=== PATIENT | female | born 1940 | race American Indian/Alaskan Native ===

== ENCOUNTER 2017-03-05 10:42 | Outpatient (CLI) | payer MEDICARE ==
--- NOTE | 2017-03-05 13:26 | Mammography Report ---
BILATERAL MAMMOGRAM with CAD: HISTORY:Cancer screening. Comparison study is dated February 26, 2016. FINDINGS: The breasts are almost entirely fat (<25% glandular). No mass, distortion, suspicious calcification, or skin change is seen. Stable benign calcifications are noted. IMPRESSION: Negative mammogram. There is no mammographic evidence of malignancy. RECOMMENDATION: Follow-up per ACS guidelines. BI-RADS CATEGORY: 1 = Negative ACR BI-RADS MAMMOGRAPHIC CODES: 0 = Needs additional imaging evaluation; 1 = Negative; 2 = Benign; 3 = Probably benign; 4 = Suspicious; 5 = Malignant; 6 = Known biopsy-proven malignancy COMMENT: 1. Dense breast tissue, i.e., adenosis, fibrocystic changes, etc., may obscure an underlying neoplasm. 2. Approximately 10% of cancers are not detected with mammography. 3. A negative mammography report should not delay biopsy if a clinically suspicious mass is present. COMMENT: Patient follow-up letters are generated in [employer].
== END 2017-03-05 10:43 | disposition home or self-care (01) ==
LOC: MAMMO 10:42
DX: Z12.31 Encounter for screening mammogram for malignant neoplasm of breast (principal)
CPT/HCPCS: 77067; G0202

== ENCOUNTER 2017-12-29 07:50 | Day surgery (SDC) | payer MEDICARE ==
[2017-12-29] MEDS ORDERED: NACL 0.9% 1000 ML 1,000 ML ONE (08:11)
[2017-12-29] MEDS ORDERED: NACL 0.9% 1000 ML 1,000 ML IV SCH (09:00)
[2017-12-29] MEDS ORDERED: WATER FOR IRRIG STERILE IR ONE (09:46)
--- NOTE | 2017-12-29 09:58 | Anesthesia Day of Surgery ---
Anesthesia Day of Surgery - Day of Surgery Patient Examined: Yes Patient H&P Reviewed: Yes Patient is NPO: Yes
--- NOTE | 2017-12-29 09:58 | Anesthesia Consultation ---
Anesthesia Consult and Med Hx Date of service: 12/29/17 - Airway Anesthetic Teeth Evaluation: Edentulous ROM Head & Neck: Adequate Mental/Hyoid Distance: Adequate Mallampati Class: Class I Intubation Access Assessment: Probably Good - Pre-Operative Health Status ASA Pre-Surgery Classification: ASA3 Proposed Anesthetic Plan: General - Pulmonary Hx Smoking: No Hx Asthma: Yes COPD: No Hx Pneumonia: No Hx Sleep Apnea: No - Cardiovascular System Hx Hypertension: Yes - Central Nervous System Hx Psychiatric Problems: No - Endocrine Hx Insulin Dependent Diabetes: Yes - Hematic Hx Anemia: Yes - Other Systems Hx Cancer: Yes (colon) Hx Obesity: Yes - Additional Comments Anesthesia Medical History Comments: NAC
[2017-12-29] MEDS ORDERED: DIPRIVAN 10 MG/ML IV ONE ×2 (10:01)
--- NOTE | 2017-12-29 10:02 | Short Stay Summary ---
Short Stay Documentation Date of service: 12/29/17 Narrative H&P: 77 year old presenting for EGD to follow up Fulton's and for colonoscopy in view of a history of colon polyps. - History Principal diagnosis: Fulton's esophagus, personal hx colon polyps H&P: obtained from office Past Medical History: COPD (asthma), diabetes, hypertension Past Surgical History: hysterectomy, bowel surgery - Allergies and Medications Current Medications: Allergies latex Allergy (Verified 12/29/17 08:16) Itching Home Medications Medication Instructions Recorded Confirmed Last Taken Type Amlodipine Besylate/Benazepril 1 cap PO DAILY 09/18/15 12/29/17 12/29/17 06:30 History [Amlodipine-Benazepril 5-20 mg] Aspirin BABY CHEW TAB 81 mg PO DAILY 09/18/15 12/29/17 12/22/17 17:00 History Hydrochlorothiazide 1 tab PO DAILY 09/18/15 12/29/17 12/26/17 09:00 History Insulin Aspart Protam & Aspart 50 units SC QAM 09/18/15 12/29/17 12/27/17 08:00 History [NovoLOG Mix 70-30 Flexpen] Insulin Aspart Protam & Aspart 50 units SC QHS 09/18/15 12/29/17 12/28/17 18:00 History [NovoLOG Mix 70-30 Flexpen] Ranitidine HCl [Zantac 150 MG TAB] 150 mg PO BID 12/29/17 12/29/17 12/27/17 15: 00 History cloNIDine [Catapres] 0.2 mg PO QHS 12/29/17 12/29/17 12/27/17 21:00 History Active Medications Sodium Chloride (Nacl 0.9% 1000 Ml) 1,000 mls @ 50 mls/hr IV DIRECT JONATHAN - Physical exam General appearance: no acute distress HEENT: PERRLA, EOMI Lungs: Clear to auscultation Heart: Regular rate, Normal S1, Normal S2 Gastrointestinal: normal, obese Neurological: Normal speech - Hospital course Hospital course: Uneventful EGD and colonoscopy. - Disposition Condition at discharge: Good Disposition: [id number] TO HOME OR SELFCARE - Discharge Diagnoses (1) Duodenitis Status: Acute (2) Personal history of colon cancer Status: Acute (3) Personal history of colonic polyps Status: Acute (4) Diverticulosis Status: Acute (5) Internal hemorrhoids Status: Acute (6) Fulton's esophagus Status: Acute Comment: suspected (7) Hiatal hernia Status: Acute Short Stay Discharge Plan Activity: other (no driving today) Diet: other (resume usual diet) Additional Instructions: 1. Patient to call for biopsy results in 10-14 days. 2. Continue current medication for acid reflux (ranitidine). 3. Office follow up 6 months. 4. Repeating colonoscopy in 5 years will be optional at your age. Follow up with: NAYELI TYLER MD [Primary Care Provider] - 7 Days
--- NOTE | 2017-12-29 10:41 | Operative Report ---
Operative Report Operative Report: Date of procedure: 12/29/2017 Preprocedure diagnosis: Fulton's disease and esophagus surveillance exam, personal history of colon cancer and colon polyps surveillance exam Post procedure diagnosis: Erosive duodenitis, Fulton's disease and esophagus, hiatal hernia, diverticulosis coli, internal hemorrhoids, postsurgical change, no polyp recurrence Procedure name(s): Esophagogastroduodenoscopy with biopsy, colonoscopy Surgeon: Ren Umana MD Anesthesia: Monitored anesthesia care EBL: Less than 1-2 mL Procedure: The indications, techniques, potential complications and alternatives , had been discussed in full detail prior to the date of the exam, and once again on the day of the exam. Questions were encouraged and answered, and consent was thereby obtained. The patient was placed in the left lateral decubitus position, and was medicated by anesthesia services. See the anesthesia records for details. The tip of a UB.n video panendoscope was passed without difficulty through the pharynx and into the esophagus which essentially appeared normal throughout its entire length. There was questionable subtle irregularity of the Z line but no definite gross Fulton's and no sign of inflammation. A small to moderate-sized hiatal hernia was traversed as he instrument was advanced into the stomach. Air was insufflated. The stomach distended well, the gastric folds were normal in thickness and contour, the pylorus was patent and there was no retained gastric content. She mucosa appeared normal throughout. The instrument was advanced into the duodenum. Multiple erosions were seen in the bulb, with no abnormality in the post bulbar duodenum to below the level of the ampulla. Retroflexion in the stomach disclosed no additional pathology involving the lesser curvature, fundus or cardia. Biopsies were obtained from the duodenum for histology and from the distal esophagus just below the Z line for histology. There was no significant bleeding from any biopsy site. The instrument was fully withdrawn. The procedure was well-tolerated. She was placed in position for colonoscopy. The anal sphincter was digitally dilated. The digital exam was unremarkable. The tip of a [employer] adult video colonoscope was inserted through the anal sphincter and into the rectal vault. It was then advanced proximally under continuous visualization of the lumen through a tortuous sigmoid colon to the ileocolic anastomosis which was widely patent and easily traversed. The anastomosis was located in the transverse colon. The appearance was normal. The instrument was then slowly withdrawn with careful circumferential examination of the mucosa. No pathology was seen in the remaining transverse colon, splenic flexure or majority of descending colon. Moderate diverticulosis was present in the distal descending and throughout the sigmoid colon. No polyps were found. The rectum appeared normal from the forward view. Retroflexion in the rectum revealed small internal hemorrhoids. The instrument was straightened and withdrawn. The procedure was well-tolerated. She was then monitored in the recovery area of the GI lab to ensure stability prior to her release. See the outpatient record for details regarding instructions to patient, medications and plans for follow-up. Final diagnosis: 1. Erosive bulbar duodenitis 2. History of established Fulton's esophagus, grossly minimally - if at all - present at this exam 3. Hiatal hernia 4. Diverticulosis 5. Internal hemorrhoids 6. Ileocolic anastomosis 7. No polyp recurrence at this time Ren Umana M.D. Dictated 12/29/2017 at 10:38 AM
[2017-12-29 11:01] VITALS: BP 163/70
== END 2017-12-29 07:51 | disposition home or self-care (01) ==
LOC: GIO 07:50
PROVIDERS: ATTEND Internal Medicine Gastroenterology
DX: Z08 Encounter for follow-up examination after completed treatment for malignant neoplasm (principal); K29.80 Duodenitis without bleeding; K57.90 Diverticulosis of intestine, part unspecified, without perforation or abscess without bleeding; K64.8 Other hemorrhoids; K44.9 Diaphragmatic hernia without obstruction or gangrene; K22.70 Barrett's esophagus without dysplasia; K22.9 Disease of esophagus, unspecified; J44.9 Chronic obstructive pulmonary disease, unspecified; I10 Essential (primary) hypertension; E11.9 Type 2 diabetes mellitus without complications; E66.9 Obesity, unspecified; Z68.42 Body mass index [BMI] 45.0-49.9, adult; Z98.0 Intestinal bypass and anastomosis status; Z90.710 Acquired absence of both cervix and uterus; Z98.890 Other specified postprocedural states; Z91.040 Latex allergy status; Z79.82 Long term (current) use of aspirin; Z79.4 Long term (current) use of insulin; Z85.038 Personal history of other malignant neoplasm of large intestine
CPT/HCPCS: 43239; 45378; 82962; 88305; J2704; J7030

== ENCOUNTER 2018-04-07 09:18 | Outpatient (CLI) | payer MEDICARE ==
--- NOTE | 2018-04-08 08:32 | Mammography Report ---
Bilateral mammogram: Compared to 03/05/17. CAD study utilized. Findings: Predominance of adipose tissue bilaterally. Post biopsy changes left breast stable. Benign calcifications right breast without interval change. Normal axilla. Next Impression: Benign findings. Annual followup recommended. BI-RADS CATEGORY: 2 = Benign ACR BI-RADS MAMMOGRAPHIC CODES: 0 = Needs additional imaging evaluation; 1 = Negative; 2 = Benign; 3 = Probably benign; 4 = Suspicious; 5 = Malignant; 6 = Known biopsy-proven malignancy COMMENT: 1. Dense breast tissue, i.e., adenosis, fibrocystic changes, etc., may obscure an underlying neoplasm. 2. Approximately 10% of cancers are not detected with mammography. 3. A negative mammography report should not delay biopsy if a clinically suspicious mass is present. COMMENT: Patient follow-up letters are generated in [employer].
== END 2018-04-07 09:19 | disposition home or self-care (01) ==
LOC: MAMMO 09:18
PROVIDERS: ATTEND Internal Medicine Gastroenterology
DX: Z12.31 Encounter for screening mammogram for malignant neoplasm of breast (principal)
CPT/HCPCS: 77067

== ENCOUNTER 2018-12-17 00:29 | Emergency (ER) | payer MEDICARE ==
[2018-12-17] MEDS ORDERED: TYLENOL PO ONE (01:08)
[2018-12-17] MEDS ORDERED: TYLENOL ONE (01:11)
[2018-12-17 02:33] VITALS: BP 178/82
--- NOTE | 2018-12-17 02:41 | XRay Report ---
FINAL REPORT EXAM: XR TIBIA FIBULA 2V LT HISTORY: L leg/knee pain s/p GLF TECHNIQUE: AP and lateral views of the left mid to distal tibia and fibula and a lateral view of the left knee PRIORS: None. FINDINGS: The bones are diffusely demineralized. Osseous alignment is normal. There is no evidence of fracture or subluxation. There is severe patellofemoral joint space narrowing, subchondral sclerosis and osteo phyte formation. The soft tissues are unremarkable. IMPRESSION: No evidence of acute injury.
--- NOTE | 2018-12-17 03:45 | XRay Report ---
FINAL REPORT EXAM: XR KNEE 3V LT HISTORY: L knee pain s/p GLF TECHNIQUE: Multiple views of the left knee PRIORS: None. FINDINGS: There is mild irregularity of the lateral margin of the proximal tibia. The tibial plateau appears to be intact. There is a joint effusion. There is a small ossification along the lateral joint line mos t likely from prior ligamentous injury. The bones are normally aligned and mineralized. There is mild beaking of the tibial spines. There is severe narrowing of the patellofemoral joint with prominent o steophyte formation. The medial and lateral joint spaces are well-preserved. IMPRESSION: 1. Question proximal lateral tibial fracture. Consider further evaluation with CT 2. Joint effusion. 3. Advanced osteoarthrosis of the patellofemoral joint
--- NOTE | 2018-12-17 04:06 | Emergency Department Report ---
ED Fall HPI - General Chief Complaint: Fall Stated Complaint: LEG PAIN Time Seen by Provider: 12/17/18 03:56 Source: patient Mode of arrival: Ambulatory - History of Present Illness Initial Comments: 78-year-old -[place] female with a past medical history of diabetes, hypertension, asthma, acid reflux and a history of colon cancer that has been in remission for 20 years. Patient comes in status post ground-level fall in the kitchen with complaint of left knees leg pain. Patient denies hitting her head denies any weakness or dizziness prior to falling. Patient reports she is unable to bear any weight. She reports she can't raise it up. Complaint: fall - Related Data Home Medications Medication Instructions Recorded Confirmed Last Taken Amlodipine Besylate/Benazepril 1 cap PO DAILY 09/18/15 12/29/17 12/29/17 06:30 [Amlodipine-Benazepril 5-20 mg] Aspirin BABY CHEW TAB 81 mg PO DAILY 09/18/15 12/29/17 12/22/17 17:00 Insulin Aspart Protam & Aspart 50 units SC QAM 09/18/15 12/29/17 12/27/17 08:00 [NovoLOG Mix 70-30 Flexpen] Insulin Aspart Protam & Aspart 50 units SC QHS 09/18/15 12/29/17 12/28/17 18:00 [NovoLOG Mix 70-30 Flexpen] hydroCHLOROthiazide 1 tab PO DAILY 09/18/15 12/29/17 12/26/17 09:00 [Hydrochlorothiazide] Ranitidine HCl [Zantac 150 MG TAB] 150 mg PO BID 12/29/17 12/29/17 12/27/17 15:00 cloNIDine [Catapres] 0.2 mg PO QHS 12/29/17 12/29/17 12/27/17 21:00 Previous Rx's Medication Instructions Recorded Last Taken Type traMADol [Ultram 50 MG tab] 50 mg PO Q6HR #12 tablet 12/17/18 Unknown Rx Allergies Allergy/AdvReac Type Severity Reaction Status Date / Time latex Allergy Itching Verified 12/29/17 08:16 shellfish Allergy Swelling Uncoded 12/17/18 00:58 ED Review of Systems ROS: Stated complaint: LEG PAIN Other details as noted in HPI ED Past Medical Hx - Past Medical History Previous Medical History?: Yes Hx Hypertension: Yes Hx Diabetes: Yes Hx of Cancer: Yes (colon) Hx Asthma: Yes Hx COPD: No Hx HIV: No - Surgical History Past Surgical History?: Yes Additional Surgical History: hysterectomy "in the s". chest sx "a growth behind my lungs", "in the 80s". colon sx, 1997 - Social History Smoking Status: Never Smoker - Medications Home Medications: Home Medications Medication Instructions Recorded Confirmed Last Taken Type Amlodipine Besylate/Benazepril 1 cap PO DAILY 09/18/15 12/29/17 12/29/17 06:30 History [Amlodipine-Benazepril 5-20 mg] Aspirin BABY CHEW TAB 81 mg PO DAILY 09/18/15 12/29/17 12/22/17 17:00 History Insulin Aspart Protam & Aspart 50 units SC QAM 09/18/15 12/29/17 12/27/17 08:00 History [NovoLOG Mix 70-30 Flexpen] Insulin Aspart Protam & Aspart 50 units SC QHS 09/18/15 12/29/17 12/28/17 18:00 History [NovoLOG Mix 70-30 Flexpen] hydroCHLOROthiazide 1 tab PO DAILY 09/18/15 12/29/17 12/26/17 09:00 History [Hydrochlorothiazide] Ranitidine HCl [Zantac 150 MG TAB] 150 mg PO BID 12/29/17 12/29/17 12/27/17 15:00 History cloNIDine [Catapres] 0.2 mg PO QHS 12/29/17 12/29/17 12/27/17 21:00 History traMADol [Ultram 50 MG tab] 50 mg PO Q6HR #12 tablet 12/17/18 Unknown Rx ED Physical Exam - General Limitations: No Limitations General appearance: alert, in no apparent distress, obese - Head Head exam: Present: atraumatic, normocephalic - Eye Eye exam: Present: EOMI - ENT ENT exam: Present: mucous membranes moist - Neck Neck exam: Present: normal inspection, full ROM - Respiratory Respiratory exam: Present: normal lung sounds bilaterally. Absent: respiratory distress - Cardiovascular Cardiovascular Exam: Present: regular rate, normal rhythm. Absent: systolic murmur, diastolic murmur, rubs, gallop - GI/Abdominal GI/Abdominal exam: Present: soft, normal bowel sounds - Expanded Lower Extremity Exam Left Hip exam: Present: normal inspection, full ROM Upper Leg exam: Present: normal inspection Knee exam: Present: full ROM, tenderness, swelling Lower Leg exam: Present: full ROM Ankle exam: Present: normal inspection Foot/Toe exam: Present: normal inspection, full ROM Neuro vascular tendon exam: Present: no vascular compromise - Neurological Exam Neurological exam: Present: alert, oriented X3 - Psychiatric Psychiatric exam: Present: normal affect, normal mood - Skin Skin exam: Present: warm, dry, intact, normal color. Absent: rash ED Course Vital Signs 12/17/18 12/17/18 12/17/18 00:49 01:00 01:17 Temperature 98.6 F 98.6 F Pulse Rate 113 H 110 H Respiratory 16 18 18 Rate Blood Pressure 186/94 186/94 Blood Pressure [Right] O2 Sat by Pulse 97 96 Oximetry 12/17/18 12/17/18 02:32 07:09 Temperature Pulse Rate 64 82 Respiratory 17 18 Rate Blood Pressure Blood Pressure 178/82 [Right] O2 Sat by Pulse 97 99 Oximetry ED Medical Decision Making - Radiology Data Radiology results: report reviewed FINAL REPORT EXAM: XR TIBIA FIBULA 2V LT HISTORY: L leg/knee pain s/p GLF TECHNIQUE: AP and lateral views of the left mid to distal tibia and fibula and a lateral view of the left knee PRIORS: None. FINDINGS: The bones are diffusely demineralized. Osseous alignment is normal. There is no evidence of fracture or subluxation. There is severe patellofemoral joint space narrowing, subchondral sclerosis and osteophyte formation. The soft tissues are unremarkable. IMPRESSION: No evidence of acute injury. Transcribed By: [facility] Dictated By: PAULA RODRIGUEZ MD Electronically Authenticated By: PAULA RODRIGUEZ MD Signed Date/Time: 12/17/18240 DD/ 1 TD/TT: 12/17/18241 EXAM: XR KNEE 3V LT HISTORY: L knee pain s/p GLF TECHNIQUE: Multiple views of the left knee PRIORS: None. FINDINGS: There is mild irregularity of the lateral margin of the proximal tibia. The tibial plateau appears to be intact. There is a joint effusion. There is a small ossification along the lateral joint line most likely from prior ligamentous injury. The bones are normally aligned and mineralized. There is mild beaking of the tibial spines. There is severe narrowing of the patellofemoral joint with prominent osteophyte formation. The medial and lateral joint spaces are well- preserved. IMPRESSION: 1. Question proximal lateral tibial fracture. Consider further evaluation with CT 2. Joint effusion. 3. Advanced osteoarthrosis of the patellofemoral joint Transcribed By: PJ Dictated By: PAULA RODRIGUEZ MD Electronically Authenticated By: PAULA RODRIGUEZ MD Signed Date/Time: 12/17/18344 FINAL REPORT EXAM: CT LOWER EXTREMITY LT WO CON HISTORY: fall questionable proximal tib fracture TECHNIQUE: CT images are acquired through the left knee without contrast. Transaxial reformations are provided. PRIORS: Left leg and knee radiographs of the same date FINDINGS: A suprapatellar joint effusion is present. There are linear mildly displaced fracture fragments at the posterior-lateral aspect of the tibial plateau measuring up to 13 millimeters on axial series 2, image 37. Additional linear fragmented calcifications are present in the intercondylar notch on coronal image 63 and axial image 27 measuring up to around 1 cm. Moderate tricompartmental osteoarthrosis. Periarticular soft tissue swelling. IMPRESSION: Small fracture fragments at the posterior-lateral aspect of the tibia and possibly within the intercondylar notch raise suspicion for a Segond fracture pattern, posterior- lateral corner injury and ACL disruption. Medial collateral ligamentous injuries also a concern given the pattern of edema along the medial knee. Transcribed By: NOEMI Dictated By: YOLY SORTO MD Electronically Authenticated By: YOLY SORTO MD Signed Date/Time: 12/17/18 0521 DD/ 6 TD/TT: 12/17/18346 - Medical Decision Making Patient has been evaluated by this provider in fast track. Patient given tramadol for pain management. X-ray of tib-fib recommends a CT for concern of a possible proximal fracture of the tibia. CT shows the patient has a fragmented posterior lateral tibia and ligament injury. Patient will be placed in a knee immobilizer before able to fit her into one. Referral to orthopedics. Patient be placed on tramadol for pain management. With specific instructions to not bear weight on leg. Critical care attestation.: If time is entered above; I have spent that time in minutes in the direct care of this critically ill patient, excluding procedure time. ED Disposition Clinical Impression: Fracture of tibia, proximal, closed Qualifiers: Encounter type: initial encounter Fracture morphology: other fracture Laterality: left Qualified Code(s): S82.192A - Other fracture of upper end of left tibia, initial encounter for closed fracture Injury of ligament of left knee Qualifiers: Encounter type: initial encounter Qualified Code(s): S89.92XA - Unspecified injury of left lower leg, initial encounter Fall Qualifiers: Encounter type: initial encounter Qualified Code(s): W19.XXXA - Unspecified fall, initial encounter Disposition: TO HOME OR SELFCARE Is pt being admited?: No Does the pt Need Aspirin: No Condition: Stable Instructions: Leg Fracture (ED), Anterior Cruciate Ligament Injury (ED), Fall Prevention for Older Adults (ED), Knee Immobilizer (ED) Additional Instructions: Please wear knee immobilizer. Do not bear weight on left leg. It's very important for him to follow up with orthopedic surgeon. I have listed several below for your convenience. Prescriptions: traMADol [Ultram 50 MG tab] 50 mg PO Q6HR #12 tablet Referrals: PRIMARY CARE, [Primary Care Provider] - 3-5 Days RUTHIE BYRAN MD [Staff Physician] - 3-5 Days JAMES GODWIN MD [Staff Physician] - 3-5 Days BILLY DWYER MD [Staff Physician] - 3-5 Days Forms: Accompanied Note
[2018-12-17] MEDS ORDERED: ULTRAM PO ONE (04:08)
--- NOTE | 2018-12-17 05:21 | Cat Scan Report ---
FINAL REPORT EXAM: CT LOWER EXTREMITY LT WO CON HISTORY: fall questionable proximal tib fracture TECHNIQUE: CT images are acquired through the left knee without contrast. Transaxial reformations a re provided. PRIORS: Left leg and knee radiographs of the same date FINDINGS: A suprapatellar joint effusion is present. There are linear mildly displaced fracture fragments at the posterior-lateral aspect of the tibial pl ateau measuring up to 13 millimeters on axial series 2, image 37. Additional linear fragmented calcifications are present in the intercondylar notch on coronal image 6 3 and axial image 27 measuring up to around 1 cm. Moderate tricompartmental osteoarthrosis. Periarticular soft tissue swelling. IMPRESSION: Small fracture fragments at the posterior-lateral aspect of the tibia and possibly within the interco ndylar notch raise suspicion for a Segond fracture pattern, posterior-lateral corner injury and ACL d isruption. Medial collateral ligamentous injuries also a concern given the pattern of edema along the medial knee.
[2018-12-17] MEDS ORDERED: IBUPROFEN PO ONE ×2 (06:04→06:05)
== END 2018-12-17 07:09 | disposition home or self-care (01) ==
LOC: ED 00:29
DX: S82.122A Displaced fracture of lateral condyle of left tibia, initial encounter for closed fracture (principal); S89.92XA Unspecified injury of left lower leg, initial encounter; I10 Essential (primary) hypertension; E11.9 Type 2 diabetes mellitus without complications; J45.909 Unspecified asthma, uncomplicated; Z90.710 Acquired absence of both cervix and uterus; Z91.040 Latex allergy status; Z91.013 Allergy to seafood; W18.30XA Fall on same level, unspecified, initial encounter; Y93.89 Activity, other specified; Y92.000 Kitchen of unspecified non-institutional (private) residence as the place of occurrence of the external cause; Y99.8 Other external cause status

== ENCOUNTER 2021-06-15 02:58 | Inpatient (IN) | payer MEDICARE ==
--- NOTE | 2021-06-15 03:05 | Emergency Department Report ---
ED CPR HPI - General Chief Complaint: Cardiac Arrest/CPR Stated Complaint: CARDIAC ARREST Time Seen by Provider: 06/15/21 03:03 Source: EMS Mode of arrival: Stretcher Limitations: Altered Mental Status, Physical Limitation - History of Present Illness Initial Comments: Patient is a 81-year-old female who presents emergency room with cardiac arrest. EMS states that the family witnessed her collapse. EMS arrived on scene and CPR was started and the patient was given 2 rounds of epi and the patient had return of spontaneous circulation. MD Complaint: stopped breathing, collapsed during rest -: minute(s) Place: home Bystander CPR Performed: Yes AED Applied by Bystander/Teacher [employer]: No Initial Findings in the Field: unresponsive, no respirations, no pulse ROSC in the Field: Yes Associated Injuries: No Treatments Prior to Arrival: intubation, BMV, other airway device, chest compressions, epinephrine mgs # - Related Data Home Medications Medication Instructions Recorded Confirmed Last Taken Aspirin BABY CHEW TAB 81 mg PO DAILY 09/18/15 06/15/21 06/14/21 00:00 RX: Amlodipine Besylate/Benazepril 1 cap PO DAILY 09/18/15 06/15/21 06/14/21 00:00 [Amlodipine-Benazepril 5-20 mg] RX: Insulin Aspart Protam & Aspart 50 units SC QAM 09/18/15 06/15/21 06/14/21 00:00 [NovoLOG Mix 70-30 Flexpen] RX: Insulin Aspart Protam & Aspart 50 units SC QHS 09/18/15 06/15/21 12/28/17 18:00 [NovoLOG Mix 70-30 Flexpen] RX: hydroCHLOROthiazide 1 tab PO DAILY 09/18/15 06/15/21 06/14/21 00:00 [Hydrochlorothiazide] RX: cloNIDine [Catapres] 0.2 mg PO QHS 12/29/17 06/15/21 12/27/17 21:00 RX: raNITIdine HCl [Zantac] 150 mg PO BID 12/29/17 06/15/21 06/14/21 00:00 Benazepril (Nf) 40 mg PO DAILY 06/15/21 06/15/21 06/14/21 Insulin Aspart Prot/Insuln Asp 100 unit SQ BID 06/15/21 06/15/21 Unknown [Novolog Mix 70-30 Flexpen Syrn] RX: Hydralazine HCl 100 mg PO BID 06/15/21 06/15/21 06/14/21 00:00 RX: traMADoL [Ultram 50 MG tab] 50 mg PO PRN 06/15/21 06/15/21 Unknown Allergies Allergy/AdvReac Type Severity Reaction Status Date / Time latex Allergy Itching Verified 12/29/17 08:16 shellfish Allergy Swelling Uncoded 12/17/18 00:58 ED Review of Systems ROS: Stated complaint: CARDIAC ARREST Other details as noted in HPI Comment: Unobtainable due to pts medical conditions ED Past Medical Hx - Past Medical History Hx Hypertension: Yes Hx Diabetes: Yes Hx Arthritis: Yes Hx Asthma: Yes Hx COPD: No Hx HIV: No - Surgical History Past Surgical History?: Yes Additional Surgical History: hysterectomy "in the s". 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 colon sx, 1997 - Family History Family history: no significant - Social History Smoking Status: Never Smoker Substance Use Type: None - Medications Home Medications: Home Medications Medication Instructions Recorded Confirmed Last Taken Type Aspirin BABY CHEW TAB 81 mg PO DAILY 09/18/15 06/15/21 06/14/21 00:00 History RX: Amlodipine Besylate/Benazepril 1 cap PO DAILY 09/18/15 06/15/21 06/14/21 00:00 History [Amlodipine-Benazepril 5-20 mg] RX: Insulin Aspart Protam & Aspart 50 units SC QAM 09/18/15 06/15/21 06/14/21 00:00 History [NovoLOG Mix 70-30 Flexpen] RX: Insulin Aspart Protam & Aspart 50 units SC QHS 09/18/15 06/15/21 12/28/17 18:00 History [NovoLOG Mix 70-30 Flexpen] RX: hydroCHLOROthiazide 1 tab PO DAILY 09/18/15 06/15/21 06/14/21 00:00 History [Hydrochlorothiazide] RX: cloNIDine [Catapres] 0.2 mg PO QHS 12/29/17 06/15/21 12/27/17 21:00 History RX: raNITIdine HCl [Zantac] 150 mg PO BID 12/29/17 06/15/21 06/14/21 00:00 History Benazepril (Nf) 40 mg PO DAILY 06/15/21 06/15/21 06/14/21 History Insulin Aspart Prot/Insuln Asp 100 unit SQ BID 06/15/21 06/15/21 Unknown History [Novolog Mix 70-30 Flexpen Syrn] RX: Hydralazine HCl 100 mg PO BID 06/15/21 06/15/21 06/14/21 00:00 History RX: traMADoL [Ultram 50 MG tab] 50 mg PO PRN 06/15/21 06/15/21 Unknown History ED Course Vital Signs 06/15/21 06/15/21 06/15/21 03:13 03:16 03:25 Pulse Rate 108 H 119 H 92 H Respiratory 22 18 Rate Blood Pressure 85/54 112/62 Blood Pressure 85/54 [Right] O2 Sat by Pulse 97 96 96 Oximetry 06/15/21 06/15/21 06/15/21 03:30 04:00 04:16 Pulse Rate 92 H 88 86 Respiratory 20 20 20 Rate Blood Pressure 112/62 175/92 159/80 Blood Pressure [Right] O2 Sat by Pulse 100 100 100 Oximetry 06/15/21 06/15/21 06/15/21 04:30 04:46 05:00 Pulse Rate 84 82 82 Respiratory 20 20 20 Rate Blood Pressure 154/80 155/79 154/82 Blood Pressure [Right] O2 Sat by Pulse 100 100 100 Oximetry 06/15/21 06/15/21 06/15/21 05:16 05:30 05:46 Pulse Rate 80 79 78 Respiratory 21 20 20 Rate Blood Pressure 161/85 166/86 153/86 Blood Pressure [Right] O2 Sat by Pulse 99 99 99 Oximetry 06/15/21 06/15/21 06/15/21 06:00 06:16 06:30 Pulse Rate 77 78 77 Respiratory 19 20 20 Rate Blood Pressure 164/86 172/93 166/90 Blood Pressure [Right] O2 Sat by Pulse 100 99 100 Oximetry 06/15/21 06/15/21 06/15/21 06:46 07:00 07:16 Pulse Rate 76 77 77 Respiratory 22 20 20 Rate Blood Pressure 167/90 167/90 173/89 Blood Pressure [Right] O2 Sat by Pulse 99 99 99 Oximetry 06/15/21 06/15/21 06/15/21 07:30 08:00 08:30 Pulse Rate 77 78 77 Respiratory 25 H 19 20 Rate Blood Pressure 179/90 175/91 180/92 Blood Pressure [Right] O2 Sat by Pulse 98 99 100 Oximetry 06/15/21 06/15/21 06/15/21 08:41 09:00 09:30 Pulse Rate 80 79 80 Respiratory 23 22 Rate Blood Pressure 178/96 180/92 178/96 Blood Pressure [Right] O2 Sat by Pulse 199 H 95 94 Oximetry - Reevaluation(s) Reevaluation #1: Patient connected to the environmental monitoring technician. Patient was intubated by EMS with an LMA. Patient's LMA will be removed and the patient will be intubated with a standard ET tube. See procedure note. 06/15/21 03:15 Reevaluation #2: Patient intubated without difficulty. Patient however chest x-ray done. 06/15/21 03:25 \\ Reevaluation #3: Patient's vital signs are stable. Patient's blood pressure stable. Patient comfortably on the ventilator. 06/15/21 04:15 Reevaluation #4: Patient admitted to the hospital service. 06/15/21 06:00 - Consultations Consultation #1: Hospitalist consulted for admission. Hospitalist to admit patient. 06/15/21 06:00 - Intubation Time Out Performed: Yes Sedative: none Laryngoscope: fiberoptic video scope Size: 4 Assist Device Used: fiberoptic device ET Tube Size: 7.5 Tube Secured Depth (cm): 22 Tube Secured Location: teeth Tube Placement Confirmation: visualized tube passing t, equal breath sounds bilat, no breath sounds over epi, confirmation by capnometr Patient Tolerated Procedure: well, no complications Intubation Complications: none ED Medical Decision Making - Lab Data Result diagrams: 06/15/21 03:30 06/15/21 03:30 - EKG Data -: EKG Interpreted by Me EKG shows normal: sinus rhythm, axis, intervals, QRS complexes, ST-T waves Rate: normal - Radiology Data Radiology results: report reviewed, image reviewed interpreted by me: Chest x-ray: pos pneumonia, no pneumothorax, ET tube and NG in good placement., no osseous findings, ADDENDUM Addendum: As original report states: NG tube is within the stomach. The NG tube is folded back onto itself within the fundus of the stomach. The kinking of the NG tube may need to be addressed with pulling back on the tube and further advancing. The ET tube is very difficult to visualize however appears at the level of thoracic inlet. Follow- up chest x-ray recommended. Signer Name: Arnold Bravo MD Signed: 06/15/2021 5:59 AM Workstation Name: [id number] Addendum Transcribed By: BRANDY Addendum Dictated By: ANNE-MARIE BRAVO MD Addendum Electronically Authenticated By: ANNE-MARIE BRAVO MD Addendum Signed Date/Time: 06/15/21558 DD/ TD/TT: / CHEST 1 VIEW 06/15/2021 2:57 AM INDICATION / CLINICAL INFORMATION: chest pain. COMPARISON: None available. FINDINGS: SUPPORT DEVICES: NG tube is within the stomach HEART / MEDIASTINUM: No significant abnormality. LUNGS / PLEURA: Bilateral pulmonary opacities most significant in left lower lung and right upper lung. No pneumothorax. CHEST 1 VIEW 06/15/2021 6:16 AM INDICATION / CLINICAL INFORMATION: intubation. COMPARISON: None available. FINDINGS: SUPPORT DEVICES: ET tube is 4.3 cm above the jason HEART / MEDIASTINUM: No significant abnormality. LUNGS / PLEURA: Diffuse bilateral pulmonary opacities No pneumothorax. ADDITIONAL FINDINGS: No significant additional findings. IMPRESSION: 1. ET tube is in satisfactory position - Medical Decision Making Patient is a 81-year-old female presents emergency room with cardiac arrest. Patient brought in by EMS. Report received from EMS. EMS states that patient has had a witnessed arrest by the family and the patient was sitting at the table and then lost consciousness. EMS started CPR and ACLS protocols and gave 2 rounds of epi and had return of spontaneous regulation in the field. Patient was intubated with an LMA and the patient was extubated in the ER and then reintubated with a standard ET tube. Patient was intubated without difficulty. See procedure note. Patient was initially hypotensive and and the patient given fluids and her blood pressure dramatically improved. Patient had an EKG which shows no acute finding and no ST changes. Patient had a chest x-ray which shows pneumonia and satisfactory placement of the ET tube and NG tube. I personally reviewed the EKG and chest x-ray. Patient had labs done which showed renal insufficiency and elevated troponin. Patient's troponin was monitored by the hospitalist service. Patient admitted to the hospital service for further evaluation treatment and into the ICU. Critical care time documented due to the multiple reassessments, prolonged time at the bedside, interpretation of diagnostics and labs. - Differential Diagnosis Cardiac arrest, [place], ACS, pneumonia, sepsis, Critical Care Time: Yes Critical care time in (mins) excluding proc time.: 80 Critical care attestation.: If time is entered above; I have spent that time in minutes in the direct care of this critically ill patient, excluding procedure time. Critical Care Time: 80 minutes ED Disposition Clinical Impression: Cardiac arrest, Elevated troponin, Renal insufficiency, Cardiopulmonary arrest Disposition: DC-[id number] OP ADMIT IP TO THIS HOSP Is pt being admited?: Yes Does the pt Need Aspirin: No Condition: Critical Time of Disposition: 06:01
[2021-06-15] MEDS ORDERED: ASPIRIN 300 MG RECT SUPP PR ONE (03:06)
[2021-06-15] MEDS ORDERED: LIP THERAPY VASELINE TP PRN (03:06)
[2021-06-15] MEDS ORDERED: MINERAL OIL/PETROLATUM, WHITE OPHTH OINT 3.5 GM OU PRN (03:06)
[2021-06-15] MEDS ORDERED: fentaNYL 100 MCG/2 ML INJ IV PRN (03:06)
[2021-06-15] MEDS ORDERED: SODIUM CHLORIDE 0.9% 1000 ML 1,000 ML IV ONE (03:12)
[2021-06-15] MEDS: fentaNYL DRIP Premix 2,000 MCG/100 ML BAG IV SCH ×3 (03:38→22:45)
[2021-06-15 04:07] LABS: Basophils # (Auto) 0.1 K/mm3 (0.0-0.1); Eosinophils % (Auto) 0.2 % (0.0-4.3); Lymphocytes # (Auto) 1.1 K/mm3 (1.2-5.4); Lymphocytes % (Auto) 12.8 % (13.4-35.0); Mean Corpuscular HGB Conc 29 % (30-34); Mean Corpuscular Volume 82 fl (79-97); Monocytes # (Auto) 0.5 K/mm3 (0.0-0.8); Monocytes % (Auto) 5.6 % (0.0-7.3); Platelet Count 176 K/mm3 (140-440); Red Blood Count 4.75 M/mm3 (3.65-5.03); Red Cell Distribution Width 15.8 % (13.2-15.2)
[2021-06-15 04:18] LABS: INR 1.18 (0.87-1.13)
[2021-06-15 04:19] LABS: Partial Thromboplastin Time 25.6 Sec. (24.2-36.6)
[2021-06-15 04:21] LABS: Creatine Kinase MB 4.8 ng/mL (0.0-4.0)
[2021-06-15 04:24] LABS: Calcium 8.7 mg/dL (8.4-10.2)
[2021-06-15 04:25] LABS: Hematocrit 38.9 % (30.3-42.9); Hemoglobin 11.4 gm/dl (10.1-14.3)
--- NOTE | 2021-06-15 04:27 | XRay Report ---
CHEST 1 VIEW 06/15/2021 2:57 AM INDICATION / CLINICAL INFORMATION: chest pain. COMPARISON: None available. FINDINGS: SUPPORT DEVICES: NG tube is within the stomach HEART / MEDIASTINUM: No significant abnormality. LUNGS / PLEURA: Bilateral pulmonary opacities most significant in left lower lung and right upper carloz g. No pneumothorax. Signer Name: Arnold Hilton MD Signed: 06/15/2021 4:23 AM Workstation Name: [id number]
[2021-06-15 04:36] LABS: Chol/HDL Ratio 2.36 %
[2021-06-15 05:07] LABS: ABG Base Excess -1.5 mmol/L (-2.0-3.0); ABG HCO3 22.6 mmol/L (20.0-26.0); ABG Methemoglobin 0.5 % (0.0-1.5); ABG Oxygen Saturation 99.2 % (95.0-99.0); ABG PCO2 36.3 mm Hg; ABG PH 7.413 pH Units (7.350-7.450); ABG PO2 184.7 mm Hg (80.0-90.0)
[2021-06-15] MEDS ORDERED: ACETAMINOPHEN 650 MG RECT SUPP PR PRN (05:07)
[2021-06-15] MEDS ORDERED: MORPHINE 2 MG/1 ML INJ IV PRN (05:07)
[2021-06-15] MEDS ORDERED: MORPHINE 4 MG/1 ML INJ IV PRN (05:07)
[2021-06-15] MEDS ORDERED: DEXTROSE 50% IN WATER (25GM) 50 ML SYRINGE IV PRN (05:07)
[2021-06-15] MEDS ORDERED: SODIUM CHLORIDE 0.9% 1000 ML 1,000 ML IV SCH (05:15)
--- NOTE | 2021-06-15 05:24 | History and Physical Report ---
History of Present Illness Date of examination: 06/15/21 Date of admission: 06/15/2021 Chief complaint: Cardiopulmonary arrest History of present illness: 81-year-old female brought into the emergency room by EMS in cardiac arrest. Family was said to witnessed collapse. EMS had given 2 rounds of epi with return of spontaneous circulation. Most of the history was gotten from the ER staff at [facility] no available patient is currently intubated. No other information available at this time. Work-up in the emergency room, chest x-ray reveals bilateral patchy opacities most significant in the left lower lung and right upper lung. No pneumothorax. Labs significant for elevated troponin of 0.041, elevated BUN and creatinine of 36 and 1.4 respectively. D-dimer is 1785. Past History Past Medical History: arthritis, diabetes, hypertension Past Surgical History: denies: Other (hysterectomy "in the s". 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 colon sx, 1997) Social history: no significant social history Family history: no significant family history Medications and Allergies Allergies Allergy/AdvReac Type Severity Reaction Status Date / Time latex Allergy Itching Verified 12/29/17 08:16 shellfish Allergy Swelling Uncoded 12/17/18 00:58 Home Medications Medication Instructions Recorded Confirmed Last Taken Type Amlodipine Besylate/Benazepril 1 cap PO DAILY 09/18/15 12/29/17 12/29/17 06:30 History [Amlodipine-Benazepril 5-20 mg] Aspirin BABY CHEW TAB 81 mg PO DAILY 09/18/15 12/29/17 12/22/17 17:00 History Insulin Aspart Protam & Aspart 50 units SC QAM 09/18/15 12/29/17 12/27/17 08:00 History [NovoLOG Mix 70-30 Flexpen] Insulin Aspart Protam & Aspart 50 units SC QHS 09/18/15 12/29/17 12/28/17 18:00 History [NovoLOG Mix 70-30 Flexpen] hydroCHLOROthiazide 1 tab PO DAILY 09/18/15 12/29/17 12/26/17 09:00 History [Hydrochlorothiazide] cloNIDine [Catapres] 0.2 mg PO QHS 12/29/17 12/29/17 12/27/17 21:00 History raNITIdine HCl [Zantac] 150 mg PO BID 12/29/17 12/29/17 12/27/17 15:00 History traMADoL [Ultram 50 MG tab] 50 mg PO Q6HR #12 tablet 12/17/18 Unknown Rx Active Meds: Active Medications Acetaminophen (Acetaminophen 650 Mg Rect Supp) 650 mg NM Q6H PRN PRN Reason: Pain MILD(1-3)/Fever >100.5/WHITE Dextrose (Dextrose 50% In Water (25gm) 50 Ml Syringe) 50 ml IV Q30MIN PRN; Protocol PRN Reason: Hypoglycemia Fentanyl (Fentanyl 100 Mcg/2 Ml Inj) 50 mcg IV Q10MIN PRN PRN Reason: ANALGESIA Heparin Sodium (Porcine) (Heparin 5,000 Unit/1 Ml Vial) 5,000 unit SUB-Q Q8HR JONATHAN Hydrophilic Ointment (Lip Therapy Vaseline) 1 applic TP Q2HR PRN PRN Reason: Dry Lips Fentanyl Citrate (Fentanyl Drip Premix) 2,000 mcg in 100 mls @ 7.39 mls/hr IV TITR JONATHAN; Protocol Last Admin: 06/15/21 03:38 Dose: 1 mcg/kg/hr, 7.39 mls/hr Documented by: Sodium Chloride (Nacl 0.9% 1000 Ml) 1,000 mls @ 75 mls/hr IV DIRECT JONATHAN Ceftriaxone Sodium (Rocephin/Ns 2 Gm/100 Ml) 2 gm in 100 mls @ 200 mls/hr IV Q24H JONATHAN; Protocol Azithromycin (Zithromax/Ns) 500 mg in 250 mls @ 250 mls/hr IV Q24H JONATHAN; Protocol Insulin Human Lispro (Insulin Lispro 100 Unit/Ml) 0 unit SUB-Q ACHS JONATHAN; Protocol Morphine Sulfate (Morphine 2 Mg/1 Ml Inj) 2 mg IV Q4H PRN PRN Reason: Pain, Moderate (4-6) Morphine Sulfate (Morphine 4 Mg/1 Ml Inj) 4 mg IV Q4H PRN PRN Reason: Pain , Severe (7-10) Multi-Ingred Cream/Lotion/Oil/Oint (Mineral Oil/Petrolatum, White Ophth Oint 3.5 Gm) 1 applic OU Q4HR PRN PRN Reason: Dry Eye(s) Sodium Chloride (Sodium Chloride 0.9% 10 Ml Flush Syringe) 10 ml IV BID JONATHAN Sodium Chloride (Sodium Chloride 0.9% 10 Ml Flush Syringe) 10 ml IV PRN PRN PRN Reason: LINE FLUSH Review of Systems ROS unobtainable: due to endotracheal tube Exam - Constitutional Vitals: Temp Pulse Resp BP Pulse Ox 82 20 154/82 100 06/15/21 05:00 06/15/21 05:00 06/15/21 05:00 06/15/21 05:00 General appearance: Present: well-nourished (Intubated and sedated), obese, other - EENT Eyes: Present: PERRL, EOM intact. Absent: scleral icterus ENT: hearing intact, clear oral mucosa, dentition normal - Neck Neck: Present: supple, normal ROM - Respiratory Respiratory effort: other (Intubated) Respiratory: bilateral: diminished - Cardiovascular Rhythm: regular Heart Sounds: Present: S1 & S2. Absent: gallop, systolic murmur, diastolic murmur, rub, click - Extremities Extremities: no ischemia, pulses intact, pulses symmetrical, No edema, normal temperature, normal color, Full ROM Peripheral Pulses: within normal limits - Abdominal General gastrointestinal: Present: soft, non-tender, non-distended, normal bowel sounds. Absent: mass - Integumentary Integumentary: Present: clear, warm, dry. Absent: rash - Musculoskeletal Musculoskeletal: strength equal bilaterally - Psychiatric Psychiatric: cooperative - Neurologic Neurologic: CNII-XII intact, no focal deficits, moves all extremities HEART Score - HEART Score Troponin: Troponin T 0.041 ng/mL (0.00-0.029) H 06/15/21 03:30 Results - Labs CBC & Chem 7: 06/15/21 03:30 06/15/21 03:30 Labs: Abnormal lab results 06/15/21 06/15/21 06/15/21 Range/Units 03:30 03:30 03:30 MCH 24 L (28-32) pg MCHC 29 L (30-34) % RDW 15.8 H (13.2-15.2) % Lymph % (Auto) 12.8 L (13.4-35.0) % Lymph # (Auto) 1.1 L (1.2-5.4) K/mm3 Seg Neutrophils % 80.4 H (40.0-70.0) % PT 15.6 H (12.2-14.9) Sec. INR 1.18 H (0.87-1.13) ABG pO2 (80.0-90.0) mm Hg ABG O2 Saturation (95.0-99.0) % BUN 36 H (7-17) mg/dL Creatinine 1.4 H (0.6-1.2) mg/dL Glucose 258 H (65-100) mg/dL CK-MB (CK-2) 4.8 H (0.0-4.0) ng/mL CK-MB (CK-2) Rel Index 4.5 H (0-4) Troponin T 0.041 H (0.00-0.029) ng/mL 06/15/21 Range/Units 05:00 MCH (28-32) pg MCHC (30-34) % RDW (13.2-15.2) % Lymph % (Auto) (13.4-35.0) % Lymph # (Auto) (1.2-5.4) K/mm3 Seg Neutrophils % (40.0-70.0) % PT (12.2-14.9) Sec. INR (0.87-1.13) ABG pO2 184.7 H (80.0-90.0) mm Hg ABG O2 Saturation 99.2 H (95.0-99.0) % BUN (7-17) mg/dL Creatinine (0.6-1.2) mg/dL Glucose (65-100) mg/dL CK-MB (CK-2) (0.0-4.0) ng/mL CK-MB (CK-2) Rel Index (0-4) Troponin T (0.00-0.029) ng/mL Assessment and Plan - Patient Problems (1) Cardiac arrest Current Visit: No Status: Acute Plan to address problem: Patient has been successfully resuscitated and intubated. We will monitor closely in the intensive care unit. Consult placed to speech coach and records and tape recordings engineer for evaluation and recommendations. (2) Diabetes mellitus Current Visit: Yes Status: Acute Plan to address problem: We will monitor Accu-Cheks. (3) Elevated troponin Current Visit: No Status: Acute Plan to address problem: We will trend troponin levels and also monitor EKG. We will await further evaluation by cardiology. Patient currently on heparin drip. (4) Renal insufficiency Current Visit: No Status: Acute Plan to address problem: Patient placed on IV fluid and we will place consult to nephrology for evaluation. (5) DVT prophylaxis Current Visit: Yes Status: Acute Plan to address problem: Patient currently on anticoagulation with heparin. (6) Full code status Current Visit: Yes Status: Acute Plan to address problem: Patient is full code.
[2021-06-15] MEDS ORDERED: HEPARIN 5,000 UNIT/1 ML VIAL SUB-Q SCH (06:00)
[2021-06-15] MEDS ORDERED: cefTRIAXone/NS 2 GM/100 ML 2 GM/100 ML BAG IV SCH (06:00)
[2021-06-15] MEDS ORDERED: AZITHROMYCIN/NS 500 MG/250 ML 500 MG/250 ML BAG IV SCH (06:00)
--- NOTE | 2021-06-15 06:32 | XRay Report ---
CHEST 1 VIEW 06/15/2021 6:16 AM INDICATION / CLINICAL INFORMATION: intubation. COMPARISON: None available. FINDINGS: SUPPORT DEVICES: ET tube is 4.3 cm above the jason HEART / MEDIASTINUM: No significant abnormality. LUNGS / PLEURA: Diffuse bilateral pulmonary opacities No pneumothorax. ADDITIONAL FINDINGS: No significant additional findings. IMPRESSION: 1. ET tube is in satisfactory position Signer Name: Arnold Hilton MD Signed: 06/15/2021 6:28 AM Workstation Name: [email or web address]
[2021-06-15] MEDS ORDERED: HEPARIN 10,000 UNITS/10 ML VIAL IV NR (07:00)
[2021-06-15] MEDS ORDERED: HEPARIN 10,000 UNITS/10 ML VIAL IV PRN (07:00)
[2021-06-15] MEDS ORDERED: INSULIN LISPRO 100 UNIT/ML SUB-Q SCH (07:30)
[2021-06-15] MEDS: HEPARIN/ 0.45% NACL DRIP 25,000 UNIT/500 ML BAG IV SCH (08:07)
[2021-06-15 08:35] LABS: INR 1.11 (0.87-1.13)
[2021-06-15 10:08] LABS: Bilirubin,Urine NEG (Negative); Blood,Urine SM (Negative); Color,Urine Amber (Yellow); Mucus,Urine FEW /HPF
[2021-06-15 10:10] LABS: Protein,Urine >500 mg/dL (Negative)
[2021-06-15] MEDS: FAMOTIDINE 20 MG/2 ML INJ IV SCH ×2 (11:26→21:51)
--- NOTE | 2021-06-15 12:50 | Consultation ---
History of Present Illness Consult date: 06/15/21 Requesting physician: LEE ANN CLARK Reason for consult: other (Cardiac Arrest with ROSC) History of present illness: PULMONARY/CCM CONSULT NOTE (Full dictation # [id number]) Please see dictated notes for full details Past History Past Medical History: arthritis, diabetes, hypertension Past Surgical History: denies: Other (hysterectomy "in the 80s". chest sx "a growth behind my lungs", "in the 80s". colon sx, 1997) Social history: no significant social history Family history: no significant family history Medications and Allergies Allergies Allergy/AdvReac Type Severity Reaction Status Date / Time latex Allergy Itching Verified 12/29/17 08:16 shellfish Allergy Swelling Uncoded 12/17/18 00:58 Home Medications Medication Instructions Recorded Confirmed Last Taken Type Amlodipine Besylate/Benazepril 1 cap PO DAILY 09/18/15 12/29/17 12/29/17 06:30 History [Amlodipine-Benazepril 5-20 mg] Aspirin BABY CHEW TAB 81 mg PO DAILY 09/18/15 12/29/17 12/22/17 17:00 History Insulin Aspart Protam & Aspart 50 units SC QAM 09/18/15 12/29/17 12/27/17 08:00 History [NovoLOG Mix 70-30 Flexpen] Insulin Aspart Protam & Aspart 50 units SC QHS 09/18/15 12/29/17 12/28/17 18:00 History [NovoLOG Mix 70-30 Flexpen] hydroCHLOROthiazide 1 tab PO DAILY 09/18/15 12/29/17 12/26/17 09:00 History [Hydrochlorothiazide] cloNIDine [Catapres] 0.2 mg PO QHS 12/29/17 12/29/17 12/27/17 21:00 History raNITIdine HCl [Zantac] 150 mg PO BID 12/29/17 12/29/17 12/27/17 15:00 History traMADoL [Ultram 50 MG tab] 50 mg PO Q6HR #12 tablet 12/17/18 Unknown Rx Active Meds: Active Medications Acetaminophen (Acetaminophen 650 Mg Rect Supp) 650 mg [place] Q6H PRN PRN Reason: Pain MILD(1-3)/Fever >100.5/WHITE Dextrose (Dextrose 50% In Water (25gm) 50 Ml Syringe) 0 ml IV Q30MIN PRN; Protocol PRN Reason: Hypoglycemia Famotidine (Famotidine 20 Mg/2 Ml Inj) 20 mg IV BID JONATHAN Last Admin: 06/15/21 11:26 Dose: 20 mg Documented by: Fentanyl (Fentanyl 100 Mcg/2 Ml Inj) 50 mcg IV Q10MIN PRN PRN Reason: ANALGESIA Heparin Sodium (Porcine) (Heparin 10,000 Units/10 Ml Vial) 5,000 unit IV Q6H PRN PRN Reason: Anti-Xa Assay < 0.1 units/ml Hydrophilic Ointment (Lip Therapy Vaseline) 1 applic TP Q2HR PRN PRN Reason: Dry Lips Fentanyl Citrate (Fentanyl Drip Premix) 2,000 mcg in 100 mls @ 7.39 mls/hr IV TITR JONATHAN; Protocol Last Admin: 06/15/21 12:09 Dose: 1 mcg/kg/hr, 7.39 mls/hr Documented by: Sodium Chloride (Nacl 0.9% 1000 Ml) 1,000 mls @ 75 mls/hr IV DIRECT JONATHAN Last Admin: 06/15/21 09:33 Dose: 75 mls/hr Documented by: Ceftriaxone Sodium (Rocephin/Ns 2 Gm/100 Ml) 2 gm in 100 mls @ 200 mls/hr IV Q24HR JONATHAN; Protocol Last Admin: 06/15/21 07:31 Dose: 200 mls/hr Documented by: Azithromycin (Zithromax/Ns) 500 mg in 250 mls @ 250 mls/hr IV Q24HR JONATHAN; Protocol Last Admin: 06/15/21 09:33 Dose: 250 mls/hr Documented by: Heparin Sodium/Sodium Chloride (Heparin/ 0.45% Nacl-25,000 Unit/500 Ml) 25,000 unit in 500 mls @ 20 mls/hr IV TITRATE JONATHAN; Protocol Last Admin: 06/15/21 08:07 Dose: 1,000 units/hr, 20 mls/hr Documented by: Insulin Human Lispro (Insulin Lispro 100 Unit/Ml) 0 unit SUB-Q Q6HR JONATHAN; Protocol Multi-Ingred Cream/Lotion/Oil/Oint (Mineral Oil/Petrolatum, White Ophth Oint 3.5 Gm) 1 applic OU Q4HR PRN PRN Reason: Dry Eye(s) Senna/Docusate Sodium (Sennosides/Docusate Sodium 8.6/50 Mg Tab) 1 tab PO QHS JONATHAN Sodium Chloride (Sodium Chloride 0.9% 10 Ml Flush Syringe) 10 ml IV BID JONATHAN Last Admin: 06/15/21 11:26 Dose: 10 ml Documented by: Sodium Chloride (Sodium Chloride 0.9% 10 Ml Flush Syringe) 10 ml IV PRN PRN PRN Reason: LINE FLUSH Physical Examination Vital signs: Vital Signs Pulse Resp BP Pulse Ox 108 H 22 85/54 97 06/15/21 03:13 06/15/21 03:13 06/15/21 03:13 06/15/21 03:13 Results - Laboratory Findings CBC and BMP: 06/15/21 03:30 06/15/21 03:30 ABG ABG pH 7.413 pH Units (7.350-7.450) 06/15/21 05:00 ABG pCO2 36.3 mm Hg 06/15/21 05:00 ABG pO2 184.7 mm Hg (80.0-90.0) H 06/15/21 05:00 ABG O2 Saturation 99.2 % (95.0-99.0) H 06/15/21 05:00 PT/INR, D-dimer PT 14.9 Sec. (12.2-14.9) 06/15/21 07:55 INR 1.11 (0.87-1.13) 06/15/21 07:55 D-Dimer 1785.61 ng/mlDDU (0-234) H 06/15/21 05:18 Abnormal lab findings: Abnormal Labs 06/15/21 06/15/21 06/15/21 03:30 03:30 03:30 MCH 24 L MCHC 29 L RDW 15.8 H Lymph % (Auto) 12.8 L Lymph # (Auto) 1.1 L Seg Neutrophils % 80.4 H PT 15.6 H INR 1.18 H D-Dimer ABG pO2 ABG O2 Saturation BUN 36 H Creatinine 1.4 H Glucose 258 H POC Glucose Lactate Dehydrogenase CK-MB (CK-2) 4.8 H CK-MB (CK-2) Rel Index 4.5 H Troponin T 0.041 H C-Reactive Protein Urine WBC (Auto) 06/15/21 06/15/21 06/15/21 05:00 05:18 05:18 MCH MCHC RDW Lymph % (Auto) Lymph # (Auto) Seg Neutrophils % PT INR D-Dimer 1785.61 H ABG pO2 184.7 H ABG O2 Saturation 99.2 H BUN Creatinine Glucose POC Glucose Lactate Dehydrogenase 243 H CK-MB (CK-2) CK-MB (CK-2) Rel Index Troponin T C-Reactive Protein 3.00 H Urine WBC (Auto) 06/15/21 06/15/21 06/15/21 06:30 07:39 09:05 MCH MCHC RDW Lymph % (Auto) Lymph # (Auto) Seg Neutrophils % PT INR D-Dimer ABG pO2 ABG O2 Saturation BUN Creatinine Glucose POC Glucose 231 H Lactate Dehydrogenase CK-MB (CK-2) CK-MB (CK-2) Rel Index Troponin T 0.058 H D 0.062 H C-Reactive Protein Urine WBC (Auto) 06/15/21 09:34 MCH MCHC RDW Lymph % (Auto) Lymph # (Auto) Seg Neutrophils % PT INR D-Dimer ABG pO2 ABG O2 Saturation BUN Creatinine Glucose POC Glucose Lactate Dehydrogenase CK-MB (CK-2) CK-MB (CK-2) Rel Index Troponin T C-Reactive Protein Urine WBC (Auto) 8.0 H
--- NOTE | 2021-06-15 13:07 | Event Note ---
Date: 06/15/21 Patient seen and examined, continue current management
--- NOTE | 2021-06-15 13:32 | Consultation ---
History of Present Illness Consult date: 06/15/21 Consult reason: other (Cardiopulmonary arrest) History of present illness: The patient is a 81-year-old woman who was found at home unresponsive, CPR was started in the field by youth nutritional monitor and were ongoing at the time of arrival to the em ergency room. Eventually, the patient regained heart rhythm and blood pressure following ACLS resuscitative efforts. Patient is currently unresponsive, intubated, in the ICU on supportive management. Cardiology consultation was requested for further cardiac assessment. Duration of unresponsiveness, and any preceding symptoms is unknown at this time. Review of her records does not reveal any significant prior cardiac history. ECG is reviewed show that in the ambulance during ACLS resuscitation and presumably following epinephrine, the patient had an atrial fibrillation at 122, with nonspecific ST changes. ECG in the emergency room showed the denominational of a normal sinus rhythm at 80, with no ST segment or T wave abnormalities. Initial troponin levels where borderline at 0.04. Chest x-ray showed a normal size cardiac silhouette, but bilateral severe pulmonary opacities, right greater than left. Past History Past Medical History: arthritis, diabetes, hypertension Past Surgical History: denies: Other (hysterectomy "in the ". chest sx "a growth behind my lungs", "in the ". colon sx, 1997) Social history: no significant social history Family history: no significant family history Medications and Allergies Allergies Allergy/AdvReac Type Severity Reaction Status Date / Time latex Allergy Itching Verified 12/29/17 08:16 shellfish Allergy Swelling Uncoded 12/17/18 00:58 Home Medications Medication Instructions Recorded Confirmed Last Taken Type Amlodipine Besylate/Benazepril 1 cap PO DAILY 09/18/15 12/29/17 12/29/17 06:30 History [Amlodipine-Benazepril 5-20 mg] Aspirin BABY CHEW TAB 81 mg PO DAILY 09/18/15 12/29/17 12/22/17 17:00 History Insulin Aspart Protam & Aspart 50 units SC QAM 09/18/15 12/29/17 12/27/17 08:00 History [NovoLOG Mix 70-30 Flexpen] Insulin Aspart Protam & Aspart 50 units SC QHS 09/18/15 12/29/17 12/28/17 18:00 History [NovoLOG Mix 70-30 Flexpen] hydroCHLOROthiazide 1 tab PO DAILY 09/18/15 12/29/17 12/26/17 09:00 History [Hydrochlorothiazide] cloNIDine [Catapres] 0.2 mg PO QHS 12/29/17 12/29/17 12/27/17 21:00 History raNITIdine HCl [Zantac] 150 mg PO BID 12/29/17 12/29/17 12/27/17 15:00 History traMADoL [Ultram 50 MG tab] 50 mg PO Q6HR #12 tablet 12/17/18 Unknown Rx Active Meds: Active Medications Acetaminophen (Acetaminophen 650 Mg Rect Supp) 650 mg VT Q6H PRN PRN Reason: Pain MILD(1-3)/Fever >100.5/WHITE Dextrose (Dextrose 50% In Water (25gm) 50 Ml Syringe) 0 ml IV Q30MIN PRN; Protocol PRN Reason: Hypoglycemia Famotidine (Famotidine 20 Mg/2 Ml Inj) 20 mg IV BID [facility] Last Admin: 06/15/21 11:26 Dose: 20 mg Documented by: Fentanyl (Fentanyl 100 Mcg/2 Ml Inj) 50 mcg IV Q10MIN PRN PRN Reason: ANALGESIA Heparin Sodium (Porcine) (Heparin 10,000 Units/10 Ml Vial) 5,000 unit IV Q6H PRN PRN Reason: Anti-Xa Assay < 0.1 units/ml Hydrophilic Ointment (Lip Therapy Vaseline) 1 applic TP Q2HR PRN PRN Reason: Dry Lips Fentanyl Citrate (Fentanyl Drip Premix) 2,000 mcg in 100 mls @ 7.39 mls/hr IV TITR JONATHAN; Protocol Last Admin: 06/15/21 12:09 Dose: 1 mcg/kg/hr, 7.39 mls/hr Documented by: Ceftriaxone Sodium (Rocephin/Ns 2 Gm/100 Ml) 2 gm in 100 mls @ 200 mls/hr IV Q24HR JONATHAN; Protocol Last Admin: 06/15/21 07:31 Dose: 200 mls/hr Documented by: Azithromycin (Zithromax/Ns) 500 mg in 250 mls @ 250 mls/hr IV Q24HR JONATHAN; Protocol Last Admin: 06/15/21 09:33 Dose: 250 mls/hr Documented by: Heparin Sodium/Sodium Chloride (Heparin/ 0.45% Nacl-25,000 Unit/500 Ml) 25,000 unit in 500 mls @ 20 mls/hr IV TITRATE JONATHAN; Protocol Last Admin: 06/15/21 08:07 Dose: 1,000 units/hr, 20 mls/hr Documented by: Insulin Human Lispro (Insulin Lispro 100 Unit/Ml) 0 unit SUB-Q Q6HR JONATHAN; Protocol Multi-Ingred Cream/Lotion/Oil/Oint (Mineral Oil/Petrolatum, White Ophth Oint 3.5 Gm) 1 applic OU Q4HR PRN PRN Reason: Dry Eye(s) Senna/Docusate Sodium (Sennosides/Docusate Sodium 8.6/50 Mg Tab) 1 tab PO QHS JONATHAN Sodium Chloride (Sodium Chloride 0.9% 10 Ml Flush Syringe) 10 ml IV BID JONATHAN Last Admin: 06/15/21 11:26 Dose: 10 ml Documented by: Sodium Chloride (Sodium Chloride 0.9% 10 Ml Flush Syringe) 10 ml IV PRN PRN PRN Reason: LINE FLUSH Review of Systems ROS unobtainable: due to endotracheal tube, due to mental status Physical Examination Vital Signs Pulse Resp BP Pulse Ox 108 H 22 85/54 97 06/15/21 03:13 06/15/21 03:13 06/15/21 03:13 06/15/21 03:13 General appearance: other (Unresponsive, on the vent) HEENT: Positive: Other (Pupils fixed) Neck: Positive: neck supple Cardiac: Positive: Reg Rate and Rhythm Lungs: Positive: Decreased Breath Sounds Neuro: Positive: Other (Unresponsive, on the vent) Abdomen: Positive: Soft Female genitourinary: deferred Skin: Positive: Clear Extremities: Absent: edema Results 06/15/21 03:30 06/15/21 03:30 Cardiac Enzymes 06/15/21 06/15/21 Range/Units 03:30 05:18 Lactate Dehydrogenase 243 H (91-180) units/L CK-MB (CK-2) 4.8 H (0.0-4.0) ng/mL Coagulation 06/15/21 06/15/21 Range/Units 03:30 07:55 PT 15.6 H 14.9 (12.2-14.9) Sec. INR 1.18 H 1.11 (0.87-1.13) APTT 25.6 (24.2-36.6) Sec. Lipids 06/15/21 Range/Units 03:30 Triglycerides 66 (2-149) mg/dL Cholesterol 137 (50-199) mg/dL HDL Cholesterol 58 (40-59) mg/dL Cholesterol/HDL Ratio 2.36 % CBC 06/15/21 Range/Units 03:30 WBC 8.8 (4.5-11.0) K/mm3 RBC 4.75 (3.65-5.03) M/mm3 Hgb 11.4 (10.1-14.3) gm/dl Hct 38.9 (30.3-42.9) % Plt Count 176 (140-440) K/mm3 Lymph # (Auto) 1.1 L (1.2-5.4) K/mm3 [place] # (Auto) 0.5 (0.0-0.8) K/mm3 Eos # (Auto) 0.0 (0.0-0.4) K/mm3 Baso # (Auto) 0.1 (0.0-0.1) K/mm3 Comprehensive Metabolic Panel 06/15/21 Range/Units 03:30 Sodium 141 (137-145) mmol/L Potassium 4.0 (3.6-5.0) mmol/L Chloride 101.3 (98-107) mmol/L Carbon Dioxide 24 (22-30) mmol/L BUN 36 H (7-17) mg/dL Creatinine 1.4 H (0.6-1.2) mg/dL Glucose 258 H (65-100) mg/dL Calcium 8.7 (8.4-10.2) mg/dL EKG interpretations - Telemetry EKG Rhythm: Sinus Rhythm Assessment and Plan - Patient Problems (1) Cardiopulmonary arrest Current Visit: Yes Status: Acute Plan to address problem: Patient admitted to the hospital following an out of hospital cardiopulmonary arrest. Chest x-ray reveals bilateral pulmonary opacities, right greater than left. EKG is in the hospital show a normal sinus rhythm with no ischemic changes. There was transient atrial fibrillation in the field, associated with ongoing ACLS procedures including epinephrine administration. We will recommend COVID-19 assessment, supportive measures, we will get an echocardiogram for left ventricular function assessment. Further cardiac evaluation and management will depend on clinical course. Immediate and long-t erm prognosis is poor.
--- NOTE | 2021-06-15 14:12 | Electrocardiograph Report ---
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
--- NOTE | 2021-06-15 15:13 | Vascular Lab Report ---
DUPLEX DOPPLER LOWER EXTREMITY VEINS, bilateral INDICATION / CLINICAL INFORMATION: ro dvt; edema. TECHNIQUE: Duplex doppler imaging was performed through the veins of bilateral lower extremity using venous comp ression and other maneuvers. COMPARISON: None available. FINDINGS: COMMON FEMORAL VEIN: Negative. FEMORAL VEIN: Negative. POPLITEAL VEIN: Negative. CALF VEINS: Negative. ADDITIONAL FINDINGS: None. IMPRESSION: 1. No sonographic evidence for DVT in bilateral lower extremities Signer Name: Arnold Hilton MD Signed: 06/15/2021 3:08 PM Workstation Name: [id number]
[2021-06-15] MEDS: levETIRAcetam 500 MG in DEXTROSE 5% IN WATER 100 ML IV SCH ×2 (16:51→21:58)
[2021-06-15] MEDS: INSULIN LISPRO 100 UNIT/ML SUB-Q SCH ×2 (17:52→18:50)
--- NOTE | 2021-06-15 20:12 | Consultation ---
History of Present Illness - Reason for Consult Consult date: 06/15/21 acute renal failure - History of Present Illness This is a 81-year-old woman with diabetes and hypertension who was brought in by EMS due to cardiac arrest. Nephrology was consulted for acute kidney injury. History has been obtained from chart as patient is intubated and there is no family present at bedside. Past History Past Medical History: arthritis, diabetes, hypertension Past Surgical History: denies: Other (hysterectomy "in the s". chest sx "a growth behind my lungs", "in the 80s". colon sx, 1997) Social history: no significant social history Family history: no significant family history Medications and Allergies Allergies Allergy/AdvReac Type Severity Reaction Status Date / Time latex Allergy Itching Verified 12/29/17 08:16 shellfish Allergy Swelling Uncoded 12/17/18 00:58 Home Medications Medication Instructions Recorded Confirmed Last Taken Type Amlodipine Besylate/Benazepril 1 cap PO DAILY 09/18/15 06/15/21 06/14/21 00:00 History [Amlodipine-Benazepril 5-20 mg] Aspirin BABY CHEW TAB 81 mg PO DAILY 09/18/15 06/15/21 06/14/21 00:00 History Insulin Aspart Protam & Aspart 50 units SC QAM 09/18/15 06/15/21 06/14/21 00:00 History [NovoLOG Mix 70-30 Flexpen] Insulin Aspart Protam & Aspart 50 units SC QHS 09/18/15 06/15/21 12/28/17 18:00 History [NovoLOG Mix 70-30 Flexpen] hydroCHLOROthiazide 1 tab PO DAILY 09/18/15 06/15/21 06/14/21 00:00 History [Hydrochlorothiazide] cloNIDine [Catapres] 0.2 mg PO QHS 12/29/17 06/15/21 12/27/17 21:00 History raNITIdine HCl [Zantac] 150 mg PO BID 12/29/17 06/15/21 06/14/21 00:00 History Benazepril (Nf) 40 mg PO DAILY 06/15/21 06/15/21 06/14/21 History Hydralazine HCl 100 mg PO BID 06/15/21 06/15/21 06/14/21 00:00 History Insulin Aspart Prot/Insuln Asp 100 unit SQ BID 06/15/21 06/15/21 Unknown History [Novolog Mix 70-30 Flexpen Syrn] traMADoL [Ultram 50 MG tab] 50 mg PO PRN 06/15/21 06/15/21 Unknown History Active Meds: Active Medications Acetaminophen (Acetaminophen 650 Mg Rect Supp) 650 mg CA Q6H PRN PRN Reason: Pain MILD(1-3)/Fever >100.5/WHITE Dextrose (Dextrose 50% In Water (25gm) 50 Ml Syringe) 0 ml IV Q30MIN PRN; Protocol PRN Reason: Hypoglycemia Famotidine (Famotidine 20 Mg/2 Ml Inj) 20 mg IV BID JONATHAN Last Admin: 06/15/21 11:26 Dose: 20 mg Documented by: Fentanyl (Fentanyl 100 Mcg/2 Ml Inj) 50 mcg IV Q10MIN PRN PRN Reason: ANALGESIA Heparin Sodium (Porcine) (Heparin 10,000 Units/10 Ml Vial) 5,000 unit IV Q6H PRN PRN Reason: Anti-Xa Assay < 0.1 units/ml Hydrophilic Ointment (Lip Therapy Vaseline) 1 applic TP Q2HR PRN PRN Reason: Dry Lips Fentanyl Citrate (Fentanyl Drip Premix) 2,000 mcg in 100 mls @ 7.39 mls/hr IV TITR JONATHAN; Protocol Last Admin: 06/15/21 12:09 Dose: 1 mcg/kg/hr, 7.39 mls/hr Documented by: Ceftriaxone Sodium (Rocephin/Ns 2 Gm/100 Ml) 2 gm in 100 mls @ 200 mls/hr IV Q24HR JONATHAN; Protocol Last Admin: 06/15/21 07:31 Dose: 200 mls/hr Documented by: Azithromycin (Zithromax/Ns) 500 mg in 250 mls @ 250 mls/hr IV Q24HR JONATHAN; Protocol Last Admin: 06/15/21 09:33 Dose: 250 mls/hr Documented by: Heparin Sodium/Sodium Chloride (Heparin/ 0.45% Nacl-25,000 Unit/500 Ml) 25,000 unit in 500 mls @ 20 mls/hr IV TITRATE JONATHAN; Protocol Last Titration: 06/15/21 16:53 Dose: 1,300 units/hr, 26 mls/hr Documented by: Propofol (Diprivan 10 Mg/Ml) 1,000 mg in 100 mls @ 4.434 mls/hr IV TITR JONATHAN; Protocol Last Admin: 06/15/21 16:50 Dose: 5 mcg/kg/min, 4.434 mls/hr Documented by: Levetiracetam 500 mg/ Dextrose 105 mls @ 400 mls/hr IV Q12HR JONATHAN Last Admin: 06/15/21 16:51 Dose: 400 mls/hr Documented by: Insulin Human Lispro (Insulin Lispro 100 Unit/Ml) 0 unit SUB-Q Q6HR [facility]; Protocol Last Admin: 06/15/21 18:50 Dose: Not Given Documented by: Multi-Ingred Cream/Lotion/Oil/Oint (Mineral Oil/Petrolatum, White Ophth Oint 3.5 Gm) 1 applic OU Q4HR PRN PRN Reason: Dry Eye(s) Senna/Docusate Sodium (Sennosides/Docusate Sodium 8.6/50 Mg Tab) 1 tab PO QHS JONATHAN Sodium Chloride (Sodium Chloride 0.9% 10 Ml Flush Syringe) 10 ml IV BID [facility] Last Admin: 06/15/21 11:26 Dose: 10 ml Documented by: Sodium Chloride (Sodium Chloride 0.9% 10 Ml Flush Syringe) 10 ml IV PRN PRN PRN Reason: LINE FLUSH Review of Systems ROS unobtainable: due to endotracheal tube, due to mental status Exam - Vital Signs Vital signs: Vital Signs Pulse Resp BP Pulse Ox 108 H 22 85/54 97 06/15/21 03:13 06/15/21 03:13 06/15/21 03:13 06/15/21 03:13 - Physical Exam Narrative exam: General: Sedated. Intubated HEENT: Oral mucosa moist Neck: Supple, no JVD Chest: Clear to auscultation bilaterally Heart: RRR, S1 and S2, no pericardial rub Abdomen: Soft, nontender, no renal bruit Extremity: No peripheral cyanosis, edema Neurological: Alert, awake, no asterixis Dermatology: No skin rash Psych: No agitation Musculoskeletal: No joint effusion Results - Lab Results 06/15/21 03:30 06/15/21 03:30 Most recent lab results ABG pH 7.413 pH Units (7.350-7.450) 06/15/21 05:00 ABG pCO2 36.3 mm Hg 06/15/21 05:00 ABG pO2 184.7 mm Hg (80.0-90.0) H 06/15/21 05:00 ABG HCO3 22.6 mmol/L (20.0-26.0) 06/15/21 05:00 ABG O2 Saturation 99.2 % (95.0-99.0) H 06/15/21 05:00 Calcium 8.7 mg/dL (8.4-10.2) 06/15/21 03:30 Assessment and Plan Acute kidney injury Hypertension Cardiac arrest Acute respiratory failure, intubated Diabetes Check renal ultrasound Check urine culture Check PCR Antihypertensives prn to maintain Bp < 160/90 Strict I/O Renally dose medications Avoid nephrotoxins No immediate indication for HD
[2021-06-15 21:15] LABS: Creatinine,Urine 146.5 mg/dL (0.1-20.0)
[2021-06-15 21:34] LABS: Protein/Creatinine Ratio,Urine 1.47
[2021-06-15] MEDS: SENNOSIDES/DOCUSATE SODIUM 8.6/50 MG TAB PO SCH (21:50)
[2021-06-16] MEDS: INSULIN LISPRO 100 UNIT/ML SUB-Q SCH ×4 (00:14→18:05)
[2021-06-16] MEDS: hydrALAZINE 20 MG/1 ML INJ IV PRN (00:28)
[2021-06-16] MEDS: HEPARIN/ 0.45% NACL DRIP 25,000 UNIT/500 ML BAG IV SCH ×2 (00:32→22:09)
--- NOTE | 2021-06-16 01:37 | Consultation ---
DATE OF CONSULTATION: 06/15/2021 PULMONARY CRITICAL CARE CONSULTATION NOTE CONSULTING PHYSICIAN: Dr. Isaac Huang. REASON FOR CONSULTATION: Acute hypoxemic respiratory failure, on mechanical ventilator support, cardiac arrest with return of spontaneous circulation. CHIEF COMPLAINT AND HISTORY OF PRESENT ILLNESS: As follows: The patient is a 81-year-old obese female, brought into the Emergency Room by [facility] while the patient was in cardiac arrest. According to them, the family had mentioned that it was a witnessed collapse. She received 2 rounds of epinephrine with ROSC. She also received some CPR. In the Emergency Room, chest x-ray revealed bilateral infiltrates, mostly in the left lower lung and right upper lung and an elevated troponin and elevated D-dimer. She was stabilized and transferred to the Intensive Care Unit where I stopped by to see her. When I stopped by to see her, she was on the mechanical ventilator. She was having obvious myoclonic type jerks involving mostly the right side of her face and body. I do not know if she has a history of seizures from the past. It is unclear if there was any vomiting or overt aspiration. The patient's tobacco use/abuse history is unknown. The above is as much of the history of presentation as I have. PAST MEDICAL HISTORY: She is morbidly obese. She has a history of arthritis, diabetes and hypertension. 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 MEDICATIONS: She was on at the time when I stopped by to see according to the medication administration record included the following: Tylenol 650 mg p.o. q. 6 hours p.r.n. mild pain or fevers, aspirin 300 mg per rectum. She received a one-time dose. Zithromax 500 mg IV daily, Rocephin 2 grams IV daily. Pepcid 20 mg IV b.i.d., fentanyl drip was going at a level of 2 mcg/kg per hour, heparin drip was going per ACS protocol. She received sodium chloride, liter at I believe at night, 1 liter bolus in the Emergency Room. ALLERGIES: LATEX AND SHELLFISH. Nature of this allergy is unknown. DIET: Morbidly obese woman, acute weight loss or gain history is unclear. FAMILY AND SOCIAL HISTORY: Seems like she lives in the community. The family described no significant social history. Alcohol, tobacco or illicit drug use or abuse. Remote history is unknown. Family history is otherwise unobtainable secondary to the patient's medical and mental condition. REVIEW OF SYSTEMS: Unobtainable secondary to patient's medical and mental condition. Since she has been here, no gross hematochezia or melena, no gross hematuria, no hematemesis, no bloody tracheal secretions. Review of systems otherwise unobtainable or as in body of history above. PHYSICAL EXAMINATION: VITAL SIGNS: Review of vital signs on presentation, initial temperature 97.8 degrees Fahrenheit, pulse of 108, respiratory rate of 22, blood pressure 85/54, O2 sats were 97%, inspired oxygen concentration at that time was not recorded. When I stopped by to see her, O2 sats were 98% that was on the mechanical ventilator, assist control rate of 20, tidal volume 450, PEEP of 6 and a 100% FiO2 at that time. GENERAL: She is an elderly and morbidly obese female. Normocephalic, atraumatic. Resting in bed with mildly increased respiratory effort at rest and obvious myoclonic type jerking movements versus seizures, but not grand mal. HEAD, EYES, EARS, NOSE AND THROAT: Anicteric. No conjunctival erythema. Oropharynx was moist. Endotracheal tube was in place, taped at the lips around 24 cm. No gross jugular venous distention, no thyromegaly. She does have a large neck circumference. Grossly, there were no palpable lymph nodes in the supraclavicular or submandibular lymph node chains. LUNGS: Auscultation of both lung holliday, diminished bilateral breath sounds, bilateral scant rhonchi, no wheezing. HEART: Sounds 1 and 2 are heard at the time of my evaluation, regular rate and rhythm without overt rubs or murmurs. ABDOMEN: Soft, full, protuberant. Bowel sounds positive, nontender, no palpable hepatosplenomegaly. EXTREMITIES: Without overt digital clubbing or cyanosis, no pedal edema. Pedal pulses 2+ bilaterally. NEUROLOGIC: Pupils are equal, round, about 3 mm, sluggishly reactive to light. Extraocular muscle movements cannot be assessed. There was no nystagmus. She had myoclonic type jerking movements of the right side of her face in particular to the right body. She really was not moving the left lower extremity much during this events. SKIN: Normal turgor in the areas examined without overt cellulitis or rash. Please see the wound care nurses' notes for full description of her skin. PSYCHIATRIC: Mood and affect could not be assessed. She was sedated. LABORATORY DATA: From my review are as follows: White cell count 8800, hemoglobin 11.4, hematocrit 38.9, platelet count 176. No manual differential. INR 1.18. D-dimer 1785. Arterial blood gas showed a pH of 7.41, pCO2 of 36, pO2 of 185 that was on a 100% FIO2 on the above-mentioned vent settings. Serum sodium 141, potassium 4.0, chloride 101, bicarbonate 24, BUN 36, creatinine 1.4, glucose 258. Troponin was up at 0.041. LDL 79. Urinalysis negative for nitrites and leukocyte esterase. Coronavirus PCR has come back negative. No microbiology studies. Chest x-ray was done which shows endotracheal tube tip at the level of the aortic nerve, bilateral infiltrates with right lobe predominance, gross cardiomegaly, no gross pneumothorax, no gross bony fracture. Bilateral lower extremity Dopplers are negative for DVT. ASSESSMENT: 1. Acute hypoxemic respiratory failure, on mechanical ventilatory support. 2. Cardiac arrest with return of spontaneous circulation. 3. Possible seizure activity. 4. Acute encephalopathy, likely anoxic. 5. Acute kidney injury. 6. Non-ST elevation myocardial infarction. 7. Morbid obesity. 8. Hyperglycemia, history of diabetes. 9. History of arthritis. 10. Oropharyngeal dysphagia. 11. History of hypotension. PLAN: We will keep him on full mechanical ventilatory support in the short term. Oxygen will be weaned to keep sats greater than or equal to about 90%. Aspiration precautions will be maintained. I will immediately start her on a propofol drip to see if I can get a better handle on the myoclonic type jerks/seizure activity. A stat EEG has been ordered. Neurology consultation will be placed. I will begin empiric Keppra. I will go with 500 mg IV b.i.d. for possible seizure activity. Ventilator-associated pneumonia bundle has been instituted. We will continue empiric antibiotic therapy with Rocephin and Zithromax for possible __ acquired pneumonia. We will continue with IV heparin for acute coronary syndrome. Workup for now Dopplers are negative, consideration will be given for a CT angiogram once her renal function is looking a little bit better. Vasopressors will be given as necessary to keep mean arterial pressures greater than or equal to about 65 mmHg. Enteral nutrition will be the feeding modality of choice. She has appropriately been placed now on GI prophylaxis. She is fully anticoagulated. Chronic disease medications will be deferred to the attending. Flu and pneumonia vaccination will be addressed per protocol. Glycemic control will be for target blood glucose of 140-180 mg/dL while critically ill. We will renally dose all medications and avoid nephrotoxins. Thank you very much for the consult. We will follow along and make further recommendations as picture progresses/becomes clearer. She is critically ill on life-sustaining interventions including mechanical ventilatory support at high risk of from cardiopulmonary system decompensation. The time was spent about 35-40 minutes of critical care time without overlap and excluding any procedural time that may be necessary. TID: [id number] RECEIPT: [id number] FIONA/DUSTIN
--- NOTE | 2021-06-16 01:41 | XRay Report ---
CHEST 1 VIEW 06/16/2021 1:01 AM INDICATION / CLINICAL INFORMATION: follow up respiratory failure. COMPARISON: One view of the chest from 06/15/2021 FINDINGS: SUPPORT DEVICES: Unchanged positioning of the ET and NG tubes. HEART / MEDIASTINUM: Stable. LUNGS / PLEURA: Bilateral pulmonary opacities have improved. No significant pleural effusion. No pneu mothorax. ADDITIONAL FINDINGS: No significant additional findings. IMPRESSION: Improved aeration of the lungs without other significant interval changes. Signer Name: Bill Stevenson MD Signed: 06/16/2021 1:37 AM Workstation Name: [id number]
[2021-06-16] MEDS: fentaNYL DRIP Premix 2,000 MCG/100 ML BAG IV SCH ×3 (05:16→18:47)
[2021-06-16 06:53] LABS: Basophils % (Auto) 0.5 % (0.0-1.8); Eosinophils % (Auto) 0.5 % (0.0-4.3); Hemoglobin 11.4 gm/dl (10.1-14.3); Lymphocytes # (Auto) 1.8 K/mm3 (1.2-5.4); Lymphocytes % (Auto) 17.7 % (13.4-35.0); Mean Corpuscular HGB Conc 32 % (30-34); Mean Corpuscular Volume 77 fl (79-97); Monocytes # (Auto) 0.8 K/mm3 (0.0-0.8); Monocytes % (Auto) 7.5 % (0.0-7.3); Platelet Count 167 K/mm3 (140-440); Red Blood Count 4.69 M/mm3 (3.65-5.03); Red Cell Distribution Width 15.1 % (13.2-15.2)
[2021-06-16 07:02] LABS: INR 1.22 (0.87-1.13)
[2021-06-16 07:14] LABS: Calcium 8.9 mg/dL (8.4-10.2)
--- NOTE | 2021-06-16 07:42 | Consultation ---
History of Present Illness - Reason for Consult Consult date: 06/16/21 Rule out Covid pneumonia, cardiac arrest Requesting physician: LEE ANN CLARK - History of Present Illness 81-year-old female with history of diabetes mellitus, hypertension, arthritis, admitted on 06/15/2021 secondary to collapse witnessed by family. EMS was called patient was found in cardiac arrest. Patient underwent outside hospital resuscitation with return of spontaneous circulation. Patient was intubated in the ED. On arrival, temperature 97.8--> 100.2, HR 108, RR 22, O2 sat 97%, BP 85/54. Initial WBC 8.8. Hemoglobin 11.4. Platelet 176. D-dimer 1785. Creatinine 1.4. CRP 3. Troponin 0 0.041. AST 48, ALT 69. Urinalysis with 8 WBCs and negative leukocyte esterase. SARS-CoV-2 PCR negative. Chest x-ray with bilateral infiltrates left more than right. Review of Systems: Unable to obtain Past History Past Medical History: arthritis, diabetes, hypertension Past Surgical History: denies: Other (hysterectomy "in the ". 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 colon sx, 1997) Social history: no significant social history Family history: no significant family history Medications and Allergies Allergies Allergy/AdvReac Type Severity Reaction Status Date / Time latex Allergy Itching Verified 12/29/17 08:16 shellfish Allergy Swelling Uncoded 12/17/18 00:58 Home Medications Medication Instructions Recorded Confirmed Last Taken Type Amlodipine Besylate/Benazepril 1 cap PO DAILY 09/18/15 06/15/21 06/14/21 00:00 History [Amlodipine-Benazepril 5-20 mg] Aspirin BABY CHEW TAB 81 mg PO DAILY 09/18/15 06/15/21 06/14/21 00:00 History Insulin Aspart Protam & Aspart 50 units SC QAM 09/18/15 06/15/21 06/14/21 00:00 History [NovoLOG Mix 70-30 Flexpen] Insulin Aspart Protam & Aspart 50 units SC QHS 09/18/15 06/15/21 12/28/17 18:00 History [NovoLOG Mix 70-30 Flexpen] hydroCHLOROthiazide 1 tab PO DAILY 09/18/15 06/15/21 06/14/21 00:00 History [Hydrochlorothiazide] cloNIDine [Catapres] 0.2 mg PO QHS 12/29/17 06/15/21 12/27/17 21:00 History raNITIdine HCl [Zantac] 150 mg PO BID 12/29/17 06/15/21 06/14/21 00:00 History Benazepril (Nf) 40 mg PO DAILY 06/15/21 06/15/21 06/14/21 History Hydralazine HCl 100 mg PO BID 06/15/21 06/15/21 06/14/21 00:00 History Insulin Aspart Prot/Insuln Asp 100 unit SQ BID 06/15/21 06/15/21 Unknown History [Novolog Mix 70-30 Flexpen Syrn] traMADoL [Ultram 50 MG tab] 50 mg PO PRN 06/15/21 06/15/21 Unknown History Active Meds: Active Medications Acetaminophen (Acetaminophen 650 Mg Rect Supp) 650 mg IN Q6H PRN PRN Reason: Pain MILD(1-3)/Fever >100.5/WHITE Amlodipine Besylate (Amlodipine 10 Mg Tab) 10 mg PO QDAY [facility] Dextrose (Dextrose 50% In Water (25gm) 50 Ml Syringe) 0 ml IV Q30MIN PRN; Protocol PRN Reason: Hypoglycemia Famotidine (Famotidine 20 Mg/2 Ml Inj) 20 mg IV BID [facility] Last Admin: 06/15/21 21:51 Dose: 20 mg Documented by: Fentanyl (Fentanyl 100 Mcg/2 Ml Inj) 50 mcg IV Q10MIN PRN PRN Reason: ANALGESIA Heparin Sodium (Porcine) (Heparin 10,000 Units/10 Ml Vial) 5,000 unit IV Q6H PRN PRN Reason: Anti-Xa Assay < 0.1 units/ml Hydralazine HCl (Hydralazine 100 Mg Tab) 100 mg PO TID [facility] Hydralazine HCl (Hydralazine 20 Mg/1 Ml Inj) 10 mg IV Q6H PRN PRN Reason: SBP > 160 Last Admin: 06/16/21 00:28 Dose: 10 mg Documented by: Hydrophilic Ointment (Lip Therapy Vaseline) 1 applic TP Q2HR PRN PRN Reason: Dry Lips Fentanyl Citrate (Fentanyl Drip Premix) 2,000 mcg in 100 mls @ 7.39 mls/hr IV TITR [facility]; Protocol Last Admin: 06/16/21 05:16 Dose: 2 mcg/kg/hr, 14.78 mls/hr Documented by: Ceftriaxone Sodium (Rocephin/Ns 2 Gm/100 Ml) 2 gm in 100 mls @ 200 mls/hr IV Q24HR JONATHAN; Protocol Last Admin: 06/15/21 07:31 Dose: 200 mls/hr Documented by: Azithromycin (Zithromax/Ns) 500 mg in 250 mls @ 250 mls/hr IV Q24HR JONATHAN; Protocol Last Admin: 06/15/21 09:33 Dose: 250 mls/hr Documented by: Heparin Sodium/Sodium Chloride (Heparin/ 0.45% Nacl-25,000 Unit/500 Ml) 25,000 unit in 500 mls @ 20 mls/hr IV TITRATE JONATHAN; Protocol Last Titration: 06/16/21 02:59 Dose: 1,600 units/hr, 32 mls/hr Documented by: Propofol (Diprivan 10 Mg/Ml) 1,000 mg in 100 mls @ 4.434 mls/hr IV TITR JONATHAN; Protocol Last Admin: 06/16/21 05:16 Dose: 15 mcg/kg/min, 13.302 mls/hr Documented by: Levetiracetam 500 mg/ Dextrose 105 mls @ 400 mls/hr IV Q12HR JONATHAN Last Admin: 06/15/21 21:58 Dose: 400 mls/hr Documented by: Insulin Human Lispro (Insulin Lispro 100 Unit/Ml) 0 unit SUB-Q Q6HR JONATHAN; Protocol Last Admin: 06/16/21 06:04 Dose: Not Given Documented by: Lisinopril (Lisinopril 40 Mg Tab) 40 mg PO QDAY [facility] Multi-Ingred Cream/Lotion/Oil/Oint (Mineral Oil/Petrolatum, White Ophth Oint 3.5 Gm) 1 applic OU Q4HR PRN PRN Reason: Dry Eye(s) Senna/Docusate Sodium (Sennosides/Docusate Sodium 8.6/50 Mg Tab) 1 tab PO QHS [facility] Last Admin: 06/15/21 21:50 Dose: 1 tab Documented by: Sodium Chloride (Sodium Chloride 0.9% 10 Ml Flush Syringe) 10 ml IV BID [facility] Last Admin: 06/15/21 21:51 Dose: 10 ml Documented by: Sodium Chloride (Sodium Chloride 0.9% 10 Ml Flush Syringe) 10 ml IV PRN PRN PRN Reason: LINE FLUSH Physical Examination - Physical Exam Narrative exam: General appearance: Sedated intubated Eyes: anicteric sclerae, moist conjunctivae; no lid-lag; PERRLA HENT: Normocephalic, Atraumatic; normal external ears, nares open, oropharynx endotracheal tube in place, OG tube Neck: supple, tracheal midline, no JVD Lungs: Bilateral lower rhonchi CV: RRR no murmur Abdomen: Soft, large pannus Extremities: no edema, no cyanosis Skin: No rash. Psych: Sedated Neuro: Sedated - Constitutional Vitals: Vital Signs Temp Pulse Resp BP Pulse Ox 99.0 F 63 25 H 136/21 100 06/16/21 07:00 06/16/21 06:30 06/16/21 06:30 06/16/21 06:30 06/16/21 06:30 Temperature -Last 24 Hours Temperature 99.0 F Temperature 99.7 F Temperature 98.3 F Temperature 100.2 F Temperature 100.2 F Temperature 99.0 F Temperature 97.8 F Results - Labs CBC & Chem 7: 06/16/21 06:16 06/16/21 06:16 Labs: Abnormal lab results 06/15/21 06/15/21 06/15/21 Range/Units 07:39 09:05 09:15 MCV (79-97) fl MCH (28-32) pg Bennett % (Auto) (0.0-7.3) % Seg Neutrophils % (40.0-70.0) % PT (12.2-14.9) Sec. INR (0.87-1.13) Heparin Anti-Xa Level (0.3-0.7) U.I./ml ABG pH (7.320-7.450) POC ABG pCO2 (32.0-48.0) mmHg POC ABG pO2 (83-108) mmHg ABG Oxyhemoglobin (94-98) ABG Potassium (3.40-4.50) mmol/L ABG Glucose (65-95) mg/dL Potassium (3.6-5.0) mmol/L BUN (7-17) mg/dL Creatinine (0.6-1.2) mg/dL Glucose (65-100) mg/dL POC Glucose 231 H (70-105) mg/dL AST (5-40) units/L ALT (7-56) units/L Troponin T 0.062 H (0.00-0.029) ng/mL Total Protein (6.3-8.2) g/dL Albumin (3.9-5) g/dL Arterial Blood Glucose (65-95) mg/dL Arterial Blood Ionized Calcium (4.6-5.3) mg/dL Urine WBC (Auto) (0.0-6.0) /HPF Urine Creatinine 146.5 H (0.1-20.0) mg/dL Urine Total Protein 216 H (5-11.8) mg/dL 06/15/21 06/15/21 06/15/21 Range/Units 09:34 13:09 16:05 MCV (79-97) fl MCH (28-32) pg Bennett % (Auto) (0.0-7.3) % Seg Neutrophils % (40.0-70.0) % PT (12.2-14.9) Sec. INR (0.87-1.13) Heparin Anti-Xa Level < 0.10 L (0.3-0.7) U.I./ml ABG pH (7.320-7.450) POC ABG pCO2 (32.0-48.0) mmHg POC ABG pO2 (83-108) mmHg ABG Oxyhemoglobin (94-98) ABG Potassium (3.40-4.50) mmol/L ABG Glucose (65-95) mg/dL Potassium (3.6-5.0) mmol/L BUN (7-17) mg/dL Creatinine (0.6-1.2) mg/dL Glucose (65-100) mg/dL POC Glucose 240 H (70-105) mg/dL AST (5-40) units/L ALT (7-56) units/L Troponin T (0.00-0.029) ng/mL Total Protein (6.3-8.2) g/dL Albumin (3.9-5) g/dL Arterial Blood Glucose (65-95) mg/dL Arterial Blood Ionized Calcium (4.6-5.3) mg/dL Urine WBC (Auto) 8.0 H (0.0-6.0) /HPF Urine Creatinine (0.1-20.0) mg/dL Urine Total Protein (5-11.8) mg/dL 06/15/21 06/15/21 06/15/21 Range/Units 18:14 23:09 23:43 MCV (79-97) fl MCH (28-32) pg Bennett % (Auto) (0.0-7.3) % Seg Neutrophils % (40.0-70.0) % PT (12.2-14.9) Sec. INR (0.87-1.13) Heparin Anti-Xa Level < 0.10 L (0.3-0.7) U.I./ml ABG pH (7.320-7.450) POC ABG pCO2 (32.0-48.0) mmHg POC ABG pO2 (83-108) mmHg ABG Oxyhemoglobin (94-98) ABG Potassium (3.40-4.50) mmol/L ABG Glucose (65-95) mg/dL Potassium (3.6-5.0) mmol/L BUN (7-17) mg/dL Creatinine (0.6-1.2) mg/dL Glucose (65-100) mg/dL POC Glucose 150 H 179 H (70-105) mg/dL AST (5-40) units/L ALT (7-56) units/L Troponin T (0.00-0.029) ng/mL Total Protein (6.3-8.2) g/dL Albumin (3.9-5) g/dL Arterial Blood Glucose (65-95) mg/dL Arterial Blood Ionized Calcium (4.6-5.3) mg/dL Urine WBC (Auto) (0.0-6.0) /HPF Urine Creatinine (0.1-20.0) mg/dL Urine Total Protein (5-11.8) mg/dL 06/16/21 06/16/21 06/16/21 Range/Units 05:00 05:17 06:16 MCV (79-97) fl MCH (28-32) pg Bennett % (Auto) (0.0-7.3) % Seg Neutrophils % (40.0-70.0) % PT (12.2-14.9) Sec. INR (0.87-1.13) Heparin Anti-Xa Level (0.3-0.7) U.I./ml ABG pH 7.693 H (7.320-7.450) POC ABG pCO2 18.6 L (32.0-48.0) mmHg POC ABG pO2 147.2 H (83-108) mmHg ABG Oxyhemoglobin 98.5 H (94-98) ABG Potassium 3.0 L (3.40-4.50) mmol/L ABG Glucose 178 H (65-95) mg/dL Potassium 3.1 L D (3.6-5.0) mmol/L BUN 40 H (7-17) mg/dL Creatinine 1.4 H (0.6-1.2) mg/dL Glucose 154 H (65-100) mg/dL POC Glucose 182 H (70-105) mg/dL AST 48 H (5-40) units/L ALT 69 H (7-56) units/L Troponin T (0.00-0.029) ng/mL Total Protein 5.8 L (6.3-8.2) g/dL Albumin 3.0 L (3.9-5) g/dL Arterial Blood Glucose 178 H (65-95) mg/dL Arterial Blood Ionized Calcium 4.5 L (4.6-5.3) mg/dL Urine WBC (Auto) (0.0-6.0) /HPF Urine Creatinine (0.1-20.0) mg/dL Urine Total Protein (5-11.8) mg/dL 06/16/21 06/16/21 Range/Units 06:16 06:16 MCV 77 L (79-97) fl MCH 24 L (28-32) pg Bennett % (Auto) 7.5 H (0.0-7.3) % Seg Neutrophils % 73.8 H (40.0-70.0) % PT 16.0 H (12.2-14.9) Sec. INR 1.22 H (0.87-1.13) Heparin Anti-Xa Level (0.3-0.7) U.I./ml ABG pH (7.320-7.450) POC ABG pCO2 (32.0-48.0) mmHg POC ABG pO2 (83-108) mmHg ABG Oxyhemoglobin (94-98) ABG Potassium (3.40-4.50) mmol/L ABG Glucose (65-95) mg/dL Potassium (3.6-5.0) mmol/L BUN (7-17) mg/dL Creatinine (0.6-1.2) mg/dL Glucose (65-100) mg/dL POC Glucose (70-105) mg/dL AST (5-40) units/L ALT (7-56) units/L Troponin T (0.00-0.029) ng/mL Total Protein (6.3-8.2) g/dL Albumin (3.9-5) g/dL Arterial Blood Glucose (65-95) mg/dL Arterial Blood Ionized Calcium (4.6-5.3) mg/dL Urine WBC (Auto) (0.0-6.0) /HPF Urine Creatinine (0.1-20.0) mg/dL Urine Total Protein (5-11.8) mg/dL Assessment and Plan Cultures: None Assessment: 81-year-old female with history of diabetes mellitus, hypertension, arthritis, admitted on 06/15/2021 secondary to collapse witnessed by family, out of hospital cardiac arrest: #Severe sepsis: Patient with fever, hypotension, in the setting of out of the hospital cardiac arrest. Likely secondary to bilateral pneumonia. UA with minimal pyuria. Procalcitonin<0.2 #Bilateral pneumonia: Chest x-ray shows bilateral infiltrates left more than right. SARS-CoV-2 PCR negative. Possible aspiration pneumonitis versus community-acquired pneumonia. #Acute hypoxic respiratory failure: Patient intubated. #Elevated LFTs: Likely secondary to cardiac arrest/resuscitation. #Elevated troponins: Per cardiology. #Elevated D-dimer: Should evaluate for PE. #RIGOBERTO: Likely due to cardiac arrest. #Diabetes mellitus with hyperglycemia. #Morbidly obese Recommendations: -Follow-up respiratory and urine culture -Obtain blood cultures, order placed -Stop ceftriaxone and azithromycin -Start Zosyn renally adjusted -Repeat procalcitonin -Cardiology evaluation Will follow. Juliana Helm MD Infectious Diseases [employer] [facility] ([facility] M [phone] O [phone]
--- NOTE | 2021-06-16 08:45 | Progress Note ---
Assessment and Plan Assessment and plan: 81-year-old female brought into the emergency room by EMS in cardiac arrest. Family was said to witnessed collapse. EMS had given 2 rounds of epi with return of spontaneous circulation. Most of the history was gotten from the ER staff at [facility] no available patient is currently intubated. No other information available at this time. Work-up in the emergency room, chest x-ray reveals bilateral patchy opacities most significant in the left lower lung and right upper lung. No pneumothorax. Labs significant for elevated troponin of 0.041, elevated BUN and creatinine of 36 and 1.4 respectively. D-dimer is 1785. 06/16: Patient seen and examined, still unresponsive, awaiting CT head and CTA chest. Continue heparin for possible PE and DE. Continue abx for Bilateral Pneumonia. Cardiology, ID and Pulmonary. Poor prognosis. for out of hospital cardiac arrest May need Neurology ECHO Done result pending. (1) Cardiac arrest Current Visit: No Status: Acute Plan to address problem: Patient has been successfully resuscitated and intubated. We will monitor closely in the intensive care unit. Consult placed to finish production manager and door to door selling agent for evaluation and recommendations. (2) Diabetes mellitus Current Visit: Yes Status: Acute Plan to address problem: We will monitor Accu-Cheks. (3) NSTEMI Current Visit: No Status: Acute Plan to address problem: We will trend troponin levels and also monitor EKG. We will await further evaluation by cardiology. Patient currently on heparin drip. (4) RIGOBERTO on CKD with underlying Vasomotor Nephropathy Current Visit: No Status: Acute Plan to address problem: Patient placed on IV fluid and we will place consult to nephrology for evaluation. (5) Severe Sepsis (6) Acute Hypoxic Respiratory failure with compensated Alkalosis (7) Bilateral Pneumonia (8) Morbid Obesity (9) Elevate LFT (10) DVT prophylaxis Current Visit: Yes Status: Acute Plan to address problem: Patient currently on anticoagulation with heparin. (11) Full code status Current Visit: Yes Status: Acute Plan to address problem: Patient is full code. History Interval history: Patient seen and examined remains unresponsive opens her eyes but does not track according to the nursing staff. No other purposeful movement noted. Hospitalist Physical - Physical exam Narrative exam: General appearance: Present: well-nourished (Intubated and sedated), obese, other - EENT Eyes: Present: PERRL, EOM intact. Absent: scleral icterus ENT: hearing intact, clear oral mucosa, dentition normal - Neck Neck: Present: supple, normal ROM - Respiratory Respiratory effort: other (Intubated) Respiratory: bilateral: diminished - Cardiovascular Rhythm: regular Heart Sounds: Present: S1 & S2. Absent: gallop, systolic murmur, diastolic murmur, rub, click - Extremities Extremities: no ischemia, pulses intact, pulses symmetrical, No edema, normal temperature, normal color, Full ROM Peripheral Pulses: within normal limits - Abdominal General gastrointestinal: Present: soft, non-tender, non-distended, normal bowel sounds. Absent: mass - Integumentary Integumentary: Present: clear, warm, dry. Absent: rash - Musculoskeletal Musculoskeletal: strength equal bilaterally - Psychiatric Psychiatric: cooperative - Neurologic Neurologic: CNII-XII intact, no focal deficits, moves all extremities - Constitutional Vitals: Temp Pulse Resp BP Pulse Ox 99.0 F 64 25 H 126/47 100 06/16/21 07:00 06/16/21 08:01 06/16/21 06:30 06/16/21 08:01 06/16/21 08:01 General appearance: Present: other (Unresponsive, on the vent) HEART Score - HEART Score Troponin: Troponin T 0.062 ng/mL (0.00-0.029) H 06/15/21 09:05 Results - Labs CBC & Chem 7: 06/16/21 06:16 06/16/21 06:16 Labs: Laboratory Last Values WBC 10.4 K/mm3 (4.5-11.0) 06/16/21 06:16 RBC 4.69 M/mm3 (3.65-5.03) 06/16/21 06:16 Hgb 11.4 gm/dl (10.1-14.3) 06/16/21 06:16 Hct 36.0 % (30.3-42.9) 06/16/21 06:16 MCV 77 fl (79-97) L 06/16/21 06:16 MCH 24 pg (28-32) L 06/16/21 06:16 MCHC 32 % (30-34) 06/16/21 06:16 RDW 15.1 % (13.2-15.2) 06/16/21 06:16 Plt Count 167 K/mm3 (140-440) 06/16/21 06:16 Lymph % (Auto) 17.7 % (13.4-35.0) 06/16/21 06:16 [place]mer % (Auto) 7.5 % (0.0-7.3) H 06/16/21 06:16 Eos % (Auto) 0.5 % (0.0-4.3) 06/16/21 06:16 Baso % (Auto) 0.5 % (0.0-1.8) 06/16/21 06:16 Lymph # (Auto) 1.8 K/mm3 (1.2-5.4) 06/16/21 06:16 [place]mer # (Auto) 0.8 K/mm3 (0.0-0.8) 06/16/21 06:16 Eos # (Auto) 0.0 K/mm3 (0.0-0.4) 06/16/21 06:16 Baso # (Auto) 0.0 K/mm3 (0.0-0.1) 06/16/21 06:16 Seg Neutrophils % 73.8 % (40.0-70.0) H 06/16/21 06:16 Seg Neutrophils # 7.7 K/mm3 (1.8-7.7) 06/16/21 06:16 PT 16.0 Sec. (12.2-14.9) H 06/16/21 06:16 INR 1.22 (0.87-1.13) H 06/16/21 06:16 APTT 25.6 Sec. (24.2-36.6) 06/15/21 03:30 D-Dimer 1785.61 ng/mlDDU (0-234) H 06/15/21 05:18 Heparin Anti-Xa Level < 0.10 U.I./ml (0.3-0.7) L 06/15/21 23:43 ABG pH 7.693 (7.320-7.450) H 06/16/21 05:00 POC ABG pCO2 18.6 mmHg (32.0-48.0) L 06/16/21 05:00 ABG pCO2 36.3 mm Hg 06/15/21 05:00 POC ABG pO2 147.2 mmHg (83-108) H 06/16/21 05:00 ABG pO2 184.7 mm Hg (80.0-90.0) H 06/15/21 05:00 POC ABG HCO3 22.1 06/16/21 05:00 ABG HCO3 22.6 mmol/L (20.0-26.0) 06/15/21 05:00 ABG O2 Saturation 99.7 (0-100) 06/16/21 05:00 ABG O2 Content 16.6 (0.0-44) 06/15/21 05:00 POC ABG Base Excess 3.9 06/16/21 05:00 ABG Base Excess -1.5 mmol/L (-2.0-3.0) 06/15/21 05:00 ABG Hemoglobin 12.1 (12.0-17.5) 06/16/21 05:00 ABG Oxyhemoglobin 98.5 (94-98) H 06/16/21 05:00 ABG Carboxyhemoglobin 2.1 % (0.0-5.0) 06/15/21 05:00 ABG Methemoglobin 0.3 (0.0-1.5) 06/16/21 05:00 ABG Sodium 139.4 mmol/L (136.0-145.0) 06/16/21 05:00 ABG Potassium 3.0 mmol/L (3.40-4.50) L 06/16/21 05:00 ABG Chloride 107.0 mmol/L (98-107) 06/16/21 05:00 ABG Glucose 178 mg/dL (65-95) H 06/16/21 05:00 Oxyhemoglobin 96.5 % (95.0-99.0) 06/15/21 05:00 Carboxyhemoglobin 0.9 (0.5-1.5) 06/16/21 05:00 FiO2 100 % 06/15/21 05:00 FiO2 % 50.0 06/16/21 05:00 Sodium 143 mmol/L (137-145) 06/16/21 06:16 Potassium 3.1 mmol/L (3.6-5.0) L D 06/16/21 06:16 Chloride 103.7 mmol/L (98-107) 06/16/21 06:16 Carbon Dioxide 24 mmol/L (22-30) 06/16/21 06:16 Anion Gap 18 mmol/L 06/16/21 06:16 BUN 40 mg/dL (7-17) H 06/16/21 06:16 Creatinine 1.4 mg/dL (0.6-1.2) H 06/16/21 06:16 Estimated GFR 44 ml/min 06/16/21 06:16 BUN/Creatinine Ratio 29 % 06/16/21 06:16 Glucose 154 mg/dL (65-100) H 06/16/21 06:16 POC Glucose 182 mg/dL (70-105) H 06/16/21 05:17 Calcium 8.9 mg/dL (8.4-10.2) 06/16/21 06:16 Total Bilirubin 0.60 mg/dL (0.1-1.2) 06/16/21 06:16 AST 48 units/L (5-40) H 06/16/21 06:16 ALT 69 units/L (7-56) H 06/16/21 06:16 Alkaline Phosphatase 93 units/L (35-129) 06/16/21 06:16 Lactate Dehydrogenase 243 units/L (91-180) H 06/15/21 05:18 Total Creatine Kinase 105 units/L (30-135) 06/15/21 03:30 CK-MB (CK-2) 4.8 ng/mL (0.0-4.0) H 06/15/21 03:30 CK-MB (CK-2) Rel Index 4.5 (0-4) H 06/15/21 03:30 Troponin T 0.062 ng/mL (0.00-0.029) H 06/15/21 09:05 C-Reactive Protein 3.00 mg/dL (0.00-1.30) H 06/15/21 05:18 Total Protein 5.8 g/dL (6.3-8.2) L 06/16/21 06:16 Albumin 3.0 g/dL (3.9-5) L 06/16/21 06:16 Albumin/Globulin Ratio 1.1 % 06/16/21 06:16 Triglycerides 66 mg/dL (2-149) 06/15/21 03:30 Cholesterol 137 mg/dL (50-199) 06/15/21 03:30 LDL Cholesterol Direct 79 mg/dL (50-130) 06/15/21 03:30 HDL Cholesterol 58 mg/dL (40-59) 06/15/21 03:30 Cholesterol/HDL Ratio 2.36 % 06/15/21 03:30 Procalcitonin < 0.05 ng/mL (<0.15) 06/15/21 05:18 Arterial Blood Glucose 178 mg/dL (65-95) H 06/16/21 05:00 Arterial Blood Ionized Calcium 4.5 mg/dL (4.6-5.3) L 06/16/21 05:00 Urine Color Jacqui (Yellow) 06/15/21 09:34 Urine Turbidity Slightly-cloudy (Clear) 06/15/21 09:34 Urine pH 5.0 (5.0-7.0) 06/15/21 09:34 Ur Specific [place] 1.018 (1.003-1.030) 06/15/21 09:34 Urine Protein >500 mg/dL (Negative) 06/15/21 09:34 Urine Glucose (UA) 50 mg/dL (Negative) 06/15/21 09:34 Urine Ketones Tr mg/dL (Negative) 06/15/21 09:34 Urine Blood Sm (Negative) 06/15/21 09:34 Urine Nitrite Neg (Negative) 06/15/21 09:34 Urine Bilirubin Neg (Negative) 06/15/21 09:34 Urine Urobilinogen 2.0 mg/dL (<2.0) 06/15/21 09:34 Ur Leukocyte Esterase Neg (Negative) 06/15/21 09:34 Urine WBC (Auto) 8.0 /HPF (0.0-6.0) H 06/15/21 09:34 Urine RBC (Auto) 5.0 /HPF (0.0-6.0) 06/15/21 09:34 Urine Mucus Few /HPF 06/15/21 09:34 Urine Creatinine 146.5 mg/dL (0.1-20.0) H 06/15/21 09:15 Protein/Creatinin Ratio 1.47 06/15/21 09:15 Urine Total Protein 216 mg/dL (5-11.8) H 06/15/21 09:15 Coronavirus (PCR) Negative (Negative) 06/15/21 08:30 Blood Type O POSITIVE 06/15/21 03:30 Antibody Screen Negative 06/15/21 03:30 Scales/IV: Voiding Method Indwelling Catheter Active Medications - Current Medications Current Medications: Generic Name Dose Route Start Last Admin Trade Name Freq PRN Reason Stop Dose Admin Acetaminophen 650 mg 06/15/21 05:07 Acetaminophen 650 Mg Rect Supp VA Q6H PRN Pain MILD(1-3)/Fever >100.5/WHITE Amlodipine Besylate 10 mg 06/16/21 10:00 Amlodipine 10 Mg Tab PO QDAY JONATHAN Dextrose 0 ml 06/15/21 05:07 Dextrose 50% In Water (25gm) 50 Ml Syringe IV Q30MIN PRN Hypoglycemia Protocol Famotidine 20 mg 06/15/21 10:00 06/15/21 21:51 Famotidine 20 Mg/2 Ml Inj IV 20 mg BID JONATHAN Administration Fentanyl 50 mcg 06/15/21 03:06 Fentanyl 100 Mcg/2 Ml Inj IV Q10MIN PRN ANALGESIA Heparin Sodium (Porcine) 5,000 unit 06/15/21 07:00 Heparin 10,000 Units/10 Ml Vial IV Q6H PRN Anti-Xa Assay < 0.1 units/ml Hydralazine HCl 100 mg 06/16/21 08:00 Hydralazine 100 Mg Tab PO TID JONATHAN Hydralazine HCl 10 mg 06/15/21 23:43 06/16/21 00:28 Hydralazine 20 Mg/1 Ml Inj IV 10 mg Q6H PRN Administration SBP > 160 Hydrophilic Ointment 1 applic 06/15/21 03:06 Lip Therapy Vaseline TP Q2HR PRN Dry Lips Fentanyl Citrate 2,000 mcg in 100 mls @ 7.39 mls/hr 06/15/21 04:00 06/16/21 05:16 Fentanyl Drip Premix IV 2 mcg/kg/hr TITR JONATHAN 14.78 mls/hr Administration Protocol 1 MCG/KG/HR Ceftriaxone Sodium 2 gm in 100 mls @ 200 mls/hr 06/15/21 06:00 06/15/21 07:31 Rocephin/Ns 2 Gm/100 Ml IV 200 mls/hr Q24HR JONATHAN Administration Protocol Azithromycin 500 mg in 250 mls @ 250 mls/hr 06/15/21 06:00 06/15/21 09:33 Zithromax/Ns IV 250 mls/hr Q24HR JONATHAN Administration Protocol Heparin Sodium/Sodium Chloride 25,000 unit in 500 mls @ 20 mls/hr 06/15/21 07:00 06/16/21 02:59 Heparin/ 0.45% Nacl-25,000 Unit/500 Ml IV 1,600 units/hr TITRATE JONATHAN 32 mls/hr Titration Protocol 1,000 UNITS/HR Propofol 1,000 mg in 100 mls @ 4.434 mls/hr 06/15/21 16:00 06/16/21 05:16 Diprivan 10 Mg/Ml IV 15 mcg/kg/min TITR JONATHAN 13.302 mls/hr Administration Protocol 5 MCG/KG/MIN Levetiracetam 500 mg/ Dextrose 105 mls @ 400 mls/hr 06/15/21 16:00 06/15/21 21:58 IV 400 mls/hr Q12HR JONATHAN Administration Insulin Human Lispro 0 unit 06/15/21 12:00 06/16/21 06:04 Insulin Lispro 100 Unit/Ml SUB-Q Not Given Q6HR JONATHAN Protocol Lisinopril 40 mg 06/16/21 10:00 Lisinopril 40 Mg Tab PO QDAY JONATHAN Multi-Ingred Cream/Lotion/Oil/Oint 1 applic 06/15/21 03:06 Mineral Oil/Petrolatum, White Ophth Oint 3.5 Gm OU Q4HR PRN Dry Eye(s) Senna/Docusate Sodium 1 tab 06/15/21 22:00 06/15/21 21:50 Sennosides/Docusate Sodium 8.6/50 Mg Tab PO 1 tab QHS JONATHAN Administration Sodium Chloride 10 ml 06/15/21 10:00 06/15/21 21:51 Sodium Chloride 0.9% 10 Ml Flush Syringe IV 10 ml BID JONATHAN Administration Sodium Chloride 10 ml 06/15/21 05:07 Sodium Chloride 0.9% 10 Ml Flush Syringe IV PRN PRN LINE FLUSH Nutrition/Malnutrition Assess - Dietary Evaluation Nutrition/Malnutrition Findings: Nutrition Notes Start: 06/15/21 08:35 Freq: Status: Active Protocol: Document 06/15/21 08:35 TOM (Rec: 06/15/21 08:42 MK [id number]) Nutrition Notes Need for Assessment generated from: MD Order Initial or Follow up Assessment Current Diagnosis Acute Kidney Injury,Diabetes, Hypertension Other Pertinent Diagnosis cardiac arrest Current Diet NPO Labs/Tests BUN 36 Cr 1.4 BG 258 Pertinent Medications Reviewed Height 5 ft 9 in Weight 147.8 kg [place] Body Weight (kg) 65.90 BMI 48.1 Weight Status Morbidly Obese Subjective/Other Information MD consult for diet education. Pt on vent and unable to communicate. Burn Absent Trauma Absent Current % PO Negligible Minimum of two criteria No physical signs of malnutrition #1 Nutrition Diagnosis Inadequate oral intake Etiology ARF As Evidenced by Signs and Symptoms pt on vent and unable to consume PO Is patient on ventilator? Yes Is Patient Ambulatory and/or Out of Bed No REE-([facility]-confined to bed) 2426.664 Kcal/Kg value to use for calculation 13 Approximate Energy Requirements Using 1921 kcal/Kg Calculation Used for Recommendations Kcal/kg Additional Notes Protein: (up to 2.5g/kg IBW) < 165g Fluid: 1 ml/kcal or per MD Nutrition Intervention Change Diet Order: Start TF when able Nutrition Support: Recommend: Glucerna 1.2 at 65 ml/hr Flush 100 ml q4h Kcal 1,728 Protein (gm) 94 Fluid (mL) 1,256 Goal #1 Start TF or dirt advancement Follow-Up By: 06/18/21 Additional Comments FU for TF consult or diet advancement
--- NOTE | 2021-06-16 10:17 | Progress Note ---
Assessment and Plan #Cardiac arrest - unknown rhythm at time of event #Transient AF - noted in setting of ACLS resuscitation and after epinephrine #NSTEMI - likely type 2 #Respiratory failure - intubated #Pneumonia/Sepsis #CKD #DM #Obesity -Minimal/flat troponin does not suggest ACS. No need to further trend troponin. Heparin per primary team. -No arrhythmic events on telemetry. -Will await echo. -Further cardiac recommendations pending echo findings. Subjective Date of service: 06/16/21 Interval history: Temp 100.2 yesterday evening. COVID-19 negative. Remains intubated/sedated. Troponin 0.04, 0.58, 0.6. Telemetry - SR, no events Objective Vital Signs Temp Pulse Pulse Resp BP Pulse Ox 06/16/21 09:16 67 15 126/48 97 06/16/21 09:00 61 23 138/56 96 06/16/21 08:46 63 19 137/51 100 06/16/21 08:30 62 16 136/58 100 06/16/21 08:16 64 11 L 126/48 100 06/16/21 08:01 64 126/47 100 06/16/21 08:00 64 28 H 126/47 100 06/16/21 07:45 64 32 H 114/61 100 06/16/21 07:30 63 32 H 123/22 100 06/16/21 07:16 66 28 H 123/22 100 06/16/21 07:00 99.0 F 66 22 125/39 100 06/16/21 06:46 63 19 125/39 100 06/16/21 06:30 63 25 H 136/21 100 06/16/21 06:16 63 25 H 136/21 100 06/16/21 06:00 64 21 238/191 100 06/16/21 05:46 63 31 H 148/34 100 06/16/21 05:30 63 32 H 122/33 100 06/16/21 05:16 63 31 H 238/191 100 06/16/21 05:00 64 32 H 128/31 100 06/16/21 04:46 64 24 120/33 100 06/16/21 04:30 67 21 124/29 100 06/16/21 04:16 64 31 H 124/29 100 06/16/21 04:13 65 124/29 100 06/16/21 04:00 99.7 F H 65 65 28 H 135/30 100 06/16/21 03:46 64 28 H 135/30 100 06/16/21 03:30 64 31 H 100 06/16/21 03:16 67 25 H 100 06/16/21 03:00 64 21 262/158 100 06/16/21 02:46 65 31 H 144/39 100 06/16/21 02:30 65 30 H 136/48 100 06/16/21 02:16 66 22 130/31 100 06/16/21 02:00 67 31 H 146/38 100 06/16/21 01:46 67 31 H 146/38 100 06/16/21 01:30 72 18 165/34 100 06/16/21 01:16 75 18 270/199 99 06/16/21 01:00 73 25 H 215/143 96 06/16/21 00:46 73 19 143/81 100 06/16/21 00:30 67 23 217/155 100 06/16/21 00:28 66 217/155 06/16/21 00:16 71 18 217/155 99 06/16/21 00:00 67 67 28 H 190/151 100 06/15/21 23:46 69 20 190/80 99 06/15/21 23:30 70 20 191/156 100 06/15/21 23:19 98.3 F 06/15/21 23:16 68 30 H 148/63 100 06/15/21 23:09 71 21 182/161 100 06/15/21 23:00 70 19 171/130 100 06/15/21 22:00 77 20 120/102 100 06/15/21 21:00 81 16 149/126 100 06/15/21 20:42 77 152/113 100 06/15/21 20:13 100.2 F H 06/15/21 20:00 100.2 F H 80 80 16 148/63 100 06/15/21 19:50 74 18 148/63 100 06/15/21 19:40 85 17 163/130 100 06/15/21 19:30 79 29 H 163/130 100 06/15/21 19:20 84 25 H 127/100 100 06/15/21 19:10 86 22 141/115 100 06/15/21 19:00 82 27 H 120/98 99 06/15/21 18:50 77 28 H 171/147 100 06/15/21 18:40 76 27 H 184/147 100 06/15/21 18:00 74 20 99 06/15/21 17:49 90 06/15/21 16:02 99.0 F 06/15/21 16:00 74 20 99 06/15/21 15:40 87 145/67 100 06/15/21 13:41 82 20 99 06/15/21 12:00 97.8 F 82 20 99 06/15/21 11:39 80 151/79 100 06/15/21 11:30 79 - Physical Examination HEENT: Positive: Other (Pupils fixed) Neck: Positive: neck supple Cardiac: Positive: Reg Rate and Rhythm Lungs: Positive: Other (intubated, mechanical BS) Neuro: Positive: Other (Unresponsive, on the vent) Abdomen: Positive: Soft, Other (obese) Skin: Positive: Clear Extremities: Absent: edema - Labs and Meds Cardiac Enzymes 06/16/21 Range/Units 06:16 AST 48 H (5-40) units/L Coagulation 06/16/21 Range/Units 06:16 PT 16.0 H (12.2-14.9) Sec. INR 1.22 H (0.87-1.13) CBC 06/16/21 Range/Units 06:16 WBC 10.4 (4.5-11.0) K/mm3 RBC 4.69 (3.65-5.03) M/mm3 Hgb 11.4 (10.1-14.3) gm/dl Hct 36.0 (30.3-42.9) % Plt Count 167 (140-440) K/mm3 Lymph # (Auto) 1.8 (1.2-5.4) K/mm3 [place] # (Auto) 0.8 (0.0-0.8) K/mm3 Eos # (Auto) 0.0 (0.0-0.4) K/mm3 Baso # (Auto) 0.0 (0.0-0.1) K/mm3 Comprehensive Metabolic Panel 06/16/21 Range/Units 06:16 Sodium 143 (137-145) mmol/L Potassium 3.1 L D (3.6-5.0) mmol/L Chloride 103.7 (98-107) mmol/L Carbon Dioxide 24 (22-30) mmol/L BUN 40 H (7-17) mg/dL Creatinine 1.4 H (0.6-1.2) mg/dL Glucose 154 H (65-100) mg/dL Calcium 8.9 (8.4-10.2) mg/dL AST 48 H (5-40) units/L ALT 69 H (7-56) units/L Alkaline Phosphatase 93 (35-129) units/L Total Protein 5.8 L (6.3-8.2) g/dL Albumin 3.0 L (3.9-5) g/dL
[2021-06-16] MEDS ORDERED: SIMPLE SYRUP 15 ML FEEDTUBE PRN ×2 (10:30)
[2021-06-16] MEDS ORDERED: LIPASE 10,500/PROTEASE 25,000/AMYLASE 43,750 (UNITS) DR CAP FEEDTUBE PRN (10:30)
[2021-06-16] MEDS ORDERED: SODIUM BICARBONATE 325 MG TAB FEEDTUBE PRN (10:30)
[2021-06-16] MEDS: levETIRAcetam 500 MG in DEXTROSE 5% IN WATER 100 ML IV SCH ×2 (10:35→22:14)
[2021-06-16] MEDS: FAMOTIDINE 20 MG/2 ML INJ IV SCH ×2 (10:36→22:11)
[2021-06-16] MEDS: amLODIPine 10 MG TAB PO SCH (10:36)
[2021-06-16] MEDS: hydrALAZINE 100 MG TAB PO SCH ×3 (10:36→22:12)
[2021-06-16] MEDS: LISINOPRIL 40 MG TAB PO SCH (10:36)
[2021-06-16] MEDS: PIPERACIL/TAZOBACTA 4.5/NS 100 4.5 GM/100 ML VIAL IV SCH ×2 (10:38→18:48)
[2021-06-16 10:52] LABS: Calcium 8.5 mg/dL (8.4-10.2)
--- NOTE | 2021-06-16 12:50 | XRay Report ---
CHEST 1 VIEW 06/16/2021 12:21 PM INDICATION / CLINICAL INFORMATION: R arm PICC placement. COMPARISON: None available. FINDINGS: SUPPORT DEVICES: Right PICC line tip overlies the distal SVC. ET tube and NG tube are satisfactory in position HEART / MEDIASTINUM: Hepatomegaly LUNGS / PLEURA: Mild increased opacities in bilateral lungs. No pneumothorax. Signer Name: Arnold Hilton MD Signed: 06/16/2021 12:45 PM Workstation Name: [id number]
--- NOTE | 2021-06-16 13:19 | Ultrasound Report ---
ULTRASOUND RENAL INDICATION / CLINICAL INFORMATION: RIGOBERTO. COMPARISON: None available. FINDINGS: RIGHT KIDNEY: Length = 10.6 cm. - Echogenicity: Normal. - Cortical Thickness: Normal. - Hydronephrosis: None. - Cyst or mass: No significant abnormality. - Stones: None seen. LEFT KIDNEY: Length = 10.7 cm. - Echogenicity: Normal. - Cortical Thickness: Normal. - Hydronephrosis: None. - Cyst or mass: There is an echogenic lesion within the left mid kidney cortex measuring 1.3 x 0.8 x 1.7 cm - Stones: None seen. URINARY BLADDER: No significant abnormality. FREE FLUID: None. ADDITIONAL FINDINGS: Gallstone IMPRESSION: 1. Cholelithiasis 2. Echogenic lesion within the left mid kidney which is avascular. 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 A follow-up ultrasound or CT could be performed. Signer Name: Arnold Hilton MD Signed: 06/16/2021 1:15 PM Workstation Name: [id number]
--- NOTE | 2021-06-16 16:18 | Progress Note ---
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 Will need further evaluation outpatient. Subjective Date of service: 06/16/21 Principal diagnosis: Cardiac arrest Interval history: Remains intubated. Objective - Exam Narrative Exam: General: Sedated. Intubated HEENT: Oral mucosa moist Neck: Supple, no JVD Chest: Clear to auscultation bilaterally Heart: RRR, S1 and S2, no pericardial rub Abdomen: Soft, nontender, no renal bruit Extremity: No peripheral cyanosis, edema Neurological: Alert, awake, no asterixis Dermatology: No skin rash Psych: No agitation Musculoskeletal: No joint effusion - Vital Signs Vital signs: Vital Signs - 12hr 06/16/21 06/16/21 06/16/21 04:13 04:16 04:30 Temperature Pulse Rate 65 64 67 Pulse Rate [ Apical] Respiratory 31 H 21 Rate Blood Pressure 124/29 124/29 124/29 O2 Sat by Pulse 100 100 100 Oximetry 06/16/21 06/16/21 06/16/21 04:46 05:00 05:16 Temperature Pulse Rate 64 64 63 Pulse Rate [ Apical] Respiratory 24 32 H 31 H Rate Blood Pressure 120/33 128/31 238/191 O2 Sat by Pulse 100 100 100 Oximetry 06/16/21 06/16/21 06/16/21 05:30 05:46 06:00 Temperature Pulse Rate 63 63 64 Pulse Rate [ Apical] Respiratory 32 H 31 H 21 Rate Blood Pressure 122/33 148/34 238/191 O2 Sat by Pulse 100 100 100 Oximetry 06/16/21 06/16/21 06/16/21 06:16 06:30 06:46 Temperature Pulse Rate 63 63 63 Pulse Rate [ Apical] Respiratory 25 H 25 H 19 Rate Blood Pressure 136/21 136/21 125/39 O2 Sat by Pulse 100 100 100 Oximetry 06/16/21 06/16/21 06/16/21 07:00 07:16 07:30 Temperature 99.0 F Pulse Rate 66 66 63 Pulse Rate [ Apical] Respiratory 22 28 H 32 H Rate Blood Pressure 125/39 123/22 123/22 O2 Sat by Pulse 100 100 100 Oximetry 06/16/21 06/16/21 06/16/21 07:45 08:00 08:01 Temperature Pulse Rate 64 64 64 Pulse Rate [ 62 Apical] Respiratory 32 H 25 H Rate Blood Pressure 114/61 126/47 126/47 O2 Sat by Pulse 100 100 100 Oximetry 06/16/21 06/16/21 06/16/21 08:16 08:30 08:46 Temperature Pulse Rate 64 62 63 Pulse Rate [ Apical] Respiratory 11 L 16 19 Rate Blood Pressure 126/48 136/58 137/51 O2 Sat by Pulse 100 100 100 Oximetry 06/16/21 06/16/21 06/16/21 09:00 09:16 09:30 Temperature Pulse Rate 61 67 65 Pulse Rate [ Apical] Respiratory 23 15 18 Rate Blood Pressure 138/56 126/48 126/48 O2 Sat by Pulse 96 97 97 Oximetry 06/16/21 06/16/21 06/16/21 09:46 10:00 10:16 Temperature Pulse Rate 62 59 L 61 Pulse Rate [ Apical] Respiratory 25 H 15 17 Rate Blood Pressure 138/56 143/65 143/65 O2 Sat by Pulse 99 100 100 Oximetry 06/16/21 06/16/21 06/16/21 10:30 10:46 11:00 Temperature Pulse Rate 61 60 61 Pulse Rate [ Apical] Respiratory 30 H 20 18 Rate Blood Pressure 143/65 143/65 143/65 O2 Sat by Pulse 100 100 100 Oximetry 06/16/21 06/16/21 06/16/21 11:16 11:19 11:30 Temperature Pulse Rate 61 63 61 Pulse Rate [ Apical] Respiratory 25 H 25 H Rate Blood Pressure 136/60 136/60 136/60 O2 Sat by Pulse 93 98 65 L Oximetry 06/16/21 06/16/21 06/16/21 11:46 12:00 12:16 Temperature Pulse Rate 61 63 64 Pulse Rate [ 61 Apical] Respiratory 27 H 32 H 33 H Rate Blood Pressure 136/60 136/60 123/45 O2 Sat by Pulse 98 95 Oximetry 06/16/21 06/16/21 06/16/21 12:30 12:46 13:00 Temperature Pulse Rate 65 63 63 Pulse Rate [ Apical] Respiratory 28 H 24 15 Rate Blood Pressure 123/45 123/45 124/47 O2 Sat by Pulse 100 99 Oximetry 06/16/21 06/16/21 06/16/21 13:16 13:30 13:46 Temperature Pulse Rate 62 62 62 Pulse Rate [ Apical] Respiratory 14 25 H 11 L Rate Blood Pressure 124/47 124/47 124/47 O2 Sat by Pulse 99 97 98 Oximetry 06/16/21 06/16/21 06/16/21 14:00 14:16 14:30 Temperature Pulse Rate 61 62 61 Pulse Rate [ Apical] Respiratory 32 H 31 H 32 H Rate Blood Pressure 114/52 114/52 114/52 O2 Sat by Pulse 94 96 97 Oximetry 06/16/21 06/16/21 06/16/21 14:46 15:00 15:28 Temperature Pulse Rate 62 61 61 Pulse Rate [ Apical] Respiratory 29 H 32 H Rate Blood Pressure 114/52 115/52 115/52 O2 Sat by Pulse 94 92 91 Oximetry - Lab 06/16/21 06:16 06/16/21 10:20 Most recent lab results ABG pH 7.693 (7.320-7.450) H 06/16/21 05:00 ABG pCO2 36.3 mm Hg 06/15/21 05:00 ABG pO2 184.7 mm Hg (80.0-90.0) H 06/15/21 05:00 ABG HCO3 22.6 mmol/L (20.0-26.0) 06/15/21 05:00 ABG O2 Saturation 99.7 (0-100) 06/16/21 05:00 Calcium 8.5 mg/dL (8.4-10.2) 06/16/21 10:20 Urine Creatinine 146.5 mg/dL (0.1-20.0) H 06/15/21 09:15 Urine Total Protein 216 mg/dL (5-11.8) H 06/15/21 09:15 Medications & Allergies - Medications Allergies/Adverse Reactions: Allergies latex Allergy (Verified 12/29/17 08:16) Itching shellfish Allergy (Uncoded 12/17/18 00:58) Swelling Home Medications: Home Medications Medication Instructions Recorded Confirmed Last Taken Type Amlodipine Besylate/Benazepril 1 cap PO DAILY 09/18/15 06/15/21 06/14/21 00:00 History [Amlodipine-Benazepril 5-20 mg] Aspirin BABY CHEW TAB 81 mg PO DAILY 09/18/15 06/15/21 06/14/21 00:00 History Insulin Aspart Protam & Aspart 50 units SC QAM 09/18/15 06/15/21 06/14/21 00:00 History [NovoLOG Mix 70-30 Flexpen] Insulin Aspart Protam & Aspart 50 units SC QHS 09/18/15 06/15/21 12/28/17 18:00 History [NovoLOG Mix 70-30 Flexpen] hydroCHLOROthiazide 1 tab PO DAILY 09/18/15 06/15/21 06/14/21 00:00 History [Hydrochlorothiazide] cloNIDine [Catapres] 0.2 mg PO QHS 12/29/17 06/15/21 12/27/17 21:00 History raNITIdine HCl [Zantac] 150 mg PO BID 12/29/17 06/15/21 06/14/21 00:00 History Benazepril (Nf) 40 mg PO DAILY 06/15/21 06/15/21 06/14/21 History Hydralazine HCl 100 mg PO BID 06/15/21 06/15/21 06/14/21 00:00 History Insulin Aspart Prot/Insuln Asp 100 unit SQ BID 06/15/21 06/15/21 Unknown History [Novolog Mix 70-30 Flexpen Syrn] traMADoL [Ultram 50 MG tab] 50 mg PO PRN 06/15/21 06/15/21 Unknown History Active Medications: Generic Name Dose Route Start Last Admin Trade Name Freq PRN Reason Stop Dose Admin Acetaminophen 650 mg 06/15/21 05:07 Acetaminophen 650 Mg Rect Supp OK Q6H PRN Pain MILD(1-3)/Fever >100.5/WHITE Amlodipine Besylate 10 mg 06/16/21 10:00 06/16/21 10:36 Amlodipine 10 Mg Tab PO 10 mg QDAY JONATHAN Administration Lipase/Protease/Amylase 1 each 06/16/21 10:30 Lipase 10,500/Protease 25,000/Amylase 43,750 (Units) Dr Craven FEEDTUBE PRN PRN For Clogged Feeding Tube Dextrose 0 ml 06/15/21 05:07 Dextrose 50% In Water (25gm) 50 Ml Syringe IV Q30MIN PRN Hypoglycemia Protocol Famotidine 20 mg 06/15/21 10:00 06/16/21 10:36 Famotidine 20 Mg/2 Ml Inj IV 20 mg BID JONATHAN Administration Fentanyl 50 mcg 06/15/21 03:06 Fentanyl 100 Mcg/2 Ml Inj IV Q10MIN PRN ANALGESIA Heparin Sodium (Porcine) 5,000 unit 06/15/21 07:00 Heparin 10,000 Units/10 Ml Vial IV Q6H PRN Anti-Xa Assay < 0.1 units/ml Hydralazine HCl 100 mg 06/16/21 08:00 06/16/21 10:36 Hydralazine 100 Mg Tab PO 100 mg TID JONATHAN Administration Hydralazine HCl 10 mg 06/15/21 23:43 06/16/21 00:28 Hydralazine 20 Mg/1 Ml Inj IV 10 mg Q6H PRN Administration SBP > 160 Hydrophilic Ointment 1 applic 06/15/21 03:06 Lip Therapy Vaseline TP Q2HR PRN Dry Lips Fentanyl Citrate 2,000 mcg in 100 mls @ 7.39 mls/hr 06/15/21 04:00 06/16/21 13:38 Fentanyl Drip Premix IV 2 mcg/kg/hr TITR JONATHAN 14.78 mls/hr Administration Protocol 1 MCG/KG/HR Heparin Sodium/Sodium Chloride 25,000 unit in 500 mls @ 20 mls/hr 06/15/21 07:00 06/16/21 02:59 Heparin/ 0.45% Nacl-25,000 Unit/500 Ml IV 1,600 units/hr TITRATE JONATHAN 32 mls/hr Titration Protocol 1,000 UNITS/HR Propofol 1,000 mg in 100 mls @ 4.434 mls/hr 06/15/21 16:00 06/16/21 13:00 Diprivan 10 Mg/Ml IV 20 mcg/kg/min TITR JONATHAN 17.736 mls/hr Administration Protocol 5 MCG/KG/MIN Levetiracetam 500 mg/ Dextrose 105 mls @ 400 mls/hr 06/15/21 16:00 06/16/21 10:35 IV 400 mls/hr Q12HR JONATHAN Administration Piperacillin Sod/Tazobactam Sod 4.5 gm in 100 mls @ 200 mls/hr 06/16/21 11:00 06/16/21 10:38 Zosyn/Ns 4.5gm/100ml IV 200 mls/hr Q8H JONATHAN Administration Protocol Insulin Human Lispro 0 unit 06/15/21 12:00 06/16/21 15:11 Insulin Lispro 100 Unit/Ml SUB-Q Not Given Q6HR [facility] Protocol Lisinopril 40 mg 06/16/21 10:00 06/16/21 10:36 Lisinopril 40 Mg Tab PO 40 mg QDAY JONATHAN Administration Multi-Ingred Cream/Lotion/Oil/Oint 1 applic 06/15/21 03:06 Mineral Oil/Petrolatum, White Ophth Oint 3.5 Gm OU Q4HR PRN Dry Eye(s) Senna/Docusate Sodium 1 tab 06/15/21 22:00 06/15/21 21:50 Sennosides/Docusate Sodium 8.6/50 Mg Tab PO 1 tab QHS JONATHAN Administration Simple Syrup 15 ml 06/16/21 10:30 Simple Syrup 15 Ml FEEDTUBE PRN PRN Hypoglycemia Simple Syrup 30 ml 06/16/21 10:30 Simple Syrup 15 Ml FEEDTUBE PRN PRN Hypoglycemia Sodium Bicarbonate 325 mg 06/16/21 10:30 Sodium Bicarbonate 325 Mg Tab FEEDTUBE PRN PRN For Clogged Feeding Tube Sodium Chloride 10 ml 06/15/21 10:00 06/16/21 10:36 Sodium Chloride 0.9% 10 Ml Flush Syringe IV 10 ml BID JONATHAN Administration Sodium Chloride 10 ml 06/15/21 05:07 Sodium Chloride 0.9% 10 Ml Flush Syringe IV PRN PRN LINE FLUSH
--- NOTE | 2021-06-16 16:50 | Progress Note ---
Assessment and Plan Acute hypoxemic respiratory failure on MVS Cardiac arrest with ROSC Possible seizure activity Acute encephalopathy Acute kidney injury Non-ST elevation myocardial infarction Morbid obesity Hyperglycemia Arthritis Oropharyngeal dysphagia HTN - set rate on MVS reduced to 10/min re: ph of 7.63 - repeat ABG in am - potassium replaced per protocol - cardiology evaluation ongoing re: NSTEMI - continue IV Heparin for now - continue Daily SAT and SBT assessment as tolerated - continue to wean supplemental oxygen for target O2 sat's > 90% acutely - VAP bundle addressed - continue lung protective strategies - continue bronchodilators with pulmonary hygiene per RT - wean per pulmonary driven protocols otherwise - continue accuchecks with glycemic control per SSI (While critically ill target blood glucose of 140-180 mg/dL; avoid hypoglycemia) - sedation prn for target RASS 0 to -1 - azotemia per nephrology team; no acute indication for dialysis - continue to avoid nephrotoxins, renally dose all medications - continue to avoid benzodiazepine's, reduce the possibility of delirium - complete AB's per ID rec's (Zosyn) - prn analgesia per CPOT score - Maintenance of sleep-wake cycle, avoid delirium - continue enteral nutritional support at goal rate as tolerated - G.I. & VTE prophylaxis - PT/OT/ROM exercises - continue mobility protocols for pressure ulcer prophylaxis - Monitor hemodynamics closely - continue other care per attending / other consultants - discharge planning ongoing concurrently COVID SPECIFIC INTERVENTIONS - COVID PCR negative .... Re-evaluate in am & prn CONDITION: CRITICAL PROGNOSIS: GUARDED CODE STATUS: FULL CODE The high probability of a clinically significant, sudden or life-threatening deterioration of the [respiratory, cardiovascular, renal & neurologic] system(s) required my full and direct attention, intervention and personal management. The aggregate critical care time was [35] minutes without overlap. Time includes spent on; [x] Data Review and interpretation [x] Patient assessment and monitoring of vital signs [x] Documentation [x] Medication orders and management Subjective Date of service: 06/16/21 Principal diagnosis: Ac hypoxemic resp failure; Cardiac arrest; RIGOBERTO; AMS; NSTEMI Interval history: Patient is seen today for: Acute hypoxemic respiratory failure; Cardiac arrest with ROSC; Possible seizure activity; RIGOBERTO; Acute encephalopathy; NSTEMI Seen and examined at bedside; 24hour events reviewed; nursing and respiratory care staff consulted; no adverse overnight events reported to me; restin in bed; remains on MVS; AMS is persistent but sedated for MVS; neurology evaluation ongoing; no emesis or overt aspiration; oropharyngeal secretions large Objective Vital Signs - 12hr 06/16/21 06/16/21 06/16/21 05:00 05:16 05:30 Temperature Pulse Rate 64 63 63 Pulse Rate [ Apical] Respiratory 32 H 31 H 32 H Rate Blood Pressure 128/31 238/191 122/33 O2 Sat by Pulse 100 100 100 Oximetry 06/16/21 06/16/21 06/16/21 05:46 06:00 06:16 Temperature Pulse Rate 63 64 63 Pulse Rate [ Apical] Respiratory 31 H 21 25 H Rate Blood Pressure 148/34 238/191 136/21 O2 Sat by Pulse 100 100 100 Oximetry 06/16/21 06/16/21 06/16/21 06:30 06:46 07:00 Temperature 99.0 F Pulse Rate 63 63 66 Pulse Rate [ Apical] Respiratory 25 H 19 22 Rate Blood Pressure 136/21 125/39 125/39 O2 Sat by Pulse 100 100 100 Oximetry 06/16/21 06/16/21 06/16/21 07:16 07:30 07:45 Temperature Pulse Rate 66 63 64 Pulse Rate [ Apical] Respiratory 28 H 32 H 32 H Rate Blood Pressure 123/22 123/22 114/61 O2 Sat by Pulse 100 100 100 Oximetry 06/16/21 06/16/21 06/16/21 08:00 08:01 08:16 Temperature Pulse Rate 64 64 64 Pulse Rate [ 62 Apical] Respiratory 25 H 11 L Rate Blood Pressure 126/47 126/47 126/48 O2 Sat by Pulse 100 100 100 Oximetry 06/16/21 06/16/21 06/16/21 08:30 08:46 09:00 Temperature Pulse Rate 62 63 61 Pulse Rate [ Apical] Respiratory 16 19 23 Rate Blood Pressure 136/58 137/51 138/56 O2 Sat by Pulse 100 100 96 Oximetry 06/16/21 06/16/21 06/16/21 09:16 09:30 09:46 Temperature Pulse Rate 67 65 62 Pulse Rate [ Apical] Respiratory 15 18 25 H Rate Blood Pressure 126/48 126/48 138/56 O2 Sat by Pulse 97 97 99 Oximetry 06/16/21 06/16/21 06/16/21 10:00 10:16 10:30 Temperature Pulse Rate 59 L 61 61 Pulse Rate [ Apical] Respiratory 15 17 30 H Rate Blood Pressure 143/65 143/65 143/65 O2 Sat by Pulse 100 100 100 Oximetry 06/16/21 06/16/21 06/16/21 10:46 11:00 11:16 Temperature Pulse Rate 60 61 61 Pulse Rate [ Apical] Respiratory 20 18 25 H Rate Blood Pressure 143/65 143/65 136/60 O2 Sat by Pulse 100 100 93 Oximetry 06/16/21 06/16/21 06/16/21 11:19 11:30 11:46 Temperature Pulse Rate 63 61 61 Pulse Rate [ Apical] Respiratory 25 H 27 H Rate Blood Pressure 136/60 136/60 136/60 O2 Sat by Pulse 98 65 L 98 Oximetry 06/16/21 06/16/21 06/16/21 12:00 12:16 12:30 Temperature Pulse Rate 63 64 65 Pulse Rate [ 61 Apical] Respiratory 32 H 33 H 28 H Rate Blood Pressure 136/60 123/45 123/45 O2 Sat by Pulse 95 100 Oximetry 06/16/21 06/16/21 06/16/21 12:46 13:00 13:16 Temperature Pulse Rate 63 63 62 Pulse Rate [ Apical] Respiratory 24 15 14 Rate Blood Pressure 123/45 124/47 124/47 O2 Sat by Pulse 99 99 Oximetry 06/16/21 06/16/21 06/16/21 13:30 13:46 14:00 Temperature Pulse Rate 62 62 61 Pulse Rate [ Apical] Respiratory 25 H 11 L 32 H Rate Blood Pressure 124/47 124/47 114/52 O2 Sat by Pulse 97 98 94 Oximetry 06/16/21 06/16/21 06/16/21 14:16 14:30 14:46 Temperature Pulse Rate 62 61 62 Pulse Rate [ Apical] Respiratory 31 H 32 H 29 H Rate Blood Pressure 114/52 114/52 114/52 O2 Sat by Pulse 96 97 94 Oximetry 06/16/21 06/16/21 15:00 15:28 Temperature Pulse Rate 61 61 Pulse Rate [ Apical] Respiratory 32 H Rate Blood Pressure 115/52 115/52 O2 Sat by Pulse 92 91 Oximetry Constitutional: appears uncomfortable, other (elderly obese female with mildly increased respiratory effort at rest) Eyes: non-icteric ENT: oropharynx moist, other (ETT 23 cm CON) Neck: supple, no lymphadenopathy, no JVD, other (large circumference) Effort: mildly labored Ascultation: Bilateral: diminished breath sounds, rhonchi Percussion: Bilateral: not dull Cardiovascular: regular rate and rhythm Gastrointestinal: normoactive bowel sounds, soft, non-tender, non-distended (protuberant) Integumentary: normal Extremities: no cyanosis, no edema, pulses normal, no ischemia or petechiae Neurologic: non-focal exam (grossly), pupils equal and round, unable to assess Psychiatric: other (unable to assess re: AMS) CBC and BMP: 06/16/21 06:16 06/16/21 10:20 ABG, PT/INR, D-dimer: ABG ABG pH 7.693 (7.320-7.450) H 06/16/21 05:00 POC ABG pCO2 18.6 mmHg (32.0-48.0) L 06/16/21 05:00 ABG pCO2 36.3 mm Hg 06/15/21 05:00 POC ABG pO2 147.2 mmHg (83-108) H 06/16/21 05:00 ABG pO2 184.7 mm Hg (80.0-90.0) H 06/15/21 05:00 POC ABG HCO3 22.1 06/16/21 05:00 ABG O2 Saturation 99.7 (0-100) 06/16/21 05:00 PT/INR, D-dimer PT 16.0 Sec. (12.2-14.9) H 06/16/21 06:16 INR 1.22 (0.87-1.13) H 06/16/21 06:16 D-Dimer 1785.61 ng/mlDDU (0-234) H 06/15/21 05:18 Abnormal lab findings: Abnormal Labs 06/15/21 06/15/21 06/15/21 03:30 03:30 03:30 MCV MCH 24 L MCHC 29 L RDW 15.8 H Lymph % (Auto) 12.8 L [place] % (Auto) Lymph # (Auto) 1.1 L Seg Neutrophils % 80.4 H PT 15.6 H INR 1.18 H D-Dimer Heparin Anti-Xa Level ABG pH POC ABG pCO2 POC ABG pO2 ABG pO2 ABG O2 Saturation ABG Oxyhemoglobin ABG Potassium ABG Glucose Potassium BUN 36 H Creatinine 1.4 H Glucose 258 H POC Glucose AST ALT Lactate Dehydrogenase CK-MB (CK-2) 4.8 H CK-MB (CK-2) Rel Index 4.5 H Troponin T 0.041 H C-Reactive Protein Total Protein Albumin Arterial Blood Glucose Arterial Blood Ionized Calcium Urine WBC (Auto) Urine Creatinine Urine Total Protein 06/15/21 06/15/21 06/15/21 05:00 05:18 05:18 MCV MCH MCHC RDW Lymph % (Auto) [place] % (Auto) Lymph # (Auto) Seg Neutrophils % PT INR D-Dimer 1785.61 H Heparin Anti-Xa Level ABG pH POC ABG pCO2 POC ABG pO2 ABG pO2 184.7 H ABG O2 Saturation 99.2 H ABG Oxyhemoglobin ABG Potassium ABG Glucose Potassium BUN Creatinine Glucose POC Glucose AST ALT Lactate Dehydrogenase 243 H CK-MB (CK-2) CK-MB (CK-2) Rel Index Troponin T C-Reactive Protein 3.00 H Total Protein Albumin Arterial Blood Glucose Arterial Blood Ionized Calcium Urine WBC (Auto) Urine Creatinine Urine Total Protein 06/15/21 06/15/21 06/15/21 06:30 07:39 09:05 MCV MCH MCHC RDW Lymph % (Auto) [place] % (Auto) Lymph # (Auto) Seg Neutrophils % PT INR D-Dimer Heparin Anti-Xa Level ABG pH POC ABG pCO2 POC ABG pO2 ABG pO2 ABG O2 Saturation ABG Oxyhemoglobin ABG Potassium ABG Glucose Potassium BUN Creatinine Glucose POC Glucose 231 H AST ALT Lactate Dehydrogenase CK-MB (CK-2) CK-MB (CK-2) Rel Index Troponin T 0.058 H D 0.062 H C-Reactive Protein Total Protein Albumin Arterial Blood Glucose Arterial Blood Ionized Calcium Urine WBC (Auto) Urine Creatinine Urine Total Protein 06/15/21 06/15/21 06/15/21 09:15 09:34 13:09 MCV MCH MCHC RDW Lymph % (Auto) [place] % (Auto) Lymph # (Auto) Seg Neutrophils % PT INR D-Dimer Heparin Anti-Xa Level ABG pH POC ABG pCO2 POC ABG pO2 ABG pO2 ABG O2 Saturation ABG Oxyhemoglobin ABG Potassium ABG Glucose Potassium BUN Creatinine Glucose POC Glucose 240 H AST ALT Lactate Dehydrogenase CK-MB (CK-2) CK-MB (CK-2) Rel Index Troponin T C-Reactive Protein Total Protein Albumin Arterial Blood Glucose Arterial Blood Ionized Calcium Urine WBC (Auto) 8.0 H Urine Creatinine 146.5 H Urine Total Protein 216 H 06/15/21 06/15/21 06/15/21 16:05 18:14 23:09 MCV MCH MCHC RDW Lymph % (Auto) [place] % (Auto) Lymph # (Auto) Seg Neutrophils % PT INR D-Dimer Heparin Anti-Xa Level < 0.10 L ABG pH POC ABG pCO2 POC ABG pO2 ABG pO2 ABG O2 Saturation ABG Oxyhemoglobin ABG Potassium ABG Glucose Potassium BUN Creatinine Glucose POC Glucose 150 H 179 H AST ALT Lactate Dehydrogenase CK-MB (CK-2) CK-MB (CK-2) Rel Index Troponin T C-Reactive Protein Total Protein Albumin Arterial Blood Glucose Arterial Blood Ionized Calcium Urine WBC (Auto) Urine Creatinine Urine Total Protein 06/15/21 06/16/21 06/16/21 23:43 05:00 05:17 MCV MCH MCHC RDW Lymph % (Auto) [place] % (Auto) Lymph # (Auto) Seg Neutrophils % PT INR D-Dimer Heparin Anti-Xa Level < 0.10 L ABG pH 7.693 H POC ABG pCO2 18.6 L POC ABG pO2 147.2 H ABG pO2 ABG O2 Saturation ABG Oxyhemoglobin 98.5 H ABG Potassium 3.0 L ABG Glucose 178 H Potassium BUN Creatinine Glucose POC Glucose 182 H AST ALT Lactate Dehydrogenase CK-MB (CK-2) CK-MB (CK-2) Rel Index Troponin T C-Reactive Protein Total Protein Albumin Arterial Blood Glucose 178 H Arterial Blood Ionized Calcium 4.5 L Urine WBC (Auto) Urine Creatinine Urine Total Protein 06/16/21 06/16/21 06/16/21 06:16 06:16 06:16 MCV 77 L MCH 24 L MCHC RDW Lymph % (Auto) [place] % (Auto) 7.5 H Lymph # (Auto) Seg Neutrophils % 73.8 H PT 16.0 H INR 1.22 H D-Dimer Heparin Anti-Xa Level ABG pH POC ABG pCO2 POC ABG pO2 ABG pO2 ABG O2 Saturation ABG Oxyhemoglobin ABG Potassium ABG Glucose Potassium 3.1 L D BUN 40 H Creatinine 1.4 H Glucose 154 H POC Glucose AST 48 H ALT 69 H Lactate Dehydrogenase CK-MB (CK-2) CK-MB (CK-2) Rel Index Troponin T C-Reactive Protein Total Protein 5.8 L Albumin 3.0 L Arterial Blood Glucose Arterial Blood Ionized Calcium Urine WBC (Auto) Urine Creatinine Urine Total Protein 06/16/21 10:20 MCV MCH MCHC RDW Lymph % (Auto) [place] % (Auto) Lymph # (Auto) Seg Neutrophils % PT INR D-Dimer Heparin Anti-Xa Level ABG pH POC ABG pCO2 POC ABG pO2 ABG pO2 ABG O2 Saturation ABG Oxyhemoglobin ABG Potassium ABG Glucose Potassium 3.2 L BUN 42 H Creatinine 1.3 H Glucose 161 H POC Glucose AST ALT Lactate Dehydrogenase CK-MB (CK-2) CK-MB (CK-2) Rel Index Troponin T C-Reactive Protein Total Protein Albumin Arterial Blood Glucose Arterial Blood Ionized Calcium Urine WBC (Auto) Urine Creatinine Urine Total Protein Chest x-ray: image reviewed (no new infiltrate) Allied health notes reviewed: nursing
[2021-06-16 19:44] LABS: Hepatitis C Virus Antibody Non-Reactive (NonReactive)
--- NOTE | 2021-06-16 20:36 | Cat Scan Report ---
CT head/brain wo con INDICATION: Altered Mental Status / Cardiac Arrest.. TECHNIQUE: Routine CT head. All CT scans at this location are performed using CT dose reduction for A MG by means of automated exposure control. COMPARISON: None. FINDINGS: Intracranial: Villar-white matter differentiation is difficult to appreciate but image quality is sligh tly degraded by artifact. Sulci are not effaced. No intracranial hemorrhage. No extra axial collectio n. No hydrocephalus. No herniation. Sinuses: Mucosal thickening in the paranasal sinuses. Mastoid air cells are well-aerated.. Orbits: Globes are intact. Calvarium: No acute fracture. IMPRESSION: 1. Image quality is graded by artifact. No definite abnormality. Although villar-white matter differen tiation is difficult to appreciate. Correlate clinically. Signer Name: Tom Roman MD Signed: 06/16/2021 8:32 PM Workstation Name: [id number]
--- NOTE | 2021-06-16 20:55 | Cat Scan Report ---
CTA CHEST WITH IV CONTRAST INDICATION: cardiac arrest, elevated d.dimer CONTRAST: 100 cc Omnipaque 350 IV COMPARISON: Portable chest x-ray tonight Three-plane MIP reconstructions were produced. All CT scans at this location are performed using CT d ose reduction for ALARA by means of automated exposure control. NOTE: Resolution is decreased and artifact is introduced by the patient's size. FINDINGS: Endotracheal tube appears to be in satisfactory position. Nasogastric tube extends well int o the distal stomach. No significant axillary or chest wall lesions are seen. Visualized portions of the upper abdomen show no acute abnormalities. Heart is mildly enlarged. No mediastinal or hilar masses are seen. No obvious endobronchial lesions a re noted. No pneumothorax or pneumomediastinum are seen. Moderate right and small left pleural effusi ons are seen. Associated atelectatic changes are noted which are most prominent in the right lower lo be and right upper lobe. Patchy bilateral interstitial infiltrates/edema are noted and bilateral pneu monitis is possible. No obvious pulmonary nodules or masses are seen. Lung holliday are mildly blurred by motion. Aorta shows no aneurysmal dilatation or evidence of dissection. Adequate opacification of the pulmonary arterial system was achieved. Though there is artifact from m otion and the patient's size. I do not see obvious evidence of pulmonary thromboembolism. IMPRESSION: 1. No convincing evidence of pulmonary thromboembolism. 2. Bilateral pleural effusions and bilateral atelectatic changes. Bilateral pneumonitis is certainly possible. Signer Name: Mark Reyes MD Signed: 06/16/2021 8:51 PM Workstation Name: [id number]
[2021-06-16] MEDS: SENNOSIDES/DOCUSATE SODIUM 8.6/50 MG TAB PO SCH (22:10)
[2021-06-17] MEDS: INSULIN LISPRO 100 UNIT/ML SUB-Q SCH ×4 (05:11→18:50)
[2021-06-17] MEDS: PIPERACIL/TAZOBACTA 4.5/NS 100 4.5 GM/100 ML VIAL IV SCH ×3 (05:14→21:14)
[2021-06-17 06:10] LABS: Hematocrit 33.1 % (30.3-42.9); Hemoglobin 10.5 gm/dl (10.1-14.3); Mean Corpuscular HGB Conc 32 % (30-34); Mean Corpuscular Volume 76 fl (79-97); Platelet Count 154 K/mm3 (140-440); Red Blood Count 4.38 M/mm3 (3.65-5.03); Red Cell Distribution Width 14.9 % (13.2-15.2)
[2021-06-17 06:41] LABS: Albumin 2.6 g/dL (3.9-5); Calcium 8.2 mg/dL (8.4-10.2)
--- NOTE | 2021-06-17 08:51 | XRay Report ---
CHEST 1 VIEW 06/17/2021 7:43 AM INDICATION / CLINICAL INFORMATION: follow up respiratory failure. COMPARISON: 06/16/2021 FINDINGS: SUPPORT DEVICES: ET tube and NG tube are satisfactory position. Right PICC line in satisfactory posit ion HEART / MEDIASTINUM: No significant abnormality. LUNGS / PLEURA: Diffuse opacities are seen in bilateral lungs, slightly increased No pneumothorax. Signer Name: Arnold Hilton MD Signed: 06/17/2021 8:47 AM Workstation Name: [id number]
[2021-06-17] MEDS: amLODIPine 10 MG TAB PO SCH (09:35)
[2021-06-17] MEDS: LISINOPRIL 40 MG TAB PO SCH (09:35)
[2021-06-17] MEDS: hydrALAZINE 100 MG TAB PO SCH ×3 (09:35→21:13)
[2021-06-17] MEDS: FAMOTIDINE 20 MG/2 ML INJ IV SCH ×2 (09:35→21:13)
--- NOTE | 2021-06-17 10:07 | Progress Note ---
Assessment and Plan Assessment and plan: 81-year-old female brought into the emergency room by EMS in cardiac arrest. Family was said to witnessed collapse. EMS had given 2 rounds of epi with return of spontaneous circulation. Most of the history was gotten from the ER staff at [facility] no available patient is currently intubated. No other information available at this time. Work-up in the emergency room, chest x-ray reveals bilateral patchy opacities most significant in the left lower lung and right upper lung. No pneumothorax. Labs significant for elevated troponin of 0.041, elevated BUN and creatinine of 36 and 1.4 respectively. D-dimer is 1785. 06/16: Patient seen and examined, still unresponsive, awaiting CT head and CTA chest. Continue heparin for possible PE and NH. Continue abx for Bilateral Pneumonia. Cardiology, ID and Pulmonary. Poor prognosis. for out of hospital cardiac arrest May need Neurology ECHO Done result pending. 06/17: Remains clinically unchanged head CT unremarkable CT of the chest with angiogram shows no pulmonary embolism but bilateral infiltrates pneumonitis. Patient still not responded. Pupils appear fixed. She does not appear to have any gag reflex. Renal function worsening this could be secondary to contrast- induced will start on gentle hydration. Called brother to update and discuss of current clinical status and discuss poor prognostic indicators left a message requesting a call back. (1) Cardiac arrest Current Visit: No Status: Acute Plan to address problem: Patient has been successfully resuscitated and intubated. We will monitor closely in the intensive care unit. Consult placed to mri technician and administrative supervisor for evaluation and recommendations. (2) Diabetes mellitus Current Visit: Yes Status: Acute Plan to address problem: We will monitor Accu-Cheks. (3) NSTEMI Current Visit: No Status: Acute Plan to address problem: We will trend troponin levels and also monitor EKG. We will await further evaluation by cardiology. Patient currently on heparin drip. (4) RIGOBERTO on CKD with underlying Vasomotor Nephropathy With contrast induced nephropathy Current Visit: No Status: Acute Plan to address problem: Patient placed on IV fluid and we will place consult to nephrology for evaluation. (5) Severe Sepsis (6) Acute Hypoxic Respiratory failure with compensated Alkalosis (7) Bilateral Pneumonia (8) Morbid Obesity (9) Elevate LFT (10) DVT prophylaxis Current Visit: Yes Status: Acute Plan to address problem: Patient currently on anticoagulation with heparin. (11) Full code status Current Visit: Yes Status: Acute Plan to address problem: Patient is full code. The high probability of a clinically significant, sudden or life threatening deterioration of the [MULTIPLE ORGAN] system(s) required my full and direct attention, intervention and personal management. The aggregate critical care time was [45] minutes. This time is in addition to time spent performing reported procedures but includes the following: [X] Data Review and interpretation [X] Patient assessment and monitoring of vital signs [X] Documentation [X] Medication orders and management History Interval history: Patient seen and examined remains unresponsive. No other purposeful movement noted. Hospitalist Physical - Physical exam Narrative exam: General appearance: Present: well-nourished (Intubated and sedated), obese, other - EENT Eyes: Present: PERRL, EOM intact. Absent: scleral icterus ENT: hearing intact, clear oral mucosa, dentition normal - Neck Neck: Present: supple, normal ROM - Respiratory Respiratory effort: other (Intubated) Respiratory: bilateral: diminished - Cardiovascular Rhythm: regular Heart Sounds: Present: S1 & S2. Absent: gallop, systolic murmur, diastolic murmur, rub, click - Extremities Extremities: no ischemia, pulses intact, pulses symmetrical, No edema, normal temperature, normal color, Full ROM Peripheral Pulses: within normal limits - Abdominal General gastrointestinal: Present: soft, non-tender, non-distended, normal bowel sounds. Absent: mass - Integumentary Integumentary: Present: clear, warm, dry. Absent: rash - Musculoskeletal Musculoskeletal: strength equal bilaterally - Psychiatric Psychiatric: cooperative - Neurologic Neurologic: CNII-XII intact, no focal deficits, moves all extremities - Constitutional Vitals: Temp Pulse Resp BP Pulse Ox 98.4 F 56 L 31 H 115/56 100 06/17/21 09:25 06/17/21 09:35 06/17/21 06:30 06/17/21 09:35 06/17/21 08:04 General appearance: Present: other (Unresponsive, on the vent) HEART Score - HEART Score Troponin: Troponin T 0.062 ng/mL (0.00-0.029) H 06/15/21 09:05 Results - Labs CBC & Chem 7: 06/17/21 05:45 06/17/21 05:45 Labs: Laboratory Last Values WBC 9.1 K/mm3 (4.5-11.0) 06/17/21 05:45 RBC 4.38 M/mm3 (3.65-5.03) 06/17/21 05:45 Hgb 10.5 gm/dl (10.1-14.3) 06/17/21 05:45 Hct 33.1 % (30.3-42.9) 06/17/21 05:45 MCV 76 fl (79-97) L 06/17/21 05:45 MCH 24 pg (28-32) L 06/17/21 05:45 MCHC 32 % (30-34) 06/17/21 05:45 RDW 14.9 % (13.2-15.2) 06/17/21 05:45 Plt Count 154 K/mm3 (140-440) 06/17/21 05:45 Lymph % (Auto) 17.7 % (13.4-35.0) 06/16/21 06:16 [place] % (Auto) 7.5 % (0.0-7.3) H 06/16/21 06:16 Eos % (Auto) 0.5 % (0.0-4.3) 06/16/21 06:16 Baso % (Auto) 0.5 % (0.0-1.8) 06/16/21 06:16 Lymph # (Auto) 1.8 K/mm3 (1.2-5.4) 06/16/21 06:16 [place] # (Auto) 0.8 K/mm3 (0.0-0.8) 06/16/21 06:16 Eos # (Auto) 0.0 K/mm3 (0.0-0.4) 06/16/21 06:16 Baso # (Auto) 0.0 K/mm3 (0.0-0.1) 06/16/21 06:16 Seg Neutrophils % 73.8 % (40.0-70.0) H 06/16/21 06:16 Seg Neutrophils # 7.7 K/mm3 (1.8-7.7) 06/16/21 06:16 PT 16.0 Sec. (12.2-14.9) H 06/16/21 06:16 INR 1.22 (0.87-1.13) H 06/16/21 06:16 APTT 25.6 Sec. (24.2-36.6) 06/15/21 03:30 D-Dimer 1785.61 ng/mlDDU (0-234) H 06/15/21 05:18 Heparin Anti-Xa Level 0.26 U.I./ml (0.3-0.7) L 06/16/21 16:20 ABG pH 7.470 (7.320-7.450) H 06/17/21 03:26 POC ABG pCO2 33.8 mmHg (32.0-48.0) 06/17/21 03:26 ABG pCO2 36.3 mm Hg 06/15/21 05:00 POC ABG pO2 100.2 mmHg (83-108) 06/17/21 03:26 ABG pO2 184.7 mm Hg (80.0-90.0) H 06/15/21 05:00 POC ABG HCO3 24.0 06/17/21 03:26 ABG HCO3 22.6 mmol/L (20.0-26.0) 06/15/21 05:00 ABG O2 Saturation 98.2 (0-100) 06/17/21 03:26 ABG O2 Content 16.6 (0.0-44) 06/15/21 05:00 POC ABG Base Excess 0.8 06/17/21 03:26 ABG Base Excess -1.5 mmol/L (-2.0-3.0) 06/15/21 05:00 ABG Hemoglobin 11.4 (12.0-17.5) L 06/17/21 03:26 ABG Oxyhemoglobin 96.7 (94-98) 06/17/21 03:26 ABG Carboxyhemoglobin 2.1 % (0.0-5.0) 06/15/21 05:00 ABG Methemoglobin 0.3 (0.0-1.5) 06/17/21 03:26 ABG Sodium 136.8 mmol/L (136.0-145.0) 06/17/21 03:26 ABG Potassium 3.1 mmol/L (3.40-4.50) L 06/17/21 03:26 ABG Chloride 105.0 mmol/L (98-107) 06/17/21 03:26 ABG Glucose 170 mg/dL (65-95) H 06/17/21 03:26 Oxyhemoglobin 96.5 % (95.0-99.0) 06/15/21 05:00 Carboxyhemoglobin 1.2 (0.5-1.5) 06/17/21 03:26 FiO2 100 % 06/15/21 05:00 FiO2 % 30.0 06/17/21 03:26 Sodium 140 mmol/L (137-145) 06/17/21 05:45 Potassium 3.1 mmol/L (3.6-5.0) L 06/17/21 05:45 Chloride 104.5 mmol/L (98-107) 06/17/21 05:45 Carbon Dioxide 25 mmol/L (22-30) 06/17/21 05:45 Anion Gap 14 mmol/L 06/17/21 05:45 BUN 48 mg/dL (7-17) H 06/17/21 05:45 Creatinine 2.1 mg/dL (0.6-1.2) H D 06/17/21 05:45 Estimated GFR 27 ml/min 06/17/21 05:45 BUN/Creatinine Ratio 23 % 06/17/21 05:45 Glucose 156 mg/dL (65-100) H 06/17/21 05:45 POC Glucose 141 mg/dL (70-105) H 06/17/21 06:16 Calcium 8.2 mg/dL (8.4-10.2) L 06/17/21 05:45 Total Bilirubin 0.50 mg/dL (0.1-1.2) 06/17/21 05:45 AST 61 units/L (5-40) H 06/17/21 05:45 ALT 45 units/L (7-56) 06/17/21 05:45 Alkaline Phosphatase 84 units/L (35-129) 06/17/21 05:45 Lactate Dehydrogenase 243 units/L (91-180) H 06/15/21 05:18 Total Creatine Kinase 105 units/L (30-135) 06/15/21 03:30 CK-MB (CK-2) 4.8 ng/mL (0.0-4.0) H 06/15/21 03:30 CK-MB (CK-2) Rel Index 4.5 (0-4) H 06/15/21 03:30 Troponin T 0.062 ng/mL (0.00-0.029) H 06/15/21 09:05 C-Reactive Protein 3.00 mg/dL (0.00-1.30) H 06/15/21 05:18 Total Protein 5.5 g/dL (6.3-8.2) L 06/17/21 05:45 Albumin 2.6 g/dL (3.9-5) L 06/17/21 05:45 Albumin/Globulin Ratio 0.9 % 06/17/21 05:45 Triglycerides 66 mg/dL (2-149) 06/15/21 03:30 Cholesterol 137 mg/dL (50-199) 06/15/21 03:30 LDL Cholesterol Direct 79 mg/dL (50-130) 06/15/21 03:30 HDL Cholesterol 58 mg/dL (40-59) 06/15/21 03:30 Cholesterol/HDL Ratio 2.36 % 06/15/21 03:30 Procalcitonin < 0.05 ng/mL (<0.15) 06/15/21 05:18 Arterial Blood Glucose 170 mg/dL (65-95) H 06/17/21 03:26 Arterial Blood Ionized Calcium 4.6 mg/dL (4.6-5.3) 06/17/21 03:26 Urine Color Jacqui (Yellow) 06/15/21 09:34 Urine Turbidity Slightly-cloudy (Clear) 06/15/21 09:34 Urine pH 5.0 (5.0-7.0) 06/15/21 09:34 Ur Specific [place] 1.018 (1.003-1.030) 06/15/21 09:34 Urine Protein >500 mg/dL (Negative) 06/15/21 09:34 Urine Glucose (UA) 50 mg/dL (Negative) 06/15/21 09:34 Urine Ketones Tr mg/dL (Negative) 06/15/21 09:34 Urine Blood Sm (Negative) 06/15/21 09:34 Urine Nitrite Neg (Negative) 06/15/21 09:34 Urine Bilirubin Neg (Negative) 06/15/21 09:34 Urine Urobilinogen 2.0 mg/dL (<2.0) 06/15/21 09:34 Ur Leukocyte Esterase Neg (Negative) 06/15/21 09:34 Urine WBC (Auto) 8.0 /HPF (0.0-6.0) H 06/15/21 09:34 Urine RBC (Auto) 5.0 /HPF (0.0-6.0) 06/15/21 09:34 Urine Mucus Few /HPF 06/15/21 09:34 Urine Creatinine 146.5 mg/dL (0.1-20.0) H 06/15/21 09:15 Protein/Creatinin Ratio 1.47 06/15/21 09:15 Urine Total Protein 216 mg/dL (5-11.8) H 06/15/21 09:15 Rheumatoid Factor 20 IU/ml (0-13) H 06/16/21 18:40 Syphilis IgG Antibody Nonreactive (NonReactive) 06/16/21 18:40 Coronavirus (PCR) Negative (Negative) 06/15/21 08:30 Hep Bs Antigen Non-reactive (Negative) 06/16/21 18:40 Hepatitis C Antibody Non-reactive (NonReactive) 06/16/21 18:40 Blood Type O POSITIVE 06/15/21 03:30 Antibody Screen Negative 06/15/21 03:30 Microbiology: Microbiology 06/15/21 05:00 Tracheal Aspirate Sputum Culture - Preliminary 06/16/21 11:10 Peripheral/Venous Blood Culture - Preliminary Culture in Progress 06/16/21 10:55 Peripheral/Venous Blood Culture - Preliminary Culture in Progress Scales/IV: Voiding Method Indwelling Catheter Active Medications - Current Medications Current Medications: Generic Name Dose Route Start Last Admin Trade Name Freq PRN Reason Stop Dose Admin Acetaminophen 650 mg 06/15/21 05:07 Acetaminophen 650 Mg Rect Supp OR Q6H PRN Pain MILD(1-3)/Fever >100.5/WHITE Amlodipine Besylate 10 mg 06/16/21 10:00 06/17/21 09:35 Amlodipine 10 Mg Tab PO 10 mg QDAY JONATHAN Administration Lipase/Protease/Amylase 1 each 06/16/21 10:30 Lipase 10,500/Protease 25,000/Amylase 43,750 (Units) Dr Cap FEEDTUBE PRN PRN For Clogged Feeding Tube Dextrose 0 ml 06/15/21 05:07 Dextrose 50% In Water (25gm) 50 Ml Syringe IV Q30MIN PRN Hypoglycemia Protocol Famotidine 20 mg 06/15/21 10:00 06/17/21 09:35 Famotidine 20 Mg/2 Ml Inj IV 20 mg BID JONATHAN Administration Fentanyl 50 mcg 06/15/21 03:06 Fentanyl 100 Mcg/2 Ml Inj IV Q10MIN PRN ANALGESIA Heparin Sodium (Porcine) 5,000 unit 06/15/21 07:00 Heparin 10,000 Units/10 Ml Vial IV Q6H PRN Anti-Xa Assay < 0.1 units/ml Hydralazine HCl 100 mg 06/16/21 08:00 06/17/21 09:35 Hydralazine 100 Mg Tab PO 100 mg TID OJNATHAN Administration Hydralazine HCl 10 mg 06/15/21 23:43 06/16/21 00:28 Hydralazine 20 Mg/1 Ml Inj IV 10 mg Q6H PRN Administration SBP > 160 Hydrophilic Ointment 1 applic 06/15/21 03:06 Lip Therapy Vaseline TP Q2HR PRN Dry Lips Fentanyl Citrate 2,000 mcg in 100 mls @ 7.39 mls/hr 06/15/21 04:00 06/17/21 02:00 Fentanyl Drip Premix IV Infused TITR JONATHAN Titration Protocol 1 MCG/KG/HR Heparin Sodium/Sodium Chloride 25,000 unit in 500 mls @ 20 mls/hr 06/15/21 07:00 06/16/21 22:09 Heparin/ 0.45% Nacl-25,000 Unit/500 Ml IV 1,600 units/hr TITRATE JONATHAN 32 mls/hr Administration Protocol 1,000 UNITS/HR Propofol 1,000 mg in 100 mls @ 4.434 mls/hr 06/15/21 16:00 06/17/21 09:32 Diprivan 10 Mg/Ml IV 15 mcg/kg/min TITR JONATHAN 13.302 mls/hr Administration Protocol 5 MCG/KG/MIN Levetiracetam 500 mg/ Dextrose 105 mls @ 400 mls/hr 06/15/21 16:00 06/16/21 22:14 IV 400 mls/hr Q12HR JONATHAN Administration Piperacillin Sod/Tazobactam Sod 4.5 gm in 100 mls @ 200 mls/hr 06/16/21 11:00 06/17/21 05:14 Zosyn/Ns 4.5gm/100ml IV 200 mls/hr Q8H JONATHAN Administration Protocol Potassium Chloride 10 meq in 100 mls @ 100 mls/hr 06/17/21 10:00 Kcl 10meq/100ml IV 06/17/21 11:59 Q1H JONATHAN Sodium Chloride 1,000 mls @ 75 mls/hr 06/17/21 10:00 Nacl 0.9% 1000 Ml IV DIRECT JONATHAN Insulin Human Lispro 0 unit 06/15/21 12:00 06/17/21 06:28 Insulin Lispro 100 Unit/Ml SUB-Q Not Given Q6HR [facility] Protocol Lisinopril 40 mg 06/16/21 10:00 06/17/21 09:35 Lisinopril 40 Mg Tab PO 40 mg QDAY JONATHAN Administration Multi-Ingred Cream/Lotion/Oil/Oint 1 applic 06/15/21 03:06 Mineral Oil/Petrolatum, White Ophth Oint 3.5 Gm OU Q4HR PRN Dry Eye(s) Senna/Docusate Sodium 1 tab 06/15/21 22:00 06/16/21 22:10 Sennosides/Docusate Sodium 8.6/50 Mg Tab PO 1 tab QHS JONATHAN Administration Simple Syrup 15 ml 06/16/21 10:30 Simple Syrup 15 Ml FEEDTUBE PRN PRN Hypoglycemia Simple Syrup 30 ml 06/16/21 10:30 Simple Syrup 15 Ml FEEDTUBE PRN PRN Hypoglycemia Sodium Bicarbonate 325 mg 06/16/21 10:30 Sodium Bicarbonate 325 Mg Tab FEEDTUBE PRN PRN For Clogged Feeding Tube Sodium Chloride 10 ml 06/15/21 10:00 06/16/21 22:11 Sodium Chloride 0.9% 10 Ml Flush Syringe IV 10 ml BID JONATHAN Administration Sodium Chloride 10 ml 06/15/21 05:07 Sodium Chloride 0.9% 10 Ml Flush Syringe IV PRN PRN LINE FLUSH Nutrition/Malnutrition Assess - Dietary Evaluation Nutrition/Malnutrition Findings: Nutrition Notes Start: 06/15/21 08:35 Freq: Status: Active Protocol: Document 06/16/21 09:59 TOM (Rec: 06/16/21 10:03 TOM [id number]) Nutrition Notes Need for Assessment generated from: Order,film producer Initial or Follow up Reassessment Current Diagnosis Acute Kidney Injury,Diabetes, Hypertension Other Pertinent Diagnosis cardiac arrest Current Diet NPO Labs/Tests K 3.1 BUN 40 Cr 1.4 BG 154 Pertinent Medications Propofol at 13.302 ml/hr (351 kcal) Height 5 ft 9 in Weight 147.8 kg [place] Body Weight (kg) 65.90 BMI 48.1 Weight Status Morbidly Obese Subjective/Other Information MD consult for TF. RN screen for skin risk. Kirk score 12 , no wounds. Burn Absent Trauma Absent Current % PO Negligible Minimum of two criteria No physical signs of malnutrition #1 Nutrition Diagnosis Inadequate oral intake Diagnosis Progress(for reassessment Continues documentation) Is patient on ventilator? Yes Is Patient Ambulatory and/or Out of Bed No REE-([facility]-confined to bed) 2426.664 Kcal/Kg value to use for calculation 13 Approximate Energy Requirements Using 1921 kcal/Kg Calculation Used for Recommendations Kcal/kg Additional Notes Protein: (up to 2.5g/kg IBW) < 165g Fluid: 1 ml/kcal or per MD Nutrition Intervention Change Diet Order: Start TF Nutrition Support: Glucerna 1.2 at 65 ml/hr Flush 100 ml q4h Kcal 1,728 Protein (gm) 94 Fluid (mL) 1,256 Goal #1 Meet at least 75% or protein and energy needs via TF Anticipated Discharge Needs: Unable to determine at this time Follow-Up By: 06/18/21 Additional Comments FU for TF start and tolerance
[2021-06-17] MEDS: SODIUM CHLORIDE 0.9% 1000 ML 1,000 ML IV SCH (10:19)
[2021-06-17] MEDS: levETIRAcetam 500 MG in DEXTROSE 5% IN WATER 100 ML IV SCH (10:19)
--- NOTE | 2021-06-17 10:55 | Progress Note ---
Assessment and Plan #Cardiac arrest - unknown rhythm at time of event #Transient AF - noted in setting of ACLS resuscitation and after epinephrine #NSTEMI - likely type 2 #Respiratory failure - intubated #Pneumonia/Sepsis #CKD #DM #Obesity -Minimal/flat troponin does not suggest ACS. No need to further trend troponin. Heparin per primary team. -No arrhythmic events on telemetry. -Echo 06/15/21 shows normal LVEF. -Will continue conservative cardiac care at this time pending clinical course and neurologic recovery. Subjective Date of service: 06/17/21 Principal diagnosis: Ac hypoxemic resp failure; Cardiac arrest; RIGOBERTO; AMS; NSTEMI Interval history: Afebrile in last 24 hours. Still intubated/sedated. No response to voice/touch. Telemetry - SR, no events Objective Vital Signs Temp Pulse Pulse Resp BP Pulse Ox 06/17/21 09:35 56 L 115/56 06/17/21 09:25 98.4 F 06/17/21 08:04 55 L 123/61 100 06/17/21 06:30 55 L 31 H 117/55 99 06/17/21 06:16 55 L 30 H 117/55 100 06/17/21 06:00 55 L 15 117/55 100 06/17/21 05:46 55 L 10 L 108/53 99 06/17/21 05:30 56 L 10 L 108/53 99 06/17/21 05:16 59 L 10 L 108/53 99 06/17/21 05:00 54 L 17 108/53 98 06/17/21 04:47 56 L 108/49 99 06/17/21 04:46 56 L 13 108/49 99 06/17/21 04:30 55 L 10 L 108/49 98 06/17/21 04:16 55 L 13 108/49 99 06/17/21 04:00 98.2 F 54 L 54 H 108/49 100 06/17/21 03:46 55 L 10 L 101/47 100 06/17/21 03:30 56 L 10 L 101/47 99 06/17/21 03:16 57 L 10 L 101/47 100 06/17/21 03:00 55 L 11 L 101/47 99 06/17/21 02:46 55 L 10 L 111/52 99 06/17/21 02:30 57 L 10 L 111/52 100 06/17/21 02:16 56 L 10 L 111/52 100 06/17/21 02:00 55 L 10 L 111/52 99 06/17/21 01:46 55 L 11 L 110/53 99 06/17/21 01:30 57 L 10 L 110/53 100 06/17/21 01:16 54 L 10 L 110/53 100 06/17/21 01:00 53 L 10 L 110/53 98 06/17/21 00:46 55 L 10 L 104/49 100 06/17/21 00:44 54 L 104/49 99 06/17/21 00:30 54 L 10 L 104/49 99 06/17/21 00:16 54 L 10 L 104/49 99 06/17/21 00:00 99.3 F 53 L 54 H 111/51 100 06/16/21 23:46 53 L 10 L 111/51 98 06/16/21 23:30 54 L 10 L 111/51 99 06/16/21 23:16 54 L 10 L 111/51 100 06/16/21 23:00 55 L 10 L 111/51 99 06/16/21 22:46 55 L 10 L 107/48 100 06/16/21 22:30 58 L 13 107/48 99 06/16/21 22:16 58 L 10 L 107/48 98 06/16/21 22:00 58 L 10 L 110/56 98 06/16/21 21:46 59 L 14 110/56 99 06/16/21 21:30 60 10 L 110/56 99 06/16/21 21:16 62 10 L 110/56 98 06/16/21 21:00 62 14 110/56 100 06/16/21 20:46 67 10 L 110/56 100 06/16/21 20:31 70 110/58 100 06/16/21 20:30 70 14 110/56 100 06/16/21 20:26 74 14 110/56 99 06/16/21 20:00 99.3 F 58 L 54 H 100 06/16/21 19:46 63 32 H 110/56 100 06/16/21 19:30 61 21 110/56 99 06/16/21 19:16 61 21 110/56 99 06/16/21 19:00 61 27 H 110/56 99 06/16/21 18:50 61 32 H 110/58 99 06/16/21 18:46 60 32 H 110/58 99 06/16/21 18:30 62 30 H 110/58 99 06/16/21 18:16 63 25 H 110/58 99 06/16/21 18:00 65 25 H 110/58 06/16/21 17:46 64 31 H 115/45 98 06/16/21 17:30 64 34 H 115/45 100 06/16/21 17:16 65 26 H 115/45 99 06/16/21 17:00 64 26 H 115/45 06/16/21 16:46 61 22 107/53 100 06/16/21 16:30 62 31 H 107/53 99 06/16/21 16:28 63 20 99 06/16/21 16:16 61 33 H 107/53 100 06/16/21 16:00 61 24 107/53 06/16/21 15:46 63 24 115/52 98 06/16/21 15:30 61 31 H 115/52 97 06/16/21 15:28 61 115/52 91 06/16/21 15:16 61 23 115/52 93 06/16/21 15:00 61 32 H 115/52 92 06/16/21 14:46 62 29 H 114/52 94 06/16/21 14:30 61 32 H 114/52 97 06/16/21 14:16 62 31 H 114/52 96 06/16/21 14:00 61 32 H 114/52 94 06/16/21 13:46 62 11 L 124/47 98 06/16/21 13:30 62 25 H 124/47 97 06/16/21 13:16 62 14 124/47 99 06/16/21 13:00 63 15 124/47 06/16/21 12:46 63 24 123/45 99 06/16/21 12:30 65 28 H 123/45 100 06/16/21 12:16 64 33 H 123/45 06/16/21 12:00 63 61 32 H 136/60 95 06/16/21 11:46 61 27 H 136/60 98 06/16/21 11:30 61 25 H 136/60 65 L 06/16/21 11:19 63 136/60 98 06/16/21 11:16 61 25 H 136/60 93 06/16/21 11:00 61 18 143/65 100 - Physical Examination HEENT: Positive: Other (Pupils fixed) Neck: Positive: neck supple Neuro: Positive: Other (Unresponsive, on the vent) Abdomen: Positive: Soft, Other (obese) Skin: Positive: Clear Extremities: Absent: edema - Labs and Meds Cardiac Enzymes 06/17/21 Range/Units 05:45 AST 61 H (5-40) units/L CBC 06/17/21 Range/Units 05:45 WBC 9.1 (4.5-11.0) K/mm3 RBC 4.38 (3.65-5.03) M/mm3 Hgb 10.5 (10.1-14.3) gm/dl Hct 33.1 (30.3-42.9) % Plt Count 154 (140-440) K/mm3 Comprehensive Metabolic Panel 06/17/21 Range/Units 05:45 Sodium 140 (137-145) mmol/L Potassium 3.1 L (3.6-5.0) mmol/L Chloride 104.5 (98-107) mmol/L Carbon Dioxide 25 (22-30) mmol/L BUN 48 H (7-17) mg/dL Creatinine 2.1 H D (0.6-1.2) mg/dL Glucose 156 H (65-100) mg/dL Calcium 8.2 L (8.4-10.2) mg/dL AST 61 H (5-40) units/L ALT 45 (7-56) units/L Alkaline Phosphatase 84 (35-129) units/L Total Protein 5.5 L (6.3-8.2) g/dL Albumin 2.6 L (3.9-5) g/dL 06/15/21 Echo - LVEF 55-60%, normal RV function, no pericardial effusion - Allied health notes Allied health notes reviewed: nursing
[2021-06-17] MEDS ORDERED: POTASSIUM CHLORIDE 20 MEQ 20 MEQ/100 ML BAG IV ONE (13:30)
[2021-06-17] MEDS: HEPARIN/ 0.45% NACL DRIP 25,000 UNIT/500 ML BAG IV SCH (14:01)
[2021-06-17] MEDS: fentaNYL DRIP Premix 2,000 MCG/100 ML BAG IV SCH (15:19)
--- NOTE | 2021-06-17 17:11 | Progress Note ---
Assessment and Plan Acute hypoxemic respiratory failure on MVS Cardiac arrest with ROSC Possible seizure activity Acute encephalopathy Acute kidney injury Non-ST elevation myocardial infarction Morbid obesity Hyperglycemia Arthritis Oropharyngeal dysphagia HTN - continue set rate of 10/min re: ph of 7.63 - repeat ABG in am - continue care as below otherwise; - cardiology evaluation ongoing re: NSTEMI - continue IV Heparin for now - continue Daily SAT and SBT assessment as tolerated - continue to wean supplemental oxygen for target O2 sat's > 90% acutely - VAP bundle addressed - continue lung protective strategies - continue bronchodilators with pulmonary hygiene per RT - wean per pulmonary driven protocols otherwise - continue accuchecks with glycemic control per SSI (While critically ill target blood glucose of 140-180 mg/dL; avoid hypoglycemia) - sedation prn for target RASS 0 to -1 - azotemia per nephrology team; no acute indication for dialysis - continue to avoid nephrotoxins, renally dose all medications - continue to avoid benzodiazepine's, reduce the possibility of delirium - complete AB's per ID rec's (Zosyn) - prn analgesia per CPOT score - Maintenance of sleep-wake cycle, avoid delirium - continue enteral nutritional support at goal rate as tolerated - G.I. & VTE prophylaxis - PT/OT/ROM exercises - continue mobility protocols for pressure ulcer prophylaxis - Monitor hemodynamics closely - continue other care per attending / other consultants - discharge planning ongoing concurrently COVID SPECIFIC INTERVENTIONS - COVID PCR negative .... Re-evaluate in am & prn CONDITION: CRITICAL PROGNOSIS: GUARDED CODE STATUS: FULL CODE The high probability of a clinically significant, sudden or life-threatening d eterioration of the [respiratory, cardiovascular, renal & neurologic] system(s) required my full and direct attention, intervention and personal management. The aggregate critical care time was [32] minutes without overlap. Time includes spent on; [x] Data Review and interpretation [x] Patient assessment and monitoring of vital signs [x] Documentation [x] Medication orders and management Subjective Date of service: 06/17/21 Principal diagnosis: Ac hypoxemic resp failure; Cardiac arrest; RIGOBERTO; AMS; NSTEMI Interval history: Patient is seen today for: Acute hypoxemic respiratory failure; Cardiac arrest with ROSC; Possible seizure activity; RIGOBERTO; Acute encephalopathy; NSTEMI Seen and examined at bedside; 24hour events reviewed; nursing and respiratory care staff consulted; no adverse overnight events reported to me; restin in bed; remains on MVS; AMS is persistent; work of breathing increased and failed SBT with tachypnea and tachycardia; no emesis or overt aspiration Objective Vital Signs - 12hr 06/17/21 06/17/21 06/17/21 05:16 05:30 05:46 Temperature Pulse Rate 59 L 56 L 55 L Respiratory 10 L 10 L 10 L Rate Blood Pressure 108/53 108/53 108/53 O2 Sat by Pulse 99 99 99 Oximetry 06/17/21 06/17/21 06/17/21 06:00 06:16 06:30 Temperature Pulse Rate 55 L 55 L 55 L Respiratory 15 30 H 31 H Rate Blood Pressure 117/55 117/55 117/55 O2 Sat by Pulse 100 100 99 Oximetry 06/17/21 06/17/21 06/17/21 06:46 07:00 07:16 Temperature Pulse Rate 56 L 55 L 56 L Respiratory 14 16 29 H Rate Blood Pressure 117/55 122/63 122/63 O2 Sat by Pulse 99 99 99 Oximetry 06/17/21 06/17/21 06/17/21 07:30 07:46 08:00 Temperature Pulse Rate 57 L 56 L 55 L Respiratory 26 H 24 18 Rate Blood Pressure 122/63 122/63 123/61 O2 Sat by Pulse 99 100 100 Oximetry 06/17/21 06/17/21 06/17/21 08:04 08:16 08:30 Temperature Pulse Rate 55 L 56 L 55 L Respiratory 10 L 11 L Rate Blood Pressure 123/61 123/61 123/61 O2 Sat by Pulse 100 99 100 Oximetry 06/17/21 06/17/21 06/17/21 08:46 09:00 09:16 Temperature Pulse Rate 54 L 54 L 54 L Respiratory 9 L 10 L 10 L Rate Blood Pressure 123/61 115/54 115/54 O2 Sat by Pulse 100 99 Oximetry 06/17/21 06/17/21 06/17/21 09:25 09:30 09:35 Temperature 98.4 F Pulse Rate 56 L 56 L Respiratory 10 L Rate Blood Pressure 115/54 115/56 O2 Sat by Pulse 99 Oximetry 06/17/21 06/17/21 06/17/21 09:46 10:00 10:15 Temperature Pulse Rate 56 L 55 L 55 L Respiratory 10 L 13 24 Rate Blood Pressure 115/54 116/55 116/55 O2 Sat by Pulse 99 99 100 Oximetry 06/17/21 06/17/21 06/17/21 10:30 10:46 11:00 Temperature Pulse Rate 56 L 55 L 54 L Respiratory 14 31 H 13 Rate Blood Pressure 116/55 116/55 120/56 O2 Sat by Pulse 99 99 99 Oximetry 06/17/21 06/17/21 06/17/21 11:16 11:30 11:46 Temperature Pulse Rate 54 L 54 L 55 L Respiratory 12 30 H 12 Rate Blood Pressure 120/56 120/56 120/56 O2 Sat by Pulse 99 99 99 Oximetry 06/17/21 06/17/21 06/17/21 12:00 12:16 12:30 Temperature Pulse Rate 55 L 55 L 55 L Respiratory 16 25 H 31 H Rate Blood Pressure 120/56 119/57 119/57 O2 Sat by Pulse 99 99 99 Oximetry 06/17/21 06/17/21 06/17/21 13:13 15:59 16:33 Temperature 97.9 F 98.2 F Pulse Rate 58 L Respiratory Rate Blood Pressure 121/59 O2 Sat by Pulse 99 Oximetry Constitutional: no acute distress, other (elderly obese female with mildly increased respiratory effort at rest) Eyes: non-icteric ENT: oropharynx moist, other (ETT 23 cm CON) Neck: supple, no lymphadenopathy, no JVD, other (large circumference) Effort: mildly labored Ascultation: Bilateral: diminished breath sounds, rhonchi Percussion: Bilateral: not dull Cardiovascular: regular rate and rhythm Gastrointestinal: normoactive bowel sounds, soft, non-tender, non-distended (protuberant) Integumentary: normal Extremities: no cyanosis, no edema, pulses normal, no ischemia or petechiae Neurologic: non-focal exam (grossly), pupils equal and round, unable to assess Psychiatric: other (unable to assess re: AMS) CBC and BMP: 06/18/21 04:00 06/18/21 04:00 ABG, PT/INR, D-dimer: ABG ABG pH 7.470 (7.320-7.450) H 06/17/21 03:26 POC ABG pCO2 33.8 mmHg (32.0-48.0) 06/17/21 03:26 ABG pCO2 36.3 mm Hg 06/15/21 05:00 POC ABG pO2 100.2 mmHg (83-108) 06/17/21 03:26 ABG pO2 184.7 mm Hg (80.0-90.0) H 06/15/21 05:00 POC ABG HCO3 24.0 06/17/21 03:26 ABG O2 Saturation 98.2 (0-100) 06/17/21 03:26 PT/INR, D-dimer PT 16.0 Sec. (12.2-14.9) H 06/16/21 06:16 INR 1.22 (0.87-1.13) H 06/16/21 06:16 D-Dimer 1785.61 ng/mlDDU (0-234) H 06/15/21 05:18 Abnormal lab findings: Abnormal Labs 06/15/21 06/15/21 06/15/21 03:30 03:30 03:30 MCV MCH 24 L MCHC 29 L RDW 15.8 H Lymph % (Auto) 12.8 L Randall % (Auto) Lymph # (Auto) 1.1 L Seg Neutrophils % 80.4 H PT 15.6 H INR 1.18 H D-Dimer Heparin Anti-Xa Level ABG pH POC ABG pCO2 POC ABG pO2 ABG pO2 ABG O2 Saturation ABG Hemoglobin ABG Oxyhemoglobin ABG Potassium ABG Glucose Potassium BUN 36 H Creatinine 1.4 H Glucose 258 H POC Glucose Calcium AST ALT Lactate Dehydrogenase CK-MB (CK-2) 4.8 H CK-MB (CK-2) Rel Index 4.5 H Troponin T 0.041 H C-Reactive Protein Total Protein Albumin Arterial Blood Glucose Arterial Blood Ionized Calcium Urine WBC (Auto) Urine Creatinine Urine Total Protein Rheumatoid Factor 06/15/21 06/15/21 06/15/21 05:00 05:18 05:18 MCV MCH MCHC RDW Lymph % (Auto) Randall % (Auto) Lymph # (Auto) Seg Neutrophils % PT INR D-Dimer 1785.61 H Heparin Anti-Xa Level ABG pH POC ABG pCO2 POC ABG pO2 ABG pO2 184.7 H ABG O2 Saturation 99.2 H ABG Hemoglobin ABG Oxyhemoglobin ABG Potassium ABG Glucose Potassium BUN Creatinine Glucose POC Glucose Calcium AST ALT Lactate Dehydrogenase 243 H CK-MB (CK-2) CK-MB (CK-2) Rel Index Troponin T C-Reactive Protein 3.00 H Total Protein Albumin Arterial Blood Glucose Arterial Blood Ionized Calcium Urine WBC (Auto) Urine Creatinine Urine Total Protein Rheumatoid Factor 06/15/21 06/15/21 06/15/21 06:30 07:39 09:05 MCV MCH MCHC RDW Lymph % (Auto) Randall % (Auto) Lymph # (Auto) Seg Neutrophils % PT INR D-Dimer Heparin Anti-Xa Level ABG pH POC ABG pCO2 POC ABG pO2 ABG pO2 ABG O2 Saturation ABG Hemoglobin ABG Oxyhemoglobin ABG Potassium ABG Glucose Potassium BUN Creatinine Glucose POC Glucose 231 H Calcium AST ALT Lactate Dehydrogenase CK-MB (CK-2) CK-MB (CK-2) Rel Index Troponin T 0.058 H D 0.062 H C-Reactive Protein Total Protein Albumin Arterial Blood Glucose Arterial Blood Ionized Calcium Urine WBC (Auto) Urine Creatinine Urine Total Protein Rheumatoid Factor 06/15/21 06/15/21 06/15/21 09:15 09:34 13:09 MCV MCH MCHC RDW Lymph % (Auto) Randall % (Auto) Lymph # (Auto) Seg Neutrophils % PT INR D-Dimer Heparin Anti-Xa Level ABG pH POC ABG pCO2 POC ABG pO2 ABG pO2 ABG O2 Saturation ABG Hemoglobin ABG Oxyhemoglobin ABG Potassium ABG Glucose Potassium BUN Creatinine Glucose POC Glucose 240 H Calcium AST ALT Lactate Dehydrogenase CK-MB (CK-2) CK-MB (CK-2) Rel Index Troponin T C-Reactive Protein Total Protein Albumin Arterial Blood Glucose Arterial Blood Ionized Calcium Urine WBC (Auto) 8.0 H Urine Creatinine 146.5 H Urine Total Protein 216 H Rheumatoid Factor 06/15/21 06/15/21 06/15/21 16:05 18:14 23:09 MCV MCH MCHC RDW Lymph % (Auto) Randall % (Auto) Lymph # (Auto) Seg Neutrophils % PT INR D-Dimer Heparin Anti-Xa Level < 0.10 L ABG pH POC ABG pCO2 POC ABG pO2 ABG pO2 ABG O2 Saturation ABG Hemoglobin ABG Oxyhemoglobin ABG Potassium ABG Glucose Potassium BUN Creatinine Glucose POC Glucose 150 H 179 H Calcium AST ALT Lactate Dehydrogenase CK-MB (CK-2) CK-MB (CK-2) Rel Index Troponin T C-Reactive Protein Total Protein Albumin Arterial Blood Glucose Arterial Blood Ionized Calcium Urine WBC (Auto) Urine Creatinine Urine Total Protein Rheumatoid Factor 06/15/21 06/16/21 06/16/21 23:43 05:00 05:17 MCV MCH MCHC RDW Lymph % (Auto) Randall % (Auto) Lymph # (Auto) Seg Neutrophils % PT INR D-Dimer Heparin Anti-Xa Level < 0.10 L ABG pH 7.693 H POC ABG pCO2 18.6 L POC ABG pO2 147.2 H ABG pO2 ABG O2 Saturation ABG Hemoglobin ABG Oxyhemoglobin 98.5 H ABG Potassium 3.0 L ABG Glucose 178 H Potassium BUN Creatinine Glucose POC Glucose 182 H Calcium AST ALT Lactate Dehydrogenase CK-MB (CK-2) CK-MB (CK-2) Rel Index Troponin T C-Reactive Protein Total Protein Albumin Arterial Blood Glucose 178 H Arterial Blood Ionized Calcium 4.5 L Urine WBC (Auto) Urine Creatinine Urine Total Protein Rheumatoid Factor 06/16/21 06/16/21 06/16/21 06:16 06:16 06:16 MCV 77 L MCH 24 L MCHC RDW Lymph % (Auto) Randall % (Auto) 7.5 H Lymph # (Auto) Seg Neutrophils % 73.8 H PT 16.0 H INR 1.22 H D-Dimer Heparin Anti-Xa Level ABG pH POC ABG pCO2 POC ABG pO2 ABG pO2 ABG O2 Saturation ABG Hemoglobin ABG Oxyhemoglobin ABG Potassium ABG Glucose Potassium 3.1 L D BUN 40 H Creatinine 1.4 H Glucose 154 H POC Glucose Calcium AST 48 H ALT 69 H Lactate Dehydrogenase CK-MB (CK-2) CK-MB (CK-2) Rel Index Troponin T C-Reactive Protein Total Protein 5.8 L Albumin 3.0 L Arterial Blood Glucose Arterial Blood Ionized Calcium Urine WBC (Auto) Urine Creatinine Urine Total Protein Rheumatoid Factor 06/16/21 06/16/21 06/16/21 10:20 16:20 17:43 MCV MCH MCHC RDW Lymph % (Auto) Randall % (Auto) Lymph # (Auto) Seg Neutrophils % PT INR D-Dimer Heparin Anti-Xa Level 0.26 L ABG pH POC ABG pCO2 POC ABG pO2 ABG pO2 ABG O2 Saturation ABG Hemoglobin ABG Oxyhemoglobin ABG Potassium ABG Glucose Potassium 3.2 L BUN 42 H Creatinine 1.3 H Glucose 161 H POC Glucose 163 H Calcium AST ALT Lactate Dehydrogenase CK-MB (CK-2) CK-MB (CK-2) Rel Index Troponin T C-Reactive Protein Total Protein Albumin Arterial Blood Glucose Arterial Blood Ionized Calcium Urine WBC (Auto) Urine Creatinine Urine Total Protein Rheumatoid Factor 06/16/21 06/16/21 06/17/21 18:40 23:12 03:26 MCV MCH MCHC RDW Lymph % (Auto) Randall % (Auto) Lymph # (Auto) Seg Neutrophils % PT INR D-Dimer Heparin Anti-Xa Level ABG pH 7.470 H POC ABG pCO2 POC ABG pO2 ABG pO2 ABG O2 Saturation ABG Hemoglobin 11.4 L ABG Oxyhemoglobin ABG Potassium 3.1 L ABG Glucose 170 H Potassium BUN Creatinine Glucose POC Glucose 173 H Calcium AST ALT Lactate Dehydrogenase CK-MB (CK-2) CK-MB (CK-2) Rel Index Troponin T C-Reactive Protein Total Protein Albumin Arterial Blood Glucose 170 H Arterial Blood Ionized Calcium Urine WBC (Auto) Urine Creatinine Urine Total Protein Rheumatoid Factor 20 H 06/17/21 06/17/21 06/17/21 05:45 05:45 06:16 MCV 76 L MCH 24 L MCHC RDW Lymph % (Auto) Randall % (Auto) Lymph # (Auto) Seg Neutrophils % PT INR D-Dimer Heparin Anti-Xa Level ABG pH POC ABG pCO2 POC ABG pO2 ABG pO2 ABG O2 Saturation ABG Hemoglobin ABG Oxyhemoglobin ABG Potassium ABG Glucose Potassium 3.1 L BUN 48 H Creatinine 2.1 H D Glucose 156 H POC Glucose 141 H Calcium 8.2 L AST 61 H ALT Lactate Dehydrogenase CK-MB (CK-2) CK-MB (CK-2) Rel Index Troponin T C-Reactive Protein Total Protein 5.5 L Albumin 2.6 L Arterial Blood Glucose Arterial Blood Ionized Calcium Urine WBC (Auto) Urine Creatinine Urine Total Protein Rheumatoid Factor 06/17/21 06/17/21 12:05 16:10 MCV MCH MCHC RDW Lymph % (Auto) Randall % (Auto) Lymph # (Auto) Seg Neutrophils % PT INR D-Dimer Heparin Anti-Xa Level 0.26 L ABG pH POC ABG pCO2 POC ABG pO2 ABG pO2 ABG O2 Saturation ABG Hemoglobin ABG Oxyhemoglobin ABG Potassium ABG Glucose Potassium BUN Creatinine Glucose POC Glucose 138 H Calcium AST ALT Lactate Dehydrogenase CK-MB (CK-2) CK-MB (CK-2) Rel Index Troponin T C-Reactive Protein Total Protein Albumin Arterial Blood Glucose Arterial Blood Ionized Calcium Urine WBC (Auto) Urine Creatinine Urine Total Protein Rheumatoid Factor Chest x-ray: image reviewed Allied health notes reviewed: nursing
--- NOTE | 2021-06-17 21:10 | Progress Note ---
Assessment and Plan Acute kidney injury Proteinuria Hematuria Hypertension Cardiac arrest Acute respiratory failure, intubated Diabetes PCR 1.4 g, f/u pending serologies Urine Cx NGTD Rise in creatinine coincides with initiation of lisinopril. 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 Will need further evaluation outpatient. Subjective Date of service: 06/17/21 Principal diagnosis: Ac hypoxemic resp failure; Cardiac arrest; RIGOBERTO; AMS; NSTEMI Interval history: Remains intubated. No change in mental status Objective - Exam Narrative Exam: General: Sedated. Intubated. HEENT: Oral mucosa moist Neck: Supple, no JVD Chest: Intubated. Mechanical breath sounds. Heart: RRR, S1 and S2, no pericardial rub Abdomen: Soft, nontender, no renal bruit Extremity: No peripheral cyanosis, edema Neurological: Sedated. Dermatology: No skin rash Psych: unable to assess Musculoskeletal: No joint effusion - Vital Signs Vital signs: Vital Signs - 12hr 06/17/21 06/17/21 06/17/21 09:16 09:25 09:30 Temperature 98.4 F Pulse Rate 54 L 56 L Respiratory 10 L 10 L Rate Blood Pressure 115/54 115/54 O2 Sat by Pulse 99 99 Oximetry 06/17/21 06/17/21 06/17/21 09:35 09:46 10:00 Temperature Pulse Rate 56 L 56 L 55 L Respiratory 10 L 13 Rate Blood Pressure 115/56 115/54 116/55 O2 Sat by Pulse 99 99 Oximetry 06/17/21 06/17/21 06/17/21 10:15 10:30 10:46 Temperature Pulse Rate 55 L 56 L 55 L Respiratory 24 14 31 H Rate Blood Pressure 116/55 116/55 116/55 O2 Sat by Pulse 100 99 99 Oximetry 06/17/21 06/17/21 06/17/21 11:00 11:16 11:30 Temperature Pulse Rate 54 L 54 L 54 L Respiratory 13 12 30 H Rate Blood Pressure 120/56 120/56 120/56 O2 Sat by Pulse 99 99 99 Oximetry 06/17/21 06/17/21 06/17/21 11:46 12:00 12:16 Temperature Pulse Rate 55 L 55 L 55 L Respiratory 12 16 25 H Rate Blood Pressure 120/56 120/56 119/57 O2 Sat by Pulse 99 99 99 Oximetry 06/17/21 06/17/21 06/17/21 12:30 12:46 13:00 Temperature Pulse Rate 55 L 55 L 55 L Respiratory 31 H 16 26 H Rate Blood Pressure 119/57 119/57 119/57 O2 Sat by Pulse 99 99 100 Oximetry 06/17/21 06/17/21 06/17/21 13:13 13:16 13:30 Temperature 97.9 F Pulse Rate 55 L 56 L Respiratory 26 H 27 H Rate Blood Pressure 116/54 116/54 O2 Sat by Pulse 99 99 Oximetry 06/17/21 06/17/21 06/17/21 13:46 14:00 14:16 Temperature Pulse Rate 56 L 57 L 58 L Respiratory 26 H 27 H 23 Rate Blood Pressure 116/54 116/54 114/61 O2 Sat by Pulse 100 99 99 Oximetry 06/17/21 06/17/21 06/17/21 14:30 14:46 15:00 Temperature Pulse Rate 56 L 58 L 60 Respiratory 31 H 30 H 17 Rate Blood Pressure 114/61 114/61 114/61 O2 Sat by Pulse 99 99 99 Oximetry 06/17/21 06/17/21 06/17/21 15:16 15:30 15:46 Temperature Pulse Rate 58 L 61 58 L Respiratory 29 H 30 H 22 Rate Blood Pressure 119/56 119/56 119/56 O2 Sat by Pulse 99 98 99 Oximetry 06/17/21 06/17/21 06/17/21 15:59 16:00 16:16 Temperature 98 F Pulse Rate 58 L 57 L 61 Respiratory 31 H 19 Rate Blood Pressure 121/59 119/56 121/59 O2 Sat by Pulse 99 99 100 Oximetry 06/17/21 06/17/21 06/17/21 16:30 16:33 16:46 Temperature 98.2 F Pulse Rate 60 58 L Respiratory 31 H 9 L Rate Blood Pressure 121/59 121/59 O2 Sat by Pulse 100 100 Oximetry 06/17/21 06/17/21 06/17/21 17:00 17:16 17:30 Temperature Pulse Rate 62 63 60 Respiratory 20 9 L 20 Rate Blood Pressure 136/73 136/73 136/73 O2 Sat by Pulse 99 93 100 Oximetry 06/17/21 06/17/21 06/17/21 17:46 18:00 18:16 Temperature Pulse Rate 65 66 66 Respiratory 14 12 14 Rate Blood Pressure 136/73 136/73 143/68 O2 Sat by Pulse 100 99 100 Oximetry 06/17/21 06/17/21 06/17/21 18:30 18:46 19:00 Temperature Pulse Rate 66 66 68 Respiratory 21 15 15 Rate Blood Pressure 143/68 143/68 143/68 O2 Sat by Pulse 100 99 99 Oximetry 06/17/21 06/17/21 06/17/21 19:16 19:30 19:46 Temperature Pulse Rate 71 71 71 Respiratory 12 12 12 Rate Blood Pressure 138/68 138/68 138/68 O2 Sat by Pulse 100 100 99 Oximetry 06/17/21 06/17/21 06/17/21 20:00 20:02 20:16 Temperature 98.2 F Pulse Rate 69 66 68 Respiratory 12 27 H Rate Blood Pressure 138/68 136/40 134/60 O2 Sat by Pulse 99 100 100 Oximetry - Lab 06/17/21 05:45 06/17/21 05:45 Most recent lab results ABG pH 7.470 (7.320-7.450) H 06/17/21 03:26 ABG pCO2 36.3 mm Hg 06/15/21 05:00 ABG pO2 184.7 mm Hg (80.0-90.0) H 06/15/21 05:00 ABG HCO3 22.6 mmol/L (20.0-26.0) 06/15/21 05:00 ABG O2 Saturation 98.2 (0-100) 06/17/21 03:26 Calcium 8.2 mg/dL (8.4-10.2) L 06/17/21 05:45 Urine Creatinine 146.5 mg/dL (0.1-20.0) H 06/15/21 09:15 Urine Total Protein 216 mg/dL (5-11.8) H 06/15/21 09:15 Medications & Allergies - Medications Allergies/Adverse Reactions: Allergies latex Allergy (Verified 12/29/17 08:16) Itching shellfish Allergy (Uncoded 12/17/18 00:58) Swelling Home Medications: Home Medications Medication Instructions Recorded Confirmed Last Taken Type Amlodipine Besylate/Benazepril 1 cap PO DAILY 09/18/15 06/15/21 06/14/21 00:00 History [Amlodipine-Benazepril 5-20 mg] Aspirin BABY CHEW TAB 81 mg PO DAILY 09/18/15 06/15/21 06/14/21 00:00 History Insulin Aspart Protam & Aspart 50 units SC QAM 09/18/15 06/15/21 06/14/21 00:00 History [NovoLOG Mix 70-30 Flexpen] Insulin Aspart Protam & Aspart 50 units SC QHS 09/18/15 06/15/21 12/28/17 18:00 History [NovoLOG Mix 70-30 Flexpen] hydroCHLOROthiazide 1 tab PO DAILY 09/18/15 06/15/21 06/14/21 00:00 History [Hydrochlorothiazide] cloNIDine [Catapres] 0.2 mg PO QHS 12/29/17 06/15/21 12/27/17 21:00 History raNITIdine HCl [Zantac] 150 mg PO BID 12/29/17 06/15/21 06/14/21 00:00 History Benazepril (Nf) 40 mg PO DAILY 06/15/21 06/15/21 06/14/21 History Hydralazine HCl 100 mg PO BID 06/15/21 06/15/21 06/14/21 00:00 History Insulin Aspart Prot/Insuln Asp 100 unit SQ BID 06/15/21 06/15/21 Unknown History [Novolog Mix 70-30 Flexpen Syrn] traMADoL [Ultram 50 MG tab] 50 mg PO PRN 06/15/21 06/15/21 Unknown History Active Medications: Generic Name Dose Route Start Last Admin Trade Name Freq PRN Reason Stop Dose Admin Acetaminophen 650 mg 06/15/21 05:07 Acetaminophen 650 Mg Rect Supp [place] Q6H PRN Pain MILD(1-3)/Fever >100.5/WHITE Amlodipine Besylate 10 mg 06/16/21 10:00 06/17/21 09:35 Amlodipine 10 Mg Tab PO 10 mg QDAY JONATHAN Administration Lipase/Protease/Amylase 1 each 06/16/21 10:30 Lipase 10,500/Protease 25,000/Amylase 43,750 (Units) Dr Craven FEEDTUBE PRN PRN For Clogged Feeding Tube Dextrose 0 ml 06/15/21 05:07 Dextrose 50% In Water (25gm) 50 Ml Syringe IV Q30MIN PRN Hypoglycemia Protocol Famotidine 20 mg 06/15/21 10:00 06/17/21 09:35 Famotidine 20 Mg/2 Ml Inj IV 20 mg BID JONATHAN Administration Fentanyl 50 mcg 06/15/21 03:06 Fentanyl 100 Mcg/2 Ml Inj IV Q10MIN PRN ANALGESIA Heparin Sodium (Porcine) 5,000 unit 06/15/21 07:00 Heparin 10,000 Units/10 Ml Vial IV Q6H PRN Anti-Xa Assay < 0.1 units/ml Hydralazine HCl 100 mg 06/16/21 08:00 06/17/21 14:02 Hydralazine 100 Mg Tab PO 100 mg TID JONATHAN Administration Hydralazine HCl 10 mg 06/15/21 23:43 06/16/21 00:28 Hydralazine 20 Mg/1 Ml Inj IV 10 mg Q6H PRN Administration SBP > 160 Hydrophilic Ointment 1 applic 06/15/21 03:06 Lip Therapy Vaseline TP Q2HR PRN Dry Lips Fentanyl Citrate 2,000 mcg in 100 mls @ 7.39 mls/hr 06/15/21 04:00 06/17/21 15:19 Fentanyl Drip Premix IV 1 mcg/kg/hr TITR JONATHAN 7.39 mls/hr Administration Protocol 1 MCG/KG/HR Heparin Sodium/Sodium Chloride 25,000 unit in 500 mls @ 20 mls/hr 06/15/21 07:00 06/17/21 17:21 Heparin/ 0.45% Nacl-25,000 Unit/500 Ml IV 1,600 units/hr TITRATE JONATHAN 32 mls/hr Titration Protocol 1,000 UNITS/HR Propofol 1,000 mg in 100 mls @ 4.434 mls/hr 06/15/21 16:00 06/17/21 18:25 Diprivan 10 Mg/Ml IV 0 mcg/kg/min TITR JONATHAN 0 mls/hr Titration Protocol 5 MCG/KG/MIN Levetiracetam 500 mg/ Dextrose 105 mls @ 400 mls/hr 06/15/21 16:00 06/17/21 10:19 IV 400 mls/hr Q12HR JONATHAN Administration Piperacillin Sod/Tazobactam Sod 4.5 gm in 100 mls @ 200 mls/hr 06/16/21 11:00 06/17/21 12:39 Zosyn/Ns 4.5gm/100ml IV 200 mls/hr Q8H JONATHAN Administration Protocol Sodium Chloride 1,000 mls @ 75 mls/hr 06/17/21 10:00 06/17/21 10:19 Nacl 0.9% 1000 Ml IV 75 mls/hr DIRECT JONATHAN Administration Insulin Human Lispro 0 unit 06/15/21 12:00 06/17/21 18:50 Insulin Lispro 100 Unit/Ml SUB-Q Not Given Q6HR JONATHAN Protocol Lisinopril 40 mg 06/16/21 10:00 06/17/21 09:35 Lisinopril 40 Mg Tab PO 40 mg QDAY JONATHAN Administration Multi-Ingred Cream/Lotion/Oil/Oint 1 applic 06/15/21 03:06 Mineral Oil/Petrolatum, White Ophth Oint 3.5 Gm OU Q4HR PRN Dry Eye(s) Senna/Docusate Sodium 1 tab 06/15/21 22:00 06/16/21 22:10 Sennosides/Docusate Sodium 8.6/50 Mg Tab PO 1 tab QHS JONATHAN Administration Simple Syrup 15 ml 06/16/21 10:30 Simple Syrup 15 Ml FEEDTUBE PRN PRN Hypoglycemia Simple Syrup 30 ml 06/16/21 10:30 Simple Syrup 15 Ml FEEDTUBE PRN PRN Hypoglycemia Sodium Bicarbonate 325 mg 06/16/21 10:30 Sodium Bicarbonate 325 Mg Tab FEEDTUBE PRN PRN For Clogged Feeding Tube Sodium Chloride 10 ml 06/15/21 10:00 06/17/21 19:50 Sodium Chloride 0.9% 10 Ml Flush Syringe IV Not Given BID JONATHAN Sodium Chloride 10 ml 06/15/21 05:07 Sodium Chloride 0.9% 10 Ml Flush Syringe IV PRN PRN LINE FLUSH
[2021-06-17] MEDS: SENNOSIDES/DOCUSATE SODIUM 8.6/50 MG TAB PO SCH (21:13)
[2021-06-18] MEDS: levETIRAcetam 500 MG in DEXTROSE 5% IN WATER 100 ML IV SCH ×3 (00:17→22:17)
[2021-06-18] MEDS: INSULIN LISPRO 100 UNIT/ML SUB-Q SCH ×4 (00:18→18:06)
[2021-06-18] MEDS: SODIUM CHLORIDE 0.9% 1000 ML 1,000 ML IV SCH (02:21)
[2021-06-18] MEDS: fentaNYL DRIP Premix 2,000 MCG/100 ML BAG IV SCH (03:32)
--- NOTE | 2021-06-18 03:41 | XRay Report ---
CHEST 1 VIEW 06/18/2021 2:30 AM INDICATION / CLINICAL INFORMATION: follow up respiratory failure. COMPARISON: One view of the chest from 06/17/2021 FINDINGS: SUPPORT DEVICES: Unchanged. HEART / MEDIASTINUM: Stable. LUNGS / PLEURA: Central vascular congestion is again noted with additional generalized bilateral pulm onary opacities that are not significantly changed. No significant pleural effusion. No pneumothorax. ADDITIONAL FINDINGS: No significant additional findings. IMPRESSION: Stable appearance of the chest. Signer Name: Bill Stevenson MD Signed: 06/18/2021 3:37 AM Workstation Name: [id number]
[2021-06-18 04:35] LABS: Hemoglobin 11.2 gm/dl (10.1-14.3); Mean Corpuscular HGB Conc 32 % (30-34); Mean Corpuscular Volume 75 fl (79-97); Platelet Count 165 K/mm3 (140-440); Red Blood Count 4.68 M/mm3 (3.65-5.03); Red Cell Distribution Width 14.7 % (13.2-15.2)
[2021-06-18] MEDS: HEPARIN/ 0.45% NACL DRIP 25,000 UNIT/500 ML BAG IV SCH ×2 (04:40→17:29)
[2021-06-18] MEDS: PIPERACIL/TAZOBACTA 4.5/NS 100 4.5 GM/100 ML VIAL IV SCH ×2 (04:42→10:40)
[2021-06-18 05:00] LABS: Albumin 2.5 g/dL (3.9-5); Calcium 8.7 mg/dL (8.4-10.2)
[2021-06-18] MEDS: POTASSIUM CHLORIDE 10 MEQ 10 MEQ/100 ML BAG IV SCH (08:00)
[2021-06-18] MEDS: hydrALAZINE 100 MG TAB PO SCH ×3 (08:30→20:35)
[2021-06-18] MEDS: amLODIPine 10 MG TAB PO SCH (09:32)
[2021-06-18] MEDS: FAMOTIDINE 20 MG/2 ML INJ IV SCH (09:33)
[2021-06-18] MEDS: FAMOTIDINE 20 MG TAB PO SCH ×2 (09:47→22:18)
--- NOTE | 2021-06-18 10:29 | Progress Note ---
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 Will need further evaluation outpatient. Subjective Date of service: 06/18/21 Principal diagnosis: Ac hypoxemic resp failure; Cardiac arrest; RIGOBERTO; AMS; NSTEMI Interval history: No acute events overnight Objective - Vital Signs Vital signs: Vital Signs - 12hr 06/17/21 06/17/21 06/17/21 22:30 22:46 23:00 Temperature Pulse Rate 64 64 70 Respiratory 31 H 12 24 Rate Blood Pressure 152/76 152/76 152/76 O2 Sat by Pulse 100 100 100 Oximetry 06/17/21 06/17/21 06/17/21 23:16 23:30 23:46 Temperature Pulse Rate 69 67 68 Respiratory 23 32 H 17 Rate Blood Pressure 146/64 146/64 146/64 O2 Sat by Pulse 100 100 100 Oximetry 06/18/21 06/18/21 06/18/21 00:00 00:16 00:30 Temperature 98.4 F Pulse Rate 68 64 65 Respiratory 17 11 L 20 Rate Blood Pressure 146/64 129/58 129/58 O2 Sat by Pulse 100 99 100 Oximetry 06/18/21 06/18/21 06/18/21 00:46 01:00 02:00 Temperature Pulse Rate 62 64 67 Respiratory 31 H 16 16 Rate Blood Pressure 129/58 129/58 145/67 O2 Sat by Pulse 100 99 99 Oximetry 06/18/21 06/18/21 06/18/21 03:00 04:00 05:00 Temperature 98.6 F Pulse Rate 67 64 63 Respiratory 30 H 32 H 32 H Rate Blood Pressure 132/59 141/63 146/70 O2 Sat by Pulse 99 99 100 Oximetry 06/18/21 06/18/21 06/18/21 05:02 06:00 07:00 Temperature Pulse Rate 70 66 69 Respiratory 14 15 Rate Blood Pressure 152/74 152/74 144/66 O2 Sat by Pulse 99 99 99 Oximetry 06/18/21 06/18/2121 07:46 07:49 08:00 Temperature 98.5 F Pulse Rate 73 73 Respiratory 18 Rate Blood Pressure 143/64 143/64 O2 Sat by Pulse 99 98 Oximetry 06/18/21 09:32 Temperature Pulse Rate 63 Respiratory Rate Blood Pressure 142/67 O2 Sat by Pulse Oximetry - General Appearance General appearance: well-developed, well-nourished, intubated EENT: ATNC Respiratory: Present: Clear to Ascultation Cardiology: regular, S1S2 Gastrointestinal: obese Integumentary: no rash, warm and dry - Lab 06/19/21 07:35 06/19/21 07:35 Most recent lab results ABG pH 7.638 (7.320-7.450) H 06/18/21 03:53 ABG pCO2 36.3 mm Hg 06/15/21 05:00 ABG pO2 184.7 mm Hg (80.0-90.0) H 06/15/21 05:00 ABG HCO3 22.6 mmol/L (20.0-26.0) 06/15/21 05:00 ABG O2 Saturation 99.4 (0-100) 06/18/21 03:53 Calcium 8.7 mg/dL (8.4-10.2) 06/18/21 04:00 Urine Creatinine 146.5 mg/dL (0.1-20.0) H 06/15/21 09:15 Urine Total Protein 216 mg/dL (5-11.8) H 06/15/21 09:15 Medications & Allergies - Medications Allergies/Adverse Reactions: Allergies latex Allergy (Verified 12/29/17 08:16) Itching shellfish Allergy (Uncoded 12/17/18 00:58) Swelling Home Medications: Home Medications Medication Instructions Recorded Confirmed Last Taken Type Amlodipine Besylate/Benazepril 1 cap PO DAILY 09/18/15 06/15/21 06/14/21 00:00 History [Amlodipine-Benazepril 5-20 mg] Aspirin BABY CHEW TAB 81 mg PO DAILY 09/18/15 06/15/21 06/14/21 00:00 History Insulin Aspart Protam & Aspart 50 units SC QAM 09/18/15 06/15/21 06/14/21 00:00 History [NovoLOG Mix 70-30 Flexpen] Insulin Aspart Protam & Aspart 50 units SC QHS 09/18/15 06/15/21 12/28/17 18:00 History [NovoLOG Mix 70-30 Flexpen] hydroCHLOROthiazide 1 tab PO DAILY 09/18/15 06/15/21 06/14/21 00:00 History [Hydrochlorothiazide] cloNIDine [Catapres] 0.2 mg PO QHS 12/29/17 06/15/21 12/27/17 21:00 History raNITIdine HCl [Zantac] 150 mg PO BID 12/29/17 06/15/21 06/14/21 00:00 History Benazepril (Nf) 40 mg PO DAILY 06/15/21 06/15/21 06/14/21 History Hydralazine HCl 100 mg PO BID 06/15/21 06/15/21 06/14/21 00:00 History Insulin Aspart Prot/Insuln Asp 100 unit SQ BID 06/15/21 06/15/21 Unknown History [Novolog Mix 70-30 Flexpen Syrn] traMADoL [Ultram 50 MG tab] 50 mg PO PRN 06/15/21 06/15/21 Unknown History Active Medications: Generic Name Dose Route Start Last Admin Trade Name Freq PRN Reason Stop Dose Admin Acetaminophen 650 mg 06/15/21 05:07 Acetaminophen 650 Mg Rect Supp MT Q6H PRN Pain MILD(1-3)/Fever >100.5/WHITE Amlodipine Besylate 10 mg 06/16/21 10:00 06/18/21 09:32 Amlodipine 10 Mg Tab PO 10 mg QDAY JONATHAN Administration Lipase/Protease/Amylase 1 each 06/16/21 10:30 Lipase 10,500/Protease 25,000/Amylase 43,750 (Units) Dr Craven FEEDTUBE PRN PRN For Clogged Feeding Tube Dextrose 0 ml 06/15/21 05:07 Dextrose 50% In Water (25gm) 50 Ml Syringe IV Q30MIN PRN Hypoglycemia Protocol Famotidine 20 mg 06/18/21 10:00 06/18/21 09:47 Famotidine 20 Mg Tab PO Not Given BID JONATHAN Fentanyl 50 mcg 06/15/21 03:06 Fentanyl 100 Mcg/2 Ml Inj IV Q10MIN PRN ANALGESIA Heparin Sodium (Porcine) 5,000 unit 06/15/21 07:00 Heparin 10,000 Units/10 Ml Vial IV Q6H PRN Anti-Xa Assay < 0.1 units/ml Hydralazine HCl 100 mg 06/16/21 08:00 06/18/21 08:30 Hydralazine 100 Mg Tab PO 100 mg TID JONATHAN Administration Hydralazine HCl 10 mg 06/15/21 23:43 06/16/21 00:28 Hydralazine 20 Mg/1 Ml Inj IV 10 mg Q6H PRN Administration SBP > 160 Hydrophilic Ointment 1 applic 06/15/21 03:06 Lip Therapy Vaseline TP Q2HR PRN Dry Lips Fentanyl Citrate 2,000 mcg in 100 mls @ 7.39 mls/hr 06/15/21 04:00 06/18/21 08:29 Fentanyl Drip Premix IV 0 mcg/kg/hr TITR JONATHAN 0 mls/hr Titration Protocol 1 MCG/KG/HR Heparin Sodium/Sodium Chloride 25,000 unit in 500 mls @ 20 mls/hr 06/15/21 07:00 06/18/21 04:40 Heparin/ 0.45% Nacl-25,000 Unit/500 Ml IV 1,600 units/hr TITRATE JONATHAN 32 mls/hr Administration Protocol 1,000 UNITS/HR Propofol 1,000 mg in 100 mls @ 4.434 mls/hr 06/15/21 16:00 06/17/21 18:25 Diprivan 10 Mg/Ml IV 0 mcg/kg/min TITR JONATHAN 0 mls/hr Titration Protocol 5 MCG/KG/MIN Levetiracetam 500 mg/ Dextrose 105 mls @ 400 mls/hr 06/15/21 16:00 06/18/21 09:32 IV 06/18/21 23:59 400 mls/hr Q12HR JONATHAN Administration Piperacillin Sod/Tazobactam Sod 4.5 gm in 100 mls @ 200 mls/hr 06/16/21 11:00 06/18/21 04:42 Zosyn/Ns 4.5gm/100ml IV 200 mls/hr Q8H JONATHAN Administration Protocol Sodium Chloride 1,000 mls @ 75 mls/hr 06/17/21 10:00 06/18/21 02:21 Nacl 0.9% 1000 Ml IV 75 mls/hr DIRECT JONATHAN Administration Insulin Human Lispro 0 unit 06/15/21 12:00 06/18/21 06:08 Insulin Lispro 100 Unit/Ml SUB-Q 3 unit Q6HR JONATHAN Administration Protocol Levetiracetam 500 mg 06/19/21 10:00 Levetiracetam 500 Mg/5 Ml Oral Liqd PO BID JONATHAN Multi-Ingred Cream/Lotion/Oil/Oint 1 applic 06/15/21 03:06 Mineral Oil/Petrolatum, White Ophth Oint 3.5 Gm OU Q4HR PRN Dry Eye(s) Senna/Docusate Sodium 1 tab 06/15/21 22:00 06/17/21 21:13 Sennosides/Docusate Sodium 8.6/50 Mg Tab PO 1 tab QHS JONATHAN Administration Simple Syrup 15 ml 06/16/21 10:30 Simple Syrup 15 Ml FEEDTUBE PRN PRN Hypoglycemia Simple Syrup 30 ml 06/16/21 10:30 Simple Syrup 15 Ml FEEDTUBE PRN PRN Hypoglycemia Sodium Bicarbonate 325 mg 06/16/21 10:30 Sodium Bicarbonate 325 Mg Tab FEEDTUBE PRN PRN For Clogged Feeding Tube Sodium Chloride 10 ml 06/15/21 10:00 06/18/21 09:33 Sodium Chloride 0.9% 10 Ml Flush Syringe IV 10 ml BID JONATHAN Administration Sodium Chloride 10 ml 06/15/21 05:07 Sodium Chloride 0.9% 10 Ml Flush Syringe IV PRN PRN LINE FLUSH
[2021-06-18] MEDS ORDERED: POTASSIUM CHLORIDE 20 MEQ 20 MEQ/100 ML BAG IV ONE (11:00)
--- NOTE | 2021-06-18 11:03 | Progress Note ---
Assessment and Plan Cultures: 06/15/2021 tracheal aspirate: Usual respiratory juan jose 06/15/2021 urine culture: No growth 06/16/2021 blood culture: No growth Assessment: 81-year-old female with history of diabetes mellitus, hypertension, arthritis, admitted on 06/15/2021 secondary to collapse witnessed by family, out of hospital cardiac arrest: #SIRS versus sepsis: Patient with low grade fever, hypotension, in the setting of out of the hospital cardiac arrest. UA with minimal pyuria. Procalcitonin<0.2 #Bilateral pneumonia v/s atelectasis: SARS-CoV-2 PCR negative. #Acute hypoxic respiratory failure: on the vent #Elevated LFTs: Likely secondary to cardiac arrest/resuscitation. #Elevated troponins: Per cardiology. #RIGOBERTO: Likely due to cardiac arrest. #Diabetes mellitus with hyperglycemia. #Morbidly obese Recommendations: -Cultures negative, afebrile, procalcitonin low, no leukocytosis. Cruz Cantor MD, FACP [facility] ([facility] O: [phone] F: [phone] Subjective Date of service: 06/18/21 Principal diagnosis: Ac hypoxemic resp failure; Cardiac arrest; RIGOBERTO; AMS; NSTEMI Interval history: No fever. Remains on the vent. Objective - Exam Narrative Exam: Physical Exam: Constitutional: sedated, intubated, on the vent. Morbidly obese Head, Ears, Nose: Normocephalic, atraumatic. External ears, nose normal Eyes: Conjunctivae/corneas clear. No icterus. No ptosis. Neck: intubated Oral: intubated Cardiovascular: S1, S2 + Respiratory: AE fair bilaterally and equal GI: Soft, bowel sounds + Musculoskeletal: No pedal edema, no cyanosis. Skin: No rash or abscess Hem/Lymphatic: No palpable cervical or supraclavicular nodes. No lymphangitis Psych: no agitation Neurological: sedated, intubated, on the vent, exam limited - Constitutional Vitals: Vital Signs Temp Pulse Resp BP Pulse Ox 98.5 F 58 L 12 142/67 99 06/18/21 07:49 06/18/21 10:00 06/18/21 10:00 06/18/21 10:00 06/18/21 10:00 Temperature -Last 24 Hours Temperature 98.5 F Temperature 98.6 F Temperature 98.4 F Temperature 98.2 F Temperature 98.2 F Temperature 98 F Temperature 97.9 F - Labs CBC & Chem 7: 06/18/21 04:00 06/18/21 04:00 Labs: Abnormal lab results 06/17/21 06/17/21 06/17/21 Range/Units 12:05 16:10 17:44 MCV (79-97) fl MCH (28-32) pg Heparin Anti-Xa Level 0.26 L (0.3-0.7) U.I./ml ABG pH (7.320-7.450) POC ABG pCO2 (32.0-48.0) mmHg POC ABG pO2 (83-108) mmHg ABG Hemoglobin (12.0-17.5) ABG Sodium (136.0-145.0) mmol/L ABG Potassium (3.40-4.50) mmol/L ABG Glucose (65-95) mg/dL Potassium (3.6-5.0) mmol/L Carbon Dioxide (22-30) mmol/L BUN (7-17) mg/dL Creatinine (0.6-1.2) mg/dL Glucose (65-100) mg/dL POC Glucose 138 H 149 H (70-105) mg/dL AST (5-40) units/L Total Protein (6.3-8.2) g/dL Albumin (3.9-5) g/dL Arterial Blood Glucose (65-95) mg/dL 06/17/21 06/18/21 06/18/21 Range/Units 23:51 03:41 03:53 MCV (79-97) fl MCH (28-32) pg Heparin Anti-Xa Level 0.20 L (0.3-0.7) U.I./ml ABG pH 7.638 H (7.320-7.450) POC ABG pCO2 18.3 L (32.0-48.0) mmHg POC ABG pO2 133.6 H (83-108) mmHg ABG Hemoglobin 11.7 L (12.0-17.5) ABG Sodium 132.9 L (136.0-145.0) mmol/L ABG Potassium 3.2 L (3.40-4.50) mmol/L ABG Glucose 166 H (65-95) mg/dL Potassium (3.6-5.0) mmol/L Carbon Dioxide (22-30) mmol/L BUN (7-17) mg/dL Creatinine (0.6-1.2) mg/dL Glucose (65-100) mg/dL POC Glucose 195 H (70-105) mg/dL AST (5-40) units/L Total Protein (6.3-8.2) g/dL Albumin (3.9-5) g/dL Arterial Blood Glucose 166 H (65-95) mg/dL 06/18/21 06/18/21 06/18/21 Range/Units 04:00 04:00 05:51 MCV 75 L (79-97) fl MCH 24 L (28-32) pg Heparin Anti-Xa Level (0.3-0.7) U.I./ml ABG pH (7.320-7.450) POC ABG pCO2 (32.0-48.0) mmHg POC ABG pO2 (83-108) mmHg ABG Hemoglobin (12.0-17.5) ABG Sodium (136.0-145.0) mmol/L ABG Potassium (3.40-4.50) mmol/L ABG Glucose (65-95) mg/dL Potassium 3.3 L (3.6-5.0) mmol/L Carbon Dioxide 21 L (22-30) mmol/L BUN 48 H (7-17) mg/dL Creatinine 1.6 H (0.6-1.2) mg/dL Glucose 177 H (65-100) mg/dL POC Glucose 176 H (70-105) mg/dL AST 78 H (5-40) units/L Total Protein 5.6 L (6.3-8.2) g/dL Albumin 2.5 L (3.9-5) g/dL Arterial Blood Glucose (65-95) mg/dL
--- NOTE | 2021-06-18 12:29 | Progress Note ---
<LISASeanNICHO AGUSTIN A - Last Filed: 06/18/21 18:23> Assessment and Plan Assessment and plan: 81-year-old female brought into the emergency room by EMS in cardiac arrest. Family was said to witnessed collapse. EMS had given 2 rounds of epi with return of spontaneous circulation. Most of the history was gotten from the ER staff at family's no available patient is currently intubated. No other information available at this time. Work-up in the emergency room, chest x-ray reveals bilateral patchy opacities m ost significant in the left lower lung and right upper lung. No pneumothorax. Labs significant for elevated troponin of 0.041, elevated BUN and creatinine of 36 and 1.4 respectively. D-dimer is 1785. 06/16: Patient seen and examined, still unresponsive, awaiting CT head and CTA chest. Continue heparin for possible PE and UT. Continue abx for Bilateral Pneumonia. Cardiology, ID and Pulmonary. Poor prognosis. for out of hospital cardiac arrest May need Neurology ECHO Done result pending. 06/17: Remains clinically unchanged head CT unremarkable CT of the chest with angiogram shows no pulmonary embolism but bilateral infiltrates pneumonitis. Patient still not responded. Pupils appear fixed. She does not appear to have any gag reflex. Renal function worsening this could be secondary to contrast- induced will start on gentle hydration. Called brother to update and discuss of current clinical status and discuss poor prognostic indicators left a message requesting a call back. no events overnight NEURO- AMS CT ON 06/16 KANG MRI TODAY sedated with fentanyl and prop keppra BID consult neuro EEG CV- sp cardiac arrest; HTN; sp STEMI norvasc and hydral normal biV functin on echo 06/16 CTA with b pleural effusions and atelectesis Resp- acute resp failure serial chest xrays trending ABG and lactate requiring mechanical ventilation copious secretions added robinol and scop see RT notes fr weaning GI nap TF to goal nutrition following PPI bowel reg - a/c KD, hypoK net pos 1.1 L over 24 hours trending Cr (up to 1.6) avoid nephrotoxins renally dose meds follow and replace electrolytes K replaced this AM labs ordered for AM renal ultrasound 06/15 noted NS at 75 for only 2 more liters purewik catheter monitor for retention AM labs ordered Heme- kang hep drip sp NSTEMI trend CBC no bleeding on exam hgb stable at 11 ID -nap no fevers WBC 8.7 ID following cultures have been neg zosyn dc today Endo DM; hyperglycemia trending BG SSI PRN avoid hypoglycemia The high probability of a clinically significant, sudden or life threatening deterioration of the [respiratory] system(s) required my full and direct attention, intervention and personal management. The aggregate critical care time was [60] minutes. This time is in addition to time spent performing reported procedures but includes the following: [x] Data Review and interpretation [x] Patient assessment and monitoring of vital signs [x] Documentation [x] Medication orders and management Disposition Plan: tbd Total Time Spent with Patient (Minutes): 60 History Interval history: no acute events overnight Hospitalist Physical - Constitutional Vitals: Temp Pulse Resp BP Pulse Ox 97.6 F 59 L 12 131/62 100 06/18/21 12:00 06/18/21 11:58 06/18/21 10:00 06/18/21 11:58 06/18/21 11:58 General appearance: Present: no acute distress, other (Unresponsive, on the vent) - EENT Eyes: Present: PERRL ENT: clear oral mucosa - Neck Neck: Present: supple - Respiratory Respiratory effort: normal - Cardiovascular Rhythm: regular Heart Sounds: Present: S1 & S2 Peripheral Pulses: within normal limits - Abdominal General gastrointestinal: soft - Integumentary Integumentary: Present: clear, warm, dry - Psychiatric Psychiatric: other - Neurologic Neurologic: other - Allied Health Allied health notes reviewed: nursing, RT, social work, case management HEART Score - HEART Score Troponin: Troponin T 0.062 ng/mL (0.00-0.029) H 06/15/21 09:05 Results - Labs CBC & Chem 7: 06/18/21 04:00 06/18/21 04:00 Labs: Laboratory Last Values WBC 8.7 K/mm3 (4.5-11.0) 06/18/21 04:00 RBC 4.68 M/mm3 (3.65-5.03) 06/18/21 04:00 Hgb 11.2 gm/dl (10.1-14.3) 06/18/21 04:00 Hct 35.0 % (30.3-42.9) 06/18/21 04:00 MCV 75 fl (79-97) L 06/18/21 04:00 MCH 24 pg (28-32) L 06/18/21 04:00 MCHC 32 % (30-34) 06/18/21 04:00 RDW 14.7 % (13.2-15.2) 06/18/21 04:00 Plt Count 165 K/mm3 (140-440) 06/18/21 04:00 Lymph % (Auto) 17.7 % (13.4-35.0) 06/16/21 06:16 [place] % (Auto) 7.5 % (0.0-7.3) H 06/16/21 06:16 Eos % (Auto) 0.5 % (0.0-4.3) 06/16/21 06:16 Baso % (Auto) 0.5 % (0.0-1.8) 06/16/21 06:16 Lymph # (Auto) 1.8 K/mm3 (1.2-5.4) 06/16/21 06:16 [place] # (Auto) 0.8 K/mm3 (0.0-0.8) 06/16/21 06:16 Eos # (Auto) 0.0 K/mm3 (0.0-0.4) 06/16/21 06:16 Baso # (Auto) 0.0 K/mm3 (0.0-0.1) 06/16/21 06:16 Seg Neutrophils % 73.8 % (40.0-70.0) H 06/16/21 06:16 Seg Neutrophils # 7.7 K/mm3 (1.8-7.7) 06/16/21 06:16 PT 16.0 Sec. (12.2-14.9) H 06/16/21 06:16 INR 1.22 (0.87-1.13) H 06/16/21 06:16 APTT 25.6 Sec. (24.2-36.6) 06/15/21 03:30 D-Dimer 1785.61 ng/mlDDU (0-234) H 06/15/21 05:18 Heparin Anti-Xa Level 0.20 U.I./ml (0.3-0.7) L 06/18/21 03:41 ABG pH 7.409 (7.320-7.450) 06/18/21 12:00 POC ABG pCO2 38.0 mmHg (32.0-48.0) 06/18/21 12:00 ABG pCO2 36.3 mm Hg 06/15/21 05:00 POC ABG pO2 99.7 mmHg (83-108) 06/18/21 12:00 ABG pO2 184.7 mm Hg (80.0-90.0) H 06/15/21 05:00 POC ABG HCO3 23.5 06/18/21 12:00 ABG HCO3 22.6 mmol/L (20.0-26.0) 06/15/21 05:00 ABG O2 Saturation 97.6 (0-100) 06/18/21 12:00 ABG O2 Content 16.6 (0.0-44) 06/15/21 05:00 POC ABG Base Excess -0.9 06/18/21 12:00 ABG Base Excess -1.5 mmol/L (-2.0-3.0) 06/15/21 05:00 ABG Hemoglobin 11.8 (12.0-17.5) L 06/18/21 12:00 ABG Oxyhemoglobin 95.9 (94-98) 06/18/21 12:00 ABG Carboxyhemoglobin 2.1 % (0.0-5.0) 06/15/21 05:00 ABG Methemoglobin 0.3 (0.0-1.5) 06/18/21 12:00 ABG Sodium 135.6 mmol/L (136.0-145.0) L 06/18/21 12:00 ABG Potassium 3.2 mmol/L (3.40-4.50) L 06/18/21 12:00 ABG Chloride 105.0 mmol/L (98-107) 06/18/21 12:00 ABG Glucose 213 mg/dL (65-95) H 06/18/21 12:00 Oxyhemoglobin 96.5 % (95.0-99.0) 06/15/21 05:00 Carboxyhemoglobin 1.4 (0.5-1.5) 06/18/21 12:00 FiO2 100 % 06/15/21 05:00 FiO2 % 30.0 06/18/21 12:00 Sodium 139 mmol/L (137-145) 06/18/21 04:00 Potassium 3.3 mmol/L (3.6-5.0) L 06/18/21 04:00 Chloride 104.3 mmol/L (98-107) 06/18/21 04:00 Carbon Dioxide 21 mmol/L (22-30) L 06/18/21 04:00 Anion Gap 17 mmol/L 06/18/21 04:00 BUN 48 mg/dL (7-17) H 06/18/21 04:00 Creatinine 1.6 mg/dL (0.6-1.2) H 06/18/21 04:00 Estimated GFR 38 ml/min 06/18/21 04:00 BUN/Creatinine Ratio 30 % 06/18/21 04:00 Glucose 177 mg/dL (65-100) H 06/18/21 04:00 POC Glucose 183 mg/dL (70-105) H 06/18/21 11:26 Calcium 8.7 mg/dL (8.4-10.2) 06/18/21 04:00 Total Bilirubin 0.80 mg/dL (0.1-1.2) 06/18/21 04:00 AST 78 units/L (5-40) H 06/18/21 04:00 ALT 36 units/L (7-56) 06/18/21 04:00 Alkaline Phosphatase 83 units/L (35-129) 06/18/21 04:00 Lactate Dehydrogenase 243 units/L (91-180) H 06/15/21 05:18 Total Creatine Kinase 105 units/L (30-135) 06/15/21 03:30 CK-MB (CK-2) 4.8 ng/mL (0.0-4.0) H 06/15/21 03:30 CK-MB (CK-2) Rel Index 4.5 (0-4) H 06/15/21 03:30 Troponin T 0.062 ng/mL (0.00-0.029) H 06/15/21 09:05 C-Reactive Protein 3.00 mg/dL (0.00-1.30) H 06/15/21 05:18 Total Protein 5.6 g/dL (6.3-8.2) L 06/18/21 04:00 Albumin 2.5 g/dL (3.9-5) L 06/18/21 04:00 Albumin/Globulin Ratio 0.8 % 06/18/21 04:00 Triglycerides 66 mg/dL (2-149) 06/15/21 03:30 Cholesterol 137 mg/dL (50-199) 06/15/21 03:30 LDL Cholesterol Direct 79 mg/dL (50-130) 06/15/21 03:30 HDL Cholesterol 58 mg/dL (40-59) 06/15/21 03:30 Cholesterol/HDL Ratio 2.36 % 06/15/21 03:30 Procalcitonin < 0.05 ng/mL (<0.15) 06/15/21 05:18 Arterial Blood Glucose 213 mg/dL (65-95) H 06/18/21 12:00 Arterial Blood Ionized Calcium 4.7 mg/dL (4.6-5.3) 06/18/21 12:00 Urine Color Jacqui (Yellow) 06/15/21 09:34 Urine Turbidity Slightly-cloudy (Clear) 06/15/21 09:34 Urine pH 5.0 (5.0-7.0) 06/15/21 09:34 Ur Specific [place] 1.018 (1.003-1.030) 06/15/21 09:34 Urine Protein >500 mg/dL (Negative) 06/15/21 09:34 Urine Glucose (UA) 50 mg/dL (Negative) 06/15/21 09:34 Urine Ketones Tr mg/dL (Negative) 06/15/21 09:34 Urine Blood Sm (Negative) 06/15/21 09:34 Urine Nitrite Neg (Negative) 06/15/21 09:34 Urine Bilirubin Neg (Negative) 06/15/21 09:34 Urine Urobilinogen 2.0 mg/dL (<2.0) 06/15/21 09:34 Ur Leukocyte Esterase Neg (Negative) 06/15/21 09:34 Urine WBC (Auto) 8.0 /HPF (0.0-6.0) H 06/15/21 09:34 Urine RBC (Auto) 5.0 /HPF (0.0-6.0) 06/15/21 09:34 Urine Mucus Few /HPF 06/15/21 09:34 Urine Creatinine 146.5 mg/dL (0.1-20.0) H 06/15/21 09:15 Protein/Creatinin Ratio 1.47 06/15/21 09:15 Urine Total Protein 216 mg/dL (5-11.8) H 06/15/21 09:15 Rheumatoid Factor 20 IU/ml (0-13) H 06/16/21 18:40 Syphilis IgG Antibody Nonreactive (NonReactive) 06/16/21 18:40 Coronavirus (PCR) Negative (Negative) 06/15/21 08:30 Hep Bs Antigen Non-reactive (Negative) 06/16/21 18:40 Hepatitis C Antibody Non-reactive (NonReactive) 06/16/21 18:40 Blood Type O POSITIVE 06/15/21 03:30 Antibody Screen Negative 06/15/21 03:30 Microbiology: Microbiology 06/16/21 10:55 Peripheral/Venous Blood Culture - Preliminary NO GROWTH AFTER 48 HOURS 06/15/21 09:15 Urine,Catheterized - Indwelling Catheter Urine Culture - Final NO GROWTH AFTER 48 HOURS 06/16/21 11:10 Peripheral/Venous Blood Culture - Preliminary NO GROWTH AFTER 24 HOURS 06/15/21 05:00 Tracheal Aspirate Sputum Culture - Final Scales/IV: Voiding Method External Female Catheter Active Medications - Current Medications Current Medications: Generic Name Dose Route Start Last Admin Trade Name Freq PRN Reason Stop Dose Admin Acetaminophen 650 mg 06/15/21 05:07 Acetaminophen 650 Mg Rect Supp GA Q6H PRN Pain MILD(1-3)/Fever >100.5/WHITE Amlodipine Besylate 10 mg 06/16/21 10:00 06/18/21 09:32 Amlodipine 10 Mg Tab PO 10 mg QDAY JONATHAN Administration Lipase/Protease/Amylase 1 each 06/16/21 10:30 Lipase 10,500/Protease 25,000/Amylase 43,750 (Units) Dr Craven FEEDTUBE PRN PRN For Clogged Feeding Tube Dextrose 0 ml 06/15/21 05:07 Dextrose 50% In Water (25gm) 50 Ml Syringe IV Q30MIN PRN Hypoglycemia Protocol Famotidine 20 mg 06/18/21 10:00 06/18/21 09:47 Famotidine 20 Mg Tab PO Not Given BID JONATHAN Fentanyl 50 mcg 06/15/21 03:06 Fentanyl 100 Mcg/2 Ml Inj IV Q10MIN PRN ANALGESIA Heparin Sodium (Porcine) 5,000 unit 06/15/21 07:00 Heparin 10,000 Units/10 Ml Vial IV Q6H PRN Anti-Xa Assay < 0.1 units/ml Hydralazine HCl 100 mg 06/16/21 08:00 06/18/21 08:30 Hydralazine 100 Mg Tab PO 100 mg TID JONATHAN Administration Hydralazine HCl 10 mg 06/15/21 23:43 06/16/21 00:28 Hydralazine 20 Mg/1 Ml Inj IV 10 mg Q6H PRN Administration SBP > 160 Hydrophilic Ointment 1 applic 06/15/21 03:06 Lip Therapy Vaseline TP Q2HR PRN Dry Lips Fentanyl Citrate 2,000 mcg in 100 mls @ 7.39 mls/hr 06/15/21 04:00 06/18/21 08:29 Fentanyl Drip Premix IV 0 mcg/kg/hr TITR JONATHAN 0 mls/hr Titration Protocol 1 MCG/KG/HR Heparin Sodium/Sodium Chloride 25,000 unit in 500 mls @ 20 mls/hr 06/15/21 07:00 06/18/21 04:40 Heparin/ 0.45% Nacl-25,000 Unit/500 Ml IV 1,600 units/hr TITRATE JONATHAN 32 mls/hr Administration Protocol 1,000 UNITS/HR Propofol 1,000 mg in 100 mls @ 4.434 mls/hr 06/15/21 16:00 06/17/21 18:25 Diprivan 10 Mg/Ml IV 0 mcg/kg/min TITR JONATHAN 0 mls/hr Titration Protocol 5 MCG/KG/MIN Levetiracetam 500 mg/ Dextrose 105 mls @ 400 mls/hr 06/15/21 16:00 06/18/21 09:32 IV 06/18/21 23:59 400 mls/hr Q12HR JONATHAN Administration Sodium Chloride 1,000 mls @ 75 mls/hr 06/17/21 10:00 06/18/21 02:21 Nacl 0.9% 1000 Ml IV 75 mls/hr DIRECT JONATHAN Administration Insulin Human Lispro 0 unit 06/15/21 12:00 06/18/21 11:34 Insulin Lispro 100 Unit/Ml SUB-Q 3 unit Q6HR JONATHAN Administration Protocol Levetiracetam 500 mg 06/19/21 10:00 Levetiracetam 500 Mg/5 Ml Oral Liqd PO BID JONATHAN Multi-Ingred Cream/Lotion/Oil/Oint 1 applic 06/15/21 03:06 Mineral Oil/Petrolatum, White Ophth Oint 3.5 Gm OU Q4HR PRN Dry Eye(s) Senna/Docusate Sodium 1 tab 06/15/21 22:00 06/17/21 21:13 Sennosides/Docusate Sodium 8.6/50 Mg Tab PO 1 tab QHS JONATHAN Administration Simple Syrup 15 ml 06/16/21 10:30 Simple Syrup 15 Ml FEEDTUBE PRN PRN Hypoglycemia Simple Syrup 30 ml 06/16/21 10:30 Simple Syrup 15 Ml FEEDTUBE PRN PRN Hypoglycemia Sodium Bicarbonate 325 mg 06/16/21 10:30 Sodium Bicarbonate 325 Mg Tab FEEDTUBE PRN PRN For Clogged Feeding Tube Sodium Chloride 10 ml 06/15/21 10:00 06/18/21 09:33 Sodium Chloride 0.9% 10 Ml Flush Syringe IV 10 ml BID JONATHAN Administration Sodium Chloride 10 ml 06/15/21 05:07 Sodium Chloride 0.9% 10 Ml Flush Syringe IV PRN PRN LINE FLUSH Nutrition/Malnutrition Assess - Dietary Evaluation Nutrition/Malnutrition Findings: Nutrition Notes Start: 06/15/21 08:35 Freq: Status: Active Protocol: Document 06/18/21 11:47 (Rec: 06/18/21 11:51 [id number]) Nutrition Notes Initial or Follow up Reassessment Current Diagnosis Acute Kidney Injury,Diabetes, Hypertension Other Pertinent Diagnosis cardiac arrest Current Diet Glucerna 1.2 at 65 ml/hr Labs/Tests K 3.3 BUN 48 Cr 1.6 Pertinent Medications Kcl 20 mEq NS at 75 ml/hr Height 5 ft 9 in Weight 147.8 kg [place] Body Weight (kg) 65.90 BMI 48.1 Weight Status Morbidly Obese Subjective/Other Information FU for TF tolerance. Observed TF running at 45 ml/hr. RN to increase rate. Pt tolerating. Percent of energy/protein needs met: 90%/57% Burn Absent Trauma Absent Current % PO Negligible Minimum of two criteria No Fluid Accumulation Mild (non-severe) #1 Nutrition Diagnosis Inadequate oral intake Diagnosis Progress(for reassessment Continues documentation) Is patient on ventilator? Yes Is Patient Ambulatory and/or Out of Bed No REE-([facility]-confined to bed) 2426.664 Kcal/Kg value to use for calculation 13 Approximate Energy Requirements Using 1921 kcal/Kg Calculation Used for Recommendations Kcal/kg Additional Notes Protein: (up to 2.5g/kg IBW) < 165g Fluid: 1 ml/kcal or per MD Nutrition Intervention Change Diet Order: continue Nutrition Support: Glucerna 1.2 at 65 ml/hr Flush 100 ml q4h Kcal 1,728 Protein (gm) 94 Fluid (mL) 1,256 Goal #1 Meet at least 75% of kcal needs and protein needs as best as possible via TF Anticipated Discharge Needs: Unable to determine at this time Follow-Up By: 06/21/21 Additional Comments FU for TF tolerance - Attestation Statement I have reviewed and agreed w/ Malnutrition eval & tx plan: Yes <TAMIE JC - Last Filed: 06/24/21 05:17> Assessment and Plan Assessment and plan: I saw and evaluated the patient. I agree with the findings and the plan of care as documented in the Nurse Practitioner's~note, with the following corrections and additions. Hospitalist Physical - Constitutional Vitals: Temp Pulse Resp BP Pulse Ox 97.9 F 68 10 L 146/67 94 06/22/21 07:00 06/22/21 14:45 06/22/21 14:45 06/22/21 14:45 06/22/21 14:45 HEART Score - HEART Score Troponin: Troponin T 0.062 ng/mL (0.00-0.029) H 06/15/21 09:05 Results - Labs CBC & Chem 7: 06/22/21 Unknown 06/22/21 Unknown Labs: Laboratory Last Values WBC 8.7 K/mm3 (4.5-11.0) 06/22/21 Unknown RBC 3.89 M/mm3 (3.65-5.03) 06/22/21 Unknown Hgb 9.2 gm/dl (10.1-14.3) L 06/22/21 Unknown Hct 29.5 % (30.3-42.9) L D 06/22/21 Unknown MCV 76 fl (79-97) L 06/22/21 Unknown MCH 24 pg (28-32) L 06/22/21 Unknown MCHC 31 % (30-34) 06/22/21 Unknown RDW 15.2 % (13.2-15.2) 06/22/21 Unknown Plt Count 152 K/mm3 (140-440) 06/22/21 Unknown Lymph % (Auto) 17.7 % (13.4-35.0) 06/16/21 06:16 [place] % (Auto) 7.5 % (0.0-7.3) H 06/16/21 06:16 Eos % (Auto) 0.5 % (0.0-4.3) 06/16/21 06:16 Baso % (Auto) 0.5 % (0.0-1.8) 06/16/21 06:16 Lymph # (Auto) 1.8 K/mm3 (1.2-5.4) 06/16/21 06:16 [place] # (Auto) 0.8 K/mm3 (0.0-0.8) 06/16/21 06:16 Eos # (Auto) 0.0 K/mm3 (0.0-0.4) 06/16/21 06:16 Baso # (Auto) 0.0 K/mm3 (0.0-0.1) 06/16/21 06:16 Seg Neutrophils % 73.8 % (40.0-70.0) H 06/16/21 06:16 Seg Neutrophils # 7.7 K/mm3 (1.8-7.7) 06/16/21 06:16 PT 16.0 Sec. (12.2-14.9) H 06/16/21 06:16 INR 1.22 (0.87-1.13) H 06/16/21 06:16 APTT 25.6 Sec. (24.2-36.6) 06/15/21 03:30 D-Dimer 1785.61 ng/mlDDU (0-234) H 06/15/21 05:18 Heparin Anti-Xa Level < 0.10 U.I./ml (0.3-0.7) L 06/20/21 04:48 ABG pH 7.556 (7.320-7.450) H 06/21/21 04:00 POC ABG pCO2 24.4 mmHg (32.0-48.0) L 06/21/21 04:00 ABG pCO2 36.3 mm Hg 06/15/21 05:00 POC ABG pO2 100.7 mmHg (83-108) 06/21/21 04:00 ABG pO2 184.7 mm Hg (80.0-90.0) H 06/15/21 05:00 POC ABG HCO3 21.2 06/21/21 04:00 ABG HCO3 22.6 mmol/L (20.0-26.0) 06/15/21 05:00 ABG O2 Saturation 98.8 (0-100) 06/21/21 04:00 ABG O2 Content 16.6 (0.0-44) 06/15/21 05:00 POC ABG Base Excess 0.3 06/21/21 04:00 ABG Base Excess -1.5 mmol/L (-2.0-3.0) 06/15/21 05:00 ABG Hemoglobin 12.8 (12.0-17.5) 06/21/21 04:00 ABG Oxyhemoglobin 96.9 (94-98) 06/21/21 04:00 ABG Carboxyhemoglobin 2.1 % (0.0-5.0) 06/15/21 05:00 ABG Methemoglobin 0.3 (0.0-1.5) 06/21/21 04:00 ABG Sodium 136.0 mmol/L (136.0-145.0) 06/21/21 04:00 ABG Potassium 3.9 mmol/L (3.40-4.50) 06/21/21 04:00 ABG Chloride 104.0 mmol/L (98-107) 06/21/21 04:00 ABG Glucose 322 mg/dL (65-95) H 06/21/21 04:00 Oxyhemoglobin 96.5 % (95.0-99.0) 06/15/21 05:00 Carboxyhemoglobin 1.6 (0.5-1.5) H 06/21/21 04:00 FiO2 100 % 06/15/21 05:00 FiO2 % 30.0 06/21/21 04:00 Sodium 137 mmol/L (137-145) 06/22/21 Unknown Potassium 4.4 mmol/L (3.6-5.0) 06/22/21 Unknown Chloride 101.4 mmol/L (98-107) 06/22/21 Unknown Carbon Dioxide 24 mmol/L (22-30) 06/22/21 Unknown Anion Gap 16 mmol/L 06/22/21 Unknown BUN 37 mg/dL (7-17) H 06/22/21 Unknown Creatinine 1.0 mg/dL (0.6-1.2) 06/22/21 Unknown Estimated GFR > 60 ml/min 06/22/21 Unknown BUN/Creatinine Ratio 37 % 06/22/21 Unknown Glucose 304 mg/dL (65-100) H 06/22/21 Unknown POC Glucose 300 mg/dL (70-105) H 06/22/21 14:01 Calcium 9.6 mg/dL (8.4-10.2) 06/22/21 Unknown Phosphorus 2.60 mg/dL (2.5-4.5) 06/21/21 08:20 Magnesium 2.10 mg/dL (1.7-2.3) 06/21/21 08:20 Total Bilirubin 0.20 mg/dL (0.1-1.2) 06/22/21 Unknown AST 64 units/L (5-40) H 06/22/21 Unknown ALT 64 units/L (7-56) H 06/22/21 Unknown Alkaline Phosphatase 103 units/L (35-129) 06/22/21 Unknown Lactate Dehydrogenase 243 units/L (91-180) H 06/15/21 05:18 Total Creatine Kinase 105 units/L (30-135) 06/15/21 03:30 CK-MB (CK-2) 4.8 ng/mL (0.0-4.0) H 06/15/21 03:30 CK-MB (CK-2) Rel Index 4.5 (0-4) H 06/15/21 03:30 Troponin T 0.062 ng/mL (0.00-0.029) H 06/15/21 09:05 C-Reactive Protein 3.00 mg/dL (0.00-1.30) H 06/15/21 05:18 Serum Total Protein 5.0 g/dL (6.1-8.1) L 06/16/21 17:45 Total Protein 6.2 g/dL (6.3-8.2) L 06/22/21 Unknown Albumin 2.8 g/dL (3.9-5) L 06/22/21 Unknown Albumin/Globulin Ratio 0.8 % 06/22/21 Unknown [id number]-8-Frpjiponn 0.4 g/dL (0.2-0.3) H 06/16/21 17:45 Xtjvm-9-Mnymclomg 0.6 g/dL (0.5-0.9) 06/16/21 17:45 Beta Globulins 0.7 g/dL (0.2-0.5) H 06/16/21 17:45 Gamma Globulins 0.7 g/dL (0.8-1.7) L 06/16/21 17:45 Abnorm Protein Band 1 see below 06/16/21 17:45 PEP Interpretation see below H 06/16/21 17:45 Triglycerides 66 mg/dL (2-149) 06/15/21 03:30 Cholesterol 137 mg/dL (50-199) 06/15/21 03:30 LDL Cholesterol Direct 79 mg/dL (50-130) 06/15/21 03:30 HDL Cholesterol 58 mg/dL (40-59) 06/15/21 03:30 Cholesterol/HDL Ratio 2.36 % 06/15/21 03:30 Procalcitonin < 0.05 ng/mL (<0.15) 06/15/21 05:18 Arterial Blood Glucose 322 mg/dL (65-95) H 06/21/21 04:00 Arterial Blood Ionized Calcium 4.9 mg/dL (4.6-5.3) 06/21/21 04:00 Urine Color Jacqui (Yellow) 06/15/21 09:34 Urine Turbidity Slightly-cloudy (Clear) 06/15/21 09:34 Urine pH 5.0 (5.0-7.0) 06/15/21 09:34 Ur Specific [place] 1.018 (1.003-1.030) 06/15/21 09:34 Urine Protein >500 mg/dL (Negative) 06/15/21 09:34 Urine Glucose (UA) 50 mg/dL (Negative) 06/15/21 09:34 Urine Ketones Tr mg/dL (Negative) 06/15/21 09:34 Urine Blood Sm (Negative) 06/15/21 09:34 Urine Nitrite Neg (Negative) 06/15/21 09:34 Urine Bilirubin Neg (Negative) 06/15/21 09:34 Urine Urobilinogen 2.0 mg/dL (<2.0) 06/15/21 09:34 Ur Leukocyte Esterase Neg (Negative) 06/15/21 09:34 Urine WBC (Auto) 8.0 /HPF (0.0-6.0) H 06/15/21 09:34 Urine RBC (Auto) 5.0 /HPF (0.0-6.0) 06/15/21 09:34 Urine Mucus Few /HPF 06/15/21 09:34 Urine Creatinine 146.5 mg/dL (0.1-20.0) H 06/15/21 09:15 Protein/Creatinin Ratio 1.47 06/15/21 09:15 Urine Total Protein 216 mg/dL (5-11.8) H 06/15/21 09:15 Immunofix Electrophor see below 06/16/21 18:40 Rheumatoid Factor 20 IU/ml (0-13) H 06/16/21 18:40 VIRAL Screen Negative (Negative) 06/16/21 18:40 Proteinase 3 (PR3) Ab <1.0 AI (<1.0) 06/16/21 17:45 Myeloperoxidase Ab <1.0 AI (<1.0) 06/16/21 17:45 Complement C3 133 mg/dL (83-193) 06/16/21 18:40 Complement C4 45 mg/dL (15-57) 06/16/21 18:40 Syphilis IgG Antibody Nonreactive (NonReactive) 06/16/21 18:40 Coronavirus (PCR) Negative (Negative) 06/15/21 08:30 Hep Bs Antigen Non-reactive (Negative) 06/16/21 18:40 Hepatitis C Antibody Non-reactive (NonReactive) 06/16/21 18:40 Blood Type O POSITIVE 06/15/21 03:30 Antibody Screen Negative 06/15/21 03:30 Scales/IV: Voiding Method External Female Catheter Nutrition/Malnutrition Assess - Dietary Evaluation Nutrition/Malnutrition Findings: Nutrition Notes Start: 06/15/21 08:35 Freq: Status: Discharge Protocol: Document 06/21/21 11:53 MK (Rec: 06/21/21 11:57 MK [id number]) Nutrition Notes Initial or Follow up Reassessment Current Diagnosis Acute Kidney Injury,Diabetes, Hypertension Other Pertinent Diagnosis cardiac arrest Current Diet Glucerna 1.2 at 65 ml/hr Labs/Tests Na 136 Pertinent Medications reviewed Height 5 ft 9 in Weight 147.8 kg [place] Body Weight (kg) 65.90 BMI 48.1 Weight Status Morbidly Obese Subjective/Other Information TF at goal rate, pt tolerating . Pt with no BM in chart for 5 days, RN made aware. Percent of energy/protein needs met: 94%/57% Burn Absent Trauma Absent Current % PO Negligible Minimum of two criteria No Fluid Accumulation Mild (non-severe) #1 Nutrition Diagnosis Inadequate oral intake Diagnosis Progress(for reassessment Continues documentation) Is patient on ventilator? Yes Is Patient Ambulatory and/or Out of Bed No REE-([place]-confined to bed) 2426.664 Kcal/Kg value to use for calculation 13 Approximate Energy Requirements Using 1921 kcal/Kg Calculation Used for Recommendations Kcal/kg Additional Notes Protein: (up to 2.5g/kg IBW) < 165g Fluid: 1 ml/kcal or per MD Nutrition Intervention Change Diet Order: continue Nutrition Support: Glucerna 1.2 at 65 ml/hr Flush 100 ml q4h Kcal 1,872 Protein (gm) 94 Fluid (mL) 1,256 Goal #1 Meet at least 75% of kcal needs and protein needs as best as possible via TF Anticipated Discharge Needs: Unable to determine at this time Follow-Up By: 06/28/21 Additional Comments FU for stable TF, BM
--- NOTE | 2021-06-18 12:52 | Progress Note ---
Assessment and Plan Acute hypoxemic respiratory failure on MVS Cardiac arrest with ROSC Possible seizure activity Acute encephalopathy Acute kidney injury Non-ST elevation myocardial infarction Morbid obesity Hyperglycemia Arthritis Oropharyngeal dysphagia HTN - get MRI - neurology evaluation - continue empiric Keppra - am CBC - begin scopolamine and robinul for secretion control - replaced Potassium - get am Mag level and address - get EEG - TV reduced to 350 mls re: resp alkalosis - continue set rate of 10/min - repeat ABG in am - continue care as below otherwise; - cardiology evaluation ongoing re: NSTEMI - continue IV Heparin for now - continue Daily SAT and SBT assessment as tolerated - continue to wean supplemental oxygen for target O2 sat's > 90% acutely - VAP bundle addressed - continue lung protective strategies - continue bronchodilators with pulmonary hygiene per RT - wean per pulmonary driven protocols otherwise - continue accuchecks with glycemic control per SSI (While critically ill target blood glucose of 140-180 mg/dL; avoid hypoglycemia) - sedation prn for target RASS 0 to -1 - azotemia per nephrology team; no acute indication for dialysis - continue to avoid nephrotoxins, renally dose all medications - continue to avoid benzodiazepine's, reduce the possibility of delirium - complete AB's per ID rec's (Zosyn) - prn analgesia per CPOT score - Maintenance of sleep-wake cycle, avoid delirium - continue enteral nutritional support at goal rate as tolerated - G.I. & VTE prophylaxis - PT/OT/ROM exercises - continue mobility protocols for pressure ulcer prophylaxis - Monitor hemodynamics closely - continue other care per attending / other consultants - discharge planning ongoing concurrently COVID SPECIFIC INTERVENTIONS - COVID PCR negative .... Re-evaluate in am & prn CONDITION: CRITICAL PROGNOSIS: GUARDED CODE STATUS: FULL CODE The high probability of a clinically significant, sudden or life-threatening deterioration of the [respiratory, cardiovascular, renal & neurologic] system(s) required my full and direct attention, intervention and personal management. The aggregate critical care time was [35] minutes without overlap. Time includes spent on; [x] Data Review and interpretation [x] Patient assessment and monitoring of vital signs [x] Documentation [x] Medication orders and management Subjective Date of service: 06/18/21 Principal diagnosis: Ac hypoxemic resp failure; Cardiac arrest; RIGOBERTO; AMS; NSTEMI Interval history: Patient is seen today for: Acute hypoxemic respiratory failure; Cardiac arrest with ROSC; Possible seizure activity; RIGOBERTO; Acute encephalopathy; NSTEMI Seen and examined at bedside; 24hour events reviewed; nursing and respiratory care staff consulted; no adverse overnight events reported to me; restin in bed; remains on MVS; brother visited; secretions large; failed bedside SBT; AMS is persistent Objective Vital Signs - 12hr 06/18/21 06/18/21 06/18/21 01:00 02:00 03:00 Temperature Pulse Rate 64 67 67 Respiratory 16 16 30 H Rate Blood Pressure 129/58 145/67 132/59 O2 Sat by Pulse 99 99 99 Oximetry 06/18/21 06/18/21 06/18/21 04:00 05:00 05:02 Temperature 98.6 F Pulse Rate 64 63 70 Respiratory 32 H 32 H Rate Blood Pressure 141/63 146/70 152/74 O2 Sat by Pulse 99 100 99 Oximetry 06/18/21 06/18/21 06/18/21 06:00 07:00 07:46 Temperature Pulse Rate 66 69 73 Respiratory 14 15 Rate Blood Pressure 152/74 144/66 143/64 O2 Sat by Pulse 99 99 99 Oximetry 06/18/21 06/18/21 06/18/21 07:49 08:00 09:00 Temperature 98.5 F Pulse Rate 73 67 Respiratory 18 12 Rate Blood Pressure 143/64 137/61 O2 Sat by Pulse 98 99 Oximetry 06/18/21 06/18/21 06/18/21 09:32 10:00 11:58 Temperature Pulse Rate 63 58 L 59 L Respiratory 12 Rate Blood Pressure 142/67 142/67 131/62 O2 Sat by Pulse 99 100 Oximetry 06/18/21 12:00 Temperature 97.6 F Pulse Rate Respiratory Rate Blood Pressure O2 Sat by Pulse Oximetry Constitutional: no acute distress, other (elderly obese female with mildly increased respiratory effort at rest) Eyes: non-icteric ENT: oropharynx moist, oropharyngeal exudate pre, other (ETT 23 cm CON) Neck: supple, no lymphadenopathy, no JVD, other (large circumference) Effort: mildly labored Ascultation: Bilateral: diminished breath sounds, rhonchi Percussion: Bilateral: not dull Cardiovascular: regular rate and rhythm Gastrointestinal: normoactive bowel sounds, soft, non-tender, non-distended (protuberant) Integumentary: normal Extremities: no cyanosis, no edema, pulses normal, no ischemia or petechiae Neurologic: non-focal exam (grossly), pupils equal and round, unable to assess Psychiatric: other (unable to assess re: AMS) CBC and BMP: 06/18/21 04:00 06/18/21 04:00 ABG, PT/INR, D-dimer: ABG ABG pH 7.409 (7.320-7.450) 06/18/21 12:00 POC ABG pCO2 38.0 mmHg (32.0-48.0) 06/18/21 12:00 ABG pCO2 36.3 mm Hg 06/15/21 05:00 POC ABG pO2 99.7 mmHg (83-108) 06/18/21 12:00 ABG pO2 184.7 mm Hg (80.0-90.0) H 06/15/21 05:00 POC ABG HCO3 23.5 06/18/21 12:00 ABG O2 Saturation 97.6 (0-100) 06/18/21 12:00 PT/INR, D-dimer PT 16.0 Sec. (12.2-14.9) H 06/16/21 06:16 INR 1.22 (0.87-1.13) H 06/16/21 06:16 D-Dimer 1785.61 ng/mlDDU (0-234) H 06/15/21 05:18 Abnormal lab findings: Abnormal Labs 06/15/21 06/15/21 06/15/21 03:30 03:30 03:30 MCV MCH 24 L MCHC 29 L RDW 15.8 H Lymph % (Auto) 12.8 L Towner % (Auto) Lymph # (Auto) 1.1 L Seg Neutrophils % 80.4 H PT 15.6 H INR 1.18 H D-Dimer Heparin Anti-Xa Level ABG pH POC ABG pCO2 POC ABG pO2 ABG pO2 ABG O2 Saturation ABG Hemoglobin ABG Oxyhemoglobin ABG Sodium ABG Potassium ABG Glucose Potassium Carbon Dioxide BUN 36 H Creatinine 1.4 H Glucose 258 H POC Glucose Calcium AST ALT Lactate Dehydrogenase CK-MB (CK-2) 4.8 H CK-MB (CK-2) Rel Index 4.5 H Troponin T 0.041 H C-Reactive Protein Total Protein Albumin Arterial Blood Glucose Arterial Blood Ionized Calcium Urine WBC (Auto) Urine Creatinine Urine Total Protein Rheumatoid Factor 06/15/21 06/15/21 06/15/21 05:00 05:18 05:18 MCV MCH MCHC RDW Lymph % (Auto) Towner % (Auto) Lymph # (Auto) Seg Neutrophils % PT INR D-Dimer 1785.61 H Heparin Anti-Xa Level ABG pH POC ABG pCO2 POC ABG pO2 ABG pO2 184.7 H ABG O2 Saturation 99.2 H ABG Hemoglobin ABG Oxyhemoglobin ABG Sodium ABG Potassium ABG Glucose Potassium Carbon Dioxide BUN Creatinine Glucose POC Glucose Calcium AST ALT Lactate Dehydrogenase 243 H CK-MB (CK-2) CK-MB (CK-2) Rel Index Troponin T C-Reactive Protein 3.00 H Total Protein Albumin Arterial Blood Glucose Arterial Blood Ionized Calcium Urine WBC (Auto) Urine Creatinine Urine Total Protein Rheumatoid Factor 06/15/21 06/15/21 06/15/21 06:30 07:39 09:05 MCV MCH MCHC RDW Lymph % (Auto) Towner % (Auto) Lymph # (Auto) Seg Neutrophils % PT INR D-Dimer Heparin Anti-Xa Level ABG pH POC ABG pCO2 POC ABG pO2 ABG pO2 ABG O2 Saturation ABG Hemoglobin ABG Oxyhemoglobin ABG Sodium ABG Potassium ABG Glucose Potassium Carbon Dioxide BUN Creatinine Glucose POC Glucose 231 H Calcium AST ALT Lactate Dehydrogenase CK-MB (CK-2) CK-MB (CK-2) Rel Index Troponin T 0.058 H D 0.062 H C-Reactive Protein Total Protein Albumin Arterial Blood Glucose Arterial Blood Ionized Calcium Urine WBC (Auto) Urine Creatinine Urine Total Protein Rheumatoid Factor 06/15/21 06/15/21 06/15/21 09:15 09:34 13:09 MCV MCH MCHC RDW Lymph % (Auto) Towner % (Auto) Lymph # (Auto) Seg Neutrophils % PT INR D-Dimer Heparin Anti-Xa Level ABG pH POC ABG pCO2 POC ABG pO2 ABG pO2 ABG O2 Saturation ABG Hemoglobin ABG Oxyhemoglobin ABG Sodium ABG Potassium ABG Glucose Potassium Carbon Dioxide BUN Creatinine Glucose POC Glucose 240 H Calcium AST ALT Lactate Dehydrogenase CK-MB (CK-2) CK-MB (CK-2) Rel Index Troponin T C-Reactive Protein Total Protein Albumin Arterial Blood Glucose Arterial Blood Ionized Calcium Urine WBC (Auto) 8.0 H Urine Creatinine 146.5 H Urine Total Protein 216 H Rheumatoid Factor 06/15/21 06/15/21 06/15/21 16:05 18:14 23:09 MCV MCH MCHC RDW Lymph % (Auto) Towner % (Auto) Lymph # (Auto) Seg Neutrophils % PT INR D-Dimer Heparin Anti-Xa Level < 0.10 L ABG pH POC ABG pCO2 POC ABG pO2 ABG pO2 ABG O2 Saturation ABG Hemoglobin ABG Oxyhemoglobin ABG Sodium ABG Potassium ABG Glucose Potassium Carbon Dioxide BUN Creatinine Glucose POC Glucose 150 H 179 H Calcium AST ALT Lactate Dehydrogenase CK-MB (CK-2) CK-MB (CK-2) Rel Index Troponin T C-Reactive Protein Total Protein Albumin Arterial Blood Glucose Arterial Blood Ionized Calcium Urine WBC (Auto) Urine Creatinine Urine Total Protein Rheumatoid Factor 06/15/21 06/16/21 06/16/21 23:43 05:00 05:17 MCV MCH MCHC RDW Lymph % (Auto) Towner % (Auto) Lymph # (Auto) Seg Neutrophils % PT INR D-Dimer Heparin Anti-Xa Level < 0.10 L ABG pH 7.693 H POC ABG pCO2 18.6 L POC ABG pO2 147.2 H ABG pO2 ABG O2 Saturation ABG Hemoglobin ABG Oxyhemoglobin 98.5 H ABG Sodium ABG Potassium 3.0 L ABG Glucose 178 H Potassium Carbon Dioxide BUN Creatinine Glucose POC Glucose 182 H Calcium AST ALT Lactate Dehydrogenase CK-MB (CK-2) CK-MB (CK-2) Rel Index Troponin T C-Reactive Protein Total Protein Albumin Arterial Blood Glucose 178 H Arterial Blood Ionized Calcium 4.5 L Urine WBC (Auto) Urine Creatinine Urine Total Protein Rheumatoid Factor 06/16/21 06/16/21 06/16/21 06:16 06:16 06:16 MCV 77 L MCH 24 L MCHC RDW Lymph % (Auto) Towner % (Auto) 7.5 H Lymph # (Auto) Seg Neutrophils % 73.8 H PT 16.0 H INR 1.22 H D-Dimer Heparin Anti-Xa Level ABG pH POC ABG pCO2 POC ABG pO2 ABG pO2 ABG O2 Saturation ABG Hemoglobin ABG Oxyhemoglobin ABG Sodium ABG Potassium ABG Glucose Potassium 3.1 L D Carbon Dioxide BUN 40 H Creatinine 1.4 H Glucose 154 H POC Glucose Calcium AST 48 H ALT 69 H Lactate Dehydrogenase CK-MB (CK-2) CK-MB (CK-2) Rel Index Troponin T C-Reactive Protein Total Protein 5.8 L Albumin 3.0 L Arterial Blood Glucose Arterial Blood Ionized Calcium Urine WBC (Auto) Urine Creatinine Urine Total Protein Rheumatoid Factor 06/16/21 06/16/21 06/16/21 10:20 16:20 17:43 MCV MCH MCHC RDW Lymph % (Auto) Towner % (Auto) Lymph # (Auto) Seg Neutrophils % PT INR D-Dimer Heparin Anti-Xa Level 0.26 L ABG pH POC ABG pCO2 POC ABG pO2 ABG pO2 ABG O2 Saturation ABG Hemoglobin ABG Oxyhemoglobin ABG Sodium ABG Potassium ABG Glucose Potassium 3.2 L Carbon Dioxide BUN 42 H Creatinine 1.3 H Glucose 161 H POC Glucose 163 H Calcium AST ALT Lactate Dehydrogenase CK-MB (CK-2) CK-MB (CK-2) Rel Index Troponin T C-Reactive Protein Total Protein Albumin Arterial Blood Glucose Arterial Blood Ionized Calcium Urine WBC (Auto) Urine Creatinine Urine Total Protein Rheumatoid Factor 06/16/21 06/16/21 06/17/21 18:40 23:12 03:26 MCV MCH MCHC RDW Lymph % (Auto) Towner % (Auto) Lymph # (Auto) Seg Neutrophils % PT INR D-Dimer Heparin Anti-Xa Level ABG pH 7.470 H POC ABG pCO2 POC ABG pO2 ABG pO2 ABG O2 Saturation ABG Hemoglobin 11.4 L ABG Oxyhemoglobin ABG Sodium ABG Potassium 3.1 L ABG Glucose 170 H Potassium Carbon Dioxide BUN Creatinine Glucose POC Glucose 173 H Calcium AST ALT Lactate Dehydrogenase CK-MB (CK-2) CK-MB (CK-2) Rel Index Troponin T C-Reactive Protein Total Protein Albumin Arterial Blood Glucose 170 H Arterial Blood Ionized Calcium Urine WBC (Auto) Urine Creatinine Urine Total Protein Rheumatoid Factor 20 H 06/17/21 06/17/21 06/17/21 05:45 05:45 06:16 MCV 76 L MCH 24 L MCHC RDW Lymph % (Auto) Towner % (Auto) Lymph # (Auto) Seg Neutrophils % PT INR D-Dimer Heparin Anti-Xa Level ABG pH POC ABG pCO2 POC ABG pO2 ABG pO2 ABG O2 Saturation ABG Hemoglobin ABG Oxyhemoglobin ABG Sodium ABG Potassium ABG Glucose Potassium 3.1 L Carbon Dioxide BUN 48 H Creatinine 2.1 H D Glucose 156 H POC Glucose 141 H Calcium 8.2 L AST 61 H ALT Lactate Dehydrogenase CK-MB (CK-2) CK-MB (CK-2) Rel Index Troponin T C-Reactive Protein Total Protein 5.5 L Albumin 2.6 L Arterial Blood Glucose Arterial Blood Ionized Calcium Urine WBC (Auto) Urine Creatinine Urine Total Protein Rheumatoid Factor 06/17/21 06/17/21 06/17/21 12:05 16:10 17:44 MCV MCH MCHC RDW Lymph % (Auto) Towner % (Auto) Lymph # (Auto) Seg Neutrophils % PT INR D-Dimer Heparin Anti-Xa Level 0.26 L ABG pH POC ABG pCO2 POC ABG pO2 ABG pO2 ABG O2 Saturation ABG Hemoglobin ABG Oxyhemoglobin ABG Sodium ABG Potassium ABG Glucose Potassium Carbon Dioxide BUN Creatinine Glucose POC Glucose 138 H 149 H Calcium AST ALT Lactate Dehydrogenase CK-MB (CK-2) CK-MB (CK-2) Rel Index Troponin T C-Reactive Protein Total Protein Albumin Arterial Blood Glucose Arterial Blood Ionized Calcium Urine WBC (Auto) Urine Creatinine Urine Total Protein Rheumatoid Factor 06/17/21 06/18/21 06/18/21 23:51 03:41 03:53 MCV MCH MCHC RDW Lymph % (Auto) Towner % (Auto) Lymph # (Auto) Seg Neutrophils % PT INR D-Dimer Heparin Anti-Xa Level 0.20 L ABG pH 7.638 H POC ABG pCO2 18.3 L POC ABG pO2 133.6 H ABG pO2 ABG O2 Saturation ABG Hemoglobin 11.7 L ABG Oxyhemoglobin ABG Sodium 132.9 L ABG Potassium 3.2 L ABG Glucose 166 H Potassium Carbon Dioxide BUN Creatinine Glucose POC Glucose 195 H Calcium AST ALT Lactate Dehydrogenase CK-MB (CK-2) CK-MB (CK-2) Rel Index Troponin T C-Reactive Protein Total Protein Albumin Arterial Blood Glucose 166 H Arterial Blood Ionized Calcium Urine WBC (Auto) Urine Creatinine Urine Total Protein Rheumatoid Factor 06/18/21 06/18/21 06/18/21 04:00 04:00 05:51 MCV 75 L MCH 24 L MCHC RDW Lymph % (Auto) Towner % (Auto) Lymph # (Auto) Seg Neutrophils % PT INR D-Dimer Heparin Anti-Xa Level ABG pH POC ABG pCO2 POC ABG pO2 ABG pO2 ABG O2 Saturation ABG Hemoglobin ABG Oxyhemoglobin ABG Sodium ABG Potassium ABG Glucose Potassium 3.3 L Carbon Dioxide 21 L BUN 48 H Creatinine 1.6 H Glucose 177 H POC Glucose 176 H Calcium AST 78 H ALT Lactate Dehydrogenase CK-MB (CK-2) CK-MB (CK-2) Rel Index Troponin T C-Reactive Protein Total Protein 5.6 L Albumin 2.5 L Arterial Blood Glucose Arterial Blood Ionized Calcium Urine WBC (Auto) Urine Creatinine Urine Total Protein Rheumatoid Factor 06/18/21 06/18/21 11:26 12:00 MCV MCH MCHC RDW Lymph % (Auto) Towner % (Auto) Lymph # (Auto) Seg Neutrophils % PT INR D-Dimer Heparin Anti-Xa Level ABG pH POC ABG pCO2 POC ABG pO2 ABG pO2 ABG O2 Saturation ABG Hemoglobin 11.8 L ABG Oxyhemoglobin ABG Sodium 135.6 L ABG Potassium 3.2 L ABG Glucose 213 H Potassium Carbon Dioxide BUN Creatinine Glucose POC Glucose 183 H Calcium AST ALT Lactate Dehydrogenase CK-MB (CK-2) CK-MB (CK-2) Rel Index Troponin T C-Reactive Protein Total Protein Albumin Arterial Blood Glucose 213 H Arterial Blood Ionized Calcium Urine WBC (Auto) Urine Creatinine Urine Total Protein Rheumatoid Factor Chest x-ray: image reviewed (tubes and lines in good position) Allied health notes reviewed: nursing
--- NOTE | 2021-06-18 13:04 | Progress Note ---
Assessment and Plan - Patient Problems (1) Cardiopulmonary arrest Current Visit: Yes Status: Acute Plan to address problem: Patient admitted to the hospital following an out of hospital cardiopulmonary arrest. Chest x-ray revealed bilateral pulmonary opacities, right greater than left. EKGs in the hospital show a normal sinus rhythm with no ischemic changes. There was transient atrial fibrillation in the field, associated with ongoing ACLS procedures including epinephrine administration. Echocardiogram showed left ventricular ejection fraction 45 to 50%, mild concentric left ventricular hypertrophy. Most significant finding is moderate to severe dilatation of the left atrium, and mild to moderate dilatation of the right heart chambers. A CTA of the chest is reported by radiology as showing "no convincing evidence of pulmonary embolism". We will continue supportive management from a cardiac standpoint, further cardiac evaluation and management will depend on clinical course. Immediate and long-term prognosis remain poor. Subjective Date of service: 06/18/21 Principal diagnosis: Ac hypoxemic resp failure; Cardiac arrest; RIGOBERTO; AMS; NSTEMI Interval history: Patient is unresponsive, on the vent. On master certified rv technician there is a stable normal sinus rhythm at 61. Blood pressure 131 systolic. Objective Vital Signs Temp Pulse Resp BP Pulse Ox 06/18/21 12:00 97.6 F 06/18/21 11:58 59 L 131/62 100 06/18/21 10:00 58 L 12 142/67 99 06/18/21 09:32 63 142/67 06/18/21 09:00 67 12 137/61 99 06/18/21 08:00 73 18 143/64 98 06/18/21 07:49 98.5 F 06/18/21 07:46 73 143/64 99 06/18/21 07:00 69 15 144/66 99 06/18/21 06:00 66 14 152/74 99 06/18/21 05:02 70 152/74 99 06/18/21 05:00 63 32 H 146/70 100 06/18/21 04:00 98.6 F 64 32 H 141/63 99 06/18/21 03:00 67 30 H 132/59 99 06/18/21 02:00 67 16 145/67 99 06/18/21 01:00 64 16 129/58 99 06/18/21 00:46 62 31 H 129/58 100 06/18/21 00:30 65 20 129/58 100 06/18/21 00:16 64 11 L 129/58 99 06/18/21 00:00 98.4 F 68 17 146/64 100 06/17/21 23:46 68 17 146/64 100 06/17/21 23:30 67 32 H 146/64 100 06/17/21 23:16 69 23 146/64 100 06/17/21 23:00 70 24 152/76 100 06/17/21 22:46 64 12 152/76 100 06/17/21 22:30 64 31 H 152/76 100 06/17/21 22:16 64 22 152/76 100 06/17/21 22:00 70 32 H 152/76 99 06/17/21 21:46 67 20 141/66 100 06/17/21 21:30 70 15 141/66 100 06/17/21 21:16 72 15 141/66 99 06/17/21 21:00 65 31 H 134/60 99 06/17/21 20:46 66 32 H 134/60 100 06/17/21 20:30 68 19 134/60 99 06/17/21 20:17 69 17 134/60 100 06/17/21 20:16 68 27 H 134/60 100 06/17/21 20:02 66 136/40 100 06/17/21 20:00 98.2 F 69 12 138/68 99 06/17/21 19:46 71 12 138/68 99 06/17/21 19:30 71 12 138/68 100 06/17/21 19:16 71 12 138/68 100 06/17/21 19:00 68 15 143/68 99 06/17/21 18:46 66 15 143/68 99 06/17/21 18:30 66 21 143/68 100 06/17/21 18:16 66 14 143/68 100 06/17/21 18:00 66 12 136/73 99 06/17/21 17:46 65 14 136/73 100 06/17/21 17:30 60 20 136/73 100 06/17/21 17:16 63 9 L 136/73 93 06/17/21 17:00 62 20 136/73 99 06/17/21 16:46 58 L 9 L 121/59 100 06/17/21 16:33 98.2 F 06/17/21 16:30 60 31 H 121/59 100 06/17/21 16:16 61 19 121/59 100 06/17/21 16:00 98 F 57 L 31 H 119/56 99 06/17/21 15:59 58 L 121/59 99 06/17/21 15:46 58 L 22 119/56 99 06/17/21 15:30 61 30 H 119/56 98 06/17/21 15:16 58 L 29 H 119/56 99 06/17/21 15:00 60 17 114/61 99 06/17/21 14:46 58 L 30 H 114/61 99 06/17/21 14:30 56 L 31 H 114/61 99 06/17/21 14:16 58 L 23 114/61 99 06/17/21 14:00 57 L 27 H 116/54 99 06/17/21 13:46 56 L 26 H 116/54 100 06/17/21 13:30 56 L 27 H 116/54 99 06/17/21 13:16 55 L 26 H 116/54 99 06/17/21 13:13 97.9 F - Physical Examination General: Other (Unresponsive, on the vent) HEENT: Positive: Other (Pupils fixed) Neck: Positive: neck supple Cardiac: Positive: Reg Rate and Rhythm Lungs: Positive: Decreased Breath Sounds Neuro: Positive: Other (Unresponsive, on the vent) Abdomen: Positive: Soft, Other (obese) Skin: Positive: Clear Extremities: Absent: edema - Labs and Meds Cardiac Enzymes 06/18/21 Range/Units 04:00 AST 78 H (5-40) units/L CBC 06/18/21 Range/Units 04:00 WBC 8.7 (4.5-11.0) K/mm3 RBC 4.68 (3.65-5.03) M/mm3 Hgb 11.2 (10.1-14.3) gm/dl Hct 35.0 (30.3-42.9) % Plt Count 165 (140-440) K/mm3 Comprehensive Metabolic Panel 06/18/21 Range/Units 04:00 Sodium 139 (137-145) mmol/L Potassium 3.3 L (3.6-5.0) mmol/L Chloride 104.3 (98-107) mmol/L Carbon Dioxide 21 L (22-30) mmol/L BUN 48 H (7-17) mg/dL Creatinine 1.6 H (0.6-1.2) mg/dL Glucose 177 H (65-100) mg/dL Calcium 8.7 (8.4-10.2) mg/dL AST 78 H (5-40) units/L ALT 36 (7-56) units/L Alkaline Phosphatase 83 (35-129) units/L Total Protein 5.6 L (6.3-8.2) g/dL Albumin 2.5 L (3.9-5) g/dL - Allied health notes Allied health notes reviewed: nursing
[2021-06-18] MEDS: SCOPOLAMINE TRANSDERMAL PATCH 72 HR TD SCH (15:21)
[2021-06-18] MEDS: GLYCOPYRROLATE 1 MG TAB PO SCH (20:38)
[2021-06-18] MEDS: SENNOSIDES/DOCUSATE SODIUM 8.6/50 MG TAB PO SCH (22:17)
--- NOTE | 2021-06-19 02:46 | XRay Report ---
CHEST 1 VIEW 06/19/2021 1:18 AM INDICATION / CLINICAL INFORMATION: follow up respiratory failure. COMPARISON: One view of the chest from 06/18/2021 FINDINGS: SUPPORT DEVICES: Unchanged. HEART / MEDIASTINUM: Stable. LUNGS / PLEURA: Improved bilateral pulmonary opacities. No significant pleural effusion. No pneumotho rax. ADDITIONAL FINDINGS: No significant additional findings. IMPRESSION: Improved aeration of the lungs without other significant interval changes. Signer Name: Bill Stevenson MD Signed: 06/19/2021 2:42 AM Workstation Name: [id number]
[2021-06-19] MEDS: INSULIN LISPRO 100 UNIT/ML SUB-Q SCH ×4 (07:16→18:10)
[2021-06-19 07:57] LABS: Hemoglobin 10.9 gm/dl (10.1-14.3); Mean Corpuscular HGB Conc 31 % (30-34); Mean Corpuscular Volume 75 fl (79-97); Platelet Count 176 K/mm3 (140-440); Red Blood Count 4.66 M/mm3 (3.65-5.03); Red Cell Distribution Width 15.1 % (13.2-15.2)
[2021-06-19 08:16] LABS: Calcium 9.2 mg/dL (8.4-10.2)
[2021-06-19] MEDS: hydrALAZINE 100 MG TAB PO SCH ×3 (08:53→21:35)
[2021-06-19] MEDS: GLYCOPYRROLATE 1 MG TAB PO SCH ×2 (08:53→14:25)
--- NOTE | 2021-06-19 09:30 | Progress Note ---
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 Will need further evaluation outpatient. * Will follow peripherally Subjective Date of service: 06/19/21 Principal diagnosis: Ac hypoxemic resp failure; Cardiac arrest; RIGOBERTO; AMS; NSTEMI Objective - Vital Signs Vital signs: Vital Signs - 12hr 06/18/21 06/18/21 06/18/21 22:00 22:03 23:00 Temperature Pulse Rate 56 L 56 L 57 L Pulse Rate [ Apical] Respiratory 17 12 11 L Rate Blood Pressure 141/69 151/77 144/70 O2 Sat by Pulse 97 99 97 Oximetry 06/19/21 06/19/21 06/19/21 00:00 01:00 01:11 Temperature 98.6 F Pulse Rate 63 56 L 58 L Pulse Rate [ 57 L Apical] Respiratory 12 16 Rate Blood Pressure 148/78 146/72 148/78 O2 Sat by Pulse 96 97 99 Oximetry 06/19/21 06/19/21 06/19/21 02:01 03:00 04:00 Temperature 97.5 F L Pulse Rate 59 L 69 66 Pulse Rate [ 67 Apical] Respiratory 30 H 30 H 22 Rate Blood Pressure 166/75 170/78 163/69 O2 Sat by Pulse 96 96 97 Oximetry 06/19/21 06/19/21 06/19/21 05:01 05:30 06:00 Temperature Pulse Rate 62 58 L 56 L Pulse Rate [ Apical] Respiratory 28 H 17 Rate Blood Pressure 140/70 140/70 139/68 O2 Sat by Pulse 96 99 97 Oximetry 06/19/21 06/19/21 06/19/21 07:00 08:01 09:07 Temperature 98 F Pulse Rate 60 57 L Pulse Rate [ Apical] Respiratory 32 H 21 Rate Blood Pressure 152/75 155/72 O2 Sat by Pulse 97 95 Oximetry 06/19/21 09:14 Temperature Pulse Rate 59 L Pulse Rate [ Apical] Respiratory Rate Blood Pressure 147/70 O2 Sat by Pulse 99 Oximetry - Lab 06/19/21 07:35 06/19/21 07:35 Most recent lab results ABG pH 7.500 (7.320-7.450) H 06/19/21 04:04 ABG pCO2 36.3 mm Hg 06/15/21 05:00 ABG pO2 184.7 mm Hg (80.0-90.0) H 06/15/21 05:00 ABG HCO3 22.6 mmol/L (20.0-26.0) 06/15/21 05:00 ABG O2 Saturation 98.7 (0-100) 06/19/21 04:04 Calcium 9.2 mg/dL (8.4-10.2) 06/19/21 07:35 Magnesium 2.00 mg/dL (1.7-2.3) 06/19/21 07:35 Urine Creatinine 146.5 mg/dL (0.1-20.0) H 06/15/21 09:15 Urine Total Protein 216 mg/dL (5-11.8) H 06/15/21 09:15 Medications & Allergies - Medications Allergies/Adverse Reactions: Allergies latex Allergy (Verified 12/29/17 08:16) Itching shellfish Allergy (Uncoded 12/17/18 00:58) Swelling Home Medications: Home Medications Medication Instructions Recorded Confirmed Last Taken Type Amlodipine Besylate/Benazepril 1 cap PO DAILY 09/18/15 06/15/21 06/14/21 00:00 History [Amlodipine-Benazepril 5-20 mg] Aspirin BABY CHEW TAB 81 mg PO DAILY 09/18/15 06/15/21 06/14/21 00:00 History Insulin Aspart Protam & Aspart 50 units SC QA 09/18/15 06/15/21 06/14/21 00:00 History [NovoLOG Mix 70-30 Flexpen] Insulin Aspart Protam & Aspart 50 units SC QHS 09/18/15 06/15/21 12/28/17 18:00 History [NovoLOG Mix 70-30 Flexpen] hydroCHLOROthiazide 1 tab PO DAILY 09/18/15 06/15/21 06/14/21 00:00 History [Hydrochlorothiazide] cloNIDine [Catapres] 0.2 mg PO QHS 12/29/17 06/15/21 12/27/17 21:00 History raNITIdine HCl [Zantac] 150 mg PO BID 12/29/17 06/15/21 06/14/21 00:00 History Benazepril (Nf) 40 mg PO DAILY 06/15/21 06/15/21 06/14/21 History Hydralazine HCl 100 mg PO BID 06/15/21 06/15/21 06/14/21 00:00 History Insulin Aspart Prot/Insuln Asp 100 unit SQ BID 06/15/21 06/15/21 Unknown History [Novolog Mix 70-30 Flexpen Syrn] traMADoL [Ultram 50 MG tab] 50 mg PO PRN 06/15/21 06/15/21 Unknown History Active Medications: Generic Name Dose Route Start Last Admin Trade Name Freq PRN Reason Stop Dose Admin Acetaminophen 650 mg 06/15/21 05:07 Acetaminophen 650 Mg Rect Supp [place] Q6H PRN Pain MILD(1-3)/Fever >100.5/WHITE Amlodipine Besylate 10 mg 06/16/21 10:00 06/18/21 09:32 Amlodipine 10 Mg Tab PO 10 mg QDAY JONATHAN Administration Lipase/Protease/Amylase 1 each 06/16/21 10:30 Lipase 10,500/Protease 25,000/Amylase 43,750 (Units) Dr Craven FEEDTUBE PRN PRN For Clogged Feeding Tube Dextrose 0 ml 06/15/21 05:07 Dextrose 50% In Water (25gm) 50 Ml Syringe IV Q30MIN PRN Hypoglycemia Protocol Famotidine 20 mg 06/18/21 10:00 06/18/21 22:18 Famotidine 20 Mg Tab PO 20 mg BID JONATHAN Administration Fentanyl 50 mcg 06/15/21 03:06 Fentanyl 100 Mcg/2 Ml Inj IV Q10MIN PRN ANALGESIA Glycopyrrolate 1 mg 06/18/21 20:00 06/18/21 20:38 Glycopyrrolate 1 Mg Tab PO 1 mg TID JONATHAN Administration Heparin Sodium (Porcine) 5,000 unit 06/19/21 14:00 Heparin 5,000 Unit/1 Ml Vial SUB-Q Q8HR JONATHAN Hydralazine HCl 100 mg 06/16/21 08:00 06/18/21 20:35 Hydralazine 100 Mg Tab PO 100 mg TID JONATHAN Administration Hydralazine HCl 10 mg 06/15/21 23:43 06/16/21 00:28 Hydralazine 20 Mg/1 Ml Inj IV 10 mg Q6H PRN Administration SBP > 160 Hydrophilic Ointment 1 applic 06/15/21 03:06 Lip Therapy Vaseline TP Q2HR PRN Dry Lips Fentanyl Citrate 2,000 mcg in 100 mls @ 7.39 mls/hr 06/15/21 04:00 06/18/21 18:47 Fentanyl Drip Premix IV 0 mcg/kg/hr TITR JONATHAN 0 mls/hr Titration Protocol 1 MCG/KG/HR Propofol 1,000 mg in 100 mls @ 4.434 mls/hr 06/15/21 16:00 06/17/21 18:25 Diprivan 10 Mg/Ml IV 0 mcg/kg/min TITR JONATHAN 0 mls/hr Titration Protocol 5 MCG/KG/MIN Insulin Glargine 5 units 06/19/21 22:00 Insulin Glargine 100 Units/Ml SUB-Q QHS [facility] Insulin Human Lispro 0 unit 06/15/21 12:00 06/19/21 07:47 Insulin Lispro 100 Unit/Ml SUB-Q 4 unit Q6HR [facility] Administration Protocol Levetiracetam 500 mg 06/19/21 10:00 Levetiracetam 500 Mg/5 Ml Oral Liqd PO BID [facility] Multi-Ingred Cream/Lotion/Oil/Oint 1 applic 06/15/21 03:06 Mineral Oil/Petrolatum, White Ophth Oint 3.5 Gm OU Q4HR PRN Dry Eye(s) Scopolamine 1 each 06/18/21 15:00 06/18/21 15:21 Scopolamine Transdermal Patch 72 Hr TD 1 each Q3D [facility] Administration Senna/Docusate Sodium 1 tab 06/15/21 22:00 06/18/21 22:17 Sennosides/Docusate Sodium 8.6/50 Mg Tab PO 1 tab QHS JONATHAN Administration Simple Syrup 15 ml 06/16/21 10:30 Simple Syrup 15 Ml FEEDTUBE PRN PRN Hypoglycemia Simple Syrup 30 ml 06/16/21 10:30 Simple Syrup 15 Ml FEEDTUBE PRN PRN Hypoglycemia Sodium Bicarbonate 325 mg 06/16/21 10:30 Sodium Bicarbonate 325 Mg Tab FEEDTUBE PRN PRN For Clogged Feeding Tube Sodium Chloride 10 ml 06/15/21 10:00 06/18/21 22:18 Sodium Chloride 0.9% 10 Ml Flush Syringe IV 10 ml BID JONATHAN Administration Sodium Chloride 10 ml 06/15/21 05:07 Sodium Chloride 0.9% 10 Ml Flush Syringe IV PRN PRN LINE FLUSH
--- NOTE | 2021-06-19 09:48 | Progress Note ---
Assessment and Plan Assessment and plan: 81-year-old female brought into the emergency room by EMS in cardiac arrest. Family was said to witnessed collapse. EMS had given 2 rounds of epi with return of spontaneous circulation. Most of the history was gotten from the ER staff at family's no available patient is currently intubated. No other information available at this time. Work-up in the emergency room, chest x-ray reveals bilateral patchy opacities most significant in the left lower lung and right upper lung. No pneumothorax. Labs significant for elevated troponin of 0.041, elevated BUN and creatinine of 36 and 1.4 respectively. D-dimer is 1785. 06/16: Patient seen and examined, still unresponsive, awaiting CT head and CTA chest. Continue heparin for possible PE and CA. Continue abx for Bilateral Pneumonia. Cardiology, ID and Pulmonary. Poor prognosis. for out of hospital cardiac arrest May need Neurology ECHO Done result pending. 06/17: Remains clinically unchanged head CT unremarkable CT of the chest with angiogram shows no pulmonary embolism but bilateral infiltrates pneumonitis. Patient still not responded. Pupils appear fixed. She does not appear to have any gag reflex. Renal function worsening this could be secondary to contrast- induced will start on gentle hydration. Called brother to update and discuss of current clinical status and discuss poor prognostic indicators left a message requesting a call back. no events overnight NEURO- AMS sp cardiopulmonary arrest CT ON 06/16 ANA MARIA MRI TODAY- not able to do due to body size will get NM brain flow studies and repeat CT in AM Neuro consult to Dr Aguilar off all sedation pupils pinpoint; no cough but with insertion of inline suction catheter there w as a twitching of the left side of face that stopped with removal of noxious stimuli EEG- low voltage but no sz activity noted keppra BID case management following family updated on plan of care CV- sp cardiac arrest; HTN; sp STEMI norvasc and hydral scheduled normal biV function on echo 06/16 CTA with b pleural effusions and atelectesis SB Resp- acute resp failure hypoxic in nature serial chest xrays trending ABG and lactate requiring mechanical ventilation [id number] copious secretions robinol and scop GI nap TF to goal tolerating well nutrition following PPI bowel reg - a/c KD, hypoK net pos 2 L over 24 hours trending Cr -now 1.1 avoid nephrotoxins renally dose meds follow and replace electrolytes renal ultrasound 06/15 noted purewik catheter monitor for retention AM labs ordered Heme- ana maria hep drip - dc/ today trend CBC no bleeding on exam hgb stable at 11 ID -nap no fevers WBC 7.8 ID following- off antibiotics since 06-18 cultures have been neg Endo DM; hyperglycemia trending BG SSI PRN lantus added avoid hypoglycemia The high probability of a clinically significant, sudden or life threatening deterioration of the [respiratory] system(s) required my full and direct attention, intervention and personal management. The aggregate critical care time was [60] minutes. This time is in addition to time spent performing reported procedures but includes the following: [x] Data Review and interpretation [x] Patient assessment and monitoring of vital signs [x] Documentation [x] Medication orders and management Disposition Plan: tbd Total Time Spent with Patient (Minutes): 60 History Interval history: no acute events overnight Hospitalist Physical - Constitutional Vitals: Temp Pulse Resp BP Pulse Ox 98 F 59 L 21 147/70 99 06/19/21 09:07 06/19/21 09:14 06/19/21 08:01 06/19/21 09:14 06/19/21 09:14 General appearance: Present: no acute distress, other (Unresponsive, on the vent) - EENT Eyes: Present: PERRL ENT: clear oral mucosa - Neck Neck: Present: supple - Cardiovascular Rhythm: regular Heart Sounds: Present: S1 & S2 - Extremities Extremities: no ischemia Peripheral Pulses: within normal limits - Abdominal General gastrointestinal: soft - Integumentary Integumentary: Present: clear, warm, dry - Psychiatric Psychiatric: other - Neurologic Neurologic: other - Allied Health Allied health notes reviewed: nursing, social work, case management HEART Score - HEART Score Troponin: Troponin T 0.062 ng/mL (0.00-0.029) H 06/15/21 09:05 Results - Labs CBC & Chem 7: 06/19/21 07:35 06/19/21 07:35 Labs: Laboratory Last Values WBC 7.8 K/mm3 (4.5-11.0) 06/19/21 07:35 RBC 4.66 M/mm3 (3.65-5.03) 06/19/21 07:35 Hgb 10.9 gm/dl (10.1-14.3) 06/19/21 07:35 Hct 35.0 % (30.3-42.9) 06/19/21 07:35 MCV 75 fl (79-97) L 06/19/21 07:35 MCH 24 pg (28-32) L 06/19/21 07:35 MCHC 31 % (30-34) 06/19/21 07:35 RDW 15.1 % (13.2-15.2) 06/19/21 07:35 Plt Count 176 K/mm3 (140-440) 06/19/21 07:35 Lymph % (Auto) 17.7 % (13.4-35.0) 06/16/21 06:16 [place] % (Auto) 7.5 % (0.0-7.3) H 06/16/21 06:16 Eos % (Auto) 0.5 % (0.0-4.3) 06/16/21 06:16 Baso % (Auto) 0.5 % (0.0-1.8) 06/16/21 06:16 Lymph # (Auto) 1.8 K/mm3 (1.2-5.4) 06/16/21 06:16 [place] # (Auto) 0.8 K/mm3 (0.0-0.8) 06/16/21 06:16 Eos # (Auto) 0.0 K/mm3 (0.0-0.4) 06/16/21 06:16 Baso # (Auto) 0.0 K/mm3 (0.0-0.1) 06/16/21 06:16 Seg Neutrophils % 73.8 % (40.0-70.0) H 06/16/21 06:16 Seg Neutrophils # 7.7 K/mm3 (1.8-7.7) 06/16/21 06:16 PT 16.0 Sec. (12.2-14.9) H 06/16/21 06:16 INR 1.22 (0.87-1.13) H 06/16/21 06:16 APTT 25.6 Sec. (24.2-36.6) 06/15/21 03:30 D-Dimer 1785.61 ng/mlDDU (0-234) H 06/15/21 05:18 Heparin Anti-Xa Level 0.38 U.I./ml (0.3-0.7) 06/19/21 07:35 ABG pH 7.500 (7.320-7.450) H 06/19/21 04:04 POC ABG pCO2 27.1 mmHg (32.0-48.0) L 06/19/21 04:04 ABG pCO2 36.3 mm Hg 06/15/21 05:00 POC ABG pO2 119.7 mmHg (83-108) H 06/19/21 04:04 ABG pO2 184.7 mm Hg (80.0-90.0) H 06/15/21 05:00 POC ABG HCO3 20.7 06/19/21 04:04 ABG HCO3 22.6 mmol/L (20.0-26.0) 06/15/21 05:00 ABG O2 Saturation 98.7 (0-100) 06/19/21 04:04 ABG O2 Content 16.6 (0.0-44) 06/15/21 05:00 POC ABG Base Excess -1.3 06/19/21 04:04 ABG Base Excess -1.5 mmol/L (-2.0-3.0) 06/15/21 05:00 ABG Hemoglobin 12.4 (12.0-17.5) 06/19/21 04:04 ABG Oxyhemoglobin 97.1 (94-98) 06/19/21 04:04 ABG Carboxyhemoglobin 2.1 % (0.0-5.0) 06/15/21 05:00 ABG Methemoglobin 0.3 (0.0-1.5) 06/19/21 04:04 ABG Sodium 135.4 mmol/L (136.0-145.0) L 06/19/21 04:04 ABG Potassium 3.5 mmol/L (3.40-4.50) 06/19/21 04:04 ABG Chloride 105.0 mmol/L (98-107) 06/19/21 04:04 ABG Glucose 242 mg/dL (65-95) H 06/19/21 04:04 Oxyhemoglobin 96.5 % (95.0-99.0) 06/15/21 05:00 Carboxyhemoglobin 1.3 (0.5-1.5) 06/19/21 04:04 FiO2 100 % 06/15/21 05:00 FiO2 % 30.0 06/19/21 04:04 Sodium 138 mmol/L (137-145) 06/19/21 07:35 Potassium 3.6 mmol/L (3.6-5.0) 06/19/21 07:35 Chloride 102.0 mmol/L (98-107) 06/19/21 07:35 Carbon Dioxide 23 mmol/L (22-30) 06/19/21 07:35 Anion Gap 17 mmol/L 06/19/21 07:35 BUN 38 mg/dL (7-17) H 06/19/21 07:35 Creatinine 1.1 mg/dL (0.6-1.2) 06/19/21 07:35 Estimated GFR 58 ml/min 06/19/21 07:35 BUN/Creatinine Ratio 35 % 06/19/21 07:35 Glucose 259 mg/dL (65-100) H 06/19/21 07:35 POC Glucose 222 mg/dL (70-105) H 06/19/21 05:26 Calcium 9.2 mg/dL (8.4-10.2) 06/19/21 07:35 Magnesium 2.00 mg/dL (1.7-2.3) 06/19/21 07:35 Total Bilirubin 0.80 mg/dL (0.1-1.2) 06/18/21 04:00 AST 78 units/L (5-40) H 06/18/21 04:00 ALT 36 units/L (7-56) 06/18/21 04:00 Alkaline Phosphatase 83 units/L (35-129) 06/18/21 04:00 Lactate Dehydrogenase 243 units/L (91-180) H 06/15/21 05:18 Total Creatine Kinase 105 units/L (30-135) 06/15/21 03:30 CK-MB (CK-2) 4.8 ng/mL (0.0-4.0) H 06/15/21 03:30 CK-MB (CK-2) Rel Index 4.5 (0-4) H 06/15/21 03:30 Troponin T 0.062 ng/mL (0.00-0.029) H 06/15/21 09:05 C-Reactive Protein 3.00 mg/dL (0.00-1.30) H 06/15/21 05:18 Total Protein 5.6 g/dL (6.3-8.2) L 06/18/21 04:00 Albumin 2.5 g/dL (3.9-5) L 06/18/21 04:00 Albumin/Globulin Ratio 0.8 % 06/18/21 04:00 Triglycerides 66 mg/dL (2-149) 06/15/21 03:30 Cholesterol 137 mg/dL (50-199) 06/15/21 03:30 LDL Cholesterol Direct 79 mg/dL (50-130) 06/15/21 03:30 HDL Cholesterol 58 mg/dL (40-59) 06/15/21 03:30 Cholesterol/HDL Ratio 2.36 % 06/15/21 03:30 Procalcitonin < 0.05 ng/mL (<0.15) 06/15/21 05:18 Arterial Blood Glucose 242 mg/dL (65-95) H 06/19/21 04:04 Arterial Blood Ionized Calcium 4.8 mg/dL (4.6-5.3) 06/19/21 04:04 Urine Color Jacqui (Yellow) 06/15/21 09:34 Urine Turbidity Slightly-cloudy (Clear) 06/15/21 09:34 Urine pH 5.0 (5.0-7.0) 06/15/21 09:34 Ur Specific [place] 1.018 (1.003-1.030) 06/15/21 09:34 Urine Protein >500 mg/dL (Negative) 06/15/21 09:34 Urine Glucose (UA) 50 mg/dL (Negative) 06/15/21 09:34 Urine Ketones Tr mg/dL (Negative) 06/15/21 09:34 Urine Blood Sm (Negative) 06/15/21 09:34 Urine Nitrite Neg (Negative) 06/15/21 09:34 Urine Bilirubin Neg (Negative) 06/15/21 09:34 Urine Urobilinogen 2.0 mg/dL (<2.0) 06/15/21 09:34 Ur Leukocyte Esterase Neg (Negative) 06/15/21 09:34 Urine WBC (Auto) 8.0 /HPF (0.0-6.0) H 06/15/21 09:34 Urine RBC (Auto) 5.0 /HPF (0.0-6.0) 06/15/21 09:34 Urine Mucus Few /HPF 06/15/21 09:34 Urine Creatinine 146.5 mg/dL (0.1-20.0) H 06/15/21 09:15 Protein/Creatinin Ratio 1.47 06/15/21 09:15 Urine Total Protein 216 mg/dL (5-11.8) H 06/15/21 09:15 Rheumatoid Factor 20 IU/ml (0-13) H 06/16/21 18:40 Syphilis IgG Antibody Nonreactive (NonReactive) 06/16/21 18:40 Coronavirus (PCR) Negative (Negative) 06/15/21 08:30 Hep Bs Antigen Non-reactive (Negative) 06/16/21 18:40 Hepatitis C Antibody Non-reactive (NonReactive) 06/16/21 18:40 Blood Type O POSITIVE 06/15/21 03:30 Antibody Screen Negative 06/15/21 03:30 Microbiology: Microbiology 06/16/21 16:15 Urine,Scales Port Urine Culture - Final NO GROWTH AFTER 48 HOURS 06/16/21 11:10 Peripheral/Venous Blood Culture - Preliminary NO GROWTH AFTER 48 HOURS 06/16/21 10:55 Peripheral/Venous Blood Culture - Preliminary NO GROWTH AFTER 48 HOURS 06/15/21 09:15 Urine,Catheterized - Indwelling Catheter Urine Culture - Final NO GROWTH AFTER 48 HOURS Scales/IV: Voiding Method External Female Catheter Active Medications - Current Medications Current Medications: Generic Name Dose Route Start Last Admin Trade Name Freq PRN Reason Stop Dose Admin Acetaminophen 650 mg 06/15/21 05:07 Acetaminophen 650 Mg Rect Supp [place] Q6H PRN Pain MILD(1-3)/Fever >100.5/WHITE Amlodipine Besylate 10 mg 06/16/21 10:00 06/18/21 09:32 Amlodipine 10 Mg Tab PO 10 mg QDAY JONATHAN Administration Lipase/Protease/Amylase 1 each 06/16/21 10:30 Lipase 10,500/Protease 25,000/Amylase 43,750 (Units) Dr Craven FEEDTUBE PRN PRN For Clogged Feeding Tube Dextrose 0 ml 06/15/21 05:07 Dextrose 50% In Water (25gm) 50 Ml Syringe IV Q30MIN PRN Hypoglycemia Protocol Famotidine 20 mg 06/18/21 10:00 06/18/21 22:18 Famotidine 20 Mg Tab PO 20 mg BID JONATHAN Administration Fentanyl 50 mcg 06/15/21 03:06 Fentanyl 100 Mcg/2 Ml Inj IV Q10MIN PRN ANALGESIA Glycopyrrolate 1 mg 06/18/21 20:00 06/18/21 20:38 Glycopyrrolate 1 Mg Tab PO 1 mg TID [facility] Administration Heparin Sodium (Porcine) 5,000 unit 06/19/21 14:00 Heparin 5,000 Unit/1 Ml Vial SUB-Q Q8HR [facility] Hydralazine HCl 100 mg 06/16/21 08:00 06/18/21 20:35 Hydralazine 100 Mg Tab PO 100 mg TID [facility] Administration Hydralazine HCl 10 mg 06/15/21 23:43 06/16/21 00:28 Hydralazine 20 Mg/1 Ml Inj IV 10 mg Q6H PRN Administration SBP > 160 Hydrophilic Ointment 1 applic 06/15/21 03:06 Lip Therapy Vaseline TP Q2HR PRN Dry Lips Fentanyl Citrate 2,000 mcg in 100 mls @ 7.39 mls/hr 06/15/21 04:00 06/18/21 18:47 Fentanyl Drip Premix IV 0 mcg/kg/hr TITR JONATHAN 0 mls/hr Titration Protocol 1 MCG/KG/HR Propofol 1,000 mg in 100 mls @ 4.434 mls/hr 06/15/21 16:00 06/17/21 18:25 Diprivan 10 Mg/Ml IV 0 mcg/kg/min TITR JONATHAN 0 mls/hr Titration Protocol 5 MCG/KG/MIN Insulin Glargine 5 units 06/19/21 22:00 Insulin Glargine 100 Units/Ml SUB-Q QHS [facility] Insulin Human Lispro 0 unit 06/15/21 12:00 06/19/21 07:47 Insulin Lispro 100 Unit/Ml SUB-Q 4 unit Q6HR [facility] Administration Protocol Levetiracetam 500 mg 06/19/21 10:00 Levetiracetam 500 Mg/5 Ml Oral Liqd PO BID [facility] Multi-Ingred Cream/Lotion/Oil/Oint 1 applic 06/15/21 03:06 Mineral Oil/Petrolatum, White Ophth Oint 3.5 Gm OU Q4HR PRN Dry Eye(s) Scopolamine 1 each 06/18/21 15:00 06/18/21 15:21 Scopolamine Transdermal Patch 72 Hr TD 1 each Q3D JONATHAN Administration Senna/Docusate Sodium 1 tab 06/15/21 22:00 06/18/21 22:17 Sennosides/Docusate Sodium 8.6/50 Mg Tab PO 1 tab QHS JONATHAN Administration Simple Syrup 15 ml 06/16/21 10:30 Simple Syrup 15 Ml FEEDTUBE PRN PRN Hypoglycemia Simple Syrup 30 ml 06/16/21 10:30 Simple Syrup 15 Ml FEEDTUBE PRN PRN Hypoglycemia Sodium Bicarbonate 325 mg 06/16/21 10:30 Sodium Bicarbonate 325 Mg Tab FEEDTUBE PRN PRN For Clogged Feeding Tube Sodium Chloride 10 ml 06/15/21 10:00 06/18/21 22:18 Sodium Chloride 0.9% 10 Ml Flush Syringe IV 10 ml BID JONATHAN Administration Sodium Chloride 10 ml 06/15/21 05:07 Sodium Chloride 0.9% 10 Ml Flush Syringe IV PRN PRN LINE FLUSH Nutrition/Malnutrition Assess - Dietary Evaluation Nutrition/Malnutrition Findings: Nutrition Notes Start: 06/15/21 08:35 Freq: Status: Active Protocol: Document 06/18/21 11:47 (Rec: 06/18/21 11:51 [id number]) Nutrition Notes Initial or Follow up Reassessment Current Diagnosis Acute Kidney Injury,Diabetes, Hypertension Other Pertinent Diagnosis cardiac arrest Current Diet Glucerna 1.2 at 65 ml/hr Labs/Tests K 3.3 BUN 48 Cr 1.6 Pertinent Medications Kcl 20 mEq NS at 75 ml/hr Height 5 ft 9 in Weight 147.8 kg [place] Body Weight (kg) 65.90 BMI 48.1 Weight Status Morbidly Obese Subjective/Other Information FU for TF tolerance. Observed TF running at 45 ml/hr. RN to increase rate. Pt tolerating. Percent of energy/protein needs met: 90%/57% Burn Absent Trauma Absent Current % PO Negligible Minimum of two criteria No Fluid Accumulation Mild (non-severe) #1 Nutrition Diagnosis Inadequate oral intake Diagnosis Progress(for reassessment Continues documentation) Is patient on ventilator? Yes Is Patient Ambulatory and/or Out of Bed No REE-([facility]-confined to bed) 2426.664 Kcal/Kg value to use for calculation 13 Approximate Energy Requirements Using 1921 kcal/Kg Calculation Used for Recommendations Kcal/kg Additional Notes Protein: (up to 2.5g/kg IBW) < 165g Fluid: 1 ml/kcal or per MD Nutrition Intervention Change Diet Order: continue Nutrition Support: Glucerna 1.2 at 65 ml/hr Flush 100 ml q4h Kcal 1,728 Protein (gm) 94 Fluid (mL) 1,256 Goal #1 Meet at least 75% of kcal needs and protein needs as best as possible via TF Anticipated Discharge Needs: Unable to determine at this time Follow-Up By: 06/21/21 Additional Comments FU for TF tolerance - Attestation Statement I have reviewed and agreed w/ Malnutrition eval & tx plan: Yes
[2021-06-19] MEDS: amLODIPine 10 MG TAB PO SCH (09:53)
[2021-06-19] MEDS: FAMOTIDINE 20 MG TAB PO SCH ×2 (09:53→21:34)
[2021-06-19] MEDS: levETIRAcetam 500 MG/5 ML ORAL LIQD PO SCH ×2 (09:55→21:34)
--- NOTE | 2021-06-19 10:05 | Event Note ---
Date: 06/19/21 OR[place]O LOZA WHO IS LISTED LEGAL NOK IN EMR IS THE PT LIVES WITH HER SISTER HER NAME IS TICO LOZA HER NUMBERS ARE CELL [phone] LAND [phone] BACK UP NUMBER IS PT'S NIECE ROSAS LOZA [phone] Consented today for MRI.
[2021-06-19] MEDS ORDERED: hydrALAZINE 20 MG/1 ML INJ IV PRN (10:55)
[2021-06-19] MEDS: hydrALAZINE 20 MG/1 ML INJ IV PRN (11:16)
--- NOTE | 2021-06-19 11:20 | Progress Note ---
Assessment and Plan - Patient Problems (1) Cardiopulmonary arrest Current Visit: Yes Status: Acute Plan to address problem: Admitted to the hospital following an out of hospital cardiopulmonary arrest. There was transient atrial fibrillation in the field, associated with ongoing ACLS procedures including epinephrine administration. Echocardiogram showed left ventricular ejection fraction 45-50%, mild concentric left ventricular hypertrophy. Most significant finding is moderate to severe dilatation of the left atrium, and mild to moderate dilatation of the right heart chambers. CTA of the chest is reported by radiology as showing "no convincing evidence of pulmonary embolism". Supportive cardiac management. Subjective Date of service: 06/19/21 Principal diagnosis: Ac hypoxemic resp failure; Cardiac arrest; RIGOBERTO; AMS; NSTEMI Interval history: Remains unresponsive, on the vent. Objective Vital Signs Temp Pulse Pulse Resp BP Pulse Ox 06/19/21 11:16 75 176/79 06/19/21 10:01 53 L 32 H 168/75 95 06/19/21 09:53 56 L 147/70 06/19/21 09:14 59 L 147/70 99 06/19/21 09:07 98 F 06/19/21 09:01 53 L 33 H 147/70 94 06/19/21 08:01 57 L 21 155/72 95 06/19/21 08:00 63 22 97 06/19/21 07:00 60 32 H 152/75 97 06/19/21 06:00 56 L 17 139/68 97 06/19/21 05:30 58 L 140/70 99 06/19/21 05:01 62 28 H 140/70 96 06/19/21 04:00 97.5 F L 66 67 22 163/69 97 06/19/21 03:00 69 30 H 170/78 96 06/19/21 02:01 59 L 30 H 166/75 96 06/19/21 01:11 58 L 148/78 99 06/19/21 01:00 56 L 16 146/72 97 06/19/21 00:00 98.6 F 63 57 L 12 148/78 96 06/18/21 23:00 57 L 11 L 144/70 97 06/18/21 22:03 56 L 12 151/77 99 06/18/21 22:00 56 L 17 141/69 97 06/18/21 21:00 59 L 11 L 151/77 99 07/26/21 20:59 62 151/77 100 07/26/21 20:00 98.6 F 55 L 54 L 32 H 138/71 100 06/18/21 19:00 55 L 16 131/67 95 06/18/21 18:00 59 L 15 130/63 97 06/18/21 17:00 59 L 9 L 134/68 97 06/18/21 16:00 97.9 F 57 L 12 125/66 96 06/18/21 15:39 57 L 145/72 100 06/18/21 15:01 61 15 145/72 98 06/18/21 14:00 59 L 18 128/64 98 06/18/21 13:00 63 27 H 143/72 100 06/18/21 12:00 97.6 F 65 13 143/72 98 06/18/21 11:58 59 L 131/62 100 - Physical Examination General: Other (Unresponsive, on the vent) Cardiac: Positive: Bradycardia Neuro: Positive: Other (Unresponsive, on the vent) Abdomen: Positive: Other (obese) - Labs and Meds CBC 06/19/21 Range/Units 07:35 WBC 7.8 (4.5-11.0) K/mm3 RBC 4.66 (3.65-5.03) M/mm3 Hgb 10.9 (10.1-14.3) gm/dl Hct 35.0 (30.3-42.9) % Plt Count 176 (140-440) K/mm3 Comprehensive Metabolic Panel 06/19/21 Range/Units 07:35 Sodium 138 (137-145) mmol/L Potassium 3.6 (3.6-5.0) mmol/L Chloride 102.0 (98-107) mmol/L Carbon Dioxide 23 (22-30) mmol/L BUN 38 H (7-17) mg/dL Creatinine 1.1 (0.6-1.2) mg/dL Glucose 259 H (65-100) mg/dL Calcium 9.2 (8.4-10.2) mg/dL - Allied health notes Allied health notes reviewed: nursing
--- NOTE | 2021-06-19 12:20 | Progress Note ---
Assessment and Plan Cultures: 06/15/2021 tracheal aspirate: Usual respiratory juan jose 06/15/2021 urine culture: No growth 06/16/2021 blood culture: No growth Assessment: 81-year-old female with history of diabetes mellitus, hypertension, arthritis, admitted on 06/15/2021 secondary to collapse witnessed by family, out of hospital cardiac arrest: #SIRS versus sepsis: Patient with low grade fever, hypotension, in the setting of out of the hospital cardiac arrest. UA with minimal pyuria. Procalcitonin<0.2. #Bilateral pneumonia v/s atelectasis: SARS-CoV-2 PCR negative. Low procal. #Acute hypoxic respiratory failure: on the vent #Elevated LFTs: Likely secondary to cardiac arrest/resuscitation. #Elevated troponins: Per cardiology. #RIGOBERTO: Likely due to cardiac arrest. #Diabetes mellitus with hyperglycemia. #Morbidly obese #Encephalopathy Recommendations: -remains off antibiotics ID will sign off. Please call with questions. Alvin Cantor MD, FACP [facility] ([facility]) O: [phone] F: [phone] Subjective Date of service: 06/19/21 Principal diagnosis: Ac hypoxemic resp failure; Cardiac arrest; RIGOBERTO; AMS; NSTEMI Interval history: Afebrile. Remains on the vent with minimal settings. Objective - Exam Narrative Exam: Physical Exam: Constitutional: sedated, intubated, on the vent. Morbidly obese Head, Ears, Nose: Normocephalic, atraumatic. External ears, nose normal Eyes: Conjunctivae/corneas clear. No icterus. No ptosis. Neck: intubated Oral: intubated Cardiovascular: S1, S2 + Respiratory: AE fair bilaterally and equal GI: Soft, bowel sounds + Musculoskeletal: No pedal edema, no cyanosis. Skin: No rash or abscess Hem/Lymphatic: No palpable cervical or supraclavicular nodes. No lymphangitis Psych: no agitation Neurological: sedated, intubated, on the vent, exam limited - Constitutional Vitals: Vital Signs Temp Pulse Resp BP Pulse Ox 98 F 75 32 H 176/79 99 06/19/21 09:07 06/19/21 11:16 06/19/21 10:01 06/19/21 11:16 06/19/21 11:11 Temperature -Last 24 Hours Temperature 98 F Temperature 97.5 F Temperature 98.6 F Temperature 98.6 F Temperature 97.9 F - Labs CBC & Chem 7: 06/19/21 07:35 06/19/21 07:35 Labs: Abnormal lab results 06/18/21 06/18/21 06/19/21 Range/Units 18:02 23:39 04:04 MCV (79-97) fl MCH (28-32) pg ABG pH 7.500 H (7.320-7.450) POC ABG pCO2 27.1 L (32.0-48.0) mmHg POC ABG pO2 119.7 H (83-108) mmHg ABG Sodium 135.4 L (136.0-145.0) mmol/L ABG Glucose 242 H (65-95) mg/dL BUN (7-17) mg/dL Glucose (65-100) mg/dL POC Glucose 208 H 207 H (70-105) mg/dL Arterial Blood Glucose 242 H (65-95) mg/dL 06/19/21 06/19/21 06/19/21 Range/Units 05:26 07:35 07:35 MCV 75 L (79-97) fl MCH 24 L (28-32) pg ABG pH (7.320-7.450) POC ABG pCO2 (32.0-48.0) mmHg POC ABG pO2 (83-108) mmHg ABG Sodium (136.0-145.0) mmol/L ABG Glucose (65-95) mg/dL BUN 38 H (7-17) mg/dL Glucose 259 H (65-100) mg/dL POC Glucose 222 H (70-105) mg/dL Arterial Blood Glucose (65-95) mg/dL 06/19/21 Range/Units 11:16 MCV (79-97) fl MCH (28-32) pg ABG pH (7.320-7.450) POC ABG pCO2 (32.0-48.0) mmHg POC ABG pO2 (83-108) mmHg ABG Sodium (136.0-145.0) mmol/L ABG Glucose (65-95) mg/dL BUN (7-17) mg/dL Glucose (65-100) mg/dL POC Glucose 267 H (70-105) mg/dL Arterial Blood Glucose (65-95) mg/dL
[2021-06-19] MEDS: HEPARIN 5,000 UNIT/1 ML VIAL SUB-Q SCH ×2 (14:23→21:35)
--- NOTE | 2021-06-19 14:43 | Progress Note ---
Assessment and Plan Acute hypoxemic respiratory failure on MVS Cardiac arrest with ROSC Possible seizure activity Acute encephalopathy Acute kidney injury Non-ST elevation myocardial infarction Morbid obesity Hyperglycemia Arthritis Oropharyngeal dysphagia HTN - get NM brain flow scan and address result - await neurology evaluation - repeat CT brain - continue empiric Keppra - continue scopolamine and robinul for secretion control - follow official EEG read - continue care as below otherwise; - cardiology evaluation ongoing re: NSTEMI - continue IV Heparin for now - continue Daily SAT and SBT assessment as tolerated - continue to wean supplemental oxygen for target O2 sat's > 90% acutely - VAP bundle addressed - continue lung protective strategies - continue bronchodilators with pulmonary hygiene per RT - wean per pulmonary driven protocols otherwise - continue accuchecks with glycemic control per SSI (While critically ill target blood glucose of 140-180 mg/dL; avoid hypoglycemia) - sedation prn for target RASS 0 to -1 - azotemia per nephrology team; no acute indication for dialysis - continue to avoid nephrotoxins, renally dose all medications - continue to avoid benzodiazepine's, reduce the possibility of delirium - complete AB's per ID rec's (Zosyn) - prn analgesia per CPOT score - Maintenance of sleep-wake cycle, avoid delirium - continue enteral nutritional support at goal rate as tolerated - G.I. & VTE prophylaxis - PT/OT/ROM exercises - continue mobility protocols for pressure ulcer prophylaxis - Monitor hemodynamics closely - continue other care per attending / other consultants - discharge planning ongoing concurrently COVID SPECIFIC INTERVENTIONS - COVID PCR negative .... Re-evaluate in am & prn CONDITION: CRITICAL PROGNOSIS: GUARDED CODE STATUS: FULL CODE The high probability of a clinically significant, sudden or life-threatening deterioration of the [respiratory, cardiovascular, renal & neurologic] system(s) required my full and direct attention, intervention and personal management. The aggregate critical care time was [32] minutes without overlap. Time includes spent on; [x] Data Review and interpretation [x] Patient assessment and monitoring of vital signs [x] Documentation [x] Medication orders and management Subjective Date of service: 06/19/21 Principal diagnosis: Ac hypoxemic resp failure; Cardiac arrest; RIGOBERTO; AMS; NSTEMI Interval history: Patient is seen today for: Acute hypoxemic respiratory failure; Cardiac arrest with ROSC; Possible seizure activity; RIGOBERTO; Acute encephalopathy; NSTEMI Seen and examined at bedside; 24hour events reviewed; nursing and respiratory care staff consulted; no adverse overnight events reported to me; restin in bed; remains on MVS; EEG without seizure spiokes but minimal activity; no gag reflex on exam and failed SBT; no high grade fevers; unable to get MRI brain earlier re: body habitus Objective Vital Signs - 12hr 06/19/21 06/19/21 06/19/21 03:00 04:00 05:01 Temperature 97.5 F L Pulse Rate 69 66 62 Pulse Rate [ 67 Apical] Respiratory 30 H 22 28 H Rate Blood Pressure 170/78 163/69 140/70 O2 Sat by Pulse 96 97 96 Oximetry 06/19/21 06/19/21 06/19/21 05:30 06:00 07:00 Temperature Pulse Rate 58 L 56 L 60 Pulse Rate [ Apical] Respiratory 17 32 H Rate Blood Pressure 140/70 139/68 152/75 O2 Sat by Pulse 99 97 97 Oximetry 06/19/21 06/19/21 06/19/21 08:00 08:01 09:01 Temperature Pulse Rate 57 L 53 L Pulse Rate [ 63 Apical] Respiratory 22 21 33 H Rate Blood Pressure 155/72 147/70 O2 Sat by Pulse 97 95 94 Oximetry 06/19/21 06/19/21 06/19/21 09:07 09:14 09:53 Temperature 98 F Pulse Rate 59 L 56 L Pulse Rate [ Apical] Respiratory Rate Blood Pressure 147/70 147/70 O2 Sat by Pulse 99 Oximetry 06/19/21 06/19/21 06/19/21 10:01 11:11 11:16 Temperature Pulse Rate 53 L 66 75 Pulse Rate [ Apical] Respiratory 32 H Rate Blood Pressure 168/75 176/79 176/79 O2 Sat by Pulse 95 99 Oximetry 06/19/21 12:00 Temperature 97.7 F Pulse Rate Pulse Rate [ Apical] Respiratory Rate Blood Pressure O2 Sat by Pulse Oximetry Constitutional: appears uncomfortable, other (elderly obese female with mildly increased respiratory effort at rest) Eyes: non-icteric ENT: oropharynx moist, oropharyngeal exudate pre (mild to moderate; clear frothy), other (ETT 23 cm CON) Neck: supple, no lymphadenopathy, no JVD, other (large circumference) Effort: mildly labored Ascultation: Bilateral: diminished breath sounds, rhonchi Percussion: Bilateral: not dull Cardiovascular: regular rate and rhythm Gastrointestinal: normoactive bowel sounds, soft, non-tender, non-distended (protuberant) Integumentary: normal Extremities: no cyanosis, no edema, pulses normal, no ischemia or petechiae Neurologic: non-focal exam (grossly), pupils equal and round, unable to assess Psychiatric: other (unable to assess re: AMS) CBC and BMP: 06/19/21 07:35 06/19/21 07:35 ABG, PT/INR, D-dimer: ABG ABG pH 7.500 (7.320-7.450) H 06/19/21 04:04 POC ABG pCO2 27.1 mmHg (32.0-48.0) L 06/19/21 04:04 ABG pCO2 36.3 mm Hg 06/15/21 05:00 POC ABG pO2 119.7 mmHg (83-108) H 06/19/21 04:04 ABG pO2 184.7 mm Hg (80.0-90.0) H 06/15/21 05:00 POC ABG HCO3 20.7 06/19/21 04:04 ABG O2 Saturation 98.7 (0-100) 06/19/21 04:04 PT/INR, D-dimer PT 16.0 Sec. (12.2-14.9) H 06/16/21 06:16 INR 1.22 (0.87-1.13) H 06/16/21 06:16 D-Dimer 1785.61 ng/mlDDU (0-234) H 06/15/21 05:18 Abnormal lab findings: Abnormal Labs 06/15/21 06/15/21 06/15/21 03:30 03:30 03:30 MCV MCH 24 L MCHC 29 L RDW 15.8 H Lymph % (Auto) 12.8 L [place] % (Auto) Lymph # (Auto) 1.1 L Seg Neutrophils % 80.4 H PT 15.6 H INR 1.18 H D-Dimer Heparin Anti-Xa Level ABG pH POC ABG pCO2 POC ABG pO2 ABG pO2 ABG O2 Saturation ABG Hemoglobin ABG Oxyhemoglobin ABG Sodium ABG Potassium ABG Glucose Potassium Carbon Dioxide BUN 36 H Creatinine 1.4 H Glucose 258 H POC Glucose Calcium AST ALT Lactate Dehydrogenase CK-MB (CK-2) 4.8 H CK-MB (CK-2) Rel Index 4.5 H Troponin T 0.041 H C-Reactive Protein Total Protein Albumin Arterial Blood Glucose Arterial Blood Ionized Calcium Urine WBC (Auto) Urine Creatinine Urine Total Protein Rheumatoid Factor 06/15/21 06/15/21 06/15/21 05:00 05:18 05:18 MCV MCH MCHC RDW Lymph % (Auto) [place] % (Auto) Lymph # (Auto) Seg Neutrophils % PT INR D-Dimer 1785.61 H Heparin Anti-Xa Level ABG pH POC ABG pCO2 POC ABG pO2 ABG pO2 184.7 H ABG O2 Saturation 99.2 H ABG Hemoglobin ABG Oxyhemoglobin ABG Sodium ABG Potassium ABG Glucose Potassium Carbon Dioxide BUN Creatinine Glucose POC Glucose Calcium AST ALT Lactate Dehydrogenase 243 H CK-MB (CK-2) CK-MB (CK-2) Rel Index Troponin T C-Reactive Protein 3.00 H Total Protein Albumin Arterial Blood Glucose Arterial Blood Ionized Calcium Urine WBC (Auto) Urine Creatinine Urine Total Protein Rheumatoid Factor 06/15/21 06/15/21 06/15/21 06:30 07:39 09:05 MCV MCH MCHC RDW Lymph % (Auto) [place] % (Auto) Lymph # (Auto) Seg Neutrophils % PT INR D-Dimer Heparin Anti-Xa Level ABG pH POC ABG pCO2 POC ABG pO2 ABG pO2 ABG O2 Saturation ABG Hemoglobin ABG Oxyhemoglobin ABG Sodium ABG Potassium ABG Glucose Potassium Carbon Dioxide BUN Creatinine Glucose POC Glucose 231 H Calcium AST ALT Lactate Dehydrogenase CK-MB (CK-2) CK-MB (CK-2) Rel Index Troponin T 0.058 H D 0.062 H C-Reactive Protein Total Protein Albumin Arterial Blood Glucose Arterial Blood Ionized Calcium Urine WBC (Auto) Urine Creatinine Urine Total Protein Rheumatoid Factor 06/15/21 06/15/21 06/15/21 09:15 09:34 13:09 MCV MCH MCHC RDW Lymph % (Auto) [place] % (Auto) Lymph # (Auto) Seg Neutrophils % PT INR D-Dimer Heparin Anti-Xa Level ABG pH POC ABG pCO2 POC ABG pO2 ABG pO2 ABG O2 Saturation ABG Hemoglobin ABG Oxyhemoglobin ABG Sodium ABG Potassium ABG Glucose Potassium Carbon Dioxide BUN Creatinine Glucose POC Glucose 240 H Calcium AST ALT Lactate Dehydrogenase CK-MB (CK-2) CK-MB (CK-2) Rel Index Troponin T C-Reactive Protein Total Protein Albumin Arterial Blood Glucose Arterial Blood Ionized Calcium Urine WBC (Auto) 8.0 H Urine Creatinine 146.5 H Urine Total Protein 216 H Rheumatoid Factor 06/15/21 06/15/21 06/15/21 16:05 18:14 23:09 MCV MCH MCHC RDW Lymph % (Auto) [place] % (Auto) Lymph # (Auto) Seg Neutrophils % PT INR D-Dimer Heparin Anti-Xa Level < 0.10 L ABG pH POC ABG pCO2 POC ABG pO2 ABG pO2 ABG O2 Saturation ABG Hemoglobin ABG Oxyhemoglobin ABG Sodium ABG Potassium ABG Glucose Potassium Carbon Dioxide BUN Creatinine Glucose POC Glucose 150 H 179 H Calcium AST ALT Lactate Dehydrogenase CK-MB (CK-2) CK-MB (CK-2) Rel Index Troponin T C-Reactive Protein Total Protein Albumin Arterial Blood Glucose Arterial Blood Ionized Calcium Urine WBC (Auto) Urine Creatinine Urine Total Protein Rheumatoid Factor 06/15/21 06/16/21 06/16/21 23:43 05:00 05:17 MCV MCH MCHC RDW Lymph % (Auto) [place] % (Auto) Lymph # (Auto) Seg Neutrophils % PT INR D-Dimer Heparin Anti-Xa Level < 0.10 L ABG pH 7.693 H POC ABG pCO2 18.6 L POC ABG pO2 147.2 H ABG pO2 ABG O2 Saturation ABG Hemoglobin ABG Oxyhemoglobin 98.5 H ABG Sodium ABG Potassium 3.0 L ABG Glucose 178 H Potassium Carbon Dioxide BUN Creatinine Glucose POC Glucose 182 H Calcium AST ALT Lactate Dehydrogenase CK-MB (CK-2) CK-MB (CK-2) Rel Index Troponin T C-Reactive Protein Total Protein Albumin Arterial Blood Glucose 178 H Arterial Blood Ionized Calcium 4.5 L Urine WBC (Auto) Urine Creatinine Urine Total Protein Rheumatoid Factor 06/16/21 06/16/21 06/16/21 06:16 06:16 06:16 MCV 77 L MCH 24 L MCHC RDW Lymph % (Auto) [place] % (Auto) 7.5 H Lymph # (Auto) Seg Neutrophils % 73.8 H PT 16.0 H INR 1.22 H D-Dimer Heparin Anti-Xa Level ABG pH POC ABG pCO2 POC ABG pO2 ABG pO2 ABG O2 Saturation ABG Hemoglobin ABG Oxyhemoglobin ABG Sodium ABG Potassium ABG Glucose Potassium 3.1 L D Carbon Dioxide BUN 40 H Creatinine 1.4 H Glucose 154 H POC Glucose Calcium AST 48 H ALT 69 H Lactate Dehydrogenase CK-MB (CK-2) CK-MB (CK-2) Rel Index Troponin T C-Reactive Protein Total Protein 5.8 L Albumin 3.0 L Arterial Blood Glucose Arterial Blood Ionized Calcium Urine WBC (Auto) Urine Creatinine Urine Total Protein Rheumatoid Factor 06/16/21 06/16/21 06/16/21 10:20 16:20 17:43 MCV MCH MCHC RDW Lymph % (Auto) [place] % (Auto) Lymph # (Auto) Seg Neutrophils % PT INR D-Dimer Heparin Anti-Xa Level 0.26 L ABG pH POC ABG pCO2 POC ABG pO2 ABG pO2 ABG O2 Saturation ABG Hemoglobin ABG Oxyhemoglobin ABG Sodium ABG Potassium ABG Glucose Potassium 3.2 L Carbon Dioxide BUN 42 H Creatinine 1.3 H Glucose 161 H POC Glucose 163 H Calcium AST ALT Lactate Dehydrogenase CK-MB (CK-2) CK-MB (CK-2) Rel Index Troponin T C-Reactive Protein Total Protein Albumin Arterial Blood Glucose Arterial Blood Ionized Calcium Urine WBC (Auto) Urine Creatinine Urine Total Protein Rheumatoid Factor 06/16/21 06/16/21 06/17/21 18:40 23:12 03:26 MCV MCH MCHC RDW Lymph % (Auto) [place] % (Auto) Lymph # (Auto) Seg Neutrophils % PT INR D-Dimer Heparin Anti-Xa Level ABG pH 7.470 H POC ABG pCO2 POC ABG pO2 ABG pO2 ABG O2 Saturation ABG Hemoglobin 11.4 L ABG Oxyhemoglobin ABG Sodium ABG Potassium 3.1 L ABG Glucose 170 H Potassium Carbon Dioxide BUN Creatinine Glucose POC Glucose 173 H Calcium AST ALT Lactate Dehydrogenase CK-MB (CK-2) CK-MB (CK-2) Rel Index Troponin T C-Reactive Protein Total Protein Albumin Arterial Blood Glucose 170 H Arterial Blood Ionized Calcium Urine WBC (Auto) Urine Creatinine Urine Total Protein Rheumatoid Factor 20 H 06/17/21 06/17/21 06/17/21 05:45 05:45 06:16 MCV 76 L MCH 24 L MCHC RDW Lymph % (Auto) [place] % (Auto) Lymph # (Auto) Seg Neutrophils % PT INR D-Dimer Heparin Anti-Xa Level ABG pH POC ABG pCO2 POC ABG pO2 ABG pO2 ABG O2 Saturation ABG Hemoglobin ABG Oxyhemoglobin ABG Sodium ABG Potassium ABG Glucose Potassium 3.1 L Carbon Dioxide BUN 48 H Creatinine 2.1 H D Glucose 156 H POC Glucose 141 H Calcium 8.2 L AST 61 H ALT Lactate Dehydrogenase CK-MB (CK-2) CK-MB (CK-2) Rel Index Troponin T C-Reactive Protein Total Protein 5.5 L Albumin 2.6 L Arterial Blood Glucose Arterial Blood Ionized Calcium Urine WBC (Auto) Urine Creatinine Urine Total Protein Rheumatoid Factor 06/17/21 06/17/21 06/17/21 12:05 16:10 17:44 MCV MCH MCHC RDW Lymph % (Auto) [place] % (Auto) Lymph # (Auto) Seg Neutrophils % PT INR D-Dimer Heparin Anti-Xa Level 0.26 L ABG pH POC ABG pCO2 POC ABG pO2 ABG pO2 ABG O2 Saturation ABG Hemoglobin ABG Oxyhemoglobin ABG Sodium ABG Potassium ABG Glucose Potassium Carbon Dioxide BUN Creatinine Glucose POC Glucose 138 H 149 H Calcium AST ALT Lactate Dehydrogenase CK-MB (CK-2) CK-MB (CK-2) Rel Index Troponin T C-Reactive Protein Total Protein Albumin Arterial Blood Glucose Arterial Blood Ionized Calcium Urine WBC (Auto) Urine Creatinine Urine Total Protein Rheumatoid Factor 06/17/21 06/18/21 06/18/21 23:51 03:41 03:53 MCV MCH MCHC RDW Lymph % (Auto) [place] % (Auto) Lymph # (Auto) Seg Neutrophils % PT INR D-Dimer Heparin Anti-Xa Level 0.20 L ABG pH 7.638 H POC ABG pCO2 18.3 L POC ABG pO2 133.6 H ABG pO2 ABG O2 Saturation ABG Hemoglobin 11.7 L ABG Oxyhemoglobin ABG Sodium 132.9 L ABG Potassium 3.2 L ABG Glucose 166 H Potassium Carbon Dioxide BUN Creatinine Glucose POC Glucose 195 H Calcium AST ALT Lactate Dehydrogenase CK-MB (CK-2) CK-MB (CK-2) Rel Index Troponin T C-Reactive Protein Total Protein Albumin Arterial Blood Glucose 166 H Arterial Blood Ionized Calcium Urine WBC (Auto) Urine Creatinine Urine Total Protein Rheumatoid Factor 06/18/21 06/18/21 06/18/21 04:00 04:00 05:51 MCV 75 L MCH 24 L MCHC RDW Lymph % (Auto) [place] % (Auto) Lymph # (Auto) Seg Neutrophils % PT INR D-Dimer Heparin Anti-Xa Level ABG pH POC ABG pCO2 POC ABG pO2 ABG pO2 ABG O2 Saturation ABG Hemoglobin ABG Oxyhemoglobin ABG Sodium ABG Potassium ABG Glucose Potassium 3.3 L Carbon Dioxide 21 L BUN 48 H Creatinine 1.6 H Glucose 177 H POC Glucose 176 H Calcium AST 78 H ALT Lactate Dehydrogenase CK-MB (CK-2) CK-MB (CK-2) Rel Index Troponin T C-Reactive Protein Total Protein 5.6 L Albumin 2.5 L Arterial Blood Glucose Arterial Blood Ionized Calcium Urine WBC (Auto) Urine Creatinine Urine Total Protein Rheumatoid Factor 06/18/21 06/18/21 06/18/21 11:26 12:00 18:02 MCV MCH MCHC RDW Lymph % (Auto) [place] % (Auto) Lymph # (Auto) Seg Neutrophils % PT INR D-Dimer Heparin Anti-Xa Level ABG pH POC ABG pCO2 POC ABG pO2 ABG pO2 ABG O2 Saturation ABG Hemoglobin 11.8 L ABG Oxyhemoglobin ABG Sodium 135.6 L ABG Potassium 3.2 L ABG Glucose 213 H Potassium Carbon Dioxide BUN Creatinine Glucose POC Glucose 183 H 208 H Calcium AST ALT Lactate Dehydrogenase CK-MB (CK-2) CK-MB (CK-2) Rel Index Troponin T C-Reactive Protein Total Protein Albumin Arterial Blood Glucose 213 H Arterial Blood Ionized Calcium Urine WBC (Auto) Urine Creatinine Urine Total Protein Rheumatoid Factor 06/18/21 06/19/21 06/19/21 23:39 04:04 05:26 MCV MCH MCHC RDW Lymph % (Auto) [place] % (Auto) Lymph # (Auto) Seg Neutrophils % PT INR D-Dimer Heparin Anti-Xa Level ABG pH 7.500 H POC ABG pCO2 27.1 L POC ABG pO2 119.7 H ABG pO2 ABG O2 Saturation ABG Hemoglobin ABG Oxyhemoglobin ABG Sodium 135.4 L ABG Potassium ABG Glucose 242 H Potassium Carbon Dioxide BUN Creatinine Glucose POC Glucose 207 H 222 H Calcium AST ALT Lactate Dehydrogenase CK-MB (CK-2) CK-MB (CK-2) Rel Index Troponin T C-Reactive Protein Total Protein Albumin Arterial Blood Glucose 242 H Arterial Blood Ionized Calcium Urine WBC (Auto) Urine Creatinine Urine Total Protein Rheumatoid Factor 06/19/21 06/19/21 06/19/21 07:35 07:35 11:16 MCV 75 L MCH 24 L MCHC RDW Lymph % (Auto) [place] % (Auto) Lymph # (Auto) Seg Neutrophils % PT INR D-Dimer Heparin Anti-Xa Level ABG pH POC ABG pCO2 POC ABG pO2 ABG pO2 ABG O2 Saturation ABG Hemoglobin ABG Oxyhemoglobin ABG Sodium ABG Potassium ABG Glucose Potassium Carbon Dioxide BUN 38 H Creatinine Glucose 259 H POC Glucose 267 H Calcium AST ALT Lactate Dehydrogenase CK-MB (CK-2) CK-MB (CK-2) Rel Index Troponin T C-Reactive Protein Total Protein Albumin Arterial Blood Glucose Arterial Blood Ionized Calcium Urine WBC (Auto) Urine Creatinine Urine Total Protein Rheumatoid Factor Chest x-ray: image reviewed (mild improved aeration) Allied health notes reviewed: nursing
--- NOTE | 2021-06-19 15:37 | Consultation ---
History of Present Illness Consult date: 06/19/21 Reason for Consult: Neurological Evaluation History of present illness: History of present illness: 81-year-old female brought into the emergency room by EMS in cardiac arrest. Family was said to witnessed collapse. EMS had given 2 rounds of epi with return of spontaneous circulation. Most of the history was gotten from the ER staff at [facility] no available patient is currently intubated. No other information available at this time. Work-up in the emergency room, chest x-ray reveals bilateral patchy opacities most significant in the left lower lung and right upper lung. No pneumothorax. Neurological Consult was called in for evaluation status post cardiac arrest. Admitted on 06/15 . Per notes no clinical improvement. Past History Past Medical History: arthritis, diabetes, hypertension Past Surgical History: denies: Other (hysterectomy "in the s". 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 colon sx, 1997) Social history: no significant social history Family history: no significant family history Medications and Allergies Allergies Allergy/AdvReac Type Severity Reaction Status Date / Time latex Allergy Itching Verified 12/29/17 08:16 shellfish Allergy Swelling Uncoded 12/17/18 00:58 Home Medications Medication Instructions Recorded Confirmed Last Taken Type Amlodipine Besylate/Benazepril 1 cap PO DAILY 09/18/15 06/15/21 06/14/21 00:00 History [Amlodipine-Benazepril 5-20 mg] Aspirin BABY CHEW TAB 81 mg PO DAILY 09/18/15 06/15/21 06/14/21 00:00 History Insulin Aspart Protam & Aspart 50 units SC QAM 09/18/15 06/15/21 06/14/21 00:00 History [NovoLOG Mix 70-30 Flexpen] Insulin Aspart Protam & Aspart 50 units SC QHS 09/18/15 06/15/21 12/28/17 18:00 History [NovoLOG Mix 70-30 Flexpen] hydroCHLOROthiazide 1 tab PO DAILY 09/18/15 06/15/21 06/14/21 00:00 History [Hydrochlorothiazide] cloNIDine [Catapres] 0.2 mg PO QHS 12/29/17 06/15/21 12/27/17 21:00 History raNITIdine HCl [Zantac] 150 mg PO BID 0206/15/21 06/14/21 00:00 History Benazepril (Nf) 40 mg PO DAILY 06/15/21 06/15/21 06/14/21 History Hydralazine HCl 100 mg PO BID 06/15/21 06/15/21 06/14/21 00:00 History Insulin Aspart Prot/Insuln Asp 100 unit SQ BID 06/15/21 06/15/21 Unknown History [Novolog Mix 70-30 Flexpen Syrn] traMADoL [Ultram 50 MG tab] 50 mg PO PRN 06/15/21 06/15/21 Unknown History Active Meds: Active Medications Acetaminophen (Acetaminophen 650 Mg Rect Supp) 650 mg [place] Q6H PRN PRN Reason: Pain MILD(1-3)/Fever >100.5/WHITE Amlodipine Besylate (Amlodipine 10 Mg Tab) 10 mg PO QDAY [facility] Last Admin: 06/19/21 09:53 Dose: 10 mg Documented by: Lipase/Protease/Amylase (Lipase 10,500/Protease 25,000/Amylase 43,750 (Units) Dr Cap) 1 each FEEDTUBE PRN PRN PRN Reason: For Clogged Feeding Tube Dextrose (Dextrose 50% In Water (25gm) 50 Ml Syringe) 0 ml IV Q30MIN PRN; Protocol PRN Reason: Hypoglycemia Famotidine (Famotidine 20 Mg Tab) 20 mg PO BID [facility] Last Admin: 06/19/21 09:53 Dose: 20 mg Documented by: Fentanyl (Fentanyl 100 Mcg/2 Ml Inj) 50 mcg IV Q10MIN PRN PRN Reason: ANALGESIA Glycopyrrolate (Glycopyrrolate 1 Mg Tab) 1 mg PO TID [facility] Last Admin: 06/19/21 08:53 Dose: 1 mg Documented by: Heparin Sodium (Porcine) (Heparin 5,000 Unit/1 Ml Vial) 5,000 unit SUB-Q Q8HR [facility] Hydralazine HCl (Hydralazine 100 Mg Tab) 100 mg PO TID [facility] Last Admin: 06/19/21 08:53 Dose: 100 mg Documented by: Hydralazine HCl (Hydralazine 20 Mg/1 Ml Inj) 10 mg IV Q2H PRN PRN Reason: SBP > 160 Hydrophilic Ointment (Lip Therapy Vaseline) 1 applic TP Q2HR PRN PRN Reason: Dry Lips Fentanyl Citrate (Fentanyl Drip Premix) 2,000 mcg in 100 mls @ 7.39 mls/hr IV TITR JONATHAN; Protocol Last Titration: 06/18/21 18:47 Dose: 0 mcg/kg/hr, 0 mls/hr Documented by: Propofol (Diprivan 10 Mg/Ml) 1,000 mg in 100 mls @ 4.434 mls/hr IV TITR [facility]; Protocol Last Titration: 06/17/21 18:25 Dose: 0 mcg/kg/min, 0 mls/hr Documented by: Insulin Glargine (Insulin Glargine 100 Units/Ml) 5 units SUB-Q QHS JONATHAN Insulin Human Lispro (Insulin Lispro 100 Unit/Ml) 0 unit SUB-Q Q6HR [facility]; Protocol Last Admin: 06/19/21 11:17 Dose: 6 unit Documented by: Labetalol HCl (Labetalol 20 Mg/4 Ml Inj) 10 mg IV Q2H PRN PRN Reason: Hypertension Levetiracetam (Levetiracetam 500 Mg/5 Ml Oral Liqd) 500 mg PO BID [facility] Last Admin: 06/19/21 09:55 Dose: 500 mg Documented by: Multi-Ingred Cream/Lotion/Oil/Oint (Mineral Oil/Petrolatum, White Ophth Oint 3.5 Gm) 1 applic OU Q4HR PRN PRN Reason: Dry Eye(s) Scopolamine (Scopolamine Transdermal Patch 72 Hr) 1 each TD Q3D [facility] Last Admin: 06/18/21 15:21 Dose: 1 each Documented by: Senna/Docusate Sodium (Sennosides/Docusate Sodium 8.6/50 Mg Tab) 1 tab PO QHS [facility] Last Admin: 06/18/21 22:17 Dose: 1 tab Documented by: Simple Syrup (Simple Syrup 15 Ml) 15 ml FEEDTUBE PRN PRN PRN Reason: Hypoglycemia Simple Syrup (Simple Syrup 15 Ml) 30 ml FEEDTUBE PRN PRN PRN Reason: Hypoglycemia Sodium Bicarbonate (Sodium Bicarbonate 325 Mg Tab) 325 mg FEEDTUBE PRN PRN PRN Reason: For Clogged Feeding Tube Sodium Chloride (Sodium Chloride 0.9% 10 Ml Flush Syringe) 10 ml IV BID [facility] Last Admin: 06/19/21 09:56 Dose: 10 ml Documented by: Sodium Chloride (Sodium Chloride 0.9% 10 Ml Flush Syringe) 10 ml IV PRN PRN PRN Reason: LINE FLUSH Physical Examination - Vital Signs Vital Signs: Vital Signs Pulse Resp BP Pulse Ox 108 H 22 85/54 97 06/15/21 03:13 06/15/21 03:13 06/15/21 03:13 06/15/21 03:13 - Physical Exam Narrative exam: The patient is intubated, mild gag present , increased tone in the upper and lower extremity , some movement to stimulation. Results - Laboratory Findings CBC and BMP: 06/19/21 07:35 06/19/21 07:35 Abnormal Lab Findings: Abnormal Labs 06/15/21 06/15/21 06/15/21 03:30 03:30 03:30 MCV MCH 24 L MCHC 29 L RDW 15.8 H Lymph % (Auto) 12.8 L [place] % (Auto) Lymph # (Auto) 1.1 L Seg Neutrophils % 80.4 H PT 15.6 H INR 1.18 H D-Dimer Heparin Anti-Xa Level ABG pH POC ABG pCO2 POC ABG pO2 ABG pO2 ABG O2 Saturation ABG Hemoglobin ABG Oxyhemoglobin ABG Sodium ABG Potassium ABG Glucose Potassium Carbon Dioxide BUN 36 H Creatinine 1.4 H Glucose 258 H POC Glucose Calcium AST ALT Lactate Dehydrogenase CK-MB (CK-2) 4.8 H CK-MB (CK-2) Rel Index 4.5 H Troponin T 0.041 H C-Reactive Protein Total Protein Albumin Arterial Blood Glucose Arterial Blood Ionized Calcium Urine WBC (Auto) Urine Creatinine Urine Total Protein Rheumatoid Factor 06/15/21 06/15/21 06/15/21 05:00 05:18 05:18 MCV MCH MCHC RDW Lymph % (Auto) [place] % (Auto) Lymph # (Auto) Seg Neutrophils % PT INR D-Dimer 1785.61 H Heparin Anti-Xa Level ABG pH POC ABG pCO2 POC ABG pO2 ABG pO2 184.7 H ABG O2 Saturation 99.2 H ABG Hemoglobin ABG Oxyhemoglobin ABG Sodium ABG Potassium ABG Glucose Potassium Carbon Dioxide BUN Creatinine Glucose POC Glucose Calcium AST ALT Lactate Dehydrogenase 243 H CK-MB (CK-2) CK-MB (CK-2) Rel Index Troponin T C-Reactive Protein 3.00 H Total Protein Albumin Arterial Blood Glucose Arterial Blood Ionized Calcium Urine WBC (Auto) Urine Creatinine Urine Total Protein Rheumatoid Factor 06/15/21 06/15/21 06/15/21 06:30 07:39 09:05 MCV MCH MCHC RDW Lymph % (Auto) [place] % (Auto) Lymph # (Auto) Seg Neutrophils % PT INR D-Dimer Heparin Anti-Xa Level ABG pH POC ABG pCO2 POC ABG pO2 ABG pO2 ABG O2 Saturation ABG Hemoglobin ABG Oxyhemoglobin ABG Sodium ABG Potassium ABG Glucose Potassium Carbon Dioxide BUN Creatinine Glucose POC Glucose 231 H Calcium AST ALT Lactate Dehydrogenase CK-MB (CK-2) CK-MB (CK-2) Rel Index Troponin T 0.058 H D 0.062 H C-Reactive Protein Total Protein Albumin Arterial Blood Glucose Arterial Blood Ionized Calcium Urine WBC (Auto) Urine Creatinine Urine Total Protein Rheumatoid Factor 06/15/21 06/15/21 06/15/21 09:15 09:34 13:09 MCV MCH MCHC RDW Lymph % (Auto) [place] % (Auto) Lymph # (Auto) Seg Neutrophils % PT INR D-Dimer Heparin Anti-Xa Level ABG pH POC ABG pCO2 POC ABG pO2 ABG pO2 ABG O2 Saturation ABG Hemoglobin ABG Oxyhemoglobin ABG Sodium ABG Potassium ABG Glucose Potassium Carbon Dioxide BUN Creatinine Glucose POC Glucose 240 H Calcium AST ALT Lactate Dehydrogenase CK-MB (CK-2) CK-MB (CK-2) Rel Index Troponin T C-Reactive Protein Total Protein Albumin Arterial Blood Glucose Arterial Blood Ionized Calcium Urine WBC (Auto) 8.0 H Urine Creatinine 146.5 H Urine Total Protein 216 H Rheumatoid Factor 06/15/21 06/15/21 06/15/21 16:05 18:14 23:09 MCV MCH MCHC RDW Lymph % (Auto) [place] % (Auto) Lymph # (Auto) Seg Neutrophils % PT INR D-Dimer Heparin Anti-Xa Level < 0.10 L ABG pH POC ABG pCO2 POC ABG pO2 ABG pO2 ABG O2 Saturation ABG Hemoglobin ABG Oxyhemoglobin ABG Sodium ABG Potassium ABG Glucose Potassium Carbon Dioxide BUN Creatinine Glucose POC Glucose 150 H 179 H Calcium AST ALT Lactate Dehydrogenase CK-MB (CK-2) CK-MB (CK-2) Rel Index Troponin T C-Reactive Protein Total Protein Albumin Arterial Blood Glucose Arterial Blood Ionized Calcium Urine WBC (Auto) Urine Creatinine Urine Total Protein Rheumatoid Factor 06/15/21 06/16/21 06/16/21 23:43 05:00 05:17 MCV MCH MCHC RDW Lymph % (Auto) [place] % (Auto) Lymph # (Auto) Seg Neutrophils % PT INR D-Dimer Heparin Anti-Xa Level < 0.10 L ABG pH 7.693 H POC ABG pCO2 18.6 L POC ABG pO2 147.2 H ABG pO2 ABG O2 Saturation ABG Hemoglobin ABG Oxyhemoglobin 98.5 H ABG Sodium ABG Potassium 3.0 L ABG Glucose 178 H Potassium Carbon Dioxide BUN Creatinine Glucose POC Glucose 182 H Calcium AST ALT Lactate Dehydrogenase CK-MB (CK-2) CK-MB (CK-2) Rel Index Troponin T C-Reactive Protein Total Protein Albumin Arterial Blood Glucose 178 H Arterial Blood Ionized Calcium 4.5 L Urine WBC (Auto) Urine Creatinine Urine Total Protein Rheumatoid Factor 06/16/21 06/16/21 06/16/21 06:16 06:16 06:16 MCV 77 L MCH 24 L MCHC RDW Lymph % (Auto) [place] % (Auto) 7.5 H Lymph # (Auto) Seg Neutrophils % 73.8 H PT 16.0 H INR 1.22 H D-Dimer Heparin Anti-Xa Level ABG pH POC ABG pCO2 POC ABG pO2 ABG pO2 ABG O2 Saturation ABG Hemoglobin ABG Oxyhemoglobin ABG Sodium ABG Potassium ABG Glucose Potassium 3.1 L D Carbon Dioxide BUN 40 H Creatinine 1.4 H Glucose 154 H POC Glucose Calcium AST 48 H ALT 69 H Lactate Dehydrogenase CK-MB (CK-2) CK-MB (CK-2) Rel Index Troponin T C-Reactive Protein Total Protein 5.8 L Albumin 3.0 L Arterial Blood Glucose Arterial Blood Ionized Calcium Urine WBC (Auto) Urine Creatinine Urine Total Protein Rheumatoid Factor 06/16/21 06/16/21 06/16/21 10:20 16:20 17:43 MCV MCH MCHC RDW Lymph % (Auto) [place] % (Auto) Lymph # (Auto) Seg Neutrophils % PT INR D-Dimer Heparin Anti-Xa Level 0.26 L ABG pH POC ABG pCO2 POC ABG pO2 ABG pO2 ABG O2 Saturation ABG Hemoglobin ABG Oxyhemoglobin ABG Sodium ABG Potassium ABG Glucose Potassium 3.2 L Carbon Dioxide BUN 42 H Creatinine 1.3 H Glucose 161 H POC Glucose 163 H Calcium AST ALT Lactate Dehydrogenase CK-MB (CK-2) CK-MB (CK-2) Rel Index Troponin T C-Reactive Protein Total Protein Albumin Arterial Blood Glucose Arterial Blood Ionized Calcium Urine WBC (Auto) Urine Creatinine Urine Total Protein Rheumatoid Factor 06/16/21 06/16/21 06/17/21 18:40 23:12 03:26 MCV MCH MCHC RDW Lymph % (Auto) [place] % (Auto) Lymph # (Auto) Seg Neutrophils % PT INR D-Dimer Heparin Anti-Xa Level ABG pH 7.470 H POC ABG pCO2 POC ABG pO2 ABG pO2 ABG O2 Saturation ABG Hemoglobin 11.4 L ABG Oxyhemoglobin ABG Sodium ABG Potassium 3.1 L ABG Glucose 170 H Potassium Carbon Dioxide BUN Creatinine Glucose POC Glucose 173 H Calcium AST ALT Lactate Dehydrogenase CK-MB (CK-2) CK-MB (CK-2) Rel Index Troponin T C-Reactive Protein Total Protein Albumin Arterial Blood Glucose 170 H Arterial Blood Ionized Calcium Urine WBC (Auto) Urine Creatinine Urine Total Protein Rheumatoid Factor 20 H 06/17/21 06/17/21 06/17/21 05:45 05:45 06:16 MCV 76 L MCH 24 L MCHC RDW Lymph % (Auto) [place] % (Auto) Lymph # (Auto) Seg Neutrophils % PT INR D-Dimer Heparin Anti-Xa Level ABG pH POC ABG pCO2 POC ABG pO2 ABG pO2 ABG O2 Saturation ABG Hemoglobin ABG Oxyhemoglobin ABG Sodium ABG Potassium ABG Glucose Potassium 3.1 L Carbon Dioxide BUN 48 H Creatinine 2.1 H D Glucose 156 H POC Glucose 141 H Calcium 8.2 L AST 61 H ALT Lactate Dehydrogenase CK-MB (CK-2) CK-MB (CK-2) Rel Index Troponin T C-Reactive Protein Total Protein 5.5 L Albumin 2.6 L Arterial Blood Glucose Arterial Blood Ionized Calcium Urine WBC (Auto) Urine Creatinine Urine Total Protein Rheumatoid Factor 06/17/21 06/17/21 06/17/21 12:05 16:10 17:44 MCV MCH MCHC RDW Lymph % (Auto) [place] % (Auto) Lymph # (Auto) Seg Neutrophils % PT INR D-Dimer Heparin Anti-Xa Level 0.26 L ABG pH POC ABG pCO2 POC ABG pO2 ABG pO2 ABG O2 Saturation ABG Hemoglobin ABG Oxyhemoglobin ABG Sodium ABG Potassium ABG Glucose Potassium Carbon Dioxide BUN Creatinine Glucose POC Glucose 138 H 149 H Calcium AST ALT Lactate Dehydrogenase CK-MB (CK-2) CK-MB (CK-2) Rel Index Troponin T C-Reactive Protein Total Protein Albumin Arterial Blood Glucose Arterial Blood Ionized Calcium Urine WBC (Auto) Urine Creatinine Urine Total Protein Rheumatoid Factor 06/17/21 06/18/21 06/18/21 23:51 03:41 03:53 MCV MCH MCHC RDW Lymph % (Auto) [place] % (Auto) Lymph # (Auto) Seg Neutrophils % PT INR D-Dimer Heparin Anti-Xa Level 0.20 L ABG pH 7.638 H POC ABG pCO2 18.3 L POC ABG pO2 133.6 H ABG pO2 ABG O2 Saturation ABG Hemoglobin 11.7 L ABG Oxyhemoglobin ABG Sodium 132.9 L ABG Potassium 3.2 L ABG Glucose 166 H Potassium Carbon Dioxide BUN Creatinine Glucose POC Glucose 195 H Calcium AST ALT Lactate Dehydrogenase CK-MB (CK-2) CK-MB (CK-2) Rel Index Troponin T C-Reactive Protein Total Protein Albumin Arterial Blood Glucose 166 H Arterial Blood Ionized Calcium Urine WBC (Auto) Urine Creatinine Urine Total Protein Rheumatoid Factor 06/18/21 06/18/21 06/18/21 04:00 04:00 05:51 MCV 75 L MCH 24 L MCHC RDW Lymph % (Auto) [place] % (Auto) Lymph # (Auto) Seg Neutrophils % PT INR D-Dimer Heparin Anti-Xa Level ABG pH POC ABG pCO2 POC ABG pO2 ABG pO2 ABG O2 Saturation ABG Hemoglobin ABG Oxyhemoglobin ABG Sodium ABG Potassium ABG Glucose Potassium 3.3 L Carbon Dioxide 21 L BUN 48 H Creatinine 1.6 H Glucose 177 H POC Glucose 176 H Calcium AST 78 H ALT Lactate Dehydrogenase CK-MB (CK-2) CK-MB (CK-2) Rel Index Troponin T C-Reactive Protein Total Protein 5.6 L Albumin 2.5 L Arterial Blood Glucose Arterial Blood Ionized Calcium Urine WBC (Auto) Urine Creatinine Urine Total Protein Rheumatoid Factor 06/18/21 06/18/21 06/18/21 11:26 12:00 18:02 MCV MCH MCHC RDW Lymph % (Auto) [place] % (Auto) Lymph # (Auto) Seg Neutrophils % PT INR D-Dimer Heparin Anti-Xa Level ABG pH POC ABG pCO2 POC ABG pO2 ABG pO2 ABG O2 Saturation ABG Hemoglobin 11.8 L ABG Oxyhemoglobin ABG Sodium 135.6 L ABG Potassium 3.2 L ABG Glucose 213 H Potassium Carbon Dioxide BUN Creatinine Glucose POC Glucose 183 H 208 H Calcium AST ALT Lactate Dehydrogenase CK-MB (CK-2) CK-MB (CK-2) Rel Index Troponin T C-Reactive Protein Total Protein Albumin Arterial Blood Glucose 213 H Arterial Blood Ionized Calcium Urine WBC (Auto) Urine Creatinine Urine Total Protein Rheumatoid Factor 06/18/21 06/19/21 06/19/21 23:39 04:04 05:26 MCV MCH MCHC RDW Lymph % (Auto) [place] % (Auto) Lymph # (Auto) Seg Neutrophils % PT INR D-Dimer Heparin Anti-Xa Level ABG pH 7.500 H POC ABG pCO2 27.1 L POC ABG pO2 119.7 H ABG pO2 ABG O2 Saturation ABG Hemoglobin ABG Oxyhemoglobin ABG Sodium 135.4 L ABG Potassium ABG Glucose 242 H Potassium Carbon Dioxide BUN Creatinine Glucose POC Glucose 207 H 222 H Calcium AST ALT Lactate Dehydrogenase CK-MB (CK-2) CK-MB (CK-2) Rel Index Troponin T C-Reactive Protein Total Protein Albumin Arterial Blood Glucose 242 H Arterial Blood Ionized Calcium Urine WBC (Auto) Urine Creatinine Urine Total Protein Rheumatoid Factor 06/19/21 06/19/21 06/19/21 07:35 07:35 11:16 MCV 75 L MCH 24 L MCHC RDW Lymph % (Auto) [place] % (Auto) Lymph # (Auto) Seg Neutrophils % PT INR D-Dimer Heparin Anti-Xa Level ABG pH POC ABG pCO2 POC ABG pO2 ABG pO2 ABG O2 Saturation ABG Hemoglobin ABG Oxyhemoglobin ABG Sodium ABG Potassium ABG Glucose Potassium Carbon Dioxide BUN 38 H Creatinine Glucose 259 H POC Glucose 267 H Calcium AST ALT Lactate Dehydrogenase CK-MB (CK-2) CK-MB (CK-2) Rel Index Troponin T C-Reactive Protein Total Protein Albumin Arterial Blood Glucose Arterial Blood Ionized Calcium Urine WBC (Auto) Urine Creatinine Urine Total Protein Rheumatoid Factor Assessment and Plan 1. Status Post Cardiac Arrest - Hypoxic - Ischemic Brain Affection . 2. Neurological Prognosis is Guarded . 3. Repeat Head CT would help further prognostication - if swelling prognosis is poor . 4. EEG 5. Follow up Dr. Aguilar
[2021-06-19] MEDS: SENNOSIDES/DOCUSATE SODIUM 8.6/50 MG TAB PO SCH (21:35)
[2021-06-19] MEDS ORDERED: INSULIN GLARGINE 100 UNITS/ML SUB-Q SCH (22:00)
[2021-06-20] MEDS: INSULIN LISPRO 100 UNIT/ML SUB-Q SCH ×5 (00:31→23:57)
--- NOTE | 2021-06-20 04:48 | XRay Report ---
CHEST 1 VIEW 06/20/2021 3:31 AM INDICATION / CLINICAL INFORMATION: follow up respiratory failure. COMPARISON: One view chest from 06/19/2020 FINDINGS: SUPPORT DEVICES: Unchanged. HEART / MEDIASTINUM: Stable. LUNGS / PLEURA: Right pulmonary opacities have slightly improved. Left pulmonary opacities are unchan ged. No significant pleural effusion. No pneumothorax. ADDITIONAL FINDINGS: No significant additional findings. IMPRESSION: 1. Slightly improved aeration of the right lung. No other significant interval changes. Signer Name: Bill Stevenson MD Signed: 06/20/2021 4:43 AM Workstation Name: [id number]
[2021-06-20 05:30] LABS: Hematocrit 37.5 % (30.3-42.9); Hemoglobin 11.8 gm/dl (10.1-14.3); Mean Corpuscular HGB Conc 31 % (30-34); Mean Corpuscular Volume 76 fl (79-97); Platelet Count 172 K/mm3 (140-440); Red Blood Count 4.94 M/mm3 (3.65-5.03); Red Cell Distribution Width 14.7 % (13.2-15.2)
[2021-06-20 05:42] LABS: BUN/Creatinine Ratio 35; Blood Urea Nitrogen 35 mg/dL (7-17); Calcium 9.6 mg/dL (8.4-10.2); Hemolysis Index 21
[2021-06-20] MEDS: HEPARIN 5,000 UNIT/1 ML VIAL SUB-Q SCH ×3 (06:57→23:57)
[2021-06-20] MEDS: GLYCOPYRROLATE 1 MG TAB PO SCH ×4 (09:15→23:57)
[2021-06-20] MEDS: hydrALAZINE 100 MG TAB PO SCH ×3 (09:23→23:57)
[2021-06-20] MEDS: amLODIPine 10 MG TAB PO SCH (09:23)
[2021-06-20] MEDS: FAMOTIDINE 20 MG TAB PO SCH ×2 (09:24→23:57)
[2021-06-20] MEDS: levETIRAcetam 500 MG/5 ML ORAL LIQD PO SCH ×2 (09:24→23:57)
--- NOTE | 2021-06-20 11:22 | Progress Note ---
Assessment and Plan Assessment and plan: 81-year-old female brought into the emergency room by EMS in cardiac arrest. Family was said to witnessed collapse. EMS had given 2 rounds of epi with return of spontaneous circulation. Most of the history was gotten from the ER staff at [facility] no available patient is currently intubated. No other information available at this time. Work-up in the emergency room, chest x-ray reveals bilateral patchy opacities most significant in the left lower lung and right upper lung. No pneumothorax. Labs significant for elevated troponin of 0.041, elevated BUN and creatinine of 36 and 1.4 respectively. D-dimer is 1785. 06/16: Patient seen and examined, still unresponsive, awaiting CT head and CTA chest. Continue heparin for possible PE and [place]. Continue abx for Bilateral Pneumonia. Cardiology, ID and Pulmonary. Poor prognosis. for out of hospital cardiac arrest May need Neurology ECHO Done result pending. 06/17: Remains clinically unchanged head CT unremarkable CT of the chest with angiogram shows no pulmonary embolism but bilateral infiltrates pneumonitis. Patient still not responded. Pupils appear fixed. She does not appear to have any gag reflex. Renal function worsening this could be secondary to contrast- induced will start on gentle hydration. Called brother to update and discuss of current clinical status and discuss poor prognostic indicators left a message requesting a call back. 06-19 no events overnight 06-20 no acute events overnight NEURO- AMS sp cardiopulmonary arrest; possible seizure likely due to anoxic event; acute encephalopathy; hx arthritis; hx dysphagia -CT ON 06/16 ANA MARIA -MRI - not able to perform due to body habitus -NM brain flow studies noted today -CT head read from today pending -Dr Aguilar following- neuro- appreciate recs -off all sedation -pupils pinpoint; no cough but with insertion of inline suction catheter there w as a twitching of the left side of face that stopped with removal of noxious stimuli -EEG- low voltage but no sz activity noted -keppra BID -case management following -family updated on plan of care -family conference pending CT results CV- sp cardiac arrest with ROSC; HTN; sp STEMI norvasc and hydral scheduled normal biV function on echo 06/16 CTA with b pleural effusions and atelectesis SB-SR Resp- acute resp failure hypoxic in nature - on MVS serial chest xrays trending ABG and lactate requiring mechanical ventilation 10-350-6-.30 PS trial if tolerates will likely need trach copious secretions continue robinol and scop GI nap TF to goal tolerating well nutrition following PPI bowel reg - a/c KD likely pre-renal sp cardiac arrest net pos 1.2 L over 24 hours trending Cr -now 1.0 avoid nephrotoxins renally dose meds follow and replace electrolytes renal ultrasound 06/15 noted purewik catheter monitor for retention AM labs ordered Heme- ana maria VTE SQH trend CBC no bleeding on exam hgb stable at 12 ID -nap no fevers WBC 7.9 ID following- off antibiotics since 06-18 cultures have been neg Endo DM II; hyperglycemia trending BG SSI PRN lantus scheduled avoid hypoglycemia The high probability of a clinically significant, sudden or life threatening deterioration of the [respiratory] system(s) required my full and direct attention, intervention and personal management. The aggregate critical care time was [60] minutes. This time is in addition to time spent performing reported procedures but includes the following: [x] Data Review and interpretation [x] Patient assessment and monitoring of vital signs [x] Documentation [x] Medication orders and management Disposition Plan: tbd Total Time Spent with Patient (Minutes): 60 History Interval history: ANA MARIA Hospitalist Physical - Constitutional Vitals: Temp Pulse Resp BP Pulse Ox 97.4 F L 83 16 139/58 99 06/20/21 03:39 06/20/21 09:23 06/20/21 07:00 06/20/21 09:23 06/20/21 08:51 General appearance: Present: no acute distress, other (Unresponsive, on the vent) - EENT Eyes: Present: EOM intact - Neck Neck: Present: normal ROM - Respiratory Respiratory effort: normal - Cardiovascular Rhythm: regular Heart Sounds: Present: S1 & S2 Peripheral Pulses: within normal limits - Abdominal General gastrointestinal: soft - Integumentary Integumentary: Present: clear, warm, dry - Psychiatric Psychiatric: other - Neurologic Neurologic: other - Allied Health Allied health notes reviewed: nursing, social work, case management HEART Score - HEART Score Troponin: Troponin T 0.062 ng/mL (0.00-0.029) H 06/15/21 09:05 Results - Labs CBC & Chem 7: 06/20/21 04:48 06/20/21 04:48 Labs: Laboratory Last Values WBC 7.9 K/mm3 (4.5-11.0) 06/20/21 04:48 RBC 4.94 M/mm3 (3.65-5.03) 06/20/21 04:48 Hgb 11.8 gm/dl (10.1-14.3) 06/20/21 04:48 Hct 37.5 % (30.3-42.9) 06/20/21 04:48 MCV 76 fl (79-97) L 06/20/21 04:48 MCH 24 pg (28-32) L 06/20/21 04:48 MCHC 31 % (30-34) 06/20/21 04:48 RDW 14.7 % (13.2-15.2) 06/20/21 04:48 Plt Count 172 K/mm3 (140-440) 06/20/21 04:48 Lymph % (Auto) 17.7 % (13.4-35.0) 06/16/21 06:16 [place] % (Auto) 7.5 % (0.0-7.3) H 06/16/21 06:16 Eos % (Auto) 0.5 % (0.0-4.3) 06/16/21 06:16 Baso % (Auto) 0.5 % (0.0-1.8) 06/16/21 06:16 Lymph # (Auto) 1.8 K/mm3 (1.2-5.4) 06/16/21 06:16 [place] # (Auto) 0.8 K/mm3 (0.0-0.8) 06/16/21 06:16 Eos # (Auto) 0.0 K/mm3 (0.0-0.4) 06/16/21 06:16 Baso # (Auto) 0.0 K/mm3 (0.0-0.1) 06/16/21 06:16 Seg Neutrophils % 73.8 % (40.0-70.0) H 06/16/21 06:16 Seg Neutrophils # 7.7 K/mm3 (1.8-7.7) 06/16/21 06:16 PT 16.0 Sec. (12.2-14.9) H 06/16/21 06:16 INR 1.22 (0.87-1.13) H 06/16/21 06:16 APTT 25.6 Sec. (24.2-36.6) 06/15/21 03:30 D-Dimer 1785.61 ng/mlDDU (0-234) H 06/15/21 05:18 Heparin Anti-Xa Level < 0.10 U.I./ml (0.3-0.7) L 06/20/21 04:48 ABG pH 7.493 (7.320-7.450) H 06/20/21 04:00 POC ABG pCO2 30.6 mmHg (32.0-48.0) L 06/20/21 04:00 ABG pCO2 36.3 mm Hg 06/15/21 05:00 POC ABG pO2 109.4 mmHg (83-108) H 06/20/21 04:00 ABG pO2 184.7 mm Hg (80.0-90.0) H 06/15/21 05:00 POC ABG HCO3 23.0 06/20/21 04:00 ABG HCO3 22.6 mmol/L (20.0-26.0) 06/15/21 05:00 ABG O2 Saturation 98.9 (0-100) 06/20/21 04:00 ABG O2 Content 16.6 (0.0-44) 06/15/21 05:00 POC ABG Base Excess 0.4 06/20/21 04:00 ABG Base Excess -1.5 mmol/L (-2.0-3.0) 06/15/21 05:00 ABG Hemoglobin 12.3 (12.0-17.5) 06/20/21 04:00 ABG Oxyhemoglobin 96.8 (94-98) 06/20/21 04:00 ABG Carboxyhemoglobin 2.1 % (0.0-5.0) 06/15/21 05:00 ABG Methemoglobin 0.2 (0.0-1.5) 06/20/21 04:00 ABG Sodium 134.4 mmol/L (136.0-145.0) L 06/20/21 04:00 ABG Potassium 3.8 mmol/L (3.40-4.50) 06/20/21 04:00 ABG Chloride 105.0 mmol/L (98-107) 06/20/21 04:00 ABG Glucose 242 mg/dL (65-95) H 06/20/21 04:00 Oxyhemoglobin 96.5 % (95.0-99.0) 06/15/21 05:00 Carboxyhemoglobin 1.9 (0.5-1.5) H 06/20/21 04:00 FiO2 100 % 06/15/21 05:00 FiO2 % 30.0 06/20/21 04:00 Sodium 138 mmol/L (137-145) 06/20/21 04:48 Potassium 4.2 mmol/L (3.6-5.0) 06/20/21 04:48 Chloride 101.5 mmol/L (98-107) 06/20/21 04:48 Carbon Dioxide 23 mmol/L (22-30) 06/20/21 04:48 Anion Gap 18 mmol/L 06/20/21 04:48 BUN 35 mg/dL (7-17) H 06/20/21 04:48 Creatinine 1.0 mg/dL (0.6-1.2) 06/20/21 04:48 Estimated GFR > 60 ml/min 06/20/21 04:48 BUN/Creatinine Ratio 35 % 06/20/21 04:48 Glucose 234 mg/dL (65-100) H 06/20/21 04:48 POC Glucose 231 mg/dL (70-105) H 06/20/21 04:57 Calcium 9.6 mg/dL (8.4-10.2) 06/20/21 04:48 Magnesium 2.00 mg/dL (1.7-2.3) 06/20/21 04:48 Total Bilirubin 0.80 mg/dL (0.1-1.2) 06/18/21 04:00 AST 78 units/L (5-40) H 06/18/21 04:00 ALT 36 units/L (7-56) 06/18/21 04:00 Alkaline Phosphatase 83 units/L (35-129) 06/18/21 04:00 Lactate Dehydrogenase 243 units/L (91-180) H 06/15/21 05:18 Total Creatine Kinase 105 units/L (30-135) 06/15/21 03:30 CK-MB (CK-2) 4.8 ng/mL (0.0-4.0) H 06/15/21 03:30 CK-MB (CK-2) Rel Index 4.5 (0-4) H 06/15/21 03:30 Troponin T 0.062 ng/mL (0.00-0.029) H 06/15/21 09:05 C-Reactive Protein 3.00 mg/dL (0.00-1.30) H 06/15/21 05:18 Total Protein 5.6 g/dL (6.3-8.2) L 06/18/21 04:00 Albumin 2.5 g/dL (3.9-5) L 06/18/21 04:00 Albumin/Globulin Ratio 0.8 % 06/18/21 04:00 Triglycerides 66 mg/dL (2-149) 06/15/21 03:30 Cholesterol 137 mg/dL (50-199) 06/15/21 03:30 LDL Cholesterol Direct 79 mg/dL (50-130) 06/15/21 03:30 HDL Cholesterol 58 mg/dL (40-59) 06/15/21 03:30 Cholesterol/HDL Ratio 2.36 % 06/15/21 03:30 Procalcitonin < 0.05 ng/mL (<0.15) 06/15/21 05:18 Arterial Blood Glucose 242 mg/dL (65-95) H 06/20/21 04:00 Arterial Blood Ionized Calcium 5.0 mg/dL (4.6-5.3) 06/20/21 04:00 Urine Color Jcaqui (Yellow) 06/15/21 09:34 Urine Turbidity Slightly-cloudy (Clear) 06/15/21 09:34 Urine pH 5.0 (5.0-7.0) 06/15/21 09:34 Ur Specific [place] 1.018 (1.003-1.030) 06/15/21 09:34 Urine Protein >500 mg/dL (Negative) 06/15/21 09:34 Urine Glucose (UA) 50 mg/dL (Negative) 06/15/21 09:34 Urine Ketones Tr mg/dL (Negative) 06/15/21 09:34 Urine Blood Sm (Negative) 06/15/21 09:34 Urine Nitrite Neg (Negative) 06/15/21 09:34 Urine Bilirubin Neg (Negative) 06/15/21 09:34 Urine Urobilinogen 2.0 mg/dL (<2.0) 06/15/21 09:34 Ur Leukocyte Esterase Neg (Negative) 06/15/21 09:34 Urine WBC (Auto) 8.0 /HPF (0.0-6.0) H 06/15/21 09:34 Urine RBC (Auto) 5.0 /HPF (0.0-6.0) 06/15/21 09:34 Urine Mucus Few /HPF 06/15/21 09:34 Urine Creatinine 146.5 mg/dL (0.1-20.0) H 06/15/21 09:15 Protein/Creatinin Ratio 1.47 06/15/21 09:15 Urine Total Protein 216 mg/dL (5-11.8) H 06/15/21 09:15 Rheumatoid Factor 20 IU/ml (0-13) H 06/16/21 18:40 Syphilis IgG Antibody Nonreactive (NonReactive) 06/16/21 18:40 Coronavirus (PCR) Negative (Negative) 06/15/21 08:30 Hep Bs Antigen Non-reactive (Negative) 06/16/21 18:40 Hepatitis C Antibody Non-reactive (NonReactive) 06/16/21 18:40 Blood Type O POSITIVE 06/15/21 03:30 Antibody Screen Negative 06/15/21 03:30 Microbiology: Microbiology 06/16/21 10:55 Peripheral/Venous Blood Culture - Preliminary NO GROWTH AFTER 4 DAYS 06/16/21 11:10 Peripheral/Venous Blood Culture - Preliminary NO GROWTH AFTER 72 HOURS 06/16/21 16:15 Urine,Scales Port Urine Culture - Final NO GROWTH AFTER 48 HOURS Scales/IV: Voiding Method External Female Catheter Active Medications - Current Medications Current Medications: Generic Name Dose Route Start Last Admin Trade Name Freq PRN Reason Stop Dose Admin Acetaminophen 650 mg 06/15/21 05:07 Acetaminophen 650 Mg Rect Supp TN Q6H PRN Pain MILD(1-3)/Fever >100.5/WHITE Amlodipine Besylate 10 mg 06/16/21 10:00 06/20/21 09:23 Amlodipine 10 Mg Tab PO 10 mg QDAY JONATHAN Administration Lipase/Protease/Amylase 1 each 06/16/21 10:30 Lipase 10,500/Protease 25,000/Amylase 43,750 (Units) Dr Cap FEEDTUBE PRN PRN For Clogged Feeding Tube Dextrose 0 ml 06/15/21 05:07 Dextrose 50% In Water (25gm) 50 Ml Syringe IV Q30MIN PRN Hypoglycemia Protocol Famotidine 20 mg 06/18/21 10:00 06/20/21 09:24 Famotidine 20 Mg Tab PO 20 mg BID JONATHAN Administration Fentanyl 50 mcg 06/15/21 03:06 Fentanyl 100 Mcg/2 Ml Inj IV Q10MIN PRN ANALGESIA Glycopyrrolate 1 mg 06/18/21 20:00 06/20/21 09:23 Glycopyrrolate 1 Mg Tab PO 1 mg TID JONATHAN Administration Heparin Sodium (Porcine) 5,000 unit 06/19/21 14:00 06/20/21 06:57 Heparin 5,000 Unit/1 Ml Vial SUB-Q 5,000 unit Q8HR JONATHAN Administration Hydralazine HCl 100 mg 06/16/21 08:00 06/20/21 09:23 Hydralazine 100 Mg Tab PO 100 mg TID JONATHAN Administration Hydralazine HCl 10 mg 06/19/21 10:55 Hydralazine 20 Mg/1 Ml Inj IV Q2H PRN SBP > 160 Hydrophilic Ointment 1 applic 06/15/21 03:06 Lip Therapy Vaseline TP Q2HR PRN Dry Lips Fentanyl Citrate 2,000 mcg in 100 mls @ 7.39 mls/hr 06/15/21 04:00 06/18/21 18:47 Fentanyl Drip Premix IV 0 mcg/kg/hr TITR JONATHAN 0 mls/hr Titration Protocol 1 MCG/KG/HR Propofol 1,000 mg in 100 mls @ 4.434 mls/hr 06/15/21 16:00 06/17/21 18:25 Diprivan 10 Mg/Ml IV 0 mcg/kg/min TITR JONATHAN 0 mls/hr Titration Protocol 5 MCG/KG/MIN Insulin Glargine 10 units 06/20/21 22:00 Insulin Glargine 100 Units/Ml SUB-Q QHS JONATHAN Insulin Human Lispro 0 unit 06/15/21 12:00 06/20/21 06:57 Insulin Lispro 100 Unit/Ml SUB-Q 4 unit Q6HR JONATHAN Administration Protocol Labetalol HCl 10 mg 06/19/21 10:56 Labetalol 20 Mg/4 Ml Inj IV Q2H PRN Hypertension Levetiracetam 500 mg 06/19/21 10:00 06/20/21 09:24 Levetiracetam 500 Mg/5 Ml Oral Liqd PO 500 mg BID JONATHAN Administration Multi-Ingred Cream/Lotion/Oil/Oint 1 applic 06/15/21 03:06 Mineral Oil/Petrolatum, White Ophth Oint 3.5 Gm OU Q4HR PRN Dry Eye(s) Scopolamine 1 each 06/18/21 15:00 06/18/21 15:21 Scopolamine Transdermal Patch 72 Hr TD 1 each Q3D JONATHAN Administration Senna/Docusate Sodium 1 tab 06/15/21 22:00 06/19/21 21:35 Sennosides/Docusate Sodium 8.6/50 Mg Tab PO 1 tab QHS JONATHAN Administration Simple Syrup 15 ml 06/16/21 10:30 Simple Syrup 15 Ml FEEDTUBE PRN PRN Hypoglycemia Simple Syrup 30 ml 06/16/21 10:30 Simple Syrup 15 Ml FEEDTUBE PRN PRN Hypoglycemia Sodium Bicarbonate 325 mg 06/16/21 10:30 Sodium Bicarbonate 325 Mg Tab FEEDTUBE PRN PRN For Clogged Feeding Tube Sodium Chloride 10 ml 06/15/21 10:00 06/20/21 09:24 Sodium Chloride 0.9% 10 Ml Flush Syringe IV 10 ml BID JONATHAN Administration Sodium Chloride 10 ml 06/15/21 05:07 Sodium Chloride 0.9% 10 Ml Flush Syringe IV PRN PRN LINE FLUSH Nutrition/Malnutrition Assess - Dietary Evaluation Nutrition/Malnutrition Findings: Nutrition Notes Start: 06/15/21 08:35 Freq: Status: Active Protocol: Document 06/18/21 11:47 (Rec: 06/18/21 11:51 [id number]) Nutrition Notes Initial or Follow up Reassessment Current Diagnosis Acute Kidney Injury,Diabetes, Hypertension Other Pertinent Diagnosis cardiac arrest Current Diet Glucerna 1.2 at 65 ml/hr Labs/Tests K 3.3 BUN 48 Cr 1.6 Pertinent Medications Kcl 20 mEq NS at 75 ml/hr Height 5 ft 9 in Weight 147.8 kg [place] Body Weight (kg) 65.90 BMI 48.1 Weight Status Morbidly Obese Subjective/Other Information FU for TF tolerance. Observed TF running at 45 ml/hr. RN to increase rate. Pt tolerating. Percent of energy/protein needs met: 90%/57% Burn Absent Trauma Absent Current % PO Negligible Minimum of two criteria No Fluid Accumulation Mild (non-severe) #1 Nutrition Diagnosis Inadequate oral intake Diagnosis Progress(for reassessment Continues documentation) Is patient on ventilator? Yes Is Patient Ambulatory and/or Out of Bed No REE-(Carter-St. Jeor-confined to bed) 2426.664 Kcal/Kg value to use for calculation 13 Approximate Energy Requirements Using 1921 kcal/Kg Calculation Used for Recommendations Kcal/kg Additional Notes Protein: (up to 2.5g/kg IBW) < 165g Fluid: 1 ml/kcal or per MD Nutrition Intervention Change Diet Order: continue Nutrition Support: Glucerna 1.2 at 65 ml/hr Flush 100 ml q4h Kcal 1,728 Protein (gm) 94 Fluid (mL) 1,256 Goal #1 Meet at least 75% of kcal needs and protein needs as best as possible via TF Anticipated Discharge Needs: Unable to determine at this time Follow-Up By: 06/21/21 Additional Comments FU for TF tolerance - Attestation Statement I have reviewed and agreed w/ Malnutrition eval & tx plan: Yes
--- NOTE | 2021-06-20 11:55 | Progress Note ---
Assessment and Plan - Patient Problems (1) Cardiopulmonary arrest Current Visit: Yes Status: Acute Plan to address problem: Admitted to the hospital following an out of hospital cardiopulmonary arrest. There was transient atrial fibrillation in the field, associated with ongoing ACLS procedures including epinephrine administration. Echocardiogram showed left ventricular ejection fraction 45-50%, mild concentric left ventricular hypertrophy. Most significant finding is moderate to severe dilatation of the left atrium, and mild to moderate dilatation of the right heart chambers. CTA of the chest is reported by radiology as showing "no convincing evidence of pulmonary embolism". Supportive cardiac management. Subjective Date of service: 06/20/21 Principal diagnosis: Ac hypoxemic resp failure; Cardiac arrest; RIGOBERTO; AMS; NSTEMI Interval history: Remains unresponsive, on the vent. Neurology workup is in progress. Currently, stable sinus rhythm on telemetry. Objective Vital Signs Temp Pulse Pulse Resp BP Pulse Ox 06/20/21 09:23 83 139/58 06/20/21 08:51 80 135/53 99 06/20/21 07:00 83 16 154/59 96 06/20/21 06:00 79 11 L 149/65 96 06/20/21 05:00 76 14 149/65 97 06/20/21 04:30 72 157/64 99 06/20/21 04:00 82 33 H 143/62 98 06/20/21 03:39 97.4 F L 06/20/21 03:00 82 10 L 143/62 97 06/20/21 02:00 97.6 F 61 9 L 143/62 97 06/20/21 01:01 56 L 10 L 140/66 97 06/20/21 00:15 59 L 135/65 100 06/20/21 00:01 51 L 10 L 135/65 96 06/20/21 00:00 51 L 100 06/19/21 23:15 52 L 9 L 128/63 100 06/19/21 23:01 58 L 25 H 128/63 97 06/19/21 22:01 57 L 12 132/60 96 06/19/21 21:01 69 17 155/68 95 06/19/21 20:00 71 10 L 159/73 100 06/19/21 19:55 73 152/70 99 06/19/21 19:01 61 24 152/70 94 06/19/21 18:01 61 20 137/63 95 06/19/21 17:01 68 16 183/162 96 06/19/21 16:53 97 F L 06/19/21 16:00 66 55 L 10 L 139/69 95 06/19/21 15:48 54 L 134/65 99 06/19/21 15:00 52 L 25 H 134/65 96 06/19/21 14:00 57 L 17 133/64 95 06/19/21 13:00 72 30 H 138/60 95 06/19/21 12:00 97.7 F 82 61 22 176/79 97 - Physical Examination General: Other (Unresponsive, on the vent) Cardiac: Positive: Reg Rate and Rhythm Neuro: Positive: Other (Unresponsive, on the vent) Abdomen: Positive: Other (obese) - Labs and Meds CBC 06/20/21 Range/Units 04:48 WBC 7.9 (4.5-11.0) K/mm3 RBC 4.94 (3.65-5.03) M/mm3 Hgb 11.8 (10.1-14.3) gm/dl Hct 37.5 (30.3-42.9) % Plt Count 172 (140-440) K/mm3 Comprehensive Metabolic Panel 06/20/21 Range/Units 04:48 Sodium 138 (137-145) mmol/L Potassium 4.2 (3.6-5.0) mmol/L Chloride 101.5 (98-107) mmol/L Carbon Dioxide 23 (22-30) mmol/L BUN 35 H (7-17) mg/dL Creatinine 1.0 (0.6-1.2) mg/dL Glucose 234 H (65-100) mg/dL Calcium 9.6 (8.4-10.2) mg/dL - Allied health notes Allied health notes reviewed: nursing
--- NOTE | 2021-06-20 12:30 | Nuclear Medicine Report ---
Nuclear medicine brain perfusion scan. CLINICAL HISTORY: Status post myocardial infarction. Evaluate for brain perfusion. TECHNIQUE: 20 mCi of technetium 99m pertechnetate were injected. Dynamic imaging was acquired and del ayed static images were obtained. FINDINGS: There is markedly decreased activity in the intracranial compartment. There is a virtual absence of i ntracranial radiotracer. Normal salivary gland and thyroid activity is observed. These findings are c onsistent with but not (in the absence of appropriate clinical findings) diagnostic of brain . IMPRESSION: Markedly decreased perfusion of the brain. Signer Name: Ventura Rosado MD Signed: 06/20/2021 12:22 PM Workstation Name: [id number]
--- NOTE | 2021-06-20 12:43 | Progress Note ---
Assessment and Plan Acute hypoxemic respiratory failure on MVS Cardiac arrest with ROSC Possible seizure activity Acute encephalopathy Acute kidney injury Non-ST elevation myocardial infarction Morbid obesity Hyperglycemia Arthritis Oropharyngeal dysphagia HTN - await CT brain result - family conference call thereafter - await neurology re-evaluation - continue empiric Keppra - continue scopolamine and robinul for secretion control - continue care as below otherwise; - cardiology evaluation ongoing re: NSTEMI - continue IV Heparin for now - continue Daily SAT and SBT assessment as tolerated - continue to wean supplemental oxygen for target O2 sat's > 90% acutely - VAP bundle addressed - continue lung protective strategies - continue bronchodilators with pulmonary hygiene per RT - wean per pulmonary driven protocols otherwise - continue accuchecks with glycemic control per SSI (While critically ill target blood glucose of 140-180 mg/dL; avoid hypoglycemia) - sedation prn for target RASS 0 to -1 - azotemia per nephrology team; no acute indication for dialysis - continue to avoid nephrotoxins, renally dose all medications - continue to avoid benzodiazepine's, reduce the possibility of delirium - complete AB's per ID rec's (Zosyn) - prn analgesia per CPOT score - Maintenance of sleep-wake cycle, avoid delirium - continue enteral nutritional support at goal rate as tolerated - G.I. & VTE prophylaxis - PT/OT/ROM exercises - continue mobility protocols for pressure ulcer prophylaxis - Monitor hemodynamics closely - continue other care per attending / other consultants - discharge planning ongoing concurrently COVID SPECIFIC INTERVENTIONS - COVID PCR negative .... Re-evaluate in am & prn CONDITION: CRITICAL PROGNOSIS: GUARDED CODE STATUS: FULL CODE The high probability of a clinically significant, sudden or life-threatening deterioration of the [respiratory, cardiovascular, renal & neurologic] system(s) required my full and direct attention, intervention and personal management. The aggregate critical care time was [33] minutes without overlap. Time includes spent on; [x] Data Review and interpretation [x] Patient assessment and monitoring of vital signs [x] Documentation [x] Medication orders and management Subjective Date of service: 06/20/21 Principal diagnosis: Ac hypoxemic resp failure; Cardiac arrest; RIGOBERTO; AMS; NSTEMI Interval history: Patient is seen today for: Acute hypoxemic respiratory failure; Cardiac arrest with ROSC; Possible seizure activity; RIGOBERTO; Acute encephalopathy; NSTEMI Seen and examined at bedside; 24hour events reviewed; nursing and respiratory care staff consulted; no adverse overnight events reported to me; restin in bed; remains on MVS; AMS is persistent; NM Brain floiw with minimal flow seen; await CT head; attempted to call [facility] (brother Lb Fine @ [phone] and left voice message to call hospital); no emesis or overt aspiration Objective Vital Signs - 12hr 06/20/21 06/20/21 06/20/21 01:01 02:00 03:00 Temperature 97.6 F Pulse Rate 56 L 61 82 Respiratory 10 L 9 L 10 L Rate Blood Pressure 140/66 143/62 143/62 O2 Sat by Pulse 97 97 97 Oximetry 06/20/21 06/20/21 06/20/21 03:39 04:00 04:30 Temperature 97.4 F L Pulse Rate 82 72 Respiratory 33 H Rate Blood Pressure 143/62 157/64 O2 Sat by Pulse 98 99 Oximetry 06/20/21 06/20/21 06/20/21 05:00 06:00 07:00 Temperature Pulse Rate 76 79 83 Respiratory 14 11 L 16 Rate Blood Pressure 149/65 149/65 154/59 O2 Sat by Pulse 97 96 96 Oximetry 06/20/21 06/20/21 08:51 09:23 Temperature Pulse Rate 80 83 Respiratory Rate Blood Pressure 135/53 139/58 O2 Sat by Pulse 99 Oximetry Constitutional: appears uncomfortable, other (elderly obese female with mildly increased respiratory effort at rest) Eyes: non-icteric ENT: oropharynx moist, oropharyngeal exudate pre (mild), other (ETT 23 cm CON) Neck: supple, no lymphadenopathy, no JVD, other (large circumference) Effort: mildly labored Ascultation: Bilateral: diminished breath sounds, rhonchi Percussion: Bilateral: not dull Cardiovascular: regular rate and rhythm Gastrointestinal: normoactive bowel sounds, soft, non-tender, non-distended (protuberant) Integumentary: normal Extremities: no cyanosis, no edema, pulses normal, no ischemia or petechiae Neurologic: pupils equal and round, unable to assess Psychiatric: other (unable to assess re: AMS) CBC and BMP: 06/20/21 04:48 06/20/21 04:48 ABG, PT/INR, D-dimer: ABG ABG pH 7.493 (7.320-7.450) H 06/20/21 04:00 POC ABG pCO2 30.6 mmHg (32.0-48.0) L 06/20/21 04:00 ABG pCO2 36.3 mm Hg 06/15/21 05:00 POC ABG pO2 109.4 mmHg (83-108) H 06/20/21 04:00 ABG pO2 184.7 mm Hg (80.0-90.0) H 06/15/21 05:00 POC ABG HCO3 23.0 06/20/21 04:00 ABG O2 Saturation 98.9 (0-100) 06/20/21 04:00 PT/INR, D-dimer PT 16.0 Sec. (12.2-14.9) H 06/16/21 06:16 INR 1.22 (0.87-1.13) H 06/16/21 06:16 D-Dimer 1785.61 ng/mlDDU (0-234) H 06/15/21 05:18 Abnormal lab findings: Abnormal Labs 06/15/21 06/15/21 06/15/21 03:30 03:30 03:30 MCV MCH 24 L MCHC 29 L RDW 15.8 H Lymph % (Auto) 12.8 L Bee % (Auto) Lymph # (Auto) 1.1 L Seg Neutrophils % 80.4 H PT 15.6 H INR 1.18 H D-Dimer Heparin Anti-Xa Level ABG pH POC ABG pCO2 POC ABG pO2 ABG pO2 ABG O2 Saturation ABG Hemoglobin ABG Oxyhemoglobin ABG Sodium ABG Potassium ABG Glucose Carboxyhemoglobin Potassium Carbon Dioxide BUN 36 H Creatinine 1.4 H Glucose 258 H POC Glucose Calcium AST ALT Lactate Dehydrogenase CK-MB (CK-2) 4.8 H CK-MB (CK-2) Rel Index 4.5 H Troponin T 0.041 H C-Reactive Protein Total Protein Albumin Arterial Blood Glucose Arterial Blood Ionized Calcium Urine WBC (Auto) Urine Creatinine Urine Total Protein Rheumatoid Factor 06/15/21 06/15/21 06/15/21 05:00 05:18 05:18 MCV MCH MCHC RDW Lymph % (Auto) Bee % (Auto) Lymph # (Auto) Seg Neutrophils % PT INR D-Dimer 1785.61 H Heparin Anti-Xa Level ABG pH POC ABG pCO2 POC ABG pO2 ABG pO2 184.7 H ABG O2 Saturation 99.2 H ABG Hemoglobin ABG Oxyhemoglobin ABG Sodium ABG Potassium ABG Glucose Carboxyhemoglobin Potassium Carbon Dioxide BUN Creatinine Glucose POC Glucose Calcium AST ALT Lactate Dehydrogenase 243 H CK-MB (CK-2) CK-MB (CK-2) Rel Index Troponin T C-Reactive Protein 3.00 H Total Protein Albumin Arterial Blood Glucose Arterial Blood Ionized Calcium Urine WBC (Auto) Urine Creatinine Urine Total Protein Rheumatoid Factor 06/15/21 06/15/21 06/15/21 06:30 07:39 09:05 MCV MCH MCHC RDW Lymph % (Auto) Bee % (Auto) Lymph # (Auto) Seg Neutrophils % PT INR D-Dimer Heparin Anti-Xa Level ABG pH POC ABG pCO2 POC ABG pO2 ABG pO2 ABG O2 Saturation ABG Hemoglobin ABG Oxyhemoglobin ABG Sodium ABG Potassium ABG Glucose Carboxyhemoglobin Potassium Carbon Dioxide BUN Creatinine Glucose POC Glucose 231 H Calcium AST ALT Lactate Dehydrogenase CK-MB (CK-2) CK-MB (CK-2) Rel Index Troponin T 0.058 H D 0.062 H C-Reactive Protein Total Protein Albumin Arterial Blood Glucose Arterial Blood Ionized Calcium Urine WBC (Auto) Urine Creatinine Urine Total Protein Rheumatoid Factor 06/15/21 06/15/21 06/15/21 09:15 09:34 13:09 MCV MCH MCHC RDW Lymph % (Auto) Bee % (Auto) Lymph # (Auto) Seg Neutrophils % PT INR D-Dimer Heparin Anti-Xa Level ABG pH POC ABG pCO2 POC ABG pO2 ABG pO2 ABG O2 Saturation ABG Hemoglobin ABG Oxyhemoglobin ABG Sodium ABG Potassium ABG Glucose Carboxyhemoglobin Potassium Carbon Dioxide BUN Creatinine Glucose POC Glucose 240 H Calcium AST ALT Lactate Dehydrogenase CK-MB (CK-2) CK-MB (CK-2) Rel Index Troponin T C-Reactive Protein Total Protein Albumin Arterial Blood Glucose Arterial Blood Ionized Calcium Urine WBC (Auto) 8.0 H Urine Creatinine 146.5 H Urine Total Protein 216 H Rheumatoid Factor 06/15/21 06/15/21 06/15/21 16:05 18:14 23:09 MCV MCH MCHC RDW Lymph % (Auto) Bee % (Auto) Lymph # (Auto) Seg Neutrophils % PT INR D-Dimer Heparin Anti-Xa Level < 0.10 L ABG pH POC ABG pCO2 POC ABG pO2 ABG pO2 ABG O2 Saturation ABG Hemoglobin ABG Oxyhemoglobin ABG Sodium ABG Potassium ABG Glucose Carboxyhemoglobin Potassium Carbon Dioxide BUN Creatinine Glucose POC Glucose 150 H 179 H Calcium AST ALT Lactate Dehydrogenase CK-MB (CK-2) CK-MB (CK-2) Rel Index Troponin T C-Reactive Protein Total Protein Albumin Arterial Blood Glucose Arterial Blood Ionized Calcium Urine WBC (Auto) Urine Creatinine Urine Total Protein Rheumatoid Factor 06/15/21 06/16/21 06/16/21 23:43 05:00 05:17 MCV MCH MCHC RDW Lymph % (Auto) Bee % (Auto) Lymph # (Auto) Seg Neutrophils % PT INR D-Dimer Heparin Anti-Xa Level < 0.10 L ABG pH 7.693 H POC ABG pCO2 18.6 L POC ABG pO2 147.2 H ABG pO2 ABG O2 Saturation ABG Hemoglobin ABG Oxyhemoglobin 98.5 H ABG Sodium ABG Potassium 3.0 L ABG Glucose 178 H Carboxyhemoglobin Potassium Carbon Dioxide BUN Creatinine Glucose POC Glucose 182 H Calcium AST ALT Lactate Dehydrogenase CK-MB (CK-2) CK-MB (CK-2) Rel Index Troponin T C-Reactive Protein Total Protein Albumin Arterial Blood Glucose 178 H Arterial Blood Ionized Calcium 4.5 L Urine WBC (Auto) Urine Creatinine Urine Total Protein Rheumatoid Factor 06/16/21 06/16/21 06/16/21 06:16 06:16 06:16 MCV 77 L MCH 24 L MCHC RDW Lymph % (Auto) Bee % (Auto) 7.5 H Lymph # (Auto) Seg Neutrophils % 73.8 H PT 16.0 H INR 1.22 H D-Dimer Heparin Anti-Xa Level ABG pH POC ABG pCO2 POC ABG pO2 ABG pO2 ABG O2 Saturation ABG Hemoglobin ABG Oxyhemoglobin ABG Sodium ABG Potassium ABG Glucose Carboxyhemoglobin Potassium 3.1 L D Carbon Dioxide BUN 40 H Creatinine 1.4 H Glucose 154 H POC Glucose Calcium AST 48 H ALT 69 H Lactate Dehydrogenase CK-MB (CK-2) CK-MB (CK-2) Rel Index Troponin T C-Reactive Protein Total Protein 5.8 L Albumin 3.0 L Arterial Blood Glucose Arterial Blood Ionized Calcium Urine WBC (Auto) Urine Creatinine Urine Total Protein Rheumatoid Factor 06/16/21 06/16/21 06/16/21 10:20 16:20 17:43 MCV MCH MCHC RDW Lymph % (Auto) Bee % (Auto) Lymph # (Auto) Seg Neutrophils % PT INR D-Dimer Heparin Anti-Xa Level 0.26 L ABG pH POC ABG pCO2 POC ABG pO2 ABG pO2 ABG O2 Saturation ABG Hemoglobin ABG Oxyhemoglobin ABG Sodium ABG Potassium ABG Glucose Carboxyhemoglobin Potassium 3.2 L Carbon Dioxide BUN 42 H Creatinine 1.3 H Glucose 161 H POC Glucose 163 H Calcium AST ALT Lactate Dehydrogenase CK-MB (CK-2) CK-MB (CK-2) Rel Index Troponin T C-Reactive Protein Total Protein Albumin Arterial Blood Glucose Arterial Blood Ionized Calcium Urine WBC (Auto) Urine Creatinine Urine Total Protein Rheumatoid Factor 06/16/21 06/16/21 06/17/21 18:40 23:12 03:26 MCV MCH MCHC RDW Lymph % (Auto) Bee % (Auto) Lymph # (Auto) Seg Neutrophils % PT INR D-Dimer Heparin Anti-Xa Level ABG pH 7.470 H POC ABG pCO2 POC ABG pO2 ABG pO2 ABG O2 Saturation ABG Hemoglobin 11.4 L ABG Oxyhemoglobin ABG Sodium ABG Potassium 3.1 L ABG Glucose 170 H Carboxyhemoglobin Potassium Carbon Dioxide BUN Creatinine Glucose POC Glucose 173 H Calcium AST ALT Lactate Dehydrogenase CK-MB (CK-2) CK-MB (CK-2) Rel Index Troponin T C-Reactive Protein Total Protein Albumin Arterial Blood Glucose 170 H Arterial Blood Ionized Calcium Urine WBC (Auto) Urine Creatinine Urine Total Protein Rheumatoid Factor 20 H 06/17/21 06/17/21 06/17/21 05:45 05:45 06:16 MCV 76 L MCH 24 L MCHC RDW Lymph % (Auto) Bee % (Auto) Lymph # (Auto) Seg Neutrophils % PT INR D-Dimer Heparin Anti-Xa Level ABG pH POC ABG pCO2 POC ABG pO2 ABG pO2 ABG O2 Saturation ABG Hemoglobin ABG Oxyhemoglobin ABG Sodium ABG Potassium ABG Glucose Carboxyhemoglobin Potassium 3.1 L Carbon Dioxide BUN 48 H Creatinine 2.1 H D Glucose 156 H POC Glucose 141 H Calcium 8.2 L AST 61 H ALT Lactate Dehydrogenase CK-MB (CK-2) CK-MB (CK-2) Rel Index Troponin T C-Reactive Protein Total Protein 5.5 L Albumin 2.6 L Arterial Blood Glucose Arterial Blood Ionized Calcium Urine WBC (Auto) Urine Creatinine Urine Total Protein Rheumatoid Factor 06/17/21 06/17/21 06/17/21 12:05 16:10 17:44 MCV MCH MCHC RDW Lymph % (Auto) Bee % (Auto) Lymph # (Auto) Seg Neutrophils % PT INR D-Dimer Heparin Anti-Xa Level 0.26 L ABG pH POC ABG pCO2 POC ABG pO2 ABG pO2 ABG O2 Saturation ABG Hemoglobin ABG Oxyhemoglobin ABG Sodium ABG Potassium ABG Glucose Carboxyhemoglobin Potassium Carbon Dioxide BUN Creatinine Glucose POC Glucose 138 H 149 H Calcium AST ALT Lactate Dehydrogenase CK-MB (CK-2) CK-MB (CK-2) Rel Index Troponin T C-Reactive Protein Total Protein Albumin Arterial Blood Glucose Arterial Blood Ionized Calcium Urine WBC (Auto) Urine Creatinine Urine Total Protein Rheumatoid Factor 06/17/21 06/18/21 06/18/21 23:51 03:41 03:53 MCV MCH MCHC RDW Lymph % (Auto) Bee % (Auto) Lymph # (Auto) Seg Neutrophils % PT INR D-Dimer Heparin Anti-Xa Level 0.20 L ABG pH 7.638 H POC ABG pCO2 18.3 L POC ABG pO2 133.6 H ABG pO2 ABG O2 Saturation ABG Hemoglobin 11.7 L ABG Oxyhemoglobin ABG Sodium 132.9 L ABG Potassium 3.2 L ABG Glucose 166 H Carboxyhemoglobin Potassium Carbon Dioxide BUN Creatinine Glucose POC Glucose 195 H Calcium AST ALT Lactate Dehydrogenase CK-MB (CK-2) CK-MB (CK-2) Rel Index Troponin T C-Reactive Protein Total Protein Albumin Arterial Blood Glucose 166 H Arterial Blood Ionized Calcium Urine WBC (Auto) Urine Creatinine Urine Total Protein Rheumatoid Factor 06/18/21 06/18/21 06/18/21 04:00 04:00 05:51 MCV 75 L MCH 24 L MCHC RDW Lymph % (Auto) Bee % (Auto) Lymph # (Auto) Seg Neutrophils % PT INR D-Dimer Heparin Anti-Xa Level ABG pH POC ABG pCO2 POC ABG pO2 ABG pO2 ABG O2 Saturation ABG Hemoglobin ABG Oxyhemoglobin ABG Sodium ABG Potassium ABG Glucose Carboxyhemoglobin Potassium 3.3 L Carbon Dioxide 21 L BUN 48 H Creatinine 1.6 H Glucose 177 H POC Glucose 176 H Calcium AST 78 H ALT Lactate Dehydrogenase CK-MB (CK-2) CK-MB (CK-2) Rel Index Troponin T C-Reactive Protein Total Protein 5.6 L Albumin 2.5 L Arterial Blood Glucose Arterial Blood Ionized Calcium Urine WBC (Auto) Urine Creatinine Urine Total Protein Rheumatoid Factor 06/18/21 06/18/21 06/18/21 11:26 12:00 18:02 MCV MCH MCHC RDW Lymph % (Auto) Bee % (Auto) Lymph # (Auto) Seg Neutrophils % PT INR D-Dimer Heparin Anti-Xa Level ABG pH POC ABG pCO2 POC ABG pO2 ABG pO2 ABG O2 Saturation ABG Hemoglobin 11.8 L ABG Oxyhemoglobin ABG Sodium 135.6 L ABG Potassium 3.2 L ABG Glucose 213 H Carboxyhemoglobin Potassium Carbon Dioxide BUN Creatinine Glucose POC Glucose 183 H 208 H Calcium AST ALT Lactate Dehydrogenase CK-MB (CK-2) CK-MB (CK-2) Rel Index Troponin T C-Reactive Protein Total Protein Albumin Arterial Blood Glucose 213 H Arterial Blood Ionized Calcium Urine WBC (Auto) Urine Creatinine Urine Total Protein Rheumatoid Factor 06/18/21 06/19/21 06/19/21 23:39 04:04 05:26 MCV MCH MCHC RDW Lymph % (Auto) Bee % (Auto) Lymph # (Auto) Seg Neutrophils % PT INR D-Dimer Heparin Anti-Xa Level ABG pH 7.500 H POC ABG pCO2 27.1 L POC ABG pO2 119.7 H ABG pO2 ABG O2 Saturation ABG Hemoglobin ABG Oxyhemoglobin ABG Sodium 135.4 L ABG Potassium ABG Glucose 242 H Carboxyhemoglobin Potassium Carbon Dioxide BUN Creatinine Glucose POC Glucose 207 H 222 H Calcium AST ALT Lactate Dehydrogenase CK-MB (CK-2) CK-MB (CK-2) Rel Index Troponin T C-Reactive Protein Total Protein Albumin Arterial Blood Glucose 242 H Arterial Blood Ionized Calcium Urine WBC (Auto) Urine Creatinine Urine Total Protein Rheumatoid Factor 06/19/21 06/19/21 06/19/21 07:35 07:35 11:16 MCV 75 L MCH 24 L MCHC RDW Lymph % (Auto) Bee % (Auto) Lymph # (Auto) Seg Neutrophils % PT INR D-Dimer Heparin Anti-Xa Level ABG pH POC ABG pCO2 POC ABG pO2 ABG pO2 ABG O2 Saturation ABG Hemoglobin ABG Oxyhemoglobin ABG Sodium ABG Potassium ABG Glucose Carboxyhemoglobin Potassium Carbon Dioxide BUN 38 H Creatinine Glucose 259 H POC Glucose 267 H Calcium AST ALT Lactate Dehydrogenase CK-MB (CK-2) CK-MB (CK-2) Rel Index Troponin T C-Reactive Protein Total Protein Albumin Arterial Blood Glucose Arterial Blood Ionized Calcium Urine WBC (Auto) Urine Creatinine Urine Total Protein Rheumatoid Factor 06/19/21 06/19/21 06/19/21 17:50 18:19 23:31 MCV MCH MCHC RDW Lymph % (Auto) Bee % (Auto) Lymph # (Auto) Seg Neutrophils % PT INR D-Dimer Heparin Anti-Xa Level ABG pH POC ABG pCO2 POC ABG pO2 ABG pO2 ABG O2 Saturation ABG Hemoglobin ABG Oxyhemoglobin ABG Sodium ABG Potassium ABG Glucose Carboxyhemoglobin Potassium Carbon Dioxide BUN Creatinine Glucose POC Glucose 203 H 215 H 217 H Calcium AST ALT Lactate Dehydrogenase CK-MB (CK-2) CK-MB (CK-2) Rel Index Troponin T C-Reactive Protein Total Protein Albumin Arterial Blood Glucose Arterial Blood Ionized Calcium Urine WBC (Auto) Urine Creatinine Urine Total Protein Rheumatoid Factor 06/20/21 06/20/21 06/20/21 04:00 04:48 04:48 MCV 76 L MCH 24 L MCHC RDW Lymph % (Auto) Bee % (Auto) Lymph # (Auto) Seg Neutrophils % PT INR D-Dimer Heparin Anti-Xa Level < 0.10 L ABG pH 7.493 H POC ABG pCO2 30.6 L POC ABG pO2 109.4 H ABG pO2 ABG O2 Saturation ABG Hemoglobin ABG Oxyhemoglobin ABG Sodium 134.4 L ABG Potassium ABG Glucose 242 H Carboxyhemoglobin 1.9 H Potassium Carbon Dioxide BUN Creatinine Glucose POC Glucose Calcium AST ALT Lactate Dehydrogenase CK-MB (CK-2) CK-MB (CK-2) Rel Index Troponin T C-Reactive Protein Total Protein Albumin Arterial Blood Glucose 242 H Arterial Blood Ionized Calcium Urine WBC (Auto) Urine Creatinine Urine Total Protein Rheumatoid Factor 06/20/21 06/20/21 06/20/21 04:48 04:57 11:33 MCV MCH MCHC RDW Lymph % (Auto) Bee % (Auto) Lymph # (Auto) Seg Neutrophils % PT INR D-Dimer Heparin Anti-Xa Level ABG pH POC ABG pCO2 POC ABG pO2 ABG pO2 ABG O2 Saturation ABG Hemoglobin ABG Oxyhemoglobin ABG Sodium ABG Potassium ABG Glucose Carboxyhemoglobin Potassium Carbon Dioxide BUN 35 H Creatinine Glucose 234 H POC Glucose 231 H 241 H Calcium AST ALT Lactate Dehydrogenase CK-MB (CK-2) CK-MB (CK-2) Rel Index Troponin T C-Reactive Protein Total Protein Albumin Arterial Blood Glucose Arterial Blood Ionized Calcium Urine WBC (Auto) Urine Creatinine Urine Total Protein Rheumatoid Factor Chest x-ray: image reviewed Allied health notes reviewed: nursing
--- NOTE | 2021-06-20 15:08 | Progress Note ---
Subjective Date of service: 06/20/21 Principal diagnosis: Ac hypoxemic resp failure; Cardiac arrest; RIGOBERTO; AMS; NSTEMI Interval history: Reviewed Workup , With Brain Perfusion Scan suggestive of Decreased BF and no improvement in the neurological status - now DAY 5 , overall Neurological Prognosis is Guarded . Dr. Jeff SEYMOUR Objective - Vital Sign Vital Signs - 12hr 06/20/21 06/20/21 06/20/21 03:39 04:00 04:30 Temperature 97.4 F L Pulse Rate 82 72 Respiratory 33 H Rate Blood Pressure 143/62 157/64 O2 Sat by Pulse 98 99 Oximetry 06/20/21 06/20/21 06/20/21 05:00 06:00 07:00 Temperature Pulse Rate 76 79 83 Respiratory 14 11 L 16 Rate Blood Pressure 149/65 149/65 154/59 O2 Sat by Pulse 97 96 96 Oximetry 06/20/21 06/20/21 06/20/21 08:00 08:51 09:00 Temperature Pulse Rate 79 80 82 Respiratory 14 14 Rate Blood Pressure 135/53 135/53 135/53 O2 Sat by Pulse 95 99 95 Oximetry 06/20/21 06/20/21 06/20/21 09:23 10:00 11:28 Temperature Pulse Rate 83 84 96 H Respiratory 20 13 Rate Blood Pressure 139/58 139/58 135/51 O2 Sat by Pulse 97 100 Oximetry 06/20/21 06/20/21 06/20/21 12:00 12:25 13:00 Temperature Pulse Rate 94 H 83 83 Respiratory 19 13 Rate Blood Pressure 133/51 139/58 126/53 O2 Sat by Pulse 93 99 93 Oximetry 06/20/21 14:00 Temperature Pulse Rate 70 Respiratory 10 L Rate Blood Pressure 122/52 O2 Sat by Pulse 93 Oximetry - Laboratory Findings CBC and BMP: 06/20/21 04:48 06/20/21 04:48 Abnormal Lab Findings: Abnormal Labs 06/15/21 06/15/21 06/15/21 03:30 03:30 03:30 MCV MCH 24 L MCHC 29 L RDW 15.8 H Lymph % (Auto) 12.8 L [place] % (Auto) Lymph # (Auto) 1.1 L Seg Neutrophils % 80.4 H PT 15.6 H INR 1.18 H D-Dimer Heparin Anti-Xa Level ABG pH POC ABG pCO2 POC ABG pO2 ABG pO2 ABG O2 Saturation ABG Hemoglobin ABG Oxyhemoglobin ABG Sodium ABG Potassium ABG Glucose Carboxyhemoglobin Potassium Carbon Dioxide BUN 36 H Creatinine 1.4 H Glucose 258 H POC Glucose Calcium AST ALT Lactate Dehydrogenase CK-MB (CK-2) 4.8 H CK-MB (CK-2) Rel Index 4.5 H Troponin T 0.041 H C-Reactive Protein Total Protein Albumin Arterial Blood Glucose Arterial Blood Ionized Calcium Urine WBC (Auto) Urine Creatinine Urine Total Protein Rheumatoid Factor 06/15/21 06/15/21 06/15/21 05:00 05:18 05:18 MCV MCH MCHC RDW Lymph % (Auto) [place] % (Auto) Lymph # (Auto) Seg Neutrophils % PT INR D-Dimer 1785.61 H Heparin Anti-Xa Level ABG pH POC ABG pCO2 POC ABG pO2 ABG pO2 184.7 H ABG O2 Saturation 99.2 H ABG Hemoglobin ABG Oxyhemoglobin ABG Sodium ABG Potassium ABG Glucose Carboxyhemoglobin Potassium Carbon Dioxide BUN Creatinine Glucose POC Glucose Calcium AST ALT Lactate Dehydrogenase 243 H CK-MB (CK-2) CK-MB (CK-2) Rel Index Troponin T C-Reactive Protein 3.00 H Total Protein Albumin Arterial Blood Glucose Arterial Blood Ionized Calcium Urine WBC (Auto) Urine Creatinine Urine Total Protein Rheumatoid Factor 06/15/21 06/15/21 06/15/21 06:30 07:39 09:05 MCV MCH MCHC RDW Lymph % (Auto) [place] % (Auto) Lymph # (Auto) Seg Neutrophils % PT INR D-Dimer Heparin Anti-Xa Level ABG pH POC ABG pCO2 POC ABG pO2 ABG pO2 ABG O2 Saturation ABG Hemoglobin ABG Oxyhemoglobin ABG Sodium ABG Potassium ABG Glucose Carboxyhemoglobin Potassium Carbon Dioxide BUN Creatinine Glucose POC Glucose 231 H Calcium AST ALT Lactate Dehydrogenase CK-MB (CK-2) CK-MB (CK-2) Rel Index Troponin T 0.058 H D 0.062 H C-Reactive Protein Total Protein Albumin Arterial Blood Glucose Arterial Blood Ionized Calcium Urine WBC (Auto) Urine Creatinine Urine Total Protein Rheumatoid Factor 06/15/21 06/15/21 06/15/21 09:15 09:34 13:09 MCV MCH MCHC RDW Lymph % (Auto) [place] % (Auto) Lymph # (Auto) Seg Neutrophils % PT INR D-Dimer Heparin Anti-Xa Level ABG pH POC ABG pCO2 POC ABG pO2 ABG pO2 ABG O2 Saturation ABG Hemoglobin ABG Oxyhemoglobin ABG Sodium ABG Potassium ABG Glucose Carboxyhemoglobin Potassium Carbon Dioxide BUN Creatinine Glucose POC Glucose 240 H Calcium AST ALT Lactate Dehydrogenase CK-MB (CK-2) CK-MB (CK-2) Rel Index Troponin T C-Reactive Protein Total Protein Albumin Arterial Blood Glucose Arterial Blood Ionized Calcium Urine WBC (Auto) 8.0 H Urine Creatinine 146.5 H Urine Total Protein 216 H Rheumatoid Factor 06/15/21 06/15/21 06/15/21 16:05 18:14 23:09 MCV MCH MCHC RDW Lymph % (Auto) [place] % (Auto) Lymph # (Auto) Seg Neutrophils % PT INR D-Dimer Heparin Anti-Xa Level < 0.10 L ABG pH POC ABG pCO2 POC ABG pO2 ABG pO2 ABG O2 Saturation ABG Hemoglobin ABG Oxyhemoglobin ABG Sodium ABG Potassium ABG Glucose Carboxyhemoglobin Potassium Carbon Dioxide BUN Creatinine Glucose POC Glucose 150 H 179 H Calcium AST ALT Lactate Dehydrogenase CK-MB (CK-2) CK-MB (CK-2) Rel Index Troponin T C-Reactive Protein Total Protein Albumin Arterial Blood Glucose Arterial Blood Ionized Calcium Urine WBC (Auto) Urine Creatinine Urine Total Protein Rheumatoid Factor 06/15/21 06/16/21 06/16/21 23:43 05:00 05:17 MCV MCH MCHC RDW Lymph % (Auto) [place] % (Auto) Lymph # (Auto) Seg Neutrophils % PT INR D-Dimer Heparin Anti-Xa Level < 0.10 L ABG pH 7.693 H POC ABG pCO2 18.6 L POC ABG pO2 147.2 H ABG pO2 ABG O2 Saturation ABG Hemoglobin ABG Oxyhemoglobin 98.5 H ABG Sodium ABG Potassium 3.0 L ABG Glucose 178 H Carboxyhemoglobin Potassium Carbon Dioxide BUN Creatinine Glucose POC Glucose 182 H Calcium AST ALT Lactate Dehydrogenase CK-MB (CK-2) CK-MB (CK-2) Rel Index Troponin T C-Reactive Protein Total Protein Albumin Arterial Blood Glucose 178 H Arterial Blood Ionized Calcium 4.5 L Urine WBC (Auto) Urine Creatinine Urine Total Protein Rheumatoid Factor 06/16/21 06/16/21 06/16/21 06:16 06:16 06:16 MCV 77 L MCH 24 L MCHC RDW Lymph % (Auto) [place] % (Auto) 7.5 H Lymph # (Auto) Seg Neutrophils % 73.8 H PT 16.0 H INR 1.22 H D-Dimer Heparin Anti-Xa Level ABG pH POC ABG pCO2 POC ABG pO2 ABG pO2 ABG O2 Saturation ABG Hemoglobin ABG Oxyhemoglobin ABG Sodium ABG Potassium ABG Glucose Carboxyhemoglobin Potassium 3.1 L D Carbon Dioxide BUN 40 H Creatinine 1.4 H Glucose 154 H POC Glucose Calcium AST 48 H ALT 69 H Lactate Dehydrogenase CK-MB (CK-2) CK-MB (CK-2) Rel Index Troponin T C-Reactive Protein Total Protein 5.8 L Albumin 3.0 L Arterial Blood Glucose Arterial Blood Ionized Calcium Urine WBC (Auto) Urine Creatinine Urine Total Protein Rheumatoid Factor 06/16/21 06/16/21 06/16/21 10:20 16:20 17:43 MCV MCH MCHC RDW Lymph % (Auto) [place] % (Auto) Lymph # (Auto) Seg Neutrophils % PT INR D-Dimer Heparin Anti-Xa Level 0.26 L ABG pH POC ABG pCO2 POC ABG pO2 ABG pO2 ABG O2 Saturation ABG Hemoglobin ABG Oxyhemoglobin ABG Sodium ABG Potassium ABG Glucose Carboxyhemoglobin Potassium 3.2 L Carbon Dioxide BUN 42 H Creatinine 1.3 H Glucose 161 H POC Glucose 163 H Calcium AST ALT Lactate Dehydrogenase CK-MB (CK-2) CK-MB (CK-2) Rel Index Troponin T C-Reactive Protein Total Protein Albumin Arterial Blood Glucose Arterial Blood Ionized Calcium Urine WBC (Auto) Urine Creatinine Urine Total Protein Rheumatoid Factor 06/16/21 06/16/21 06/17/21 18:40 23:12 03:26 MCV MCH MCHC RDW Lymph % (Auto) [place] % (Auto) Lymph # (Auto) Seg Neutrophils % PT INR D-Dimer Heparin Anti-Xa Level ABG pH 7.470 H POC ABG pCO2 POC ABG pO2 ABG pO2 ABG O2 Saturation ABG Hemoglobin 11.4 L ABG Oxyhemoglobin ABG Sodium ABG Potassium 3.1 L ABG Glucose 170 H Carboxyhemoglobin Potassium Carbon Dioxide BUN Creatinine Glucose POC Glucose 173 H Calcium AST ALT Lactate Dehydrogenase CK-MB (CK-2) CK-MB (CK-2) Rel Index Troponin T C-Reactive Protein Total Protein Albumin Arterial Blood Glucose 170 H Arterial Blood Ionized Calcium Urine WBC (Auto) Urine Creatinine Urine Total Protein Rheumatoid Factor 20 H 06/17/21 06/17/21 06/17/21 05:45 05:45 06:16 MCV 76 L MCH 24 L MCHC RDW Lymph % (Auto) [place] % (Auto) Lymph # (Auto) Seg Neutrophils % PT INR D-Dimer Heparin Anti-Xa Level ABG pH POC ABG pCO2 POC ABG pO2 ABG pO2 ABG O2 Saturation ABG Hemoglobin ABG Oxyhemoglobin ABG Sodium ABG Potassium ABG Glucose Carboxyhemoglobin Potassium 3.1 L Carbon Dioxide BUN 48 H Creatinine 2.1 H D Glucose 156 H POC Glucose 141 H Calcium 8.2 L AST 61 H ALT Lactate Dehydrogenase CK-MB (CK-2) CK-MB (CK-2) Rel Index Troponin T C-Reactive Protein Total Protein 5.5 L Albumin 2.6 L Arterial Blood Glucose Arterial Blood Ionized Calcium Urine WBC (Auto) Urine Creatinine Urine Total Protein Rheumatoid Factor 06/17/21 06/17/21 06/17/21 12:05 16:10 17:44 MCV MCH MCHC RDW Lymph % (Auto) [place] % (Auto) Lymph # (Auto) Seg Neutrophils % PT INR D-Dimer Heparin Anti-Xa Level 0.26 L ABG pH POC ABG pCO2 POC ABG pO2 ABG pO2 ABG O2 Saturation ABG Hemoglobin ABG Oxyhemoglobin ABG Sodium ABG Potassium ABG Glucose Carboxyhemoglobin Potassium Carbon Dioxide BUN Creatinine Glucose POC Glucose 138 H 149 H Calcium AST ALT Lactate Dehydrogenase CK-MB (CK-2) CK-MB (CK-2) Rel Index Troponin T C-Reactive Protein Total Protein Albumin Arterial Blood Glucose Arterial Blood Ionized Calcium Urine WBC (Auto) Urine Creatinine Urine Total Protein Rheumatoid Factor 06/17/21 06/18/21 06/18/21 23:51 03:41 03:53 MCV MCH MCHC RDW Lymph % (Auto) [place] % (Auto) Lymph # (Auto) Seg Neutrophils % PT INR D-Dimer Heparin Anti-Xa Level 0.20 L ABG pH 7.638 H POC ABG pCO2 18.3 L POC ABG pO2 133.6 H ABG pO2 ABG O2 Saturation ABG Hemoglobin 11.7 L ABG Oxyhemoglobin ABG Sodium 132.9 L ABG Potassium 3.2 L ABG Glucose 166 H Carboxyhemoglobin Potassium Carbon Dioxide BUN Creatinine Glucose POC Glucose 195 H Calcium AST ALT Lactate Dehydrogenase CK-MB (CK-2) CK-MB (CK-2) Rel Index Troponin T C-Reactive Protein Total Protein Albumin Arterial Blood Glucose 166 H Arterial Blood Ionized Calcium Urine WBC (Auto) Urine Creatinine Urine Total Protein Rheumatoid Factor 06/18/21 06/18/21 06/18/21 04:00 04:00 05:51 MCV 75 L MCH 24 L MCHC RDW Lymph % (Auto) [place] % (Auto) Lymph # (Auto) Seg Neutrophils % PT INR D-Dimer Heparin Anti-Xa Level ABG pH POC ABG pCO2 POC ABG pO2 ABG pO2 ABG O2 Saturation ABG Hemoglobin ABG Oxyhemoglobin ABG Sodium ABG Potassium ABG Glucose Carboxyhemoglobin Potassium 3.3 L Carbon Dioxide 21 L BUN 48 H Creatinine 1.6 H Glucose 177 H POC Glucose 176 H Calcium AST 78 H ALT Lactate Dehydrogenase CK-MB (CK-2) CK-MB (CK-2) Rel Index Troponin T C-Reactive Protein Total Protein 5.6 L Albumin 2.5 L Arterial Blood Glucose Arterial Blood Ionized Calcium Urine WBC (Auto) Urine Creatinine Urine Total Protein Rheumatoid Factor 06/18/21 06/18/21 06/18/21 11:26 12:00 18:02 MCV MCH MCHC RDW Lymph % (Auto) [place] % (Auto) Lymph # (Auto) Seg Neutrophils % PT INR D-Dimer Heparin Anti-Xa Level ABG pH POC ABG pCO2 POC ABG pO2 ABG pO2 ABG O2 Saturation ABG Hemoglobin 11.8 L ABG Oxyhemoglobin ABG Sodium 135.6 L ABG Potassium 3.2 L ABG Glucose 213 H Carboxyhemoglobin Potassium Carbon Dioxide BUN Creatinine Glucose POC Glucose 183 H 208 H Calcium AST ALT Lactate Dehydrogenase CK-MB (CK-2) CK-MB (CK-2) Rel Index Troponin T C-Reactive Protein Total Protein Albumin Arterial Blood Glucose 213 H Arterial Blood Ionized Calcium Urine WBC (Auto) Urine Creatinine Urine Total Protein Rheumatoid Factor 06/18/21 06/19/21 06/19/21 23:39 04:04 05:26 MCV MCH MCHC RDW Lymph % (Auto) [place] % (Auto) Lymph # (Auto) Seg Neutrophils % PT INR D-Dimer Heparin Anti-Xa Level ABG pH 7.500 H POC ABG pCO2 27.1 L POC ABG pO2 119.7 H ABG pO2 ABG O2 Saturation ABG Hemoglobin ABG Oxyhemoglobin ABG Sodium 135.4 L ABG Potassium ABG Glucose 242 H Carboxyhemoglobin Potassium Carbon Dioxide BUN Creatinine Glucose POC Glucose 207 H 222 H Calcium AST ALT Lactate Dehydrogenase CK-MB (CK-2) CK-MB (CK-2) Rel Index Troponin T C-Reactive Protein Total Protein Albumin Arterial Blood Glucose 242 H Arterial Blood Ionized Calcium Urine WBC (Auto) Urine Creatinine Urine Total Protein Rheumatoid Factor 06/19/21 06/19/21 06/19/21 07:35 07:35 11:16 MCV 75 L MCH 24 L MCHC RDW Lymph % (Auto) [place] % (Auto) Lymph # (Auto) Seg Neutrophils % PT INR D-Dimer Heparin Anti-Xa Level ABG pH POC ABG pCO2 POC ABG pO2 ABG pO2 ABG O2 Saturation ABG Hemoglobin ABG Oxyhemoglobin ABG Sodium ABG Potassium ABG Glucose Carboxyhemoglobin Potassium Carbon Dioxide BUN 38 H Creatinine Glucose 259 H POC Glucose 267 H Calcium AST ALT Lactate Dehydrogenase CK-MB (CK-2) CK-MB (CK-2) Rel Index Troponin T C-Reactive Protein Total Protein Albumin Arterial Blood Glucose Arterial Blood Ionized Calcium Urine WBC (Auto) Urine Creatinine Urine Total Protein Rheumatoid Factor 06/19/21 06/19/21 06/19/21 17:50 18:19 23:31 MCV MCH MCHC RDW Lymph % (Auto) [place] % (Auto) Lymph # (Auto) Seg Neutrophils % PT INR D-Dimer Heparin Anti-Xa Level ABG pH POC ABG pCO2 POC ABG pO2 ABG pO2 ABG O2 Saturation ABG Hemoglobin ABG Oxyhemoglobin ABG Sodium ABG Potassium ABG Glucose Carboxyhemoglobin Potassium Carbon Dioxide BUN Creatinine Glucose POC Glucose 203 H 215 H 217 H Calcium AST ALT Lactate Dehydrogenase CK-MB (CK-2) CK-MB (CK-2) Rel Index Troponin T C-Reactive Protein Total Protein Albumin Arterial Blood Glucose Arterial Blood Ionized Calcium Urine WBC (Auto) Urine Creatinine Urine Total Protein Rheumatoid Factor 06/20/21 06/20/21 06/20/21 04:00 04:48 04:48 MCV 76 L MCH 24 L MCHC RDW Lymph % (Auto) [place] % (Auto) Lymph # (Auto) Seg Neutrophils % PT INR D-Dimer Heparin Anti-Xa Level < 0.10 L ABG pH 7.493 H POC ABG pCO2 30.6 L POC ABG pO2 109.4 H ABG pO2 ABG O2 Saturation ABG Hemoglobin ABG Oxyhemoglobin ABG Sodium 134.4 L ABG Potassium ABG Glucose 242 H Carboxyhemoglobin 1.9 H Potassium Carbon Dioxide BUN Creatinine Glucose POC Glucose Calcium AST ALT Lactate Dehydrogenase CK-MB (CK-2) CK-MB (CK-2) Rel Index Troponin T C-Reactive Protein Total Protein Albumin Arterial Blood Glucose 242 H Arterial Blood Ionized Calcium Urine WBC (Auto) Urine Creatinine Urine Total Protein Rheumatoid Factor 06/20/21 06/20/21 06/20/21 04:48 04:57 11:33 MCV MCH MCHC RDW Lymph % (Auto) [place] % (Auto) Lymph # (Auto) Seg Neutrophils % PT INR D-Dimer Heparin Anti-Xa Level ABG pH POC ABG pCO2 POC ABG pO2 ABG pO2 ABG O2 Saturation ABG Hemoglobin ABG Oxyhemoglobin ABG Sodium ABG Potassium ABG Glucose Carboxyhemoglobin Potassium Carbon Dioxide BUN 35 H Creatinine Glucose 234 H POC Glucose 231 H 241 H Calcium AST ALT Lactate Dehydrogenase CK-MB (CK-2) CK-MB (CK-2) Rel Index Troponin T C-Reactive Protein Total Protein Albumin Arterial Blood Glucose Arterial Blood Ionized Calcium Urine WBC (Auto) Urine Creatinine Urine Total Protein Rheumatoid Factor
[2021-06-20 20:44] LABS: Myeloperoxidase Antibody <1.0 AI (<1.0)
[2021-06-20] MEDS ORDERED: INSULIN GLARGINE 100 UNITS/ML SUB-Q SCH (22:00)
[2021-06-20 23:49] LABS: ANA Screen, IFA Negative (Negative)
[2021-06-20] MEDS: SENNOSIDES/DOCUSATE SODIUM 8.6/50 MG TAB PO SCH (23:56)
--- NOTE | 2021-06-21 03:28 | XRay Report ---
CHEST 1 VIEW 06/21/2021 2:19 AM INDICATION / CLINICAL INFORMATION: follow up respiratory failure. COMPARISON: One view of the chest from 06/20/2021 FINDINGS: SUPPORT DEVICES: Unchanged. HEART / MEDIASTINUM: Stable. LUNGS / PLEURA: Increased bilateral pulmonary opacities. No significant pleural effusion. No pneumoth orax. ADDITIONAL FINDINGS: No significant additional findings. IMPRESSION: Increased bilateral pulmonary opacities. No other significant interval changes. Signer Name: Bill Stevenson MD Signed: 06/21/2021 3:23 AM Workstation Name: [id number]
[2021-06-21] MEDS ORDERED: niCARdipine 50 MG in SODIUM CHLORIDE 0.9% 250ML 230 ML IV SCH (04:00)
[2021-06-21 06:08] LABS: Albumin 2.3 g/dL (3.8-4.8); Gamma Globulin 0.7 g/dL (0.8-1.7)
[2021-06-21] MEDS: INSULIN LISPRO 100 UNIT/ML SUB-Q SCH ×3 (06:38→18:29)
[2021-06-21] MEDS: HEPARIN 5,000 UNIT/1 ML VIAL SUB-Q SCH ×3 (06:39→21:51)
--- NOTE | 2021-06-21 06:59 | Cat Scan Report ---
CT HEAD WITHOUT CONTRAST INDICATION : AMS. TECHNIQUE: Axial, coronal and sagittal CT imaging was performed from the skull apex through the skul l base without contrast. All CT scans at this location are performed using CT dose reduction for ALA RA by means of automated exposure control. COMPARISON: CT head without contrast from 06/16/2021 FINDINGS: PARENCHYMA: No mass, midline shift, hemorrhage, extraaxial collection or acute territorial infarctio n. VENTRICLES: Symmetric and normal in size. SOFT TISSUES: No significant abnormality of the included soft tissues/orbits. BONES: No acute osseous abnormality. SINUSES: Moderate mucosal thickening is again seen throughout the ethmoid air cells with mild mucosal thickening elsewhere. The mastoid air cells are patent. ADDITIONAL FINDINGS: None. IMPRESSION: 1. No acute intracranial abnormality. Signer Name: Bill Stevenson MD Signed: 06/21/2021 6:54 AM Workstation Name: [id number]
[2021-06-21 08:36] LABS: Hematocrit 37.1 % (30.3-42.9); Hemoglobin 11.8 gm/dl (10.1-14.3); Mean Corpuscular HGB Conc 32 % (30-34); Mean Corpuscular Volume 75 fl (79-97); Platelet Count 174 K/mm3 (140-440); Red Blood Count 4.93 M/mm3 (3.65-5.03); Red Cell Distribution Width 14.8 % (13.2-15.2)
[2021-06-21 09:06] LABS: Alanine Aminotransferase 41 units/L (7-56); Albumin 3.4 g/dL (3.9-5); BUN/Creatinine Ratio 37; Blood Urea Nitrogen 33 mg/dL (7-17); Hemolysis Index 1
--- NOTE | 2021-06-21 09:28 | Progress Note ---
Assessment and Plan - Patient Problems (1) Cardiopulmonary arrest Current Visit: Yes Status: Acute Plan to address problem: Admitted to the hospital following an out of hospital cardiopulmonary arrest. There was transient atrial fibrillation in the field, associated with ongoing ACLS procedures including epinephrine administration. Echocardiogram showed left ventricular ejection fraction 45-50%, mild concentric left ventricular hypertrophy. Most significant finding is moderate to severe dilatation of the left atrium, and mild to moderate dilatation of the right heart chambers. CTA of the chest is reported by radiology as showing "no convincing evidence of pulmonary embolism". Supportive cardiac management. Subjective Date of service: 06/21/21 Principal diagnosis: Ac hypoxemic resp failure; Cardiac arrest; RIGOBERTO; AMS; NSTEMI Interval history: Remains unresponsive, on the vent. No cardiac events reported overnight. Objective Vital Signs Temp Pulse Resp BP Pulse Ox 06/21/21 07:43 77 165/74 95 06/21/21 07:30 77 27 H 166/70 95 06/21/21 07:15 79 28 H 167/66 96 06/21/21 07:00 68 19 158/73 95 06/21/21 06:45 68 28 H 155/72 94 06/21/21 06:30 70 29 H 154/70 95 06/21/21 06:15 72 18 156/68 94 06/21/21 06:00 68 15 146/63 95 06/21/21 05:45 74 25 H 142/66 94 06/21/21 05:30 72 22 149/67 95 06/21/21 05:15 77 28 H 156/68 95 06/21/21 05:00 77 24 157/70 98 06/21/21 04:45 78 30 H 163/68 94 06/21/21 04:40 30 H 100 06/21/21 04:00 97.5 F L 80 11 L 172/84 98 06/21/21 03:53 71 206/85 99 06/21/21 03:00 87 15 172/84 98 06/21/21 02:00 63 26 H 178/80 99 06/21/21 01:39 63 178/80 06/21/21 01:00 74 28 H 197/92 100 06/21/21 00:30 64 28 H 100 06/21/21 00:00 72 31 H 184/59 100 06/20/21 23:57 72 180/57 100 06/20/21 23:45 97.4 F L 06/20/21 23:00 81 15 180/57 96 06/20/21 22:00 75 15 177/67 94 06/20/21 21:00 80 13 162/63 95 06/20/21 20:40 84 06/20/21 20:00 97.4 F L 87 11 L 153/70 94 06/20/21 19:54 82 153/70 99 06/20/21 19:00 68 30 H 153/70 96 06/20/21 18:01 67 32 H 135/61 100 06/20/21 18:00 67 32 H 135/61 95 06/20/21 17:00 69 14 160/63 97 06/20/21 16:37 74 160/63 99 06/20/21 16:00 81 20 160/63 100 06/20/21 15:00 82 18 150/66 98 06/20/21 14:00 70 10 L 122/52 93 06/20/21 13:00 83 13 126/53 93 06/20/21 12:25 83 139/58 99 06/20/21 12:00 94 H 19 133/51 93 06/20/21 11:28 96 H 13 135/51 100 06/20/21 10:00 84 20 139/58 97 - Physical Examination General: Other (Unresponsive, on the vent) Cardiac: Positive: Reg Rate and Rhythm Neuro: Positive: Other (Unresponsive, on the vent) Abdomen: Positive: Other (obese) - Labs and Meds Cardiac Enzymes 06/21/21 Range/Units 08:20 AST 66 H (5-40) units/L CBC 06/21/21 Range/Units 08:20 WBC 10.9 (4.5-11.0) K/mm3 RBC 4.93 (3.65-5.03) M/mm3 Hgb 11.8 (10.1-14.3) gm/dl Hct 37.1 (30.3-42.9) % Plt Count 174 (140-440) K/mm3 Comprehensive Metabolic Panel 06/16/21 06/21/21 Range/Units 17:45 08:20 Sodium 136 L (137-145) mmol/L Potassium 3.8 (3.6-5.0) mmol/L Chloride 99.2 (98-107) mmol/L Carbon Dioxide 24 (22-30) mmol/L BUN 33 H (7-17) mg/dL Creatinine 0.9 (0.6-1.2) mg/dL Glucose 307 H (65-100) mg/dL Calcium 10.0 (8.4-10.2) mg/dL AST 66 H (5-40) units/L ALT 41 (7-56) units/L Alkaline Phosphatase 104 (35-129) units/L Total Protein 6.6 (6.3-8.2) g/dL Albumin 2.3 L 3.4 L (3.8-4.8) g/dL - Allied health notes Allied health notes reviewed: nursing
[2021-06-21] MEDS: levETIRAcetam 500 MG/5 ML ORAL LIQD PO SCH ×2 (10:46→21:53)
[2021-06-21] MEDS: FAMOTIDINE 20 MG TAB PO SCH ×2 (10:46→21:51)
[2021-06-21] MEDS: hydrALAZINE 100 MG TAB PO SCH ×3 (10:46→20:54)
[2021-06-21] MEDS: GLYCOPYRROLATE 1 MG TAB PO SCH ×4 (10:47→21:53)
[2021-06-21] MEDS: amLODIPine 10 MG TAB PO SCH (10:48)
[2021-06-21] MEDS: SCOPOLAMINE TRANSDERMAL PATCH 72 HR TD SCH (10:49)
--- NOTE | 2021-06-21 11:28 | Progress Note ---
Assessment and Plan Assessment and plan: 81-year-old female brought into the emergency room by EMS in cardiac arrest. Family was said to witnessed collapse. EMS had given 2 rounds of epi with return of spontaneous circulation. Most of the history was gotten from the ER staff at [facility]'s no available patient is currently intubated. No other information available at this time. Work-up in the emergency room, chest x-ray reveals bilateral patchy opacities most significant in the left lower lung and right upper lung. No pneumothorax. Labs significant for elevated troponin of 0.041, elevated BUN and creatinine of 36 and 1.4 respectively. D-dimer is 1785. 06/16: Patient seen and examined, still unresponsive, awaiting CT head and CTA chest. Continue heparin for possible PE and NV. Continue abx for Bilateral Pneumonia. Cardiology, ID and Pulmonary. Poor prognosis. for out of hospital cardiac arrest May need Neurology ECHO Done result pending. 06/17: Remains clinically unchanged head CT unremarkable CT of the chest with angiogram shows no pulmonary embolism but bilateral infiltrates pneumonitis. Patient still not responded. Pupils appear fixed. She does not appear to have any gag reflex. Renal function worsening this could be secondary to contrast- induced will start on gentle hydration. Called brother to update and discuss of current clinical status and discuss poor prognostic indicators left a message requesting a call back. - no events overnight 7- no acute events overnight - no acute events overnight NEURO- AMS sp cardiopulmonary arrest; possible seizure likely due to anoxic event; acute encephalopathy; hx arthritis; hx dysphagia -CT ON 06/16 KANG -MRI - not able to perform due to body habitus -NM brain flow studies noted today -CT head read from today pending -Dr Aguilar following- neuro- appreciate recs -off all sedation -pupils pinpoint; no cough but with insertion of inline suction catheter there was a twitching of the left side of face that stopped with removal of noxious stimuli -EEG- low voltage but no sz activity noted -keppra BID -case management following -family updated on plan of care -family conference pending CT results CV- sp cardiac arrest with ROSC; HTN; sp STEMI norvasc and hydral scheduled required cardene overnight coreg bid with hold parameters hydral IV for 48 hours with hold parameters cardene dc normal biV function on echo 06/16 CTA with b pleural effusions and atelectesis SB-SR Resp- acute resp failure hypoxic in nature - on MVS serial chest xrays trending ABG and lactate requiring mechanical ventilation 10-350-6-.30 PS trial if tolerates will likely need trach - family meeting pending copious secretions continue robinol and increase dose; continuye scop CT neg for PE GI nap TF to goal tolerating well nutrition following PPI bowel reg- colace/senna - a/c KD likely pre-renal sp cardiac arrest - improving net pos 1.2 L over 24 hours trending Cr -now 1.0 avoid nephrotoxins renally dose meds follow and replace electrolytes renal ultrasound 06/15 noted purewik catheter monitor for retention pt was net pos 1.1 L over the last 24 hours with 700 mnl urine output AM labs ordered Heme- kang VTE SQH prophylaxis trend CBC no bleeding on exam hgb stable at 12 US BLE neg for DVT ID -nap no fevers WBC 7.9 ID following- off antibiotics since 06-18 cultures have been neg Endo DM II; hyperglycemia; obesity trending BG SSI PRN lantus scheduled- increased to BID avoid hypoglycemia The high probability of a clinically significant, sudden or life threatening deterioration of the [respiratory] system(s) required my full and direct attention, intervention and personal management. The aggregate critical care time was [60] minutes. This time is in addition to time spent performing reported procedures but includes the following: [x] Data Review and interpretation [x] Patient assessment and monitoring of vital signs [x] Documentation [x] Medication orders and management Disposition Plan: tbd Total Time Spent with Patient (Minutes): 60 History Interval history: KANG Hospitalist Physical - Constitutional Vitals: Temp Pulse Resp BP Pulse Ox 97.5 F L 71 28 H 148/74 95 06/21/21 08:00 06/21/21 10:48 06/21/21 10:16 06/21/21 10:48 06/21/21 10:16 General appearance: Present: no acute distress, other (Unresponsive, on the vent) - EENT Eyes: Present: PERRL ENT: clear oral mucosa - Neck Neck: Present: supple - Respiratory Respiratory effort: normal - Cardiovascular Rhythm: regular Heart Sounds: Present: S1 & S2 - Extremities Extremity abnormal: edema - Abdominal General gastrointestinal: soft - Integumentary Integumentary: Present: clear - Psychiatric Psychiatric: other - Neurologic Neurologic: other - Allied Health Allied health notes reviewed: nursing, social work, case management HEART Score - HEART Score Troponin: Troponin T 0.062 ng/mL (0.00-0.029) H 06/15/21 09:05 Results - Labs CBC & Chem 7: 06/21/21 08:20 06/21/21 08:20 Labs: Laboratory Last Values WBC 10.9 K/mm3 (4.5-11.0) 06/21/21 08:20 RBC 4.93 M/mm3 (3.65-5.03) 06/21/21 08:20 Hgb 11.8 gm/dl (10.1-14.3) 06/21/21 08:20 Hct 37.1 % (30.3-42.9) 06/21/21 08:20 MCV 75 fl (79-97) L 06/21/21 08:20 MCH 24 pg (28-32) L 06/21/21 08:20 MCHC 32 % (30-34) 06/21/21 08:20 RDW 14.8 % (13.2-15.2) 06/21/21 08:20 Plt Count 174 K/mm3 (140-440) 06/21/21 08:20 Lymph % (Auto) 17.7 % (13.4-35.0) 06/16/21 06:16 [place] % (Auto) 7.5 % (0.0-7.3) H 06/16/21 06:16 Eos % (Auto) 0.5 % (0.0-4.3) 06/16/21 06:16 Baso % (Auto) 0.5 % (0.0-1.8) 06/16/21 06:16 Lymph # (Auto) 1.8 K/mm3 (1.2-5.4) 06/16/21 06:16 [place] # (Auto) 0.8 K/mm3 (0.0-0.8) 06/16/21 06:16 Eos # (Auto) 0.0 K/mm3 (0.0-0.4) 06/16/21 06:16 Baso # (Auto) 0.0 K/mm3 (0.0-0.1) 06/16/21 06:16 Seg Neutrophils % 73.8 % (40.0-70.0) H 06/16/21 06:16 Seg Neutrophils # 7.7 K/mm3 (1.8-7.7) 06/16/21 06:16 PT 16.0 Sec. (12.2-14.9) H 06/16/21 06:16 INR 1.22 (0.87-1.13) H 06/16/21 06:16 APTT 25.6 Sec. (24.2-36.6) 06/15/21 03:30 D-Dimer 1785.61 ng/mlDDU (0-234) H 06/15/21 05:18 Heparin Anti-Xa Level < 0.10 U.I./ml (0.3-0.7) L 06/20/21 04:48 ABG pH 7.556 (7.320-7.450) H 06/21/21 04:00 POC ABG pCO2 24.4 mmHg (32.0-48.0) L 06/21/21 04:00 ABG pCO2 36.3 mm Hg 06/15/21 05:00 POC ABG pO2 100.7 mmHg (83-108) 06/21/21 04:00 ABG pO2 184.7 mm Hg (80.0-90.0) H 06/15/21 05:00 POC ABG HCO3 21.2 06/21/21 04:00 ABG HCO3 22.6 mmol/L (20.0-26.0) 06/15/21 05:00 ABG O2 Saturation 98.8 (0-100) 06/21/21 04:00 ABG O2 Content 16.6 (0.0-44) 06/15/21 05:00 POC ABG Base Excess 0.3 06/21/21 04:00 ABG Base Excess -1.5 mmol/L (-2.0-3.0) 06/15/21 05:00 ABG Hemoglobin 12.8 (12.0-17.5) 06/21/21 04:00 ABG Oxyhemoglobin 96.9 (94-98) 06/21/21 04:00 ABG Carboxyhemoglobin 2.1 % (0.0-5.0) 06/15/21 05:00 ABG Methemoglobin 0.3 (0.0-1.5) 06/21/21 04:00 ABG Sodium 136.0 mmol/L (136.0-145.0) 06/21/21 04:00 ABG Potassium 3.9 mmol/L (3.40-4.50) 06/21/21 04:00 ABG Chloride 104.0 mmol/L (98-107) 06/21/21 04:00 ABG Glucose 322 mg/dL (65-95) H 06/21/21 04:00 Oxyhemoglobin 96.5 % (95.0-99.0) 06/15/21 05:00 Carboxyhemoglobin 1.6 (0.5-1.5) H 06/21/21 04:00 FiO2 100 % 06/15/21 05:00 FiO2 % 30.0 06/21/21 04:00 Sodium 136 mmol/L (137-145) L 06/21/21 08:20 Potassium 3.8 mmol/L (3.6-5.0) 06/21/21 08:20 Chloride 99.2 mmol/L (98-107) 06/21/21 08:20 Carbon Dioxide 24 mmol/L (22-30) 06/21/21 08:20 Anion Gap 17 mmol/L 06/21/21 08:20 BUN 33 mg/dL (7-17) H 06/21/21 08:20 Creatinine 0.9 mg/dL (0.6-1.2) 06/21/21 08:20 Estimated GFR > 60 ml/min 06/21/21 08:20 BUN/Creatinine Ratio 37 % 06/21/21 08:20 Glucose 307 mg/dL (65-100) H 06/21/21 08:20 POC Glucose 321 mg/dL (70-105) H 06/21/21 05:39 Calcium 10.0 mg/dL (8.4-10.2) 06/21/21 08:20 Phosphorus 2.60 mg/dL (2.5-4.5) 06/21/21 08:20 Magnesium 2.10 mg/dL (1.7-2.3) 06/21/21 08:20 Total Bilirubin 0.40 mg/dL (0.1-1.2) 06/21/21 08:20 AST 66 units/L (5-40) H 06/21/21 08:20 ALT 41 units/L (7-56) 06/21/21 08:20 Alkaline Phosphatase 104 units/L (35-129) 06/21/21 08:20 Lactate Dehydrogenase 243 units/L (91-180) H 06/15/21 05:18 Total Creatine Kinase 105 units/L (30-135) 06/15/21 03:30 CK-MB (CK-2) 4.8 ng/mL (0.0-4.0) H 06/15/21 03:30 CK-MB (CK-2) Rel Index 4.5 (0-4) H 06/15/21 03:30 Troponin T 0.062 ng/mL (0.00-0.029) H 06/15/21 09:05 C-Reactive Protein 3.00 mg/dL (0.00-1.30) H 06/15/21 05:18 Serum Total Protein 5.0 g/dL (6.1-8.1) L 06/16/21 17:45 Total Protein 6.6 g/dL (6.3-8.2) 06/21/21 08:20 Albumin 3.4 g/dL (3.9-5) L 06/21/21 08:20 Albumin/Globulin Ratio 1.1 % 06/21/21 08:20 Kkygh-7-Ixgipphfk 0.4 g/dL (0.2-0.3) H 06/16/21 17:45 Xvxyg-2-Qcoyonqhw 0.6 g/dL (0.5-0.9) 06/16/21 17:45 Beta Globulins 0.7 g/dL (0.2-0.5) H 06/16/21 17:45 Gamma Globulins 0.7 g/dL (0.8-1.7) L 06/16/21 17:45 Abnorm Protein Band 1 see below 06/16/21 17:45 PEP Interpretation see below H 06/16/21 17:45 Triglycerides 66 mg/dL (2-149) 06/15/21 03:30 Cholesterol 137 mg/dL (50-199) 06/15/21 03:30 LDL Cholesterol Direct 79 mg/dL (50-130) 06/15/21 03:30 HDL Cholesterol 58 mg/dL (40-59) 06/15/21 03:30 Cholesterol/HDL Ratio 2.36 % 06/15/21 03:30 Procalcitonin < 0.05 ng/mL (<0.15) 06/15/21 05:18 Arterial Blood Glucose 322 mg/dL (65-95) H 06/21/21 04:00 Arterial Blood Ionized Calcium 4.9 mg/dL (4.6-5.3) 06/21/21 04:00 Urine Color Jacqui (Yellow) 06/15/21 09:34 Urine Turbidity Slightly-cloudy (Clear) 06/15/21 09:34 Urine pH 5.0 (5.0-7.0) 06/15/21 09:34 Ur Specific [place] 1.018 (1.003-1.030) 06/15/21 09:34 Urine Protein >500 mg/dL (Negative) 06/15/21 09:34 Urine Glucose (UA) 50 mg/dL (Negative) 06/15/21 09:34 Urine Ketones Tr mg/dL (Negative) 06/15/21 09:34 Urine Blood Sm (Negative) 06/15/21 09:34 Urine Nitrite Neg (Negative) 06/15/21 09:34 Urine Bilirubin Neg (Negative) 06/15/21 09:34 Urine Urobilinogen 2.0 mg/dL (<2.0) 06/15/21 09:34 Ur Leukocyte Esterase Neg (Negative) 06/15/21 09:34 Urine WBC (Auto) 8.0 /HPF (0.0-6.0) H 06/15/21 09:34 Urine RBC (Auto) 5.0 /HPF (0.0-6.0) 06/15/21 09:34 Urine Mucus Few /HPF 06/15/21 09:34 Urine Creatinine 146.5 mg/dL (0.1-20.0) H 06/15/21 09:15 Protein/Creatinin Ratio 1.47 06/15/21 09:15 Urine Total Protein 216 mg/dL (5-11.8) H 06/15/21 09:15 Rheumatoid Factor 20 IU/ml (0-13) H 06/16/21 18:40 VIRAL Screen Negative (Negative) 06/16/21 18:40 Proteinase 3 (PR3) Ab <1.0 AI (<1.0) 06/16/21 17:45 Myeloperoxidase Ab <1.0 AI (<1.0) 06/16/21 17:45 Syphilis IgG Antibody Nonreactive (NonReactive) 06/16/21 18:40 Coronavirus (PCR) Negative (Negative) 06/15/21 08:30 Hep Bs Antigen Non-reactive (Negative) 06/16/21 18:40 Hepatitis C Antibody Non-reactive (NonReactive) 06/16/21 18:40 Blood Type O POSITIVE 06/15/21 03:30 Antibody Screen Negative 06/15/21 03:30 Microbiology: Microbiology 06/16/21 10:55 Peripheral/Venous Blood Culture - Final NO GROWTH AFTER 5 DAYS 06/16/21 11:10 Peripheral/Venous Blood Culture - Preliminary NO GROWTH AFTER 4 DAYS Scales/IV: Voiding Method External Female Catheter Active Medications - Current Medications Current Medications: Generic Name Dose Route Start Last Admin Trade Name Freq PRN Reason Stop Dose Admin Acetaminophen 650 mg 06/15/21 05:07 Acetaminophen 650 Mg Rect Supp RI Q6H PRN Pain MILD(1-3)/Fever >100.5/WHITE Amlodipine Besylate 10 mg 06/16/21 10:00 06/21/21 10:48 Amlodipine 10 Mg Tab PO 10 mg QDAY JONATHAN Administration Lipase/Protease/Amylase 1 each 06/16/21 10:30 Lipase 10,500/Protease 25,000/Amylase 43,750 (Units) Dr Craven FEEDTUBE PRN PRN For Clogged Feeding Tube Dextrose 0 ml 06/15/21 05:07 Dextrose 50% In Water (25gm) 50 Ml Syringe IV Q30MIN PRN Hypoglycemia Protocol Famotidine 20 mg 06/18/21 10:00 06/21/21 10:46 Famotidine 20 Mg Tab PO 20 mg BID JONATHAN Administration Fentanyl 50 mcg 06/15/21 03:06 Fentanyl 100 Mcg/2 Ml Inj IV Q10MIN PRN ANALGESIA Glycopyrrolate 1 mg 06/18/21 20:00 06/21/21 10:47 Glycopyrrolate 1 Mg Tab PO 1 mg TID JONATHAN Administration Heparin Sodium (Porcine) 5,000 unit 06/19/21 14:00 06/21/21 06:39 Heparin 5,000 Unit/1 Ml Vial SUB-Q 5,000 unit Q8HR JONATHAN Administration Hydralazine HCl 100 mg 06/16/21 08:00 06/21/21 10:46 Hydralazine 100 Mg Tab PO 100 mg TID JONATHAN Administration Hydralazine HCl 10 mg 06/19/21 10:55 06/21/21 01:39 Hydralazine 20 Mg/1 Ml Inj IV 10 mg Q2H PRN Administration SBP > 160 Hydrophilic Ointment 1 applic 06/15/21 03:06 Lip Therapy Vaseline TP Q2HR PRN Dry Lips Fentanyl Citrate 2,000 mcg in 100 mls @ 7.39 mls/hr 06/15/21 04:00 06/18/21 18:47 Fentanyl Drip Premix IV 0 mcg/kg/hr TITR JONATHAN 0 mls/hr Titration Protocol 1 MCG/KG/HR Propofol 1,000 mg in 100 mls @ 4.434 mls/hr 06/15/21 16:00 06/17/21 18:25 Diprivan 10 Mg/Ml IV 0 mcg/kg/min TITR JONATHAN 0 mls/hr Titration Protocol 5 MCG/KG/MIN Nicardipine HCl 50 mg/ Sodium 250 mls @ 25 mls/hr 06/21/21 04:00 06/21/21 10:48 Chloride IV 2.5 mg/hr TITR JONATHAN 12.5 mls/hr Titration Protocol 5 MG/HR Insulin Glargine 10 units 06/20/21 22:00 06/20/21 23:57 Insulin Glargine 100 Units/Ml SUB-Q 10 units QHS JONATHAN Administration Insulin Human Lispro 0 unit 06/15/21 12:00 06/21/21 06:38 Insulin Lispro 100 Unit/Ml SUB-Q 8 unit Q6HR JONATHAN Administration Protocol Labetalol HCl 10 mg 06/19/21 10:56 Labetalol 20 Mg/4 Ml Inj IV Q2H PRN Hypertension Levetiracetam 500 mg 06/19/21 10:00 06/21/21 10:46 Levetiracetam 500 Mg/5 Ml Oral Liqd PO 500 mg BID JONATHAN Administration Multi-Ingred Cream/Lotion/Oil/Oint 1 applic 06/15/21 03:06 Mineral Oil/Petrolatum, White Ophth Oint 3.5 Gm OU Q4HR PRN Dry Eye(s) Scopolamine 1 each 06/18/21 15:00 06/21/21 10:49 Scopolamine Transdermal Patch 72 Hr TD 1 each Q3D JONATHAN Administration Senna/Docusate Sodium 1 tab 06/15/21 22:00 06/20/21 23:56 Sennosides/Docusate Sodium 8.6/50 Mg Tab PO 1 tab QHS JONATHAN Administration Simple Syrup 15 ml 06/16/21 10:30 Simple Syrup 15 Ml FEEDTUBE PRN PRN Hypoglycemia Simple Syrup 30 ml 06/16/21 10:30 Simple Syrup 15 Ml FEEDTUBE PRN PRN Hypoglycemia Sodium Bicarbonate 325 mg 06/16/21 10:30 Sodium Bicarbonate 325 Mg Tab FEEDTUBE PRN PRN For Clogged Feeding Tube Sodium Chloride 10 ml 06/15/21 10:00 06/21/21 10:47 Sodium Chloride 0.9% 10 Ml Flush Syringe IV 10 ml BID JONATHAN Administration Sodium Chloride 10 ml 06/15/21 05:07 Sodium Chloride 0.9% 10 Ml Flush Syringe IV PRN PRN LINE FLUSH Nutrition/Malnutrition Assess - Dietary Evaluation Nutrition/Malnutrition Findings: Nutrition Notes Start: 06/15/21 08:35 Freq: Status: Active Protocol: Document 06/18/21 11:47 (Rec: 06/18/21 11:51 [email or web address]) Nutrition Notes Initial or Follow up Reassessment Current Diagnosis Acute Kidney Injury,Diabetes, Hypertension Other Pertinent Diagnosis cardiac arrest Current Diet Glucerna 1.2 at 65 ml/hr Labs/Tests K 3.3 BUN 48 Cr 1.6 Pertinent Medications Kcl 20 mEq NS at 75 ml/hr Height 5 ft 9 in Weight 147.8 kg [place] Body Weight (kg) 65.90 BMI 48.1 Weight Status Morbidly Obese Subjective/Other Information FU for TF tolerance. Observed TF running at 45 ml/hr. RN to increase rate. Pt tolerating. Percent of energy/protein needs met: 90%/57% Burn Absent Trauma Absent Current % PO Negligible Minimum of two criteria No Fluid Accumulation Mild (non-severe) #1 Nutrition Diagnosis Inadequate oral intake Diagnosis Progress(for reassessment Continues documentation) Is patient on ventilator? Yes Is Patient Ambulatory and/or Out of Bed No REE-([place]-confined to bed) 2426.664 Kcal/Kg value to use for calculation 13 Approximate Energy Requirements Using 1921 kcal/Kg Calculation Used for Recommendations Kcal/kg Additional Notes Protein: (up to 2.5g/kg IBW) < 165g Fluid: 1 ml/kcal or per MD Nutrition Intervention Change Diet Order: continue Nutrition Support: Glucerna 1.2 at 65 ml/hr Flush 100 ml q4h Kcal 1,728 Protein (gm) 94 Fluid (mL) 1,256 Goal #1 Meet at least 75% of kcal needs and protein needs as best as possible via TF Anticipated Discharge Needs: Unable to determine at this time Follow-Up By: 06/21/21 Additional Comments FU for TF tolerance - Attestation Statement I have reviewed and agreed w/ Malnutrition eval & tx plan: Yes
[2021-06-21] MEDS: carvediloL 3.125 MG TAB PO SCH ×2 (13:49→21:51)
[2021-06-21] MEDS ORDERED: hydrALAZINE 20 MG/1 ML INJ IV SCH (14:00)
[2021-06-21] MEDS: hydrALAZINE 20 MG/1 ML INJ IV SCH ×3 (14:07→22:01)
--- NOTE | 2021-06-21 14:26 | Progress Note ---
Assessment and Plan Acute hypoxemic respiratory failure on MVS Cardiac arrest with ROSC Possible seizure activity Acute encephalopathy Acute kidney injury Non-ST elevation myocardial infarction Morbid obesity Hyperglycemia Arthritis Oropharyngeal dysphagia HTN - increased Robinul to 2 mg po tid - scheduled IV hydralazine for elevated BP's and will stop cardene drip - reduced TV to 300 ml's re: respioratory alkalosis - family conference call thereafter - neurology re-evaluation noted and appreciated - continue empiric Keppra - continue care as below otherwise; - continue IV Heparin for now - continue Daily SAT and SBT assessment as tolerated - continue to wean supplemental oxygen for target O2 sat's > 90% acutely - VAP bundle addressed - continue lung protective strategies - continue bronchodilators with pulmonary hygiene per RT - wean per pulmonary driven protocols otherwise - continue accuchecks with glycemic control per SSI (While critically ill target blood glucose of 140-180 mg/dL; avoid hypoglycemia) - sedation prn for target RASS 0 to -1 - azotemia per nephrology team; no acute indication for dialysis - continue to avoid nephrotoxins, renally dose all medications - continue to avoid benzodiazepine's, reduce the possibility of delirium - complete AB's per ID rec's (Zosyn) - prn analgesia per CPOT score - Maintenance of sleep-wake cycle, avoid delirium - continue enteral nutritional support at goal rate as tolerated - G.I. & VTE prophylaxis - PT/OT/ROM exercises - continue mobility protocols for pressure ulcer prophylaxis - Monitor hemodynamics closely - continue other care per attending / other consultants - discharge planning ongoing concurrently COVID SPECIFIC INTERVENTIONS - COVID PCR negative .... Re-evaluate in am & prn CONDITION: CRITICAL PROGNOSIS: GUARDED CODE STATUS: FULL CODE The high probability of a clinically significant, sudden or life-threatening deterioration of the [respiratory, cardiovascular, renal & neurologic] system(s) required my full and direct attention, intervention and personal management. The aggregate critical care time was [39] minutes without overlap. Time includes spent on; [x] Data Review and interpretation [x] Patient assessment and monitoring of vital signs [x] Documentation [x] Medication orders and management Subjective Date of service: 06/21/21 Principal diagnosis: Ac hypoxemic resp failure; Cardiac arrest; RIGOBERTO; AMS; NSTEMI Interval history: Patient is seen today for: Acute hypoxemic respiratory failure; Cardiac arrest with ROSC; Possible seizure activity; RIGOBERTO; Acute encephalopathy; NSTEMI Seen and examined at bedside; 24hour events reviewed; nursing and respiratory care staff consulted; no adverse overnight events reported to me; restin in bed; remains on MVS; AMS is persistent; family conference scheduled for after rounds; failed bedside SBT; secretions still moderate Objective Vital Signs - 12hr 06/21/21 06/21/21 06/21/21 03:00 03:53 04:00 Temperature 97.5 F L Pulse Rate 87 71 80 Pulse Rate [ From Monitor] Respiratory 15 11 L Rate Blood Pressure 172/84 206/85 172/84 O2 Sat by Pulse 98 99 98 Oximetry 06/21/21 06/21/21 06/21/21 04:40 04:45 05:00 Temperature Pulse Rate 78 77 Pulse Rate [ From Monitor] Respiratory 30 H 30 H 24 Rate Blood Pressure 163/68 157/70 O2 Sat by Pulse 100 94 98 Oximetry 06/21/21 06/21/21 06/21/21 05:15 05:30 05:45 Temperature Pulse Rate 77 72 74 Pulse Rate [ From Monitor] Respiratory 28 H 22 25 H Rate Blood Pressure 156/68 149/67 142/66 O2 Sat by Pulse 95 95 94 Oximetry 06/21/21 06/21/21 06/21/21 06:00 06:15 06:30 Temperature Pulse Rate 68 72 70 Pulse Rate [ From Monitor] Respiratory 15 18 29 H Rate Blood Pressure 146/63 156/68 154/70 O2 Sat by Pulse 95 94 95 Oximetry 06/21/21 06/21/21 06/21/21 06:45 07:00 07:15 Temperature Pulse Rate 68 68 79 Pulse Rate [ From Monitor] Respiratory 28 H 19 28 H Rate Blood Pressure 155/72 158/73 167/66 O2 Sat by Pulse 94 95 96 Oximetry 06/21/21 06/21/21 06/21/21 07:30 07:43 07:45 Temperature Pulse Rate 77 77 79 Pulse Rate [ From Monitor] Respiratory 27 H 14 Rate Blood Pressure 166/70 165/74 165/74 O2 Sat by Pulse 95 98 94 Oximetry 06/21/21 06/21/21 06/21/21 08:00 08:16 08:30 Temperature 97.5 F L Pulse Rate 74 86 73 Pulse Rate [ From Monitor] Respiratory 29 H 30 H 30 H Rate Blood Pressure 158/72 177/81 155/66 O2 Sat by Pulse 95 95 96 Oximetry 06/21/21 06/21/21 06/21/21 08:45 09:00 09:15 Temperature Pulse Rate 73 68 68 Pulse Rate [ From Monitor] Respiratory 24 15 29 H Rate Blood Pressure 149/65 144/64 156/64 O2 Sat by Pulse 94 95 95 Oximetry 06/21/21 06/21/21 06/21/21 09:30 09:45 10:00 Temperature Pulse Rate 70 66 75 Pulse Rate [ From Monitor] Respiratory 29 H 29 H 24 Rate Blood Pressure 158/70 153/66 164/73 O2 Sat by Pulse 95 95 95 Oximetry 06/21/21 06/21/21 06/21/21 10:16 10:30 10:45 Temperature Pulse Rate 65 63 68 Pulse Rate [ From Monitor] Respiratory 28 H 29 H 16 Rate Blood Pressure 148/66 139/69 148/74 O2 Sat by Pulse 95 95 95 Oximetry 06/21/21 06/21/21 06/21/21 10:48 11:00 11:15 Temperature Pulse Rate 71 64 63 Pulse Rate [ From Monitor] Respiratory 28 H 30 H Rate Blood Pressure 148/74 147/73 157/74 O2 Sat by Pulse 96 96 Oximetry 06/21/21 06/21/21 06/21/21 11:30 11:40 11:45 Temperature Pulse Rate 64 79 66 Pulse Rate [ From Monitor] Respiratory 25 H 25 H Rate Blood Pressure 160/78 160/78 162/73 O2 Sat by Pulse 96 99 96 Oximetry 06/21/21 06/21/21 06/21/21 12:00 12:16 12:30 Temperature 97.4 F L Pulse Rate 65 84 82 Pulse Rate [ 66 From Monitor] Respiratory 15 13 14 Rate Blood Pressure 156/71 177/110 160/72 O2 Sat by Pulse 95 94 97 Oximetry 06/21/21 06/21/21 06/21/21 12:45 13:00 13:15 Temperature Pulse Rate 85 78 77 Pulse Rate [ From Monitor] Respiratory 14 10 L 28 H Rate Blood Pressure 163/74 157/67 155/70 O2 Sat by Pulse 96 96 96 Oximetry 06/21/21 06/21/21 06/21/21 13:27 13:30 13:46 Temperature Pulse Rate 82 85 Pulse Rate [ From Monitor] Respiratory 10 L 10 L Rate Blood Pressure 164/72 183/75 O2 Sat by Pulse 99 94 96 Oximetry 06/21/21 06/21/21 13:49 14:00 Temperature Pulse Rate 77 84 Pulse Rate [ From Monitor] Respiratory 10 L Rate Blood Pressure 183/75 168/70 O2 Sat by Pulse 96 Oximetry Constitutional: appears uncomfortable, other (elderly obese female with mildly increased respiratory effort at rest) Eyes: non-icteric ENT: oropharynx moist, oropharyngeal exudate pre (moderate), other (ETT 23 cm CON) Neck: supple, no lymphadenopathy, no JVD, other (large circumference) Effort: mildly labored Ascultation: Bilateral: diminished breath sounds, rhonchi Percussion: Bilateral: not dull Cardiovascular: regular rate and rhythm Gastrointestinal: normoactive bowel sounds, soft, non-tender, non-distended (protuberant) Integumentary: normal Extremities: no cyanosis, no edema, pulses normal, no ischemia or petechiae Neurologic: pupils equal and round, unable to assess Psychiatric: other (unable to assess re: AMS) CBC and BMP: 06/21/21 08:20 06/21/21 08:20 ABG, PT/INR, D-dimer: ABG ABG pH 7.556 (7.320-7.450) H 06/21/21 04:00 POC ABG pCO2 24.4 mmHg (32.0-48.0) L 06/21/21 04:00 ABG pCO2 36.3 mm Hg 06/15/21 05:00 POC ABG pO2 100.7 mmHg (83-108) 06/21/21 04:00 ABG pO2 184.7 mm Hg (80.0-90.0) H 06/15/21 05:00 POC ABG HCO3 21.2 06/21/21 04:00 ABG O2 Saturation 98.8 (0-100) 06/21/21 04:00 PT/INR, D-dimer PT 16.0 Sec. (12.2-14.9) H 06/16/21 06:16 INR 1.22 (0.87-1.13) H 06/16/21 06:16 D-Dimer 1785.61 ng/mlDDU (0-234) H 06/15/21 05:18 Abnormal lab findings: Abnormal Labs 06/15/21 06/15/21 06/15/21 03:30 03:30 03:30 MCV MCH 24 L MCHC 29 L RDW 15.8 H Lymph % (Auto) 12.8 L [place] % (Auto) Lymph # (Auto) 1.1 L Seg Neutrophils % 80.4 H PT 15.6 H INR 1.18 H D-Dimer Heparin Anti-Xa Level ABG pH POC ABG pCO2 POC ABG pO2 ABG pO2 ABG O2 Saturation ABG Hemoglobin ABG Oxyhemoglobin ABG Sodium ABG Potassium ABG Glucose Carboxyhemoglobin Sodium Potassium Carbon Dioxide BUN 36 H Creatinine 1.4 H Glucose 258 H POC Glucose Calcium AST ALT Lactate Dehydrogenase CK-MB (CK-2) 4.8 H CK-MB (CK-2) Rel Index 4.5 H Troponin T 0.041 H C-Reactive Protein Serum Total Protein Total Protein Albumin Ksgpv-2-Ijdkuosfo Beta Globulins Gamma Globulins PEP Interpretation Arterial Blood Glucose Arterial Blood Ionized Calcium Urine WBC (Auto) Urine Creatinine Urine Total Protein Rheumatoid Factor 06/15/21 06/15/21 06/15/21 05:00 05:18 05:18 MCV MCH MCHC RDW Lymph % (Auto) [place] % (Auto) Lymph # (Auto) Seg Neutrophils % PT INR D-Dimer 1785.61 H Heparin Anti-Xa Level ABG pH POC ABG pCO2 POC ABG pO2 ABG pO2 184.7 H ABG O2 Saturation 99.2 H ABG Hemoglobin ABG Oxyhemoglobin ABG Sodium ABG Potassium ABG Glucose Carboxyhemoglobin Sodium Potassium Carbon Dioxide BUN Creatinine Glucose POC Glucose Calcium AST ALT Lactate Dehydrogenase 243 H CK-MB (CK-2) CK-MB (CK-2) Rel Index Troponin T C-Reactive Protein 3.00 H Serum Total Protein Total Protein Albumin Hsqzk-0-Yeulnwvkp Beta Globulins Gamma Globulins PEP Interpretation Arterial Blood Glucose Arterial Blood Ionized Calcium Urine WBC (Auto) Urine Creatinine Urine Total Protein Rheumatoid Factor 06/15/21 06/15/21 06/15/21 06:30 07:39 09:05 MCV MCH MCHC RDW Lymph % (Auto) [place] % (Auto) Lymph # (Auto) Seg Neutrophils % PT INR D-Dimer Heparin Anti-Xa Level ABG pH POC ABG pCO2 POC ABG pO2 ABG pO2 ABG O2 Saturation ABG Hemoglobin ABG Oxyhemoglobin ABG Sodium ABG Potassium ABG Glucose Carboxyhemoglobin Sodium Potassium Carbon Dioxide BUN Creatinine Glucose POC Glucose 231 H Calcium AST ALT Lactate Dehydrogenase CK-MB (CK-2) CK-MB (CK-2) Rel Index Troponin T 0.058 H D 0.062 H C-Reactive Protein Serum Total Protein Total Protein Albumin Tciqe-5-Cwzsifbfv Beta Globulins Gamma Globulins PEP Interpretation Arterial Blood Glucose Arterial Blood Ionized Calcium Urine WBC (Auto) Urine Creatinine Urine Total Protein Rheumatoid Factor 06/15/21 06/15/21 06/15/21 09:15 09:34 13:09 MCV MCH MCHC RDW Lymph % (Auto) [place] % (Auto) Lymph # (Auto) Seg Neutrophils % PT INR D-Dimer Heparin Anti-Xa Level ABG pH POC ABG pCO2 POC ABG pO2 ABG pO2 ABG O2 Saturation ABG Hemoglobin ABG Oxyhemoglobin ABG Sodium ABG Potassium ABG Glucose Carboxyhemoglobin Sodium Potassium Carbon Dioxide BUN Creatinine Glucose POC Glucose 240 H Calcium AST ALT Lactate Dehydrogenase CK-MB (CK-2) CK-MB (CK-2) Rel Index Troponin T C-Reactive Protein Serum Total Protein Total Protein Albumin Mtyjn-1-Nxvagmxoz Beta Globulins Gamma Globulins PEP Interpretation Arterial Blood Glucose Arterial Blood Ionized Calcium Urine WBC (Auto) 8.0 H Urine Creatinine 146.5 H Urine Total Protein 216 H Rheumatoid Factor 06/15/21 06/15/21 06/15/21 16:05 18:14 23:09 MCV MCH MCHC RDW Lymph % (Auto) [place] % (Auto) Lymph # (Auto) Seg Neutrophils % PT INR D-Dimer Heparin Anti-Xa Level < 0.10 L ABG pH POC ABG pCO2 POC ABG pO2 ABG pO2 ABG O2 Saturation ABG Hemoglobin ABG Oxyhemoglobin ABG Sodium ABG Potassium ABG Glucose Carboxyhemoglobin Sodium Potassium Carbon Dioxide BUN Creatinine Glucose POC Glucose 150 H 179 H Calcium AST ALT Lactate Dehydrogenase CK-MB (CK-2) CK-MB (CK-2) Rel Index Troponin T C-Reactive Protein Serum Total Protein Total Protein Albumin Zovbn-1-Boenopsdq Beta Globulins Gamma Globulins PEP Interpretation Arterial Blood Glucose Arterial Blood Ionized Calcium Urine WBC (Auto) Urine Creatinine Urine Total Protein Rheumatoid Factor 06/15/21 06/16/21 06/16/21 23:43 05:00 05:17 MCV MCH MCHC RDW Lymph % (Auto) [place] % (Auto) Lymph # (Auto) Seg Neutrophils % PT INR D-Dimer Heparin Anti-Xa Level < 0.10 L ABG pH 7.693 H POC ABG pCO2 18.6 L POC ABG pO2 147.2 H ABG pO2 ABG O2 Saturation ABG Hemoglobin ABG Oxyhemoglobin 98.5 H ABG Sodium ABG Potassium 3.0 L ABG Glucose 178 H Carboxyhemoglobin Sodium Potassium Carbon Dioxide BUN Creatinine Glucose POC Glucose 182 H Calcium AST ALT Lactate Dehydrogenase CK-MB (CK-2) CK-MB (CK-2) Rel Index Troponin T C-Reactive Protein Serum Total Protein Total Protein Albumin Wtrce-4-Lfbvlsljh Beta Globulins Gamma Globulins PEP Interpretation Arterial Blood Glucose 178 H Arterial Blood Ionized Calcium 4.5 L Urine WBC (Auto) Urine Creatinine Urine Total Protein Rheumatoid Factor 06/16/21 06/16/21 06/16/21 06:16 06:16 06:16 MCV 77 L MCH 24 L MCHC RDW Lymph % (Auto) [place] % (Auto) 7.5 H Lymph # (Auto) Seg Neutrophils % 73.8 H PT 16.0 H INR 1.22 H D-Dimer Heparin Anti-Xa Level ABG pH POC ABG pCO2 POC ABG pO2 ABG pO2 ABG O2 Saturation ABG Hemoglobin ABG Oxyhemoglobin ABG Sodium ABG Potassium ABG Glucose Carboxyhemoglobin Sodium Potassium 3.1 L D Carbon Dioxide BUN 40 H Creatinine 1.4 H Glucose 154 H POC Glucose Calcium AST 48 H ALT 69 H Lactate Dehydrogenase CK-MB (CK-2) CK-MB (CK-2) Rel Index Troponin T C-Reactive Protein Serum Total Protein Total Protein 5.8 L Albumin 3.0 L Sjrko-0-Rrptwxptw Beta Globulins Gamma Globulins PEP Interpretation Arterial Blood Glucose Arterial Blood Ionized Calcium Urine WBC (Auto) Urine Creatinine Urine Total Protein Rheumatoid Factor 06/16/21 06/16/21 06/16/21 10:20 16:20 17:43 MCV MCH MCHC RDW Lymph % (Auto) [place] % (Auto) Lymph # (Auto) Seg Neutrophils % PT INR D-Dimer Heparin Anti-Xa Level 0.26 L ABG pH POC ABG pCO2 POC ABG pO2 ABG pO2 ABG O2 Saturation ABG Hemoglobin ABG Oxyhemoglobin ABG Sodium ABG Potassium ABG Glucose Carboxyhemoglobin Sodium Potassium 3.2 L Carbon Dioxide BUN 42 H Creatinine 1.3 H Glucose 161 H POC Glucose 163 H Calcium AST ALT Lactate Dehydrogenase CK-MB (CK-2) CK-MB (CK-2) Rel Index Troponin T C-Reactive Protein Serum Total Protein Total Protein Albumin Updvr-6-Tshwaqcrw Beta Globulins Gamma Globulins PEP Interpretation Arterial Blood Glucose Arterial Blood Ionized Calcium Urine WBC (Auto) Urine Creatinine Urine Total Protein Rheumatoid Factor 06/16/21 06/16/21 06/16/21 17:45 18:40 23:12 MCV MCH MCHC RDW Lymph % (Auto) [place] % (Auto) Lymph # (Auto) Seg Neutrophils % PT INR D-Dimer Heparin Anti-Xa Level ABG pH POC ABG pCO2 POC ABG pO2 ABG pO2 ABG O2 Saturation ABG Hemoglobin ABG Oxyhemoglobin ABG Sodium ABG Potassium ABG Glucose Carboxyhemoglobin Sodium Potassium Carbon Dioxide BUN Creatinine Glucose POC Glucose 173 H Calcium AST ALT Lactate Dehydrogenase CK-MB (CK-2) CK-MB (CK-2) Rel Index Troponin T C-Reactive Protein Serum Total Protein 5.0 L Total Protein Albumin 2.3 L Tpabf-0-Hqefqsial 0.4 H Beta Globulins 0.7 H Gamma Globulins 0.7 L PEP Interpretation see below H Arterial Blood Glucose Arterial Blood Ionized Calcium Urine WBC (Auto) Urine Creatinine Urine Total Protein Rheumatoid Factor 20 H 06/17/21 06/17/21 06/17/21 03:26 05:45 05:45 MCV 76 L MCH 24 L MCHC RDW Lymph % (Auto) [place] % (Auto) Lymph # (Auto) Seg Neutrophils % PT INR D-Dimer Heparin Anti-Xa Level ABG pH 7.470 H POC ABG pCO2 POC ABG pO2 ABG pO2 ABG O2 Saturation ABG Hemoglobin 11.4 L ABG Oxyhemoglobin ABG Sodium ABG Potassium 3.1 L ABG Glucose 170 H Carboxyhemoglobin Sodium Potassium 3.1 L Carbon Dioxide BUN 48 H Creatinine 2.1 H D Glucose 156 H POC Glucose Calcium 8.2 L AST 61 H ALT Lactate Dehydrogenase CK-MB (CK-2) CK-MB (CK-2) Rel Index Troponin T C-Reactive Protein Serum Total Protein Total Protein 5.5 L Albumin 2.6 L Mthls-8-Fcjhijdph Beta Globulins Gamma Globulins PEP Interpretation Arterial Blood Glucose 170 H Arterial Blood Ionized Calcium Urine WBC (Auto) Urine Creatinine Urine Total Protein Rheumatoid Factor 06/17/21 06/17/21 06/17/21 06:16 12:05 16:10 MCV MCH MCHC RDW Lymph % (Auto) [place] % (Auto) Lymph # (Auto) Seg Neutrophils % PT INR D-Dimer Heparin Anti-Xa Level 0.26 L ABG pH POC ABG pCO2 POC ABG pO2 ABG pO2 ABG O2 Saturation ABG Hemoglobin ABG Oxyhemoglobin ABG Sodium ABG Potassium ABG Glucose Carboxyhemoglobin Sodium Potassium Carbon Dioxide BUN Creatinine Glucose POC Glucose 141 H 138 H Calcium AST ALT Lactate Dehydrogenase CK-MB (CK-2) CK-MB (CK-2) Rel Index Troponin T C-Reactive Protein Serum Total Protein Total Protein Albumin Zsjvz-3-Eklbjdatl Beta Globulins Gamma Globulins PEP Interpretation Arterial Blood Glucose Arterial Blood Ionized Calcium Urine WBC (Auto) Urine Creatinine Urine Total Protein Rheumatoid Factor 06/17/21 06/17/21 06/18/21 17:44 23:51 03:41 MCV MCH MCHC RDW Lymph % (Auto) [place] % (Auto) Lymph # (Auto) Seg Neutrophils % PT INR D-Dimer Heparin Anti-Xa Level 0.20 L ABG pH POC ABG pCO2 POC ABG pO2 ABG pO2 ABG O2 Saturation ABG Hemoglobin ABG Oxyhemoglobin ABG Sodium ABG Potassium ABG Glucose Carboxyhemoglobin Sodium Potassium Carbon Dioxide BUN Creatinine Glucose POC Glucose 149 H 195 H Calcium AST ALT Lactate Dehydrogenase CK-MB (CK-2) CK-MB (CK-2) Rel Index Troponin T C-Reactive Protein Serum Total Protein Total Protein Albumin Ljkkm-5-Omfpkoadi Beta Globulins Gamma Globulins PEP Interpretation Arterial Blood Glucose Arterial Blood Ionized Calcium Urine WBC (Auto) Urine Creatinine Urine Total Protein Rheumatoid Factor 06/18/21 06/18/21 06/18/21 03:53 04:00 04:00 MCV 75 L MCH 24 L MCHC RDW Lymph % (Auto) [place] % (Auto) Lymph # (Auto) Seg Neutrophils % PT INR D-Dimer Heparin Anti-Xa Level ABG pH 7.638 H POC ABG pCO2 18.3 L POC ABG pO2 133.6 H ABG pO2 ABG O2 Saturation ABG Hemoglobin 11.7 L ABG Oxyhemoglobin ABG Sodium 132.9 L ABG Potassium 3.2 L ABG Glucose 166 H Carboxyhemoglobin Sodium Potassium 3.3 L Carbon Dioxide 21 L BUN 48 H Creatinine 1.6 H Glucose 177 H POC Glucose Calcium AST 78 H ALT Lactate Dehydrogenase CK-MB (CK-2) CK-MB (CK-2) Rel Index Troponin T C-Reactive Protein Serum Total Protein Total Protein 5.6 L Albumin 2.5 L Bkeyt-9-Cdyxdphud Beta Globulins Gamma Globulins PEP Interpretation Arterial Blood Glucose 166 H Arterial Blood Ionized Calcium Urine WBC (Auto) Urine Creatinine Urine Total Protein Rheumatoid Factor 06/18/21 06/18/21 06/18/21 05:51 11:26 12:00 MCV MCH MCHC RDW Lymph % (Auto) [place] % (Auto) Lymph # (Auto) Seg Neutrophils % PT INR D-Dimer Heparin Anti-Xa Level ABG pH POC ABG pCO2 POC ABG pO2 ABG pO2 ABG O2 Saturation ABG Hemoglobin 11.8 L ABG Oxyhemoglobin ABG Sodium 135.6 L ABG Potassium 3.2 L ABG Glucose 213 H Carboxyhemoglobin Sodium Potassium Carbon Dioxide BUN Creatinine Glucose POC Glucose 176 H 183 H Calcium AST ALT Lactate Dehydrogenase CK-MB (CK-2) CK-MB (CK-2) Rel Index Troponin T C-Reactive Protein Serum Total Protein Total Protein Albumin Xrutt-3-Fpovvyoqc Beta Globulins Gamma Globulins PEP Interpretation Arterial Blood Glucose 213 H Arterial Blood Ionized Calcium Urine WBC (Auto) Urine Creatinine Urine Total Protein Rheumatoid Factor 06/18/21 06/18/21 06/19/21 18:02 23:39 04:04 MCV MCH MCHC RDW Lymph % (Auto) [place] % (Auto) Lymph # (Auto) Seg Neutrophils % PT INR D-Dimer Heparin Anti-Xa Level ABG pH 7.500 H POC ABG pCO2 27.1 L POC ABG pO2 119.7 H ABG pO2 ABG O2 Saturation ABG Hemoglobin ABG Oxyhemoglobin ABG Sodium 135.4 L ABG Potassium ABG Glucose 242 H Carboxyhemoglobin Sodium Potassium Carbon Dioxide BUN Creatinine Glucose POC Glucose 208 H 207 H Calcium AST ALT Lactate Dehydrogenase CK-MB (CK-2) CK-MB (CK-2) Rel Index Troponin T C-Reactive Protein Serum Total Protein Total Protein Albumin Sfuox-4-Ginjerltt Beta Globulins Gamma Globulins PEP Interpretation Arterial Blood Glucose 242 H Arterial Blood Ionized Calcium Urine WBC (Auto) Urine Creatinine Urine Total Protein Rheumatoid Factor 06/19/21 06/19/21 06/19/21 05:26 07:35 07:35 MCV 75 L MCH 24 L MCHC RDW Lymph % (Auto) [place] % (Auto) Lymph # (Auto) Seg Neutrophils % PT INR D-Dimer Heparin Anti-Xa Level ABG pH POC ABG pCO2 POC ABG pO2 ABG pO2 ABG O2 Saturation ABG Hemoglobin ABG Oxyhemoglobin ABG Sodium ABG Potassium ABG Glucose Carboxyhemoglobin Sodium Potassium Carbon Dioxide BUN 38 H Creatinine Glucose 259 H POC Glucose 222 H Calcium AST ALT Lactate Dehydrogenase CK-MB (CK-2) CK-MB (CK-2) Rel Index Troponin T C-Reactive Protein Serum Total Protein Total Protein Albumin Owxux-1-Itsjkambt Beta Globulins Gamma Globulins PEP Interpretation Arterial Blood Glucose Arterial Blood Ionized Calcium Urine WBC (Auto) Urine Creatinine Urine Total Protein Rheumatoid Factor 06/19/21 06/19/21 06/19/21 11:16 17:50 18:19 MCV MCH MCHC RDW Lymph % (Auto) [place] % (Auto) Lymph # (Auto) Seg Neutrophils % PT INR D-Dimer Heparin Anti-Xa Level ABG pH POC ABG pCO2 POC ABG pO2 ABG pO2 ABG O2 Saturation ABG Hemoglobin ABG Oxyhemoglobin ABG Sodium ABG Potassium ABG Glucose Carboxyhemoglobin Sodium Potassium Carbon Dioxide BUN Creatinine Glucose POC Glucose 267 H 203 H 215 H Calcium AST ALT Lactate Dehydrogenase CK-MB (CK-2) CK-MB (CK-2) Rel Index Troponin T C-Reactive Protein Serum Total Protein Total Protein Albumin Rgmyw-5-Duviebfud Beta Globulins Gamma Globulins PEP Interpretation Arterial Blood Glucose Arterial Blood Ionized Calcium Urine WBC (Auto) Urine Creatinine Urine Total Protein Rheumatoid Factor 06/19/21 06/20/21 06/20/21 23:31 04:00 04:48 MCV MCH MCHC RDW Lymph % (Auto) [place] % (Auto) Lymph # (Auto) Seg Neutrophils % PT INR D-Dimer Heparin Anti-Xa Level < 0.10 L ABG pH 7.493 H POC ABG pCO2 30.6 L POC ABG pO2 109.4 H ABG pO2 ABG O2 Saturation ABG Hemoglobin ABG Oxyhemoglobin ABG Sodium 134.4 L ABG Potassium ABG Glucose 242 H Carboxyhemoglobin 1.9 H Sodium Potassium Carbon Dioxide BUN Creatinine Glucose POC Glucose 217 H Calcium AST ALT Lactate Dehydrogenase CK-MB (CK-2) CK-MB (CK-2) Rel Index Troponin T C-Reactive Protein Serum Total Protein Total Protein Albumin Itgrt-1-Rbocehzhd Beta Globulins Gamma Globulins PEP Interpretation Arterial Blood Glucose 242 H Arterial Blood Ionized Calcium Urine WBC (Auto) Urine Creatinine Urine Total Protein Rheumatoid Factor 06/20/21 06/20/21 06/20/21 04:48 04:48 04:57 MCV 76 L MCH 24 L MCHC RDW Lymph % (Auto) [place] % (Auto) Lymph # (Auto) Seg Neutrophils % PT INR D-Dimer Heparin Anti-Xa Level ABG pH POC ABG pCO2 POC ABG pO2 ABG pO2 ABG O2 Saturation ABG Hemoglobin ABG Oxyhemoglobin ABG Sodium ABG Potassium ABG Glucose Carboxyhemoglobin Sodium Potassium Carbon Dioxide BUN 35 H Creatinine Glucose 234 H POC Glucose 231 H Calcium AST ALT Lactate Dehydrogenase CK-MB (CK-2) CK-MB (CK-2) Rel Index Troponin T C-Reactive Protein Serum Total Protein Total Protein Albumin Uvaef-4-Npstlmkbs Beta Globulins Gamma Globulins PEP Interpretation Arterial Blood Glucose Arterial Blood Ionized Calcium Urine WBC (Auto) Urine Creatinine Urine Total Protein Rheumatoid Factor 06/20/21 06/20/21 06/20/21 11:33 17:04 23:30 MCV MCH MCHC RDW Lymph % (Auto) [place] % (Auto) Lymph # (Auto) Seg Neutrophils % PT INR D-Dimer Heparin Anti-Xa Level ABG pH POC ABG pCO2 POC ABG pO2 ABG pO2 ABG O2 Saturation ABG Hemoglobin ABG Oxyhemoglobin ABG Sodium ABG Potassium ABG Glucose Carboxyhemoglobin Sodium Potassium Carbon Dioxide BUN Creatinine Glucose POC Glucose 241 H 252 H 330 H Calcium AST ALT Lactate Dehydrogenase CK-MB (CK-2) CK-MB (CK-2) Rel Index Troponin T C-Reactive Protein Serum Total Protein Total Protein Albumin Olgcb-0-Italrgekh Beta Globulins Gamma Globulins PEP Interpretation Arterial Blood Glucose Arterial Blood Ionized Calcium Urine WBC (Auto) Urine Creatinine Urine Total Protein Rheumatoid Factor 06/21/21 06/21/21 06/21/21 04:00 05:39 08:20 MCV 75 L MCH 24 L MCHC RDW Lymph % (Auto) [place] % (Auto) Lymph # (Auto) Seg Neutrophils % PT INR D-Dimer Heparin Anti-Xa Level ABG pH 7.556 H POC ABG pCO2 24.4 L POC ABG pO2 ABG pO2 ABG O2 Saturation ABG Hemoglobin ABG Oxyhemoglobin ABG Sodium ABG Potassium ABG Glucose 322 H Carboxyhemoglobin 1.6 H Sodium Potassium Carbon Dioxide BUN Creatinine Glucose POC Glucose 321 H Calcium AST ALT Lactate Dehydrogenase CK-MB (CK-2) CK-MB (CK-2) Rel Index Troponin T C-Reactive Protein Serum Total Protein Total Protein Albumin Ordgi-5-Hcovdlgeh Beta Globulins Gamma Globulins PEP Interpretation Arterial Blood Glucose 322 H Arterial Blood Ionized Calcium Urine WBC (Auto) Urine Creatinine Urine Total Protein Rheumatoid Factor 06/21/21 06/21/21 08:20 11:54 MCV MCH MCHC RDW Lymph % (Auto) [place] % (Auto) Lymph # (Auto) Seg Neutrophils % PT INR D-Dimer Heparin Anti-Xa Level ABG pH POC ABG pCO2 POC ABG pO2 ABG pO2 ABG O2 Saturation ABG Hemoglobin ABG Oxyhemoglobin ABG Sodium ABG Potassium ABG Glucose Carboxyhemoglobin Sodium 136 L Potassium Carbon Dioxide BUN 33 H Creatinine Glucose 307 H POC Glucose 289 H Calcium AST 66 H ALT Lactate Dehydrogenase CK-MB (CK-2) CK-MB (CK-2) Rel Index Troponin T C-Reactive Protein Serum Total Protein Total Protein Albumin 3.4 L [id number] Beta Globulins Gamma Globulins PEP Interpretation Arterial Blood Glucose Arterial Blood Ionized Calcium Urine WBC (Auto) Urine Creatinine Urine Total Protein Rheumatoid Factor Chest x-ray: image reviewed (no new process) Allied health notes reviewed: nursing
[2021-06-21] MEDS: INSULIN GLARGINE 100 UNITS/ML SUB-Q SCH (21:53)
[2021-06-21] MEDS: SENNOSIDES/DOCUSATE SODIUM 8.6/50 MG TAB PO SCH (21:54)
[2021-06-22] MEDS: INSULIN LISPRO 100 UNIT/ML SUB-Q SCH ×3 (00:53→14:06)
[2021-06-22] MEDS: hydrALAZINE 20 MG/1 ML INJ IV SCH ×4 (01:03→10:40)
[2021-06-22 06:49] LABS: Hematocrit 29.5 % (30.3-42.9); Hemoglobin 9.2 gm/dl (10.1-14.3); Mean Corpuscular HGB Conc 31 % (30-34); Mean Corpuscular Volume 76 fl (79-97); Platelet Count 152 K/mm3 (140-440); Red Blood Count 3.89 M/mm3 (3.65-5.03); Red Cell Distribution Width 15.2 % (13.2-15.2)
[2021-06-22] MEDS: HEPARIN 5,000 UNIT/1 ML VIAL SUB-Q SCH ×2 (06:52→14:06)
[2021-06-22 07:12] LABS: Alanine Aminotransferase 64 units/L (7-56); Albumin 2.8 g/dL (3.9-5); BUN/Creatinine Ratio 37; Blood Urea Nitrogen 37 mg/dL (7-17); Calcium 9.6 mg/dL (8.4-10.2); Hemolysis Index 4
[2021-06-22] MEDS: hydrALAZINE 100 MG TAB PO SCH ×2 (08:09→14:06)
[2021-06-22] MEDS: GLYCOPYRROLATE 1 MG TAB PO SCH ×2 (08:09→14:06)
[2021-06-22] MEDS: levETIRAcetam 500 MG/5 ML ORAL LIQD PO SCH (09:38)
[2021-06-22] MEDS: amLODIPine 10 MG TAB PO SCH (09:38)
[2021-06-22] MEDS: FAMOTIDINE 20 MG TAB PO SCH (09:38)
[2021-06-22] MEDS: carvediloL 3.125 MG TAB PO SCH ×2 (09:39→10:40)
[2021-06-22] MEDS: INSULIN GLARGINE 100 UNITS/ML SUB-Q SCH (09:43)
[2021-06-22] MEDS: SENNOSIDES/DOCUSATE SODIUM 8.6/50 MG TAB PO SCH (11:54)
--- NOTE | 2021-06-22 12:44 | Discharge Summary ---
Providers - Providers Date of Admission: 06/15/21 05:07 Date of discharge: 06/22/21 Attending physician: SUZANNE DEL REAL MD 06/15/21 05:08 Consult to Dietitian/Nutrition [CONS] Routine Physician Instructions: Reason For Exam: Reason for Consult: Diet education Consult to Physician [CONS] Routine Comment: Consulting Provider: GERMAN MARIO Physician Instructions: Reason For Exam: Cardiac Arrest 06/15/21 05:16 Consult to Physician [CONS] Routine Comment: called office/ heriberto Consulting Provider: CULLEN HARRY Physician Instructions: Reason For Exam: Cardiac Arrest, Pneumonia - R/O Covid-19 06/15/21 07:05 Consult to Physician [CONS] Routine Comment: called office/ heriberto Consulting Provider: ISABELLA BUCIO Physician Instructions: Reason For Exam: RIGOBERTO 06/15/21 07:16 Consult to Cardiology [CONS] Routine Consulting Provider: TERA MACIAS Reason For Exam: CARDIAC ARREST 06/15/21 15:46 Consult to Dietitian/Nutrition [CONS] Routine Physician Instructions: Reason For Exam: Reason for Consult: Write/Manage Tube Feeding 06/16/21 08:45 PICC Line Insertion [Consult to PICC Line RN] [CONS] Routine Reason For Exam: NEEDS ACCESS FOR CRITICAL ILL [PATIENT Type Line:: PICC 06/19/21 14:55 Consult to Physician [CONS] Routine Comment: noted/ heriberto Consulting Provider: NEGIN KEE Physician Instructions: Reason For Exam: AMS sp anoxic brain injury 06/20/21 15:30 Consult to Physician [CONS] Routine Comment: Consulting Provider: NEGIN KEE Physician Instructions: per Dr Maikel thomas recs on imaging Reason For Exam: follow up on neuro imaging Primary care physician: STUNT WOMAN Hospitalization Condition: Critical Hospital course: 81-year-old female brought into the emergency room by EMS in cardiac arrest. Family was said to witnessed collapse. EMS had given 2 rounds of epi with return of spontaneous circulation. Most of the history was gotten from the ER staff at [facility] no available patient is currently intubated. No other information available at this time. Work-up in the emergency room, chest x-ray reveals bilateral patchy opacities most significant in the left lower lung and right upper lung. No pneumothorax. Labs significant for elevated troponin of 0.041, elevated BUN and creatinine of 36 and 1.4 respectively. D-dimer is 1785. 06/16: Patient seen and examined, still unresponsive, awaiting CT head and CTA chest. Continue heparin for possible PE and MT. Continue abx for Bilateral Pneumonia. Cardiology, ID and Pulmonary. Poor prognosis. for out of hospital cardiac arrest May need Neurology ECHO Done result pending. 06/17: Remains clinically unchanged head CT unremarkable CT of the chest with angiogram shows no pulmonary embolism but bilateral infiltrates pneumonitis. Patient still not responded. Pupils appear fixed. She does not appear to have any gag reflex. Renal function worsening this could be secondary to contrast- induced will start on gentle hydration. Called brother to update and discuss of current clinical status and discuss poor prognostic indicators left a message requesting a call back. 06-19 no events overnight 06-20 no acute events overnight 06-21 no acute events overnight; pt has decided to pursue hospice care 06-22 no acute events overnight ; will go to hospice today NEURO- AMS sp cardiopulmonary arrest; possible seizure likely due to anoxic event; acute encephalopathy; hx arthritis; hx dysphagia -neurololgy has seen and evaluated pt, her CT's, EEG's and MRI- poor prognost ification neurologially -pupils pinpoint/sluggish; weak cough -keppra BID -case management following and amily updated on plan of care -plan for hospice transfer today CV- sp cardiac arrest with ROSC; HTN; sp STEMI on norvasc and hydral scheduled; coreg and hyral IV scheduled added yesterday; remains htn so coreg has been inc today normal biV function on echo SB-SR Resp- acute resp failure hypoxic in nature - on MVS requiring mechanical ventilation [id number] PS trial if tolerates copious secretions - continue robinol and scopolamine patch GI nap TF to goal tolerating well PPI bowel reg- colace/senna - a/c KD likely pre-renal sp cardiac arrest - improving follow and replace electrolytes renal ultrasound 06/15 noted purewik catheter monitor for retention Heme- ana maria VTE SQH prophylaxis no bleeding on exam US BLE neg for DVT ID -nap no fevers trend WBC and temp curve ID following- off antibiotics since 06-18 Endo DM II; hyperglycemia; obesity trending BG SSI PRN lantus BID avoid hypoglycemia The high probability of a clinically significant, sudden or life threatening deterioration of the [respiratory] system(s) required my full and direct attention, intervention and personal management. The aggregate critical care time was [60] minutes. This time is in addition to time spent performing reported procedures but includes the following: [x] Data Review and interpretation [x] Patient assessment and monitoring of vital signs [x] Documentation [x] Medication orders and management Disposition: [id number] ([facility]) Final Discharge Diagnosis (Prints w/discharge instructions): anoxic brain injury sp cardiac arrest; acute respiratory failure Time spent for discharge: 60 Core Measure Documentation - Palliative Care Palliative Care/ Comfort Measures: Hospice Care - Core Measures Any of the following diagnoses?: none - VTE Discharge Requirements Deep Vein Thrombosis/Pulmonary Embolism Present on Admission: No Has pt received <5 days of overlap therapy or INR<2.0: No Anticoagulant overlap therapy prescribed at discharge: No Contraindication No Overlap Therapy order at DC: Medical Contraindication - Acute MT Discharge Requirements Aspirin at discharge: No Reason for no aspirin on DC: Medical contraindication ALLIE/ARB for LVSD if EF <40%: No Reason for no ALLIE/ARB: Medical contraindication Beta chidi at discharge: Yes Statin for LDL = or >100 mg/dl on DC: No Reason for no statin on DC: Medical contraindication - Heart Failure Discharge Requirements ALLIE/ARB for LVSD if EF <40%: No Reason for no ALLIE/ARB: Medical contraindication Beta chidi at discharge: Yes - Stroke Discharge Requirements Statin for LDL = or >70 mg/dl on DC: Not Applicable Reason for no statin on DC: Medical Contraindication Anticoag for atrial fib/atrial flutter: Not Applicable Antithrombotic for ischemic stroke: No Reason for no antithrombotic on DC: Medical Contraindication Exam - Constitutional Vitals: Temp Pulse Resp BP Pulse Ox 97.9 F 79 18 162/79 95 06/22/21 07:00 06/22/21 11:54 06/22/21 11:15 06/22/21 11:54 06/22/21 11:15 General appearance: Present: no acute distress - EENT Eyes: Present: PERRL (pinpoint sluggish) ENT: clear oral mucosa - Neck Neck: Present: supple - Respiratory Respiratory effort: normal - Cardiovascular Rhythm: regular Heart Sounds: Present: S1 & S2 Peripheral Pulses: within normal limits - Abdominal General gastrointestinal: Present: soft Female genitourinary: Present: normal - Rectal Rectal Exam: deferred - Integumentary Integumentary: Present: warm, dry - Musculoskeletal Musculoskeletal: other - Psychiatric Psychiatric: other - Neurologic Neurologic: other - Allied Health Allied health notes reviewed: nursing, RT, social work, case management Plan Follow up with: PRIMARY CARE,MD [Primary Care Provider] - 3-5 Days
[2021-06-22] MEDS ORDERED: carvediloL 6.25 MG TAB PO SCH (13:03)
--- NOTE | 2021-06-22 13:07 | Progress Note ---
Assessment and Plan Acute hypoxemic respiratory failure on MVS Cardiac arrest with ROSC Possible seizure activity Acute encephalopathy Acute kidney injury Non-ST elevation myocardial infarction Morbid obesity Hyperglycemia Arthritis Oropharyngeal dysphagia HTN - continue Robinul & scopolamine for secretion control - continue scheduled IV hydralazine for elevated BP's - keep TV at 300 ml's re: respioratory alkalosis - continue empiric Keppra - continue care as below otherwise; - continue IV Heparin for now - continue Daily SAT and SBT assessment as tolerated - continue to wean supplemental oxygen for target O2 sat's > 90% acutely - VAP bundle addressed - continue lung protective strategies - continue bronchodilators with pulmonary hygiene per RT - wean per pulmonary driven protocols otherwise - continue accuchecks with glycemic control per SSI (While critically ill target blood glucose of 140-180 mg/dL; avoid hypoglycemia) - sedation prn for target RASS 0 to -1 - azotemia per nephrology team; no acute indication for dialysis - continue to avoid nephrotoxins, renally dose all medications - continue to avoid benzodiazepine's, reduce the possibility of delirium - complete AB's per ID rec's (Zosyn) - prn analgesia per CPOT score - Maintenance of sleep-wake cycle, avoid delirium - continue enteral nutritional support at goal rate as tolerated - G.I. & VTE prophylaxis - PT/OT/ROM exercises - continue mobility protocols for pressure ulcer prophylaxis - Monitor hemodynamics closely - continue other care per attending / other consultants - discharge planning ongoing concurrently COVID SPECIFIC INTERVENTIONS - COVID PCR negative .... Re-evaluate in am & prn CONDITION: CRITICAL PROGNOSIS: GUARDED CODE STATUS: FULL CODE The high probability of a clinically significant, sudden or life-threatening deterioration of the [respiratory, cardiovascular, renal & neurologic] system(s) required my full and direct attention, intervention and personal management. The aggregate critical care time was [33] minutes without overlap. Time includes spent on; [x] Data Review and interpretation [x] Patient assessment and monitoring of vital signs [x] Documentation [x] Medication orders and management Subjective Date of service: 06/22/21 Principal diagnosis: Ac hypoxemic resp failure; Cardiac arrest; RIGOBERTO; AMS; NSTEMI Interval history: Patient is seen today for: Acute hypoxemic respiratory failure; Cardiac arrest with ROSC; Possible seizure activity; RIGOBERTO; Acute encephalopathy; NSTEMI Seen and examined at bedside; 24hour events reviewed; nursing and respiratory c are staff consulted; no adverse overnight events reported to me; restin in bed; remains on MVS; tentatively to transfer to hospice today Objective Vital Signs - 12hr 06/22/21 06/22/21 06/22/21 01:15 01:30 01:45 Temperature Pulse Rate 72 72 75 Pulse Rate [ From Monitor] Respiratory 15 14 22 Rate Blood Pressure 151/65 148/63 146/67 O2 Sat by Pulse 93 94 94 Oximetry 06/22/21 06/22/21 06/22/21 02:00 02:15 02:21 Temperature Pulse Rate 90 89 90 Pulse Rate [ From Monitor] Respiratory 16 16 Rate Blood Pressure 146/67 192/79 179/75 O2 Sat by Pulse 96 94 Oximetry 06/22/21 06/22/21 06/22/21 02:30 02:45 03:00 Temperature Pulse Rate 73 73 75 Pulse Rate [ From Monitor] Respiratory 13 13 14 Rate Blood Pressure 161/72 167/72 154/66 O2 Sat by Pulse 93 92 93 Oximetry 06/22/21 06/22/21 06/22/21 03:15 03:30 03:45 Temperature Pulse Rate 71 74 67 Pulse Rate [ From Monitor] Respiratory 29 H 15 12 Rate Blood Pressure 155/60 150/64 135/56 O2 Sat by Pulse 94 92 92 Oximetry 06/22/21 06/22/21 06/22/21 04:00 04:15 04:30 Temperature 97.6 F Pulse Rate 67 64 66 Pulse Rate [ From Monitor] Respiratory 14 32 H 13 Rate Blood Pressure 137/58 131/59 135/60 O2 Sat by Pulse 93 95 92 Oximetry 06/22/21 06/22/21 06/22/21 04:45 05:00 05:15 Temperature Pulse Rate 67 68 68 Pulse Rate [ From Monitor] Respiratory 32 H 10 L 15 Rate Blood Pressure 148/64 149/65 154/66 O2 Sat by Pulse 93 93 94 Oximetry 06/22/21 06/22/21 06/22/21 05:30 05:45 06:00 Temperature Pulse Rate 74 69 65 Pulse Rate [ From Monitor] Respiratory 27 H 15 31 H Rate Blood Pressure 163/72 150/64 143/67 O2 Sat by Pulse 94 93 92 Oximetry 06/22/21 06/22/21 06/22/21 06:15 06:30 06:45 Temperature Pulse Rate 69 71 68 Pulse Rate [ From Monitor] Respiratory 19 17 14 Rate Blood Pressure 154/64 154/66 150/64 O2 Sat by Pulse 92 93 93 Oximetry 06/22/21 06/22/21 06/22/21 06:51 07:00 07:15 Temperature 97.9 F Pulse Rate 71 67 66 Pulse Rate [ From Monitor] Respiratory 25 H 32 H Rate Blood Pressure 150/64 155/68 160/64 O2 Sat by Pulse 92 94 Oximetry 06/22/21 06/22/21 06/22/21 07:30 07:45 08:00 Temperature Pulse Rate 76 76 80 Pulse Rate [ From Monitor] Respiratory 23 18 32 H Rate Blood Pressure 178/70 171/69 170/82 O2 Sat by Pulse 94 93 98 Oximetry 06/22/21 06/22/21 06/22/21 08:09 08:15 08:30 Temperature Pulse Rate 79 71 69 Pulse Rate [ From Monitor] Respiratory 11 L 30 H Rate Blood Pressure 182/63 167/73 150/64 O2 Sat by Pulse 91 93 Oximetry 06/22/21 06/22/21 06/22/21 08:46 09:00 09:16 Temperature Pulse Rate 72 71 70 Pulse Rate [ 76 From Monitor] Respiratory 10 L 10 L 10 L Rate Blood Pressure 163/67 147/63 157/65 O2 Sat by Pulse 92 94 94 Oximetry 06/22/21 06/22/21 06/22/21 09:30 09:38 09:45 Temperature Pulse Rate 61 63 71 Pulse Rate [ From Monitor] Respiratory 32 H 30 H Rate Blood Pressure 126/58 126/58 129/65 O2 Sat by Pulse 95 94 Oximetry 06/22/21 06/22/21 06/22/21 10:00 10:16 10:30 Temperature Pulse Rate 68 72 74 Pulse Rate [ From Monitor] Respiratory 10 L 14 13 Rate Blood Pressure 132/66 165/77 165/77 O2 Sat by Pulse 95 92 94 Oximetry 06/22/21 06/22/21 06/22/21 10:40 10:45 11:00 Temperature Pulse Rate 70 79 81 Pulse Rate [ From Monitor] Respiratory 16 13 Rate Blood Pressure 173/73 180/86 170/82 O2 Sat by Pulse 93 97 Oximetry 06/22/21 06/22/21 11:15 11:54 Temperature Pulse Rate 79 79 Pulse Rate [ From Monitor] Respiratory 18 Rate Blood Pressure 169/73 162/79 O2 Sat by Pulse 95 Oximetry Constitutional: appears uncomfortable, other (elderly obese female with mildly increased respiratory effort at rest) Eyes: non-icteric ENT: oropharynx moist, oropharyngeal exudate pre (moderate), other (ETT 23 cm CON) Neck: supple, no lymphadenopathy, no JVD, other (large circumference) Effort: mildly labored Ascultation: Bilateral: diminished breath sounds, rhonchi Percussion: Bilateral: not dull Cardiovascular: regular rate and rhythm Gastrointestinal: normoactive bowel sounds, soft, non-tender, non-distended (protuberant) Integumentary: normal Extremities: no cyanosis, no edema, pulses normal, no ischemia or petechiae Neurologic: pupils equal and round, unable to assess Psychiatric: other (unable to assess re: AMS) CBC and BMP: 06/22/21 Unknown 06/22/21 Unknown ABG, PT/INR, D-dimer: ABG ABG pH 7.556 (7.320-7.450) H 06/21/21 04:00 POC ABG pCO2 24.4 mmHg (32.0-48.0) L 06/21/21 04:00 ABG pCO2 36.3 mm Hg 06/15/21 05:00 POC ABG pO2 100.7 mmHg (83-108) 06/21/21 04:00 ABG pO2 184.7 mm Hg (80.0-90.0) H 06/15/21 05:00 POC ABG HCO3 21.2 06/21/21 04:00 ABG O2 Saturation 98.8 (0-100) 06/21/21 04:00 PT/INR, D-dimer PT 16.0 Sec. (12.2-14.9) H 06/16/21 06:16 INR 1.22 (0.87-1.13) H 06/16/21 06:16 D-Dimer 1785.61 ng/mlDDU (0-234) H 06/15/21 05:18 Abnormal lab findings: Abnormal Labs 06/15/21 06/15/21 06/15/21 03:30 03:30 03:30 Hgb Hct MCV MCH 24 L MCHC 29 L RDW 15.8 H Lymph % (Auto) 12.8 L Crowley % (Auto) Lymph # (Auto) 1.1 L Seg Neutrophils % 80.4 H PT 15.6 H INR 1.18 H D-Dimer Heparin Anti-Xa Level ABG pH POC ABG pCO2 POC ABG pO2 ABG pO2 ABG O2 Saturation ABG Hemoglobin ABG Oxyhemoglobin ABG Sodium ABG Potassium ABG Glucose Carboxyhemoglobin Sodium Potassium Carbon Dioxide BUN 36 H Creatinine 1.4 H Glucose 258 H POC Glucose Calcium AST ALT Lactate Dehydrogenase CK-MB (CK-2) 4.8 H CK-MB (CK-2) Rel Index 4.5 H Troponin T 0.041 H C-Reactive Protein Serum Total Protein Total Protein Albumin Ptagi-5-Asevdzfbs Beta Globulins Gamma Globulins PEP Interpretation Arterial Blood Glucose Arterial Blood Ionized Calcium Urine WBC (Auto) Urine Creatinine Urine Total Protein Rheumatoid Factor 06/15/21 06/15/21 06/15/21 05:00 05:18 05:18 Hgb Hct MCV MCH MCHC RDW Lymph % (Auto) Crowley % (Auto) Lymph # (Auto) Seg Neutrophils % PT INR D-Dimer 1785.61 H Heparin Anti-Xa Level ABG pH POC ABG pCO2 POC ABG pO2 ABG pO2 184.7 H ABG O2 Saturation 99.2 H ABG Hemoglobin ABG Oxyhemoglobin ABG Sodium ABG Potassium ABG Glucose Carboxyhemoglobin Sodium Potassium Carbon Dioxide BUN Creatinine Glucose POC Glucose Calcium AST ALT Lactate Dehydrogenase 243 H CK-MB (CK-2) CK-MB (CK-2) Rel Index Troponin T C-Reactive Protein 3.00 H Serum Total Protein Total Protein Albumin Kfbnw-0-Lkgjvfxqo Beta Globulins Gamma Globulins PEP Interpretation Arterial Blood Glucose Arterial Blood Ionized Calcium Urine WBC (Auto) Urine Creatinine Urine Total Protein Rheumatoid Factor 06/15/21 06/15/21 06/15/21 06:30 07:39 09:05 Hgb Hct MCV MCH MCHC RDW Lymph % (Auto) Crowley % (Auto) Lymph # (Auto) Seg Neutrophils % PT INR D-Dimer Heparin Anti-Xa Level ABG pH POC ABG pCO2 POC ABG pO2 ABG pO2 ABG O2 Saturation ABG Hemoglobin ABG Oxyhemoglobin ABG Sodium ABG Potassium ABG Glucose Carboxyhemoglobin Sodium Potassium Carbon Dioxide BUN Creatinine Glucose POC Glucose 231 H Calcium AST ALT Lactate Dehydrogenase CK-MB (CK-2) CK-MB (CK-2) Rel Index Troponin T 0.058 H D 0.062 H C-Reactive Protein Serum Total Protein Total Protein Albumin Rmeqr-5-Wddgotrih Beta Globulins Gamma Globulins PEP Interpretation Arterial Blood Glucose Arterial Blood Ionized Calcium Urine WBC (Auto) Urine Creatinine Urine Total Protein Rheumatoid Factor 06/15/21 06/15/21 06/15/21 09:15 09:34 13:09 Hgb Hct MCV MCH MCHC RDW Lymph % (Auto) Crowley % (Auto) Lymph # (Auto) Seg Neutrophils % PT INR D-Dimer Heparin Anti-Xa Level ABG pH POC ABG pCO2 POC ABG pO2 ABG pO2 ABG O2 Saturation ABG Hemoglobin ABG Oxyhemoglobin ABG Sodium ABG Potassium ABG Glucose Carboxyhemoglobin Sodium Potassium Carbon Dioxide BUN Creatinine Glucose POC Glucose 240 H Calcium AST ALT Lactate Dehydrogenase CK-MB (CK-2) CK-MB (CK-2) Rel Index Troponin T C-Reactive Protein Serum Total Protein Total Protein Albumin Lvqip-4-Rqalkmkze Beta Globulins Gamma Globulins PEP Interpretation Arterial Blood Glucose Arterial Blood Ionized Calcium Urine WBC (Auto) 8.0 H Urine Creatinine 146.5 H Urine Total Protein 216 H Rheumatoid Factor 06/15/21 06/15/21 06/15/21 16:05 18:14 23:09 Hgb Hct MCV MCH MCHC RDW Lymph % (Auto) Crowley % (Auto) Lymph # (Auto) Seg Neutrophils % PT INR D-Dimer Heparin Anti-Xa Level < 0.10 L ABG pH POC ABG pCO2 POC ABG pO2 ABG pO2 ABG O2 Saturation ABG Hemoglobin ABG Oxyhemoglobin ABG Sodium ABG Potassium ABG Glucose Carboxyhemoglobin Sodium Potassium Carbon Dioxide BUN Creatinine Glucose POC Glucose 150 H 179 H Calcium AST ALT Lactate Dehydrogenase CK-MB (CK-2) CK-MB (CK-2) Rel Index Troponin T C-Reactive Protein Serum Total Protein Total Protein Albumin Dbepq-6-Prbjwopmc Beta Globulins Gamma Globulins PEP Interpretation Arterial Blood Glucose Arterial Blood Ionized Calcium Urine WBC (Auto) Urine Creatinine Urine Total Protein Rheumatoid Factor 06/15/21 06/16/21 06/16/21 23:43 05:00 05:17 Hgb Hct MCV MCH MCHC RDW Lymph % (Auto) Crowley % (Auto) Lymph # (Auto) Seg Neutrophils % PT INR D-Dimer Heparin Anti-Xa Level < 0.10 L ABG pH 7.693 H POC ABG pCO2 18.6 L POC ABG pO2 147.2 H ABG pO2 ABG O2 Saturation ABG Hemoglobin ABG Oxyhemoglobin 98.5 H ABG Sodium ABG Potassium 3.0 L ABG Glucose 178 H Carboxyhemoglobin Sodium Potassium Carbon Dioxide BUN Creatinine Glucose POC Glucose 182 H Calcium AST ALT Lactate Dehydrogenase CK-MB (CK-2) CK-MB (CK-2) Rel Index Troponin T C-Reactive Protein Serum Total Protein Total Protein Albumin Bzxre-7-Sdvingges Beta Globulins Gamma Globulins PEP Interpretation Arterial Blood Glucose 178 H Arterial Blood Ionized Calcium 4.5 L Urine WBC (Auto) Urine Creatinine Urine Total Protein Rheumatoid Factor 06/16/21 06/16/21 06/16/21 06:16 06:16 06:16 Hgb Hct MCV 77 L MCH 24 L MCHC RDW Lymph % (Auto) Crowley % (Auto) 7.5 H Lymph # (Auto) Seg Neutrophils % 73.8 H PT 16.0 H INR 1.22 H D-Dimer Heparin Anti-Xa Level ABG pH POC ABG pCO2 POC ABG pO2 ABG pO2 ABG O2 Saturation ABG Hemoglobin ABG Oxyhemoglobin ABG Sodium ABG Potassium ABG Glucose Carboxyhemoglobin Sodium Potassium 3.1 L D Carbon Dioxide BUN 40 H Creatinine 1.4 H Glucose 154 H POC Glucose Calcium AST 48 H ALT 69 H Lactate Dehydrogenase CK-MB (CK-2) CK-MB (CK-2) Rel Index Troponin T C-Reactive Protein Serum Total Protein Total Protein 5.8 L Albumin 3.0 L Uyggv-0-Tmglbysfp Beta Globulins Gamma Globulins PEP Interpretation Arterial Blood Glucose Arterial Blood Ionized Calcium Urine WBC (Auto) Urine Creatinine Urine Total Protein Rheumatoid Factor 06/16/21 06/16/21 06/16/21 10:20 16:20 17:43 Hgb Hct MCV MCH MCHC RDW Lymph % (Auto) Crowley % (Auto) Lymph # (Auto) Seg Neutrophils % PT INR D-Dimer Heparin Anti-Xa Level 0.26 L ABG pH POC ABG pCO2 POC ABG pO2 ABG pO2 ABG O2 Saturation ABG Hemoglobin ABG Oxyhemoglobin ABG Sodium ABG Potassium ABG Glucose Carboxyhemoglobin Sodium Potassium 3.2 L Carbon Dioxide BUN 42 H Creatinine 1.3 H Glucose 161 H POC Glucose 163 H Calcium AST ALT Lactate Dehydrogenase CK-MB (CK-2) CK-MB (CK-2) Rel Index Troponin T C-Reactive Protein Serum Total Protein Total Protein Albumin Rcvwo-5-Hnyofblhc Beta Globulins Gamma Globulins PEP Interpretation Arterial Blood Glucose Arterial Blood Ionized Calcium Urine WBC (Auto) Urine Creatinine Urine Total Protein Rheumatoid Factor 06/16/21 06/16/21 06/16/21 17:45 18:40 23:12 Hgb Hct MCV MCH MCHC RDW Lymph % (Auto) Crowley % (Auto) Lymph # (Auto) Seg Neutrophils % PT INR D-Dimer Heparin Anti-Xa Level ABG pH POC ABG pCO2 POC ABG pO2 ABG pO2 ABG O2 Saturation ABG Hemoglobin ABG Oxyhemoglobin ABG Sodium ABG Potassium ABG Glucose Carboxyhemoglobin Sodium Potassium Carbon Dioxide BUN Creatinine Glucose POC Glucose 173 H Calcium AST ALT Lactate Dehydrogenase CK-MB (CK-2) CK-MB (CK-2) Rel Index Troponin T C-Reactive Protein Serum Total Protein 5.0 L Total Protein Albumin 2.3 L Kvhun-4-Hsmgkdsqu 0.4 H Beta Globulins 0.7 H Gamma Globulins 0.7 L PEP Interpretation see below H Arterial Blood Glucose Arterial Blood Ionized Calcium Urine WBC (Auto) Urine Creatinine Urine Total Protein Rheumatoid Factor 20 H 06/17/21 06/17/21 06/17/21 03:26 05:45 05:45 Hgb Hct MCV 76 L MCH 24 L MCHC RDW Lymph % (Auto) Crowley % (Auto) Lymph # (Auto) Seg Neutrophils % PT INR D-Dimer Heparin Anti-Xa Level ABG pH 7.470 H POC ABG pCO2 POC ABG pO2 ABG pO2 ABG O2 Saturation ABG Hemoglobin 11.4 L ABG Oxyhemoglobin ABG Sodium ABG Potassium 3.1 L ABG Glucose 170 H Carboxyhemoglobin Sodium Potassium 3.1 L Carbon Dioxide BUN 48 H Creatinine 2.1 H D Glucose 156 H POC Glucose Calcium 8.2 L AST 61 H ALT Lactate Dehydrogenase CK-MB (CK-2) CK-MB (CK-2) Rel Index Troponin T C-Reactive Protein Serum Total Protein Total Protein 5.5 L Albumin 2.6 L Pgvvv-0-Asvyrclrz Beta Globulins Gamma Globulins PEP Interpretation Arterial Blood Glucose 170 H Arterial Blood Ionized Calcium Urine WBC (Auto) Urine Creatinine Urine Total Protein Rheumatoid Factor 06/17/21 06/17/21 06/17/21 06:16 12:05 16:10 Hgb Hct MCV MCH MCHC RDW Lymph % (Auto) Crowley % (Auto) Lymph # (Auto) Seg Neutrophils % PT INR D-Dimer Heparin Anti-Xa Level 0.26 L ABG pH POC ABG pCO2 POC ABG pO2 ABG pO2 ABG O2 Saturation ABG Hemoglobin ABG Oxyhemoglobin ABG Sodium ABG Potassium ABG Glucose Carboxyhemoglobin Sodium Potassium Carbon Dioxide BUN Creatinine Glucose POC Glucose 141 H 138 H Calcium AST ALT Lactate Dehydrogenase CK-MB (CK-2) CK-MB (CK-2) Rel Index Troponin T C-Reactive Protein Serum Total Protein Total Protein Albumin Mfqfq-8-Xcejbeooi Beta Globulins Gamma Globulins PEP Interpretation Arterial Blood Glucose Arterial Blood Ionized Calcium Urine WBC (Auto) Urine Creatinine Urine Total Protein Rheumatoid Factor 06/17/21 06/17/21 06/18/21 17:44 23:51 03:41 Hgb Hct MCV MCH MCHC RDW Lymph % (Auto) Crowley % (Auto) Lymph # (Auto) Seg Neutrophils % PT INR D-Dimer Heparin Anti-Xa Level 0.20 L ABG pH POC ABG pCO2 POC ABG pO2 ABG pO2 ABG O2 Saturation ABG Hemoglobin ABG Oxyhemoglobin ABG Sodium ABG Potassium ABG Glucose Carboxyhemoglobin Sodium Potassium Carbon Dioxide BUN Creatinine Glucose POC Glucose 149 H 195 H Calcium AST ALT Lactate Dehydrogenase CK-MB (CK-2) CK-MB (CK-2) Rel Index Troponin T C-Reactive Protein Serum Total Protein Total Protein Albumin Zdxdk-0-Vshuxlhpp Beta Globulins Gamma Globulins PEP Interpretation Arterial Blood Glucose Arterial Blood Ionized Calcium Urine WBC (Auto) Urine Creatinine Urine Total Protein Rheumatoid Factor 06/18/21 06/18/21 06/18/21 03:53 04:00 04:00 Hgb Hct MCV 75 L MCH 24 L MCHC RDW Lymph % (Auto) Crowley % (Auto) Lymph # (Auto) Seg Neutrophils % PT INR D-Dimer Heparin Anti-Xa Level ABG pH 7.638 H POC ABG pCO2 18.3 L POC ABG pO2 133.6 H ABG pO2 ABG O2 Saturation ABG Hemoglobin 11.7 L ABG Oxyhemoglobin ABG Sodium 132.9 L ABG Potassium 3.2 L ABG Glucose 166 H Carboxyhemoglobin Sodium Potassium 3.3 L Carbon Dioxide 21 L BUN 48 H Creatinine 1.6 H Glucose 177 H POC Glucose Calcium AST 78 H ALT Lactate Dehydrogenase CK-MB (CK-2) CK-MB (CK-2) Rel Index Troponin T C-Reactive Protein Serum Total Protein Total Protein 5.6 L Albumin 2.5 L Cytey-7-Bcomxmnpz Beta Globulins Gamma Globulins PEP Interpretation Arterial Blood Glucose 166 H Arterial Blood Ionized Calcium Urine WBC (Auto) Urine Creatinine Urine Total Protein Rheumatoid Factor 06/18/21 06/18/21 06/18/21 05:51 11:26 12:00 Hgb Hct MCV MCH MCHC RDW Lymph % (Auto) Crowley % (Auto) Lymph # (Auto) Seg Neutrophils % PT INR D-Dimer Heparin Anti-Xa Level ABG pH POC ABG pCO2 POC ABG pO2 ABG pO2 ABG O2 Saturation ABG Hemoglobin 11.8 L ABG Oxyhemoglobin ABG Sodium 135.6 L ABG Potassium 3.2 L ABG Glucose 213 H Carboxyhemoglobin Sodium Potassium Carbon Dioxide BUN Creatinine Glucose POC Glucose 176 H 183 H Calcium AST ALT Lactate Dehydrogenase CK-MB (CK-2) CK-MB (CK-2) Rel Index Troponin T C-Reactive Protein Serum Total Protein Total Protein Albumin Bczrh-1-Hmqziypll Beta Globulins Gamma Globulins PEP Interpretation Arterial Blood Glucose 213 H Arterial Blood Ionized Calcium Urine WBC (Auto) Urine Creatinine Urine Total Protein Rheumatoid Factor 06/18/21 06/18/21 06/19/21 18:02 23:39 04:04 Hgb Hct MCV MCH MCHC RDW Lymph % (Auto) Crowley % (Auto) Lymph # (Auto) Seg Neutrophils % PT INR D-Dimer Heparin Anti-Xa Level ABG pH 7.500 H POC ABG pCO2 27.1 L POC ABG pO2 119.7 H ABG pO2 ABG O2 Saturation ABG Hemoglobin ABG Oxyhemoglobin ABG Sodium 135.4 L ABG Potassium ABG Glucose 242 H Carboxyhemoglobin Sodium Potassium Carbon Dioxide BUN Creatinine Glucose POC Glucose 208 H 207 H Calcium AST ALT Lactate Dehydrogenase CK-MB (CK-2) CK-MB (CK-2) Rel Index Troponin T C-Reactive Protein Serum Total Protein Total Protein Albumin Ghepc-4-Udhzlodbh Beta Globulins Gamma Globulins PEP Interpretation Arterial Blood Glucose 242 H Arterial Blood Ionized Calcium Urine WBC (Auto) Urine Creatinine Urine Total Protein Rheumatoid Factor 06/19/21 06/19/21 06/19/21 05:26 07:35 07:35 Hgb Hct MCV 75 L MCH 24 L MCHC RDW Lymph % (Auto) [place]ley % (Auto) Lymph # (Auto) Seg Neutrophils % PT INR D-Dimer Heparin Anti-Xa Level ABG pH POC ABG pCO2 POC ABG pO2 ABG pO2 ABG O2 Saturation ABG Hemoglobin ABG Oxyhemoglobin ABG Sodium ABG Potassium ABG Glucose Carboxyhemoglobin Sodium Potassium Carbon Dioxide BUN 38 H Creatinine Glucose 259 H POC Glucose 222 H Calcium AST ALT Lactate Dehydrogenase CK-MB (CK-2) CK-MB (CK-2) Rel Index Troponin T C-Reactive Protein Serum Total Protein Total Protein Albumin Qgvdj-1-Vywbdowba Beta Globulins Gamma Globulins PEP Interpretation Arterial Blood Glucose Arterial Blood Ionized Calcium Urine WBC (Auto) Urine Creatinine Urine Total Protein Rheumatoid Factor 06/19/21 06/19/21 06/19/21 11:16 17:50 18:19 Hgb Hct MCV MCH MCHC RDW Lymph % (Auto) Crowley % (Auto) Lymph # (Auto) Seg Neutrophils % PT INR D-Dimer Heparin Anti-Xa Level ABG pH POC ABG pCO2 POC ABG pO2 ABG pO2 ABG O2 Saturation ABG Hemoglobin ABG Oxyhemoglobin ABG Sodium ABG Potassium ABG Glucose Carboxyhemoglobin Sodium Potassium Carbon Dioxide BUN Creatinine Glucose POC Glucose 267 H 203 H 215 H Calcium AST ALT Lactate Dehydrogenase CK-MB (CK-2) CK-MB (CK-2) Rel Index Troponin T C-Reactive Protein Serum Total Protein Total Protein Albumin Ceeac-5-Hiswefrou Beta Globulins Gamma Globulins PEP Interpretation Arterial Blood Glucose Arterial Blood Ionized Calcium Urine WBC (Auto) Urine Creatinine Urine Total Protein Rheumatoid Factor 06/19/21 06/20/21 06/20/21 23:31 04:00 04:48 Hgb Hct MCV MCH MCHC RDW Lymph % (Auto) Crowley % (Auto) Lymph # (Auto) Seg Neutrophils % PT INR D-Dimer Heparin Anti-Xa Level < 0.10 L ABG pH 7.493 H POC ABG pCO2 30.6 L POC ABG pO2 109.4 H ABG pO2 ABG O2 Saturation ABG Hemoglobin ABG Oxyhemoglobin ABG Sodium 134.4 L ABG Potassium ABG Glucose 242 H Carboxyhemoglobin 1.9 H Sodium Potassium Carbon Dioxide BUN Creatinine Glucose POC Glucose 217 H Calcium AST ALT Lactate Dehydrogenase CK-MB (CK-2) CK-MB (CK-2) Rel Index Troponin T C-Reactive Protein Serum Total Protein Total Protein Albumin Mscwp-4-Ebtndtqgj Beta Globulins Gamma Globulins PEP Interpretation Arterial Blood Glucose 242 H Arterial Blood Ionized Calcium Urine WBC (Auto) Urine Creatinine Urine Total Protein Rheumatoid Factor 06/20/21 06/20/21 06/20/21 04:48 04:48 04:57 Hgb Hct MCV 76 L MCH 24 L MCHC RDW Lymph % (Auto) [place]ley % (Auto) Lymph # (Auto) Seg Neutrophils % PT INR D-Dimer Heparin Anti-Xa Level ABG pH POC ABG pCO2 POC ABG pO2 ABG pO2 ABG O2 Saturation ABG Hemoglobin ABG Oxyhemoglobin ABG Sodium ABG Potassium ABG Glucose Carboxyhemoglobin Sodium Potassium Carbon Dioxide BUN 35 H Creatinine Glucose 234 H POC Glucose 231 H Calcium AST ALT Lactate Dehydrogenase CK-MB (CK-2) CK-MB (CK-2) Rel Index Troponin T C-Reactive Protein Serum Total Protein Total Protein Albumin Dgfzi-5-Gdjetervk Beta Globulins Gamma Globulins PEP Interpretation Arterial Blood Glucose Arterial Blood Ionized Calcium Urine WBC (Auto) Urine Creatinine Urine Total Protein Rheumatoid Factor 06/20/21 06/20/21 06/20/21 11:33 17:04 23:30 Hgb Hct MCV MCH MCHC RDW Lymph % (Auto) [place]ley % (Auto) Lymph # (Auto) Seg Neutrophils % PT INR D-Dimer Heparin Anti-Xa Level ABG pH POC ABG pCO2 POC ABG pO2 ABG pO2 ABG O2 Saturation ABG Hemoglobin ABG Oxyhemoglobin ABG Sodium ABG Potassium ABG Glucose Carboxyhemoglobin Sodium Potassium Carbon Dioxide BUN Creatinine Glucose POC Glucose 241 H 252 H 330 H Calcium AST ALT Lactate Dehydrogenase CK-MB (CK-2) CK-MB (CK-2) Rel Index Troponin T C-Reactive Protein Serum Total Protein Total Protein Albumin Wpcrw-3-Oyurmokbu Beta Globulins Gamma Globulins PEP Interpretation Arterial Blood Glucose Arterial Blood Ionized Calcium Urine WBC (Auto) Urine Creatinine Urine Total Protein Rheumatoid Factor 06/21/21 06/21/21 06/21/21 04:00 05:39 08:20 Hgb Hct MCV 75 L MCH 24 L MCHC RDW Lymph % (Auto) Crowley % (Auto) Lymph # (Auto) Seg Neutrophils % PT INR D-Dimer Heparin Anti-Xa Level ABG pH 7.556 H POC ABG pCO2 24.4 L POC ABG pO2 ABG pO2 ABG O2 Saturation ABG Hemoglobin ABG Oxyhemoglobin ABG Sodium ABG Potassium ABG Glucose 322 H Carboxyhemoglobin 1.6 H Sodium Potassium Carbon Dioxide BUN Creatinine Glucose POC Glucose 321 H Calcium AST ALT Lactate Dehydrogenase CK-MB (CK-2) CK-MB (CK-2) Rel Index Troponin T C-Reactive Protein Serum Total Protein Total Protein Albumin Riwxx-5-Jlgpctjtn Beta Globulins Gamma Globulins PEP Interpretation Arterial Blood Glucose 322 H Arterial Blood Ionized Calcium Urine WBC (Auto) Urine Creatinine Urine Total Protein Rheumatoid Factor 06/21/21 06/21/21 06/21/21 08:20 11:54 18:01 Hgb Hct MCV MCH MCHC RDW Lymph % (Auto) [place]ley % (Auto) Lymph # (Auto) Seg Neutrophils % PT INR D-Dimer Heparin Anti-Xa Level ABG pH POC ABG pCO2 POC ABG pO2 ABG pO2 ABG O2 Saturation ABG Hemoglobin ABG Oxyhemoglobin ABG Sodium ABG Potassium ABG Glucose Carboxyhemoglobin Sodium 136 L Potassium Carbon Dioxide BUN 33 H Creatinine Glucose 307 H POC Glucose 289 H 319 H Calcium AST 66 H ALT Lactate Dehydrogenase CK-MB (CK-2) CK-MB (CK-2) Rel Index Troponin T C-Reactive Protein Serum Total Protein Total Protein Albumin 3.4 L [id number]-[id number] Beta Globulins Gamma Globulins PEP Interpretation Arterial Blood Glucose Arterial Blood Ionized Calcium Urine WBC (Auto) Urine Creatinine Urine Total Protein Rheumatoid Factor 06/21/21 06/22/21 06/22/21 23:59 05:33 Unknown Hgb 9.2 L Hct 29.5 L D MCV 76 L MCH 24 L MCHC RDW Lymph % (Auto) [place] % (Auto) Lymph # (Auto) Seg Neutrophils % PT INR D-Dimer Heparin Anti-Xa Level ABG pH POC ABG pCO2 POC ABG pO2 ABG pO2 ABG O2 Saturation ABG Hemoglobin ABG Oxyhemoglobin ABG Sodium ABG Potassium ABG Glucose Carboxyhemoglobin Sodium Potassium Carbon Dioxide BUN Creatinine Glucose POC Glucose 288 H 301 H Calcium AST ALT Lactate Dehydrogenase CK-MB (CK-2) CK-MB (CK-2) Rel Index Troponin T C-Reactive Protein Serum Total Protein Total Protein Albumin [id number]-1-Bobxgnvnt Beta Globulins Gamma Globulins PEP Interpretation Arterial Blood Glucose Arterial Blood Ionized Calcium Urine WBC (Auto) Urine Creatinine Urine Total Protein Rheumatoid Factor 06/22/21 Unknown Hgb Hct MCV MCH MCHC RDW Lymph % (Auto) Crowley % (Auto) Lymph # (Auto) Seg Neutrophils % PT INR D-Dimer Heparin Anti-Xa Level ABG pH POC ABG pCO2 POC ABG pO2 ABG pO2 ABG O2 Saturation ABG Hemoglobin ABG Oxyhemoglobin ABG Sodium ABG Potassium ABG Glucose Carboxyhemoglobin Sodium Potassium Carbon Dioxide BUN 37 H Creatinine Glucose 304 H POC Glucose Calcium AST 64 H ALT 64 H Lactate Dehydrogenase CK-MB (CK-2) CK-MB (CK-2) Rel Index Troponin T C-Reactive Protein Serum Total Protein Total Protein 6.2 L Albumin 2.8 L Zwzmj-[id number]-Auaalliom Beta Globulins Gamma Globulins PEP Interpretation Arterial Blood Glucose Arterial Blood Ionized Calcium Urine WBC (Auto) Urine Creatinine Urine Total Protein Rheumatoid Factor Allied health notes reviewed: nursing
[2021-06-22 14:50] VITALS: BP 146/67
--- NOTE | 2021-06-22 18:11 | Progress Note ---
Assessment and Plan - Patient Problems (1) Cardiopulmonary arrest Status: Acute Plan to address problem: Patient admitted to the hospital following an out of hospital cardiopulmonary arrest. Chest x-ray revealed bilateral pulmonary opacities, right greater than left. EKGs in the hospital show a normal sinus rhythm with no ischemic changes. There was transient atrial fibrillation in the field, associated with ongoing ACLS procedures including epinephrine administration. Echocardiogram showed left ventricular ejection fraction 45 to 50%, mild concentric left ventricular hypertrophy. Most significant finding is moderate to severe dilatation of the left atrium, and mild to moderate dilatation of the right heart chambers. A CTA of the chest is reported by radiology as showing "no convincing evidence of pulmonary embolism". We will continue supportive management from a cardiac standpoint, further cardiac evaluation and management will depend on clinical course. Transfer to hospice is planned for today, no further cardiac interventions, we will sign off. Subjective Date of service: 06/22/21 Principal diagnosis: Ac hypoxemic resp failure; Cardiac arrest; RIGOBERTO; AMS; NSTEMI Interval history: Patient is unresponsive on the vent, apparently planned for transfer to hospice later today. No acute hemodynamic issues. Objective Vital Signs Temp Pulse Pulse Resp BP Pulse Ox 06/22/21 14:45 68 10 L 146/67 94 06/22/21 14:30 69 12 150/72 94 06/22/21 14:15 61 30 H 150/69 95 06/22/21 14:00 63 30 H 157/68 98 06/22/21 13:45 61 12 143/66 94 06/22/21 13:30 64 19 141/67 94 06/22/21 13:15 61 28 H 127/59 95 06/22/21 13:00 63 72 12 140/64 93 06/22/21 12:45 70 12 137/67 93 06/22/21 12:30 72 10 L 146/68 94 06/22/21 12:15 69 14 146/68 95 06/22/21 12:00 64 12 132/61 98 06/22/21 11:54 79 162/79 06/22/21 11:45 79 15 162/79 94 06/22/21 11:30 81 23 181/73 95 06/22/21 11:15 79 18 169/73 95 06/22/21 11:00 81 13 170/82 97 06/22/21 10:45 79 16 180/86 93 06/22/21 10:40 70 173/73 06/22/21 10:30 74 13 165/77 94 06/22/21 10:16 72 14 165/77 92 06/22/21 10:00 68 10 L 132/66 95 06/22/21 09:45 71 30 H 129/65 94 06/22/21 09:38 63 126/58 06/22/21 09:30 61 32 H 126/58 95 06/22/21 09:16 70 10 L 157/65 94 06/22/21 09:00 71 76 10 L 147/63 94 06/22/21 08:46 72 10 L 163/67 92 06/22/21 08:30 69 30 H 150/64 93 06/22/21 08:15 71 11 L 167/73 91 06/22/21 08:09 79 182/63 06/22/21 08:00 80 32 H 170/82 98 06/22/21 07:45 76 18 171/69 93 06/22/21 07:30 76 23 178/70 94 06/22/21 07:15 66 32 H 160/64 94 06/22/21 07:00 97.9 F 67 25 H 155/68 92 06/22/21 06:51 71 150/64 06/22/21 06:45 68 14 150/64 93 06/22/21 06:30 71 17 154/66 93 06/22/21 06:15 69 19 154/64 92 06/22/21 06:00 65 31 H 143/67 92 06/22/21 05:45 69 15 150/64 93 06/22/21 05:30 74 27 H 163/72 94 06/22/21 05:15 68 15 154/66 94 06/22/21 05:00 68 10 L 149/65 93 06/22/21 04:45 67 32 H 148/64 93 06/22/21 04:30 66 13 135/60 92 06/22/21 04:15 64 32 H 131/59 95 06/22/21 04:00 97.6 F 67 14 137/58 93 06/22/21 03:45 67 12 135/56 92 06/22/21 03:30 74 15 150/64 92 06/22/21 03:15 71 29 H 155/60 94 06/22/21 03:00 75 14 154/66 93 06/22/21 02:45 73 13 167/72 92 06/22/21 02:30 73 13 161/72 93 06/22/21 02:21 90 179/75 06/22/21 02:15 89 16 192/79 94 06/22/21 02:00 90 16 146/67 96 06/22/21 01:45 75 22 146/67 94 06/22/21 01:30 72 14 148/63 94 06/22/21 01:15 72 15 151/65 93 06/22/21 01:03 70 151/64 06/22/21 01:00 70 19 151/64 98 06/22/21 00:46 71 15 156/67 93 06/22/21 00:30 66 32 H 135/62 94 06/22/21 00:15 68 32 H 150/66 92 06/22/21 00:00 68 14 145/64 92 06/21/21 23:45 71 12 153/65 95 06/21/21 23:30 66 10 L 148/63 95 06/21/21 23:15 65 10 L 148/66 95 06/21/21 23:03 62 11 L 145/65 99 06/21/21 23:00 63 12 145/65 96 06/21/21 22:48 63 32 H 148/63 99 06/21/21 22:45 63 23 147/66 95 06/21/21 22:42 69 14 157/65 99 06/21/21 22:30 67 9 L 148/63 94 06/21/21 22:16 73 10 L 151/66 96 06/21/21 22:01 70 140/61 06/21/21 22:00 69 14 140/61 95 06/21/21 21:51 67 136/58 06/21/21 21:45 68 16 136/58 95 06/21/21 21:30 70 14 137/59 95 06/21/21 21:15 69 15 138/58 94 06/21/21 21:03 89 29 H 100 06/21/21 21:00 83 13 168/70 96 06/21/21 20:45 73 10 L 148/60 95 06/21/21 20:37 86 162/65 96 06/21/21 20:30 80 15 162/65 97 06/21/21 20:15 70 21 138/59 96 06/21/21 20:00 97.6 F 89 11 L 180/73 97 06/21/21 19:45 79 12 157/65 96 06/21/21 18:30 70 19 152/68 96 06/21/21 18:29 71 157/70 06/21/21 18:15 68 17 157/70 95 - Physical Examination General: Other (Unresponsive, on the vent) HEENT: Positive: Other (Pupils fixed) Neck: Positive: neck supple Cardiac: Positive: Reg Rate and Rhythm Lungs: Positive: Decreased Breath Sounds Neuro: Positive: Other (Unresponsive, on the vent) Abdomen: Positive: Other (obese) Skin: Positive: Clear Extremities: Absent: edema - Labs and Meds Cardiac Enzymes 06/22/21 Range/Units Unknown AST 64 H (5-40) units/L CBC 06/22/21 Range/Units Unknown WBC 8.7 (4.5-11.0) K/mm3 RBC 3.89 (3.65-5.03) M/mm3 Hgb 9.2 L (10.1-14.3) gm/dl Hct 29.5 L D (30.3-42.9) % Plt Count 152 (140-440) K/mm3 Comprehensive Metabolic Panel 06/22/21 Range/Units Unknown Sodium 137 (137-145) mmol/L Potassium 4.4 (3.6-5.0) mmol/L Chloride 101.4 (98-107) mmol/L Carbon Dioxide 24 (22-30) mmol/L BUN 37 H (7-17) mg/dL Creatinine 1.0 (0.6-1.2) mg/dL Glucose 304 H (65-100) mg/dL Calcium 9.6 (8.4-10.2) mg/dL AST 64 H (5-40) units/L ALT 64 H (7-56) units/L Alkaline Phosphatase 103 (35-129) units/L Total Protein 6.2 L (6.3-8.2) g/dL Albumin 2.8 L (3.9-5) g/dL - Allied health notes Allied health notes reviewed: nursing
== END 2021-06-22 15:15 | disposition hospice, inpatient (51) | DRG 870 ==
LOC: ED 02:58 → SUATTDRO 02:58 → CC1 05:07
PROVIDERS: ADMIT Internal Medicine Geriatric Medicine; ATTEND Internal Medicine
PROC: 0BH17EZ Insertion of Endotracheal Airway into Trachea, Via Natural or Artificial Opening (ICD-10-PCS; principal; 2021-06-15)
PROC: 5A1955Z Respiratory Ventilation, Greater than 96 Consecutive Hours (ICD-10-PCS; 2021-06-15)
PROC: 5A12012 Performance of Cardiac Output, Single, Manual (ICD-10-PCS; 2021-06-15)
PROC: 4A033R1 Measurement of Arterial Saturation, Peripheral, Percutaneous Approach (ICD-10-PCS; 2021-06-16)
DX: A41.9 Sepsis, unspecified organism (principal); J18.9 Pneumonia, unspecified organism; I21.4 Non-ST elevation (NSTEMI) myocardial infarction; N17.0 Acute kidney failure with tubular necrosis; I46.9 Cardiac arrest, cause unspecified; J96.01 Acute respiratory failure with hypoxia; Z68.42 Body mass index [BMI] 45.0-49.9, adult; G93.1 Anoxic brain damage, not elsewhere classified; R65.20 Severe sepsis without septic shock; E11.22 Type 2 diabetes mellitus with diabetic chronic kidney disease; E11.65 Type 2 diabetes mellitus with hyperglycemia; I12.9 Hypertensive chronic kidney disease with stage 1 through stage 4 chronic kidney disease, or unspecified chronic kidney disease; J45.909 Unspecified asthma, uncomplicated; Z20.822 Contact with and (suspected) exposure to COVID-19; R56.9 Unspecified convulsions; N18.9 Chronic kidney disease, unspecified; R13.12 Dysphagia, oropharyngeal phase; M19.90 Unspecified osteoarthritis, unspecified site; E66.01 Morbid (severe) obesity due to excess calories; Z71.3 Dietary counseling and surveillance; Z90.710 Acquired absence of both cervix and uterus; Z91.040 Latex allergy status; Z91.013 Allergy to seafood
CPT/HCPCS: 31500; 36415; 36600; 70450; 71045; 71275; 76770; 78601; 80048; 80053; 80061; 81001; 82550; 82553; 82570; 82803; 82805; 82962; 83520; 83615; 83735; 84100; 84145; 84156; 84165; 84166; 84484; 85014; 85018; 85025; 85027; 85379; 85520; 85610; 85730; 86021; 86038; 86140; 86160; 86334; 86431; 86592; 86706; 86803; 86850; 86900; 86901; 87040; 87070; 87086; 87205; 93005; 93306; 93970; 94003; 95819; 96365; 96375; 99292; G0378; A9512; J0360; J0456; J0696; J1644; J1815; J1953; J2543; J2704; J3010; J3480; J7030; J7050; Q9967; U0003